=== PATIENT | female | born 1945 | race Caucasian/White ===

== ENCOUNTER 2018-02-18 14:28 | Emergency (ER) | payer OTHER, SELFPAY ==
[2018-02-18 14:38] VITALS: PULSE 145; RESP 17; TEMP 36.7; O2SAT 100; BMI 28.3
--- NOTE | 2018-02-18 14:38 | DI.RAD.S_ITS ---
PROCEDURE: XR CHEST 1V INDICATIONS: chest pain TECHNIQUE: One view of the chest was acquired. COMPARISON: None. FINDINGS: Surgical changes and devices: None. Lungs and pleura: No pleural effusions or pneumothorax. Lungs are abnormal with a mild interstitial prominence versus mild pulmonary edema. Mediastinum: Mediastinal contours appear normal. Heart size is at the upper limits of normal. Bones and chest wall: No suspicious bony lesions. Overlying soft tissues appear unremarkable. IMPRESSION: Heart size is at the upper limits of normal in size and there is a generalized alveolar prominence that may reflect very mild pulmonary edema but chronic interstitial prominence also could produce this appearance. Dictated by: Devon Palma M.D. on 02/18/2018 at 15:06 Approved by: Devon Palma M.D. on 02/18/2018 at 15:06
--- NOTE | 2018-02-18 14:46 | PC.NURSE ---
hx of bronchitis. Went to walk in for recheck of this and was found to have atrial fibrillation, new onset.
[2018-02-18 14:49] VITALS: BP 208/165; PULSE 117
[2018-02-18 15:05] VITALS: BP 147/93; PULSE 105; RESP 15; O2SAT 95
[2018-02-18 15:30] VITALS: BP 130/112; PULSE 131; RESP 20; O2SAT 99
[2018-02-18 15:38] LABS: Add Manual Diff / Slide Review NO; Basophils Percent Auto 2.6 % (0-2); Eosinophils Percent Auto 3.8 % (2-4); Hemoglobin 14.8 g/dL (12.0-16.0); Lymphocytes Percent Auto 15.9 % (25-40); Mean Corpuscular HGB Conc 32.8 % (30-36); Mean Corpuscular Hemoglobin 29.9 PG (26-34); Mean Corpuscular Volume 90.9 fL (80-100); Monocytes Percent Auto 10.9 % (3-14); Neutrophils Absolute Auto 5200 /uL (3000-5900); Neutrophils Percent Auto 66.8 % (50-75); Platelet Count 287 X10^3/uL (150-400); Red Blood Cell Count 4.95 X10^6/uL (4.0-5.2); Red Cell Distribution Width 14.5 % (11.6-14.8); White Blood Cell Count 7.8 X10^3/uL (4.5-11.0)
--- NOTE | 2018-02-18 15:43 | ED_ITS ---
HPI - Arrhythmia/Palpitations General Chief Complaint: Arrhythmia/Palpitations Stated Complaint: sob irregular heart rate Time Seen by Provider: 02/18/18 15:19 Source: patient and other (Walk-in clinic) Mode of arrival: ambulatory Limitations: no limitations History of Present Illness HPI narrative: This is a 72-year-old female comes to the emergency department with complaint of shortness of breath. Patient states that she had a cold or bronchitis 1-2 weeks ago. She was given an inhaler as well as some antibiotics which she took for a week. She states she had pretty severe cough which had productive sputum that was initially clear then brown and has returned to clear again after the antibiotics. No fevers recently. She is denying any chest pain. She denies any nausea or vomiting no new GI or urinary symptoms otherwise. Patient is denying any new urinary symptoms. She has not noticed any swelling in her lower extremities. She feels sometimes a little bit lightheaded but no presyncope or feeling like she needs to pass out. Patient has never been told she has atrial fibrillation. She denies any prior cardiac issues. She is not on any blood thinners currently. Related Data Home Medications Medication Instructions Recorded Confirmed [IBUPROFEN] PO PRN #0 11/10/12 02/18/18 Previous Rx's Medication Instructions Recorded amlodipine [Norvasc] 5 mg PO QDAY #90 tab 01/13/16 triamcinolone acetonide 1 genaro TOPICAL QDAY #454 gm 02/09/17 triamterene-hydrochlorothiazid 1 tab PO QDAY #30 tab 02/09/17 inhalational spacing device #1 each 02/08/18 ipratropium-albuterol 0.5 mg-3 3 ml INHALATION Q6-8H PRN #180 ml 02/08/18 mg(2.5 mg base)/3 mL nebulization soln diltiazem HCl [Cardizem CD] 120 mg PO DAILY #30 cap 02/18/18 Allergies Allergy/AdvReac Type Severity Reaction Status Date / Time atorvastatin [ATORVASTATIN] AdvReac Intermediate Nausea and Verified 02/18/18 13 :40 vomiting Review of Systems Review of Systems All systems reviewed & are unremarkable except as noted in HPI and below Constitutional Denies fatigue, Denies fever(s) and Denies weakness Cardiovascular Denies chest pain, Denies diaphoresis, Denies syncope, Denies rapid heart rate, Denies edema, Denies irregular heart rhythm, Denies lightheadedness, Denies radiating jaw, neck or arm pain, Denies palpitations, Reports dyspnea, Denies dyspnea on exertion and Denies orthopnea Respiratory Reports chest congestion, Reports cough, Reports excessive phlegm production ( Improving), Denies pain on inspiration, Reports dyspnea, Denies dyspnea on exertion and Denies wheezing Gastrointestinal Gastrointestinal: Denies abdominal pain, Denies change in bowel habits, Denies diarrhea, Denies nausea and Denies vomiting Genitourinary Denies hematuria, Denies flank pain, Denies urinary incontinence and Denies urinary urgency Neurologic Denies syncope and Denies weakness Endocrine Denies fatigue and Denies palpitations Allergic/Immunologic Denies wheezing PFSH Family History Brother Essential hypertension Hyperlipidemia Mother Heart disease Sister Essential hypertension Hyperlipidemia Social History Smoking Status: Former smoker Exam Narrative Exam Narrative: GENERAL: Alert and oriented x three, well-nourished, well- appearing female in no acute distress. HEENT: Head normocephalic, atraumatic, EOMI, pupils reactive, face symmetric, moist mucous membranes NECK: Supple, full range of motion CARDIOVASCULAR: Irregularly irregular rate and rhythm without murmurs, rubs or gallops. No JVD. No edema bilateral lower extremities. RESPIRATORY: Breath sounds equal bilaterally, no wheezes rales or rhonchi. ABDOMEN: Soft, nontender. Normoactive bowel sounds all 4 quadrants. No guarding or rebound, rigidity, no mass : No CVA tenderness EXTREMITIES: Normal range of motion, no clubbing or edema. Neurovascularly intact NEUROLOGICAL: Cranial nerves II through XII grossly intact. Moving all extremities SKIN: Warm, dry, no petechiae, no rashes or lesions. Initial Vital Signs Initial Vital Signs: Vital Signs Temperature 98.1 F 02/18/18 14:38 Pulse Rate 145 H 02/18/18 14:38 Respiratory Rate 17 02/18/18 14:38 Pulse Oximetry 100 02/18/18 14:38 Scores CHADS-VASc Congestive heart failure: no Hypertension: yes Age 75 years or older: no Diabetes mellitus: no Stroke, TIA, or TE: no Vascular disease: no Age 65 to 74 years: yes Sex category (female): Female CHADS-VASc Score: 3 Course Orders Ordered: ED Orders 02/18/18 14:38 XR chest 1V Stat EKG-12 Lead Stat 02/18/18 14:40 Complete Blood Count AUTO DIFF Stat Comprehensive Metabolic Panel Stat Lipase Stat Partial Thromboplastin Time Stat Prothrombin Time INR Stat Troponin & CK Cardiac Panel Stat Discontinued Medications Aspirin (Aspirin) 325 mg PO NOW ONE Stop: 02/18/18 17:14 Last Admin: 02/18/18 17:29 Dose: 325 mg Diltiazem HCl (Cardizem) 10 mg IV NOW ONE Stop: 02/18/18 16:11 Last Admin: 02/18/18 16:18 Dose: 10 mg Diltiazem HCl (Cardizem Cd) 120 mg PO NOW ONE Stop: 02/18/18 17:14 Last Admin: 02/18/18 17:29 Dose: 120 mg Sodium Chloride (Normal Saline 0.9%) 1,000 mls @ 1,000 mls/hr IV BOLUS ONE Stop: 02/18/18 17:09 Last Infusion: 02/18/18 17:33 Dose: 0 mls/hr Admin: 02/18/18 16:17 Dose: 1,000 mls/hr Vital Signs - 8 hr 02/18/18 14:38 02/18/18 14:49 02/18/18 15:05 Temperature 98.1 F Pulse Rate 145 H 117 H 105 H Respiratory Rate 17 15 Blood Pressure [Left Arm] 208/165 H 147/93 H Pulse Oximetry 100 95 02/18/18 15:30 02/18/18 17:15 Temperature Pulse Rate 131 H 79 Respiratory Rate 20 22 Blood Pressure [Left Arm] 130/112 H 133/84 Pulse Oximetry 99 97 MDM - Arrhythmia/Palpitations Lab Data Attestation: I reviewed the patient's lab results. Result diagrams: 02/18/18 14:40 02/18/18 14:40 Lab Results 02/18/18 02/18/18 02/18/18 Range/Units 14:40 14:40 14:40 WBC 7.8 (4.5-11.0) X10^3/uL RBC 4.95 (4.0-5.2) X10^6/uL Hgb 14.8 (12.0-16.0) g/dL Hct 45.0 (36-46) % MCV 90.9 (80-100) fL MCH 29.9 (26-34) PG MCHC 32.8 (30-36) % RDW 14.5 (11.6-14.8) % Plt Count 287 (150-400) X10^3/uL Neut % (Auto) 66.8 (50-75) % Lymph % (Auto) 15.9 L (25-40) % [place] % (Auto) 10.9 (3-14) % Eos % (Auto) 3.8 (2-4) % Baso % (Auto) 2.6 H (0-2) % Neut # (Auto) 5200 (4381-4935) /uL PT 11.9 (10.1-12.7) SECONDS INR 1.1 (0.9-1.3) APTT 27 (26.4-36.2) SECONDS Sodium 145 (137-145) mmol/L Potassium 3.9 (3.4-5.1) mmol/L Chloride 103 (98-107) mmol/L Carbon Dioxide 28 (22-32) mmol/L BUN 19 H (7-17) mg/dL Creatinine 1.00 (0.52-1.04) mg/dL Estimated GFR 54.7 L (>60) mL/min BUN/Creatinine Ratio 19.0 (6-22) Glucose 90 (80-110) mg/dL Calcium 9.3 (8.4-10.2) mg/dL Total Bilirubin 0.5 (0.2-1.3) mg/dL AST 22 (14-36) IU/L ALT 25 (9-52) IU/L Alkaline Phosphatase 75 (38-126) U/L Total Creatine Kinase 44 (30-135) U/L CK-MB (CK-2) TNP CK-MB (CK-2) Rel Index TNP Troponin I 0.030 (0.01-0.034) ng/mL Total Protein 7.6 (6.3-8.2) g/dL Albumin 4.4 (3.5-5.0) g/dL Globulin 3.2 (1.7-4.1) g/dL Albumin/Globulin Ratio 1.4 (1.0-2.8) Lipase 130 (23-300) U/L Urine Dip Bedside Urine Glucose Negative Bedside Urine Bilirubin - Negative Bedside Urine Ketone - Negative Urine Specific [place] 1.015 Bedside Urine Occult Blood - Negative Bedside Urine pH 6.0 Bedside Urine Protein - Negative Bedside Urine Urobilinogen - Negative Bedside Urine Nitrite - Negative Bedside Urine Leukocytes - Negative Esterase Imaging Data Chest x-ray: Attestation: I personally reviewed and interpreted this imaging study as follows: Radiologist's impression: [address] [address] XRay Report Signed Patient: Lisa Gurrola LMR#: [id number] : 7Acct:[id number] Age/Sex: 72 / FDate of Service: 02/18/18 Loc: ED Accession Number: [id number] Procedure: XR chest 1V Ordering Provider: Natalie Chaney D.O. PROCEDURE: XR CHEST 1V INDICATIONS: chest pain TECHNIQUE: One view of the chest was acquired. COMPARISON: None. FINDINGS: Surgical changes and devices: None. Lungs and pleura: No pleural effusions or pneumothorax. Lungs are abnormal with a mild interstitial prominence versus mild pulmonary edema. Mediastinum: Mediastinal contours appear normal. Heart size is at the upper limits of normal. Bones and chest wall: No suspicious bony lesions. Overlying soft tissues appear unremarkable. IMPRESSION: Heart size is at the upper limits of normal in size and there is a generalized alveolar prominence that may reflect very mild pulmonary edema but chronic interstitial prominence also could produce this appearance. Dictated by: Devon Palma M.D. on 02/18/2018 at 15:06 Approved by: Devon Palma M.D. on 02/18/2018 at 15:06 ECG Data Attestation: I personally reviewed and interpreted this ECG as follows: Interpretation: AFib rapid ventricular response rate of 120 [place] 96 and QTC of 386. Nonspecific T-wave changes. MDM Narrative Medical decision making narrative: Discussed with patient she was not aware that she had atrial fibrillation so she is not a candidate for cardioversion as it is unclear how long she has been in this rhythm. Her lab work does not show any major changes. Chest x-ray does not show any infection or other structural changes. EKG does show AFib with RVR. After discussion patient was given Cardizem which improved her right but did not resolve her rhythm. She would like to return home. She is fairly asymptomatic. We discussed starting her on oral medication for rate control. She and I also discussed at length anticoagulation options and risks versus benefits regarding stroke versus other bleeding. Patient does not wish to take Coumadin or a novel anticoagulant but is willing to take an aspirin 324 mg. She is aware that this is not fully anticoagulated status and that it does not improve her risk or decrease her risk of stroke to the level of the other medications. Plan for her to follow up on Tuesday with her primary care physician and they can also discuss anticoagulation as well as recheck her heart rate Um and make sure that she is not having any other issues. I discussed signs and symptoms to watch out for. The Cardizem can drop her blood pressure and that she should return any time she needs to the emergency department. Discharge Plan Departure Patient Disposition: Home Clinical Impression: Atrial fibrillation Discharge Date/Time: 02/18/18 17:42 Interventions: ED Discharge Assessment Last Done: 02/18/18 17:42 Instructions: DI for Atrial Fibrillation Activity Restrictions/Additional Instructions: Call Tuesday morning to follow up with your primary care physician. Discussed with your physician about blood thinners and risks of stroke versus is bleeding. Take Cardizem once daily until you follow up with your primary care physician. This medication can decrease your blood pressure. If you feel lightheaded or dizzy check your blood pressure. Do not take amlodipine with this medication. Taken aspirin 324 mg once daily. Discussed with your physician about Coumadin versus Pradaxa versus Eliquis and if these would potentially be an option for you if you elect to in the future. Return to the emergency department for recurrent or worsening symptoms, passing out, shortness of breath, new chest pain or pressure, fast or very slow heartbeat, new weakness or numbness or other new or concerning symptoms. Prescriptions: New diltiazem HCl [Cardizem CD] 120 mg capsule,extended release 24hr 120 mg PO DAILY Qty: 30 RF: 0 No Action inhalational spacing device [Microchamber] spacer .ROUTE .MEDSUPPLY Qty: 1 RF: 0 [IBUPROFEN] PO PRN Qty: 0 RF: 0 amlodipine [Norvasc] 5 MG tablet 5 mg PO QDAY Qty: 90 RF: 1 triamcinolone acetonide 0.1 % ointment 1 genaro Topical QDAY Qty: 454 RF: 0 triamterene-hydrochlorothiazid 37.5 MG/25 MG tablet 1 tab PO QDAY Qty: 30 RF: 3 ipratropium-albuterol 0.5 mg-3 mg(2.5 mg base)/3 mL solution for nebulization 3 ml INHALATION Q6-8H PRN (Reason: shortness of breath) Qty: 180 RF: 1 Referrals: Meli Sebastian PA-C [Primary Care Provider] -
[2018-02-18 15:53] LABS: INR 1.1 (0.9-1.3); Prothrombin Time 11.9 SECONDS (10.1-12.7)
[2018-02-18 15:55] LABS: PTT Partial Thromboplastin Tim 27 SECONDS (26.4-36.2)
[2018-02-18 15:56] LABS: Alanine Aminotransferase 25 IU/L (9-52); Albumin 4.4 g/dL (3.5-5.0); Albumin Globulin Ratio 1.4 (1.0-2.8); Alkaline Phosphatase 75 U/L (38-126); Aspartate Aminotransferase 22 IU/L (14-36); Bilirubin Total 0.5 mg/dL (0.2-1.3); Blood Urea Nitrogen 19 mg/dL (7-17); Calcium 9.3 mg/dL (8.4-10.2); Carbon Dioxide 28 mmol/L (22-32); Chloride 103 mmol/L (98-107); Creatine Kinase 44 U/L (30-135); Estimated Glomerular Filt Rate 54.7 mL/min (>60); Globulin 3.2 g/dL (1.7-4.1); Glucose 90 mg/dL (80-110); HEMOLYSIS < 15 (0-50); Lipase 130 U/L (23-300); Potassium 3.9 mmol/L (3.4-5.1); Sodium 145 mmol/L (137-145); Total Protein 7.6 g/dL (6.3-8.2)
[2018-02-18] MEDS: SODIUM CHLORIDE 0.9% 1,000 ML 1000 ML IV (16:17)
[2018-02-18] MEDS: dilTIAZem 5 MG/ML SDV 10 MG IV (16:18)
[2018-02-18 17:15] VITALS: BP 133/84; PULSE 79; RESP 22; O2SAT 97
[2018-02-18] MEDS: dilTIAZem CD 120 MG CAP PO (17:29)
[2018-02-18] MEDS: ASPIRIN 325 MG TABLET PO (17:29)
== END 2018-02-18 17:42 | disposition home or self-care (01) ==
PROVIDERS: Emergency Provider Emergency Medicine; PCP Physician Assistant
DX: I48.91 Unspecified atrial fibrillation (principal)
CPT/HCPCS: 36415; 36591; 71045; 80053; 81003; 82550; 83690; 84484; 85025; 85610; 85730; 93005; 93010; 96361; 96374; 99283; 99285

== ENCOUNTER 2018-07-05 13:28 | Inpatient (IN) | payer OTHER, SELFPAY ==
[2018-07-05] VITALS (23 sets, daily range): BP systolic 93–146; BP diastolic 61–106; PULSE 70–148; RESP 15–25; TEMP 36.9–38.3; O2SAT 89–99; BMI 26.6; BMI 29.9
--- NOTE | 2018-07-05 14:53 | ED.URI ---
HPI - URI/Sore Throat General Chief Complaint: Upper Respiratory Symptoms Stated Complaint: ACHE,DIFFICULTY BREATHING,COLD Time Seen by Provider: 07/05/18 14:50 Source: patient, family (Daughter) and old records reviewed Mode of arrival: ambulatory Limitations: no limitations History of Present Illness HPI Narrative: This a 72-year-old female who comes in with complaint of shortness of breath. Patient states this been going on for about 3 weeks she thought it was getting better but it is not. Her daughter made her come in today. Patient was reluctant to come into the ER. Patient and her family states she might have be reinfected as several family members have had bronchitis as well as a 13-year-old family member living in the house. She denied any fevers but felt chilled at home today and spent quite a while under the covers trying to get warm. She states maybe she had a little bit of chest pain or pressure but feels more like his shortness of breath. She has felt sort of weak but states she also has been eating anything for the last couple days. She has felt wobbly but no weakness that is lateralizing. She denies any syncope or lightheadedness. She has had a cough that is been clear for the last 3 or 4 days sort of brownish discoloration before. She has not been on any antibiotics or teen any physicians. She was supposed to go to her postie today but they were referred her to the ER. She has had a tiny amount of swelling in both lower extremities. She denies any palpitations or sensation that she is in AFib which she is on the monitor in the room. Patient is taking term work as a blood thinner, she is still discussing with her physician about any other blood thinners for her AFib. She is not taking any medications for rate control or other blood pressure medications at this time and ran out a couple weeks ago. She is taking Tumeric daily. Related Data Home Medications Medication Instructions Recorded Confirmed ibuprofen 1 dose PO DAILY #0 11/10/12 07/05/18 aspirin 81 mg PO DAILY 07/05/18 07/05/18 diltiazem HCl [Cartia XT] 180 mg PO DAILY 07/05/18 07/05/18 Previous Rx's Medication Instructions Recorded ipratropium-albuterol 0.5 mg-3 3 ml INHALATION Q6-8H PRN #180 ml 02/08/18 mg(2.5 mg base)/3 mL nebulization soln lisinopril 10 mg tablet 10 mg PO DAILY #90 tab 03/24/18 Allergies Allergy/AdvReac Type Severity Reaction Status Date / Time atorvastatin [ATORVASTATIN] AdvReac Intermediate Nausea and Verified 07/05/18 13:37 vomiting Review of Systems Review of Systems ROS Unobtainable: All systems reviewed & are unremarkable except as noted in HPI and below Constitutional Reports chills, Denies fever(s), Denies lethargy and Denies weakness ENT Ears, Nose, Mouth, and Throat: Reports nasal congestion Cardiovascular Denies chest pain, Denies diaphoresis, Denies syncope, Reports pedal edema (tiny amount), Denies irregular heart rhythm, Denies lightheadedness, Denies radiating jaw, neck or arm pain, Denies palpitations, Denies dyspnea, Reports dyspnea on exertion and Denies orthopnea Respiratory Reports change in phlegm color (now clear), Denies chest congestion, Reports cough, Denies pain on inspiration, Denies pain with cough, Denies dyspnea, Reports dyspnea on exertion and Denies wheezing Gastrointestinal Gastrointestinal: Denies abdominal pain, Denies change in bowel habits, Denies diarrhea, Denies nausea and Denies vomiting Genitourinary Denies hematuria, Denies urinary frequency, Denies dysuria, Denies flank pain, Denies urinary incontinence and Denies urinary urgency Neurologic Denies syncope and Denies weakness Endocrine Denies palpitations Allergic/Immunologic Denies wheezing [facility] Medical History AAA (abdominal aortic aneurysm) (Chronic ~2005) Arthritis of left hip (Chronic) Atrial fibrillation with RVR (Chronic 02/18/18) Fibromyalgia (Chronic) Hyperlipidemia (Chronic) Hypertension (Chronic) Osteopenia (Chronic 03/19/09) History of ectopic (Resolved 1975) Surgical History History of cone biopsy of cervix (Resolved 1991) History of gynecologic surgery (Resolved 1975) History of tubal ligation (Resolved 1977) Family History Brother Essential hypertension Hyperlipidemia Arthritis Heart disease Mother Heart disease Sister Essential hypertension Hyperlipidemia Breast cancer Diabetes mellitus Father Cancer Grandfather Cancer Grandmother Cancer Grandmother No problems noted. Social History Smoking Status: Former smoker Tobacco: How many years used: 30 second hand exposure: No alcohol intake: never substance use type: does not use Family History Brother Essential hypertension Hyperlipidemia Arthritis Heart disease Mother Heart disease Sister Essential hypertension Hyperlipidemia Breast cancer Diabetes mellitus Father Cancer Grandfather Cancer Grandmother Cancer Grandmother No problems noted. Social History Smoking Status: Former smoker Tobacco: How many years used: 30 second hand exposure: No alcohol intake: never substance use type: does not use Exam Narrative Exam Narrative: GEN: well nourished, well appearing female, alert and oriented x 3, patient appears to be in mild distress. HEENT: Atraumatic, pupils are equal round reactive to light, extraocular movements are intact, nares are clear, TMs are clear with no fluid, there is no conjunctival pallor. Throat is clear without any exudates, erythema, tonsillar enlargement or uvular deviation HEART: Irregularly irregular rhythm tachycardic without murmur, clicks, rubs. Pulses are equal in upper and lower extremities LUNGS:Lungs, coarse bilaterally, very mild wheeze anteriorly, not appreciated posteriorly, no rales, crackles, chest moves symmetrically. No tachypnea, no accessory muscle use. Patient speaks in full sentences. ABD:bowel sounds normal, soft, non-tender, no guarding, rebound, rigidity, no masses noted, no hepatosplenomegaly MSCL: Non-tender, no muscle atrophy, muscles strength 5/5 upper and lower extremities, full range of motion NEURO:CN 2-12 intact, sensation normal Initial Vital Signs Initial Vital Signs: Vital Signs Temperature 98.5 F 07/05/18 13:32 Pulse Rate 70 07/05/18 13:32 Respiratory Rate 18 07/05/18 13:32 Blood Pressure 146/69 H 07/05/18 13:32 Pulse Oximetry 95 07/05/18 13:32 Course Orders Ordered: ED Orders 07/05/18 14:53 Consult to Respiratory Therapy Evaluate & Treat XR chest 2V Stat 07/05/18 14:59 EKG-12 Lead Stat 07/05/18 15:05 B Type Natriuretic Peptide Stat Complete Blood Count AUTO DIFF Stat Comprehensive Metabolic Panel Stat FLU A and B [Influenza A and B by PCR Rapid] Stat Lactate (Lactic Acid) Stat PT [Prothrombin Time INR] Stat PTT [Partial Thromboplastin Time] Stat Troponin & CK Cardiac Panel Stat 07/05/18 18:45 Troponin & CK Cardiac Panel DAILY 07/06/18 05:00 Basic Metabolic Panel Routine Complete Blood Count AUTO DIFF Routine Thyroid Stimulating Hormone Routine Acetaminophen (Tylenol) 650 mg PO Q6HR PRN PRN Reason: As Needed for Fever/Mild Pain Albuterol/Ipratropium (Duoneb) 3 ml INH RTQ4HR PRN PRN Reason: Shortness Of Breath Aspirin (Aspirin Ec) 81 mg PO DAILY [facility] Diltiazem HCl 125 mg/ Dextrose 125 mls @ 5 mls/hr IV TITRATE [facility]; Protocol Last Titration: 07/05/18 18:23 Dose: 5 mg/hr, 5 mls/hr Admin: 07/05/18 16:56 Dose: 5 mg/hr, 5 mls/hr Heparin Sodium/Dextrose (Heparin Drip) 25,000 unit in 500 mls @ 17.418 mls/hr IV CONT [facility]; Protocol Last Infusion: 07/05/18 18:23 Dose: 13.78 units/kg/hr, 20 mls/hr Infusion: 07/05/18 18:23 Dose: 20 units/kg/hr, 29.03 mls/hr Admin: 07/05/18 17:48 Dose: 20 units/kg/hr, 29.03 mls/hr Morphine Sulfate (Morphine) 2 mg IV Q4HR PRN PRN Reason: Pain, Moderate (4-6) Oseltamivir Phosphate (Tamiflu) 75 mg PO BID [facility] Prednisone (Deltasone) 40 mg PO DAILY [facility] Discontinued Medications Albuterol/Ipratropium (Duoneb) 3 ml INH NOW ONE Stop: 07/05/18 15:12 Last Admin: 07/05/18 15:13 Dose: 3 ml Aspirin (Aspirin Chew) 324 mg PO NOW ONE Stop: 07/05/18 15:24 Last Admin: 07/05/18 15:29 Dose: 324 mg Diltiazem HCl (Cardizem) 10 mg IV NOW ONE Stop: 07/05/18 15:23 Last Admin: 07/05/18 15:28 Dose: 10 mg Heparin Sodium (Porcine) (Heparin) 5,000 unit IV NOW ONE Stop: 07/05/18 18:11 Last Admin: 07/05/18 18:11 Dose: 5,000 unit Vital Signs - 8 hr 07/05/18 13:32 07/05/18 15:00 07/05/18 15:07 Temperature 98.5 F Pulse Rate 70 144 H 142 H Respiratory Rate 18 23 22 Blood Pressure 146/69 H Blood Pressure [Left Arm] 120/92 H 105/71 Pulse Oximetry 95 98 07/05/18 15:13 07/05/18 15:28 07/05/18 15:30 Temperature Pulse Rate 124 H 148 H 134 H Respiratory Rate 24 22 Blood Pressure 120/92 H Blood Pressure [Left Arm] 125/106 H Pulse Oximetry 96 99 07/05/18 15:57 07/05/18 16:00 07/05/18 16:21 Temperature Pulse Rate 111 H 113 H Respiratory Rate 18 22 Blood Pressure Blood Pressure [Left Arm] 130/84 130/93 H Pulse Oximetry 93 94 89 L 07/05/18 16:22 07/05/18 16:34 07/05/18 16:44 Temperature Pulse Rate 108 H 122 H Respiratory Rate 17 24 Blood Pressure Blood Pressure [Left Arm] 116/68 116/68 Pulse Oximetry 92 97 94 07/05/18 16:56 07/05/18 17:00 07/05/18 17:15 Temperature Pulse Rate 114 H 121 H 115 H Respiratory Rate 21 20 19 Blood Pressure Blood Pressure [Left Arm] 108/75 93/73 119/77 Pulse Oximetry 97 98 99 07/05/18 17:36 07/05/18 17:45 07/05/18 18:00 Temperature Pulse Rate 114 H 108 H 110 H Respiratory Rate 18 25 H 18 Blood Pressure Blood Pressure [Left Arm] 129/84 126/106 H 129/86 Pulse Oximetry 98 97 97 07/05/18 18:15 Temperature Pulse Rate 110 H Respiratory Rate 22 Blood Pressure Blood Pressure [Left Arm] 118/61 Pulse Oximetry 97 MDM - URI/Sore Throat Lab Data Attestation: I reviewed the patient's lab results. Result diagrams: 07/05/18 15:05 07/05/18 15:05 Lab Results 07/05/18 07/05/18 07/05/18 Range/Units 15:05 15:05 15:05 WBC 6.4 (4.5-11.0) X10^3/uL RBC 5.21 H (4.0-5.2) X10^6/uL Hgb 15.5 (12.0-16.0) g/dL Hct 46.7 H (36-46) % MCV 89.6 (80-100) fL MCH 29.7 (26-34) PG MCHC 33.2 (30-36) % RDW 13.9 (11.6-14.8) % Plt Count 231 (150-400) X10^3/uL Neut % (Auto) 79.4 H (50-75) % Lymph % (Auto) 7.2 L (25-40) % Ferry % (Auto) 12.4 (3-14) % Eos % (Auto) 0.2 L (2-4) % Baso % (Auto) 0.8 (0-2) % Neut # (Auto) 5100 (9639-4531) /uL Lymph # (Auto) 500 L (2228-2504) /uL Ferry # (Auto) 800 (0-900) /uL Eos # (Auto) 0 (0-450) /uL Baso # (Auto) 100 (0-100) /uL PT (10.1-12.7) SECONDS INR (0.9-1.3) APTT (26.4-36.2) SECONDS Sodium 138 (137-145) mmol/L Potassium 3.7 (3.4-5.1) mmol/L Chloride 97 L (98-107) mmol/L Carbon Dioxide 29 (22-32) mmol/L BUN 20 H (7-17) mg/dL Creatinine 1.20 H (0.52-1.04) mg/dL Estimated GFR 44.3 L (>60) mL/min BUN/Creatinine Ratio 16.7 (6-22) Glucose 119 H (80-110) mg/dL Lactate 1.6 (0.7-2.1) mmol/L Calcium 9.4 (8.4-10.2) mg/dL Total Bilirubin 0.6 (0.2-1.3) mg/dL AST 29 (14-36) IU/L ALT 23 (9-52) IU/L Alkaline Phosphatase 73 (38-126) U/L Total Creatine Kinase (30-135) U/L CK-MB (CK-2) (<2.37) ng/mL CK-MB (CK-2) Rel Index (1.5-5.0) % Troponin I (0.01-0.034) ng/mL B-Natriuretic Peptide (<100) Total Protein 7.9 (6.3-8.2) g/dL Albumin 4.4 (3.5-5.0) g/dL Globulin 3.5 (1.7-4.1) g/dL Albumin/Globulin Ratio 1.3 (1.0-2.8) Influenza A & B (PCR) (Negative) 07/05/18 07/05/18 07/05/18 Range/Units 15:05 15:05 15:05 WBC (4.5-11.0) X10^3/uL RBC (4.0-5.2) X10^6/uL Hgb (12.0-16.0) g/dL Hct (36-46) % MCV (80-100) fL MCH (26-34) PG MCHC (30-36) % RDW (11.6-14.8) % Plt Count (150-400) X10^3/uL Neut % (Auto) (50-75) % Lymph % (Auto) (25-40) % Ferry % (Auto) (3-14) % Eos % (Auto) (2-4) % Baso % (Auto) (0-2) % Neut # (Auto) (2932-9739) /uL Lymph # (Auto) (0988-2454) /uL Ferry # (Auto) (0-900) /uL Eos # (Auto) (0-450) /uL Baso # (Auto) (0-100) /uL PT (10.1-12.7) SECONDS INR (0.9-1.3) APTT (26.4-36.2) SECONDS Sodium (137-145) mmol/L Potassium (3.4-5.1) mmol/L Chloride (98-107) mmol/L Carbon Dioxide (22-32) mmol/L BUN (7-17) mg/dL Creatinine (0.52-1.04) mg/dL Estimated GFR (>60) mL/min BUN/Creatinine Ratio (6-22) Glucose (80-110) mg/dL Lactate (0.7-2.1) mmol/L Calcium (8.4-10.2) mg/dL Total Bilirubin (0.2-1.3) mg/dL AST (14-36) IU/L ALT (9-52) IU/L Alkaline Phosphatase (38-126) U/L Total Creatine Kinase 103 (30-135) U/L CK-MB (CK-2) 2.97 H (<2.37) ng/mL CK-MB (CK-2) Rel Index 2.9 (1.5-5.0) % Troponin I 0.449 H* (0.01-0.034) ng/mL B-Natriuretic Peptide 435 H (<100) Total Protein (6.3-8.2) g/dL Albumin (3.5-5.0) g/dL Globulin (1.7-4.1) g/dL Albumin/Globulin Ratio (1.0-2.8) Influenza A & B (PCR) Positive, type a A (Negative) 07/05/18 Range/Units 15:05 WBC (4.5-11.0) X10^3/uL RBC (4.0-5.2) X10^6/uL Hgb (12.0-16.0) g/dL Hct (36-46) % MCV (80-100) fL MCH (26-34) PG MCHC (30-36) % RDW (11.6-14.8) % Plt Count (150-400) X10^3/uL Neut % (Auto) (50-75) % Lymph % (Auto) (25-40) % Ferry % (Auto) (3-14) % Eos % (Auto) (2-4) % Baso % (Auto) (0-2) % Neut # (Auto) (0774-3418) /uL Lymph # (Auto) (7005-5903) /uL Ferry # (Auto) (0-900) /uL Eos # (Auto) (0-450) /uL Baso # (Auto) (0-100) /uL PT 13.4 H (10.1-12.7) SECONDS INR 1.2 (0.9-1.3) APTT 32 D (26.4-36.2) SECONDS Sodium (137-145) mmol/L Potassium (3.4-5.1) mmol/L Chloride (98-107) mmol/L Carbon Dioxide (22-32) mmol/L BUN (7-17) mg/dL Creatinine (0.52-1.04) mg/dL Estimated GFR (>60) mL/min BUN/Creatinine Ratio (6-22) Glucose (80-110) mg/dL Lactate (0.7-2.1) mmol/L Calcium (8.4-10.2) mg/dL Total Bilirubin (0.2-1.3) mg/dL AST (14-36) IU/L ALT (9-52) IU/L Alkaline Phosphatase (38-126) U/L Total Creatine Kinase (30-135) U/L CK-MB (CK-2) (<2.37) ng/mL CK-MB (CK-2) Rel Index (1.5-5.0) % Troponin I (0.01-0.034) ng/mL B-Natriuretic Peptide (<100) Total Protein (6.3-8.2) g/dL Albumin (3.5-5.0) g/dL Globulin (1.7-4.1) g/dL Albumin/Globulin Ratio (1.0-2.8) Influenza A & B (PCR) (Negative) Imaging Data Chest x-ray: Radiologist's impression: Lisa Gurrola 72 F 1945 [place] [address] XRay Report Signed Patient: Lisa Gurrola LMR#: [id number] : [id number]:[id number] Age/Sex: 72 / FDate of Service: 07/05/18 Loc: ED Accession Number: [id number] Procedure: XR chest 2V Ordering Provider: Natalie Chaney D.O. PROCEDURE: XR CHEST 2V INDICATIONS: shortness of breath TECHNIQUE: 2 views of the chest were acquired. COMPARISON: [facility], , XR CHEST 1V, 02/18/2018, 14:44. FINDINGS: Surgical changes and devices: None. Lungs and pleura: Increased vascular markings and bilateral hilar region are seen with mild bronchial wall thickening suggestive of mild reactive airway disease. No focal infiltrate. No pleural effusions or pneumothorax. Mediastinum: Mediastinal contours are normal. Heart size is enlarged. Bones and chest wall: No suspicious bony abnormalities. Soft tissues appear unremarkable. IMPRESSION: Suggestion of mild reactive airway disease. No definite focal infiltrate. Dictated by: Nolan Thomson M.D. on 07/05/2018 at 16:11 Approved by: Nolan Thomson M.D. on 07/05/2018 at 16:12 ECG Data Attestation: I personally reviewed and interpreted this ECG as follows: Prior ECG tracings: available for review Interpretation: AFib with rapid ventricular response with a rate of 135 QRS of 93 and QTC of 389. Patient has ST depression in lateral leads. No elevations appreciated. Nonspecific T-wave changes. The patient has a prior EKG from January of 2018 it appears similar except for ST changes in V4 V5 V6. MDM Narrative Medical decision making narrative: Patient is influenza positive suspect this is new as she is unlikely to be positive after 3 weeks of symptoms. patient's chest x-ray is negative for pneumonia or pulmonary edema or other acute changes. CV she shows normal white count no anemia. CMP shows a slightly decreased chloride as well as elevation in BUN and creatinine. Patient states she has been eating or drinking much for the last several days. she also has an elevation of her CK-MB as well as her troponin at 0.449. On her last visit in January she was 0.030. Her BMP is elevated today at 4:35 a.m. although no priors for comparison. Patient is in AFib with rapid ventricular response. Heart rate did improve with a single dose of Cardizem 10 mg that is slowly increasing again. Patient did receive a breathing treatment which she states did make her feel much better and that she could breathe a lot easier. Her resisted resolved but she was not particularly wheezy on examination. It is unclear if patient has NSTEMI with elevated troponin and ST depression in lateral leads is secondary to coronary artery disease or possibly demand ischemia from AFib with RVR in conjunction with her recent flu diagnosis reviewed with Dr. Tinoco and they suspect demand ischemia. At this time they do not feel she needs to be transferred as she is chest pain-free and her shortness of breath improved with breathing treatment but recommend serial troponins. If they are rising mother's other new changes they would recommend transfer. We did discuss anticoagulation and recommend heparin drip over Lovenox at this time in case patient does have increasing troponins and would need intervention. Discussed with Dr. Dominguez she accepts plan for ICU was patient is on Cardizem currently for rate control as well as heparin drip. Dr. Dominguez accepts. Discharge Plan Departure Patient Disposition: Admitted As Inpatient Clinical Impression: Atrial fibrillation with rapid ventricular response, Non-ST elevation VA (NSTEMI), Influenza A, CHF (congestive heart failure) Discharge Date/Time: 07/05/18 18:25 Interventions: ED Discharge Assessment Last Done: 07/05/18 18:21 Admit Date/Time: 07/05/18 17:22 Admit Provider: Carlie Dominguez
--- NOTE | 2018-07-05 14:56 | ED_ITS ---
HPI - URI/Sore Throat General Chief Complaint: Upper Respiratory Symptoms Stated Complaint: ACHE,DIFFICULTY BREATHING,COLD Time Seen by Provider: 07/05/18 14:50 Source: patient, family (Daughter) and old records reviewed Mode of arrival: ambulatory Limitations: no limitations History of Present Illness HPI Narrative: This a 72-year-old female who comes in with complaint of shortness of breath. Patient states this been going on for about 3 weeks she thought it was getting better but it is not. Her daughter made her come in today. Patient was reluctant to come into the ER. Patient and her family states she might have be reinfected as several family members have had bronchitis as well as a 13-year-old family member living in the house. She denied any fevers but felt chilled at home today and spent quite a while under the covers trying to get warm. She states maybe she had a little bit of chest pain or pressure but feels more like his shortness of breath. She has felt sort of weak but states she also has been eating anything for the last couple days. She has felt wobbly but no weakness that is lateralizing. She denies any syncope or lightheadedness. She has had a cough that is been clear for the last 3 or 4 days sort of brownish discoloration before. She has not been on any antibiotics or teen any physicians. She was supposed to go to her eye technician today but they were referred her to the ER. She has had a tiny amount of swelling in both lower extremities. She denies any palpitations or sensation that she is in AFib which she is on the monitor in the room. Patient is taking term work as a blood thinner, she is still discussing with her physician about any other blood thinners for her AFib. She is not taking any medications for rate control or other blood pressure medications at this time and ran out a couple weeks ago. She is taking Tumeric daily. Related Data Home Medications Medication Instructions Recorded Confirmed ibuprofen 1 dose PO DAILY #0 11/10/12 07/05/18 aspirin 81 mg PO DAILY 07/05/18 07/05/18 diltiazem HCl [Cartia XT] 180 mg PO DAILY 07/05/18 07/05/18 Previous Rx's Medication Instructions Recorded ipratropium-albuterol 0.5 mg-3 3 ml INHALATION Q6-8H PRN #180 ml 02/08/18 mg(2.5 mg base)/3 mL nebulization soln lisinopril 10 mg tablet 10 mg PO DAILY #90 tab 03/24/18 Allergies Allergy/AdvReac Type Severity Reaction Status Date / Time atorvastatin [ATORVASTATIN] AdvReac Intermediate Nausea and Verified 07/05/18 13:37 vomiting Review of Systems Review of Systems ROS Unobtainable: All systems reviewed & are unremarkable except as noted in HPI and below Constitutional Reports chills, Denies fever(s), Denies lethargy and Denies weakness ENT Ears, Nose, Mouth, and Throat: Reports nasal congestion Cardiovascular Denies chest pain, Denies diaphoresis, Denies syncope, Reports pedal edema (tiny amount), Denies irregular heart rhythm, Denies lightheadedness, Denies radiating jaw, neck or arm pain, Denies palpitations, Denies dyspnea, Reports dyspnea on exertion and Denies orthopnea Respiratory Reports change in phlegm color (now clear), Denies chest congestion, Reports cough, Denies pain on inspiration, Denies pain with cough, Denies dyspnea, Reports dyspnea on exertion and Denies wheezing Gastrointestinal Gastrointestinal: Denies abdominal pain, Denies change in bowel habits, Denies diarrhea, Denies nausea and Denies vomiting Genitourinary Denies hematuria, Denies urinary frequency, Denies dysuria, Denies flank pain, Denies urinary incontinence and Denies urinary urgency Neurologic Denies syncope and Denies weakness Endocrine Denies palpitations Allergic/Immunologic Denies wheezing [facility] Medical History AAA (abdominal aortic aneurysm) (Chronic ~2005) Arthritis of left hip (Chronic) Atrial fibrillation with RVR (Chronic 02/18/18) Fibromyalgia (Chronic) Hyperlipidemia (Chronic) Hypertension (Chronic) Osteopenia (Chronic 03/19/09) History of ectopic (Resolved 1975) Surgical History History of cone biopsy of cervix (Resolved 1991) History of gynecologic surgery (Resolved 1975) History of tubal ligation (Resolved 1977) Family History Brother Essential hypertension Hyperlipidemia Arthritis Heart disease Mother Heart disease Sister Essential hypertension Hyperlipidemia Breast cancer Diabetes mellitus Father Cancer Grandfather Cancer Grandmother Cancer Grandmother No problems noted. Social History Smoking Status: Former smoker Tobacco: How many years used: 30 second hand exposure: No alcohol intake: never substance use type: does not use Family History Brother Essential hypertension Hyperlipidemia Arthritis Heart disease Mother Heart disease Sister Essential hypertension Hyperlipidemia Breast cancer Diabetes mellitus Father Cancer Grandfather Cancer Grandmother Cancer Grandmother No problems noted. Social History Smoking Status: Former smoker Tobacco: How many years used: 30 second hand exposure: No alcohol intake: never substance use type: does not use Exam Narrative Exam Narrative: GEN: well nourished, well appearing female, alert and oriented x 3, patient appears to be in mild distress. HEENT: Atraumatic, pupils are equal round reactive to light, extraocular mo vements are intact, nares are clear, TMs are clear with no fluid, there is no conjunctival pallor. Throat is clear without any exudates, erythema, tonsillar enlargement or uvular deviation HEART: Irregularly irregular rhythm tachycardic without murmur, clicks, rubs. Pulses are equal in upper and lower extremities LUNGS:Lungs, coarse bilaterally, very mild wheeze anteriorly, not appreciated posteriorly, no rales, crackles, chest moves symmetrically. No tachypnea, no accessory muscle use. Patient speaks in full sentences. ABD:bowel sounds normal, soft, non-tender, no guarding, rebound, rigidity, no masses noted, no hepatosplenomegaly MSCL: Non-tender, no muscle atrophy, muscles strength 5/5 upper and lower extremities, full range of motion NEURO:CN 2-12 intact, sensation normal Initial Vital Signs Initial Vital Signs: Vital Signs Temperature 98.5 F 07/05/18 13:32 Pulse Rate 70 07/05/18 13:32 Respiratory Rate 18 07/05/18 13:32 Blood Pressure 146/69 H 07/05/18 13:32 Pulse Oximetry 95 07/05/18 13:32 Course Orders Ordered: ED Orders 07/05/18 14:53 Consult to Respiratory Therapy Evaluate & Treat XR chest 2V Stat 07/05/18 14:59 EKG-12 Lead Stat 07/05/18 15:05 B Type Natriuretic Peptide Stat Complete Blood Count AUTO DIFF Stat Comprehensive Metabolic Panel Stat FLU A and B [Influenza A and B by PCR Rapid] Stat Lactate (Lactic Acid) Stat PT [Prothrombin Time INR] Stat PTT [Partial Thromboplastin Time] Stat Troponin & CK Cardiac Panel Stat 07/05/18 18:45 Troponin & CK Cardiac Panel DAILY 07/06/18 05:00 Basic Metabolic Panel Routine Complete Blood Count AUTO DIFF Routine Thyroid Stimulating Hormone Routine Acetaminophen (Tylenol) 650 mg PO Q6HR PRN PRN Reason: As Needed for Fever/Mild Pain Albuterol/Ipratropium (Duoneb) 3 ml INH RTQ4HR PRN PRN Reason: Shortness Of Breath Aspirin (Aspirin Ec) 81 mg PO DAILY R[place] Diltiazem HCl 125 mg/ Dextrose 125 mls @ 5 mls/hr IV TITRATE [place]; Protocol Last Titration: 07/05/18 18:23 Dose: 5 mg/hr, 5 mls/hr Admin: 07/05/18 16:56 Dose: 5 mg/hr, 5 mls/hr Heparin Sodium/Dextrose (Heparin Drip) 25,000 unit in 500 mls @ 17.418 mls/hr IV CONT R[place]D; Protocol Last Infusion: 07/05/18 18:23 Dose: 13.78 units/kg/hr, 20 mls/hr Infusion: 07/05/18 18:23 Dose: 20 units/kg/hr, 29.03 mls/hr Admin: 07/05/18 17:48 Dose: 20 units/kg/hr, 29.03 mls/hr Morphine Sulfate (Morphine) 2 mg IV Q4HR PRN PRN Reason: Pain, Moderate (4-6) Oseltamivir Phosphate (Tamiflu) 75 mg PO BID R[place] Prednisone (Deltasone) 40 mg PO DAILY R[facility] Discontinued Medications Albuterol/Ipratropium (Duoneb) 3 ml INH NOW ONE Stop: 07/05/18 15:12 Last Admin: 07/05/18 15:13 Dose: 3 ml Aspirin (Aspirin Chew) 324 mg PO NOW ONE Stop: 07/05/18 15:24 Last Admin: 07/05/18 15:29 Dose: 324 mg Diltiazem HCl (Cardizem) 10 mg IV NOW ONE Stop: 07/05/18 15:23 Last Admin: 07/05/18 15:28 Dose: 10 mg Heparin Sodium (Porcine) (Heparin) 5,000 unit IV NOW ONE Stop: 07/05/18 18:11 Last Admin: 07/05/18 18:11 Dose: 5,000 unit Vital Signs - 8 hr 07/05/18 13:32 07/05/18 15:00 07/05/18 15:07 Temperature 98.5 F Pulse Rate 70 144 H 142 H Respiratory Rate 18 23 22 Blood Pressure 146/69 H Blood Pressure [Left Arm] 120/92 H 105/71 Pulse Oximetry 95 98 07/05/18 15:13 07/05/18 15:28 07/05/18 15:30 Temperature Pulse Rate 124 H 148 H 134 H Respiratory Rate 24 22 Blood Pressure 120/92 H Blood Pressure [Left Arm] 125/106 H Pulse Oximetry 96 99 07/05/18 15:57 07/05/18 16:00 07/05/18 16:21 Temperature Pulse Rate 111 H 113 H Respiratory Rate 18 22 Blood Pressure Blood Pressure [Left Arm] 130/84 130/93 H Pulse Oximetry 93 94 89 L 07/05/18 16:22 07/05/18 16:34 07/05/18 16:44 Temperature Pulse Rate 108 H 122 H Respiratory Rate 17 24 Blood Pressure Blood Pressure [Left Arm] 116/68 116/68 Pulse Oximetry 92 97 94 07/05/18 16:56 07/05/18 17:00 07/05/18 17:15 Temperature Pulse Rate 114 H 121 H 115 H Respiratory Rate 21 20 19 Blood Pressure Blood Pressure [Left Arm] 108/75 93/73 119/77 Pulse Oximetry 97 98 99 07/05/18 17:36 07/05/18 17:45 07/05/18 18:00 Temperature Pulse Rate 114 H 108 H 110 H Respiratory Rate 18 25 H 18 Blood Pressure Blood Pressure [Left Arm] 129/84 126/106 H 129/86 Pulse Oximetry 98 97 97 07/05/18 18:15 Temperature Pulse Rate 110 H Respiratory Rate 22 Blood Pressure Blood Pressure [Left Arm] 118/61 Pulse Oximetry 97 MDM - URI/Sore Throat Lab Data Attestation: I reviewed the patient's lab results. Result diagrams: 07/05/18 15:05 07/05/18 15:05 Lab Results 07/05/18 07/05/18 07/05/18 Range/Units 15:05 15:05 15:05 WBC 6.4 (4.5-11.0) X10^3/uL RBC 5.21 H (4.0-5.2) X10^6/uL Hgb 15.5 (12.0-16.0) g/dL Hct 46.7 H (36-46) % MCV 89.6 (80-100) fL MCH 29.7 (26-34) PG MCHC 33.2 (30-36) % RDW 13.9 (11.6-14.8) % Plt Count 231 (150-400) X10^3/uL Neut % (Auto) 79.4 H (50-75) % Lymph % (Auto) 7.2 L (25-40) % [place] % (Auto) 12.4 (3-14) % Eos % (Auto) 0.2 L (2-4) % Baso % (Auto) 0.8 (0-2) % Neut # (Auto) 5100 (1181-4464) /uL Lymph # (Auto) 500 L (6956-4640) /uL [place] # (Auto) 800 (0-900) /uL Eos # (Auto) 0 (0-450) /uL Baso # (Auto) 100 (0-100) /uL PT (10.1-12.7) SECONDS INR (0.9-1.3) APTT (26.4-36.2) SECONDS Sodium 138 (137-145) mmol/L Potassium 3.7 (3.4-5.1) mmol/L Chloride 97 L (98-107) mmol/L Carbon Dioxide 29 (22-32) mmol/L BUN 20 H (7-17) mg/dL Creatinine 1.20 H (0.52-1.04) mg/dL Estimated GFR 44.3 L (>60) mL/min BUN/Creatinine Ratio 16.7 (6-22) Glucose 119 H (80-110) mg/dL Lactate 1.6 (0.7-2.1) mmol/L Calcium 9.4 (8.4-10.2) mg/dL Total Bilirubin 0.6 (0.2-1.3) mg/dL AST 29 (14-36) IU/L ALT 23 (9-52) IU/L Alkaline Phosphatase 73 (38-126) U/L Total Creatine Kinase (30-135) U/L CK-MB (CK-2) (<2.37) ng/mL CK-MB (CK-2) Rel Index (1.5-5.0) % Troponin I (0.01-0.034) ng/mL B-Natriuretic Peptide (<100) Total Protein 7.9 (6.3-8.2) g/dL Albumin 4.4 (3.5-5.0) g/dL Globulin 3.5 (1.7-4.1) g/dL Albumin/Globulin Ratio 1.3 (1.0-2.8) Influenza A & B (PCR) (Negative) 07/05/18 07/05/18 07/05/18 Range/Units 15:05 15:05 15:05 WBC (4.5-11.0) X10^3/uL RBC (4.0-5.2) X10^6/uL Hgb (12.0-16.0) g/dL Hct (36-46) % MCV (80-100) fL MCH (26-34) PG MCHC (30-36) % RDW (11.6-14.8) % Plt Count (150-400) X10^3/uL Neut % (Auto) (50-75) % Lymph % (Auto) (25-40) % [place] % (Auto) (3-14) % Eos % (Auto) (2-4) % Baso % (Auto) (0-2) % Neut # (Auto) (2566-9793) /uL Lymph # (Auto) (8610-3064) /uL [place] # (Auto) (0-900) /uL Eos # (Auto) (0-450) /uL Baso # (Auto) (0-100) /uL PT (10.1-12.7) SECONDS INR (0.9-1.3) APTT (26.4-36.2) SECONDS Sodium (137-145) mmol/L Potassium (3.4-5.1) mmol/L Chloride (98-107) mmol/L Carbon Dioxide (22-32) mmol/L BUN (7-17) mg/dL Creatinine (0.52-1.04) mg/dL Estimated GFR (>60) mL/min BUN/Creatinine Ratio (6-22) Glucose (80-110) mg/dL Lactate (0.7-2.1) mmol/L Calcium (8.4-10.2) mg/dL Total Bilirubin (0.2-1.3) mg/dL AST (14-36) IU/L ALT (9-52) IU/L Alkaline Phosphatase (38-126) U/L Total Creatine Kinase 103 (30-135) U/L CK-MB (CK-2) 2.97 H (<2.37) ng/mL CK-MB (CK-2) Rel Index 2.9 (1.5-5.0) % Troponin I 0.449 H* (0.01-0.034) ng/mL B-Natriuretic Peptide 435 H (<100) Total Protein (6.3-8.2) g/dL Albumin (3.5-5.0) g/dL Globulin (1.7-4.1) g/dL Albumin/Globulin Ratio (1.0-2.8) Influenza A & B (PCR) Positive, type a A (Negative) 07/05/18 Range/Units 15:05 WBC (4.5-11.0) X10^3/uL RBC (4.0-5.2) X10^6/uL Hgb (12.0-16.0) g/dL Hct (36-46) % MCV (80-100) fL MCH (26-34) PG MCHC (30-36) % RDW (11.6-14.8) % Plt Count (150-400) X10^3/uL Neut % (Auto) (50-75) % Lymph % (Auto) (25-40) % [place] % (Auto) (3-14) % Eos % (Auto) (2-4) % Baso % (Auto) (0-2) % Neut # (Auto) (1221-6458) /uL Lymph # (Auto) (3994-9882) /uL [place] # (Auto) (0-900) /uL Eos # (Auto) (0-450) /uL Baso # (Auto) (0-100) /uL PT 13.4 H (10.1-12.7) SECONDS INR 1.2 (0.9-1.3) APTT 32 D (26.4-36.2) SECONDS Sodium (137-145) mmol/L Potassium (3.4-5.1) mmol/L Chloride (98-107) mmol/L Carbon Dioxide (22-32) mmol/L BUN (7-17) mg/dL Creatinine (0.52-1.04) mg/dL Estimated GFR (>60) mL/min BUN/Creatinine Ratio (6-22) Glucose (80-110) mg/dL Lactate (0.7-2.1) mmol/L Calcium (8.4-10.2) mg/dL Total Bilirubin (0.2-1.3) mg/dL AST (14-36) IU/L ALT (9-52) IU/L Alkaline Phosphatase (38-126) U/L Total Creatine Kinase (30-135) U/L CK-MB (CK-2) (<2.37) ng/mL CK-MB (CK-2) Rel Index (1.5-5.0) % Troponin I (0.01-0.034) ng/mL B-Natriuretic Peptide (<100) Total Protein (6.3-8.2) g/dL Albumin (3.5-5.0) g/dL Globulin (1.7-4.1) g/dL Albumin/Globulin Ratio (1.0-2.8) Influenza A & B (PCR) (Negative) Imaging Data Chest x-ray: Radiologist's impression: Lisa Gurrola 72 F 1945 [place] [address] XRay Report Signed Patient: Lisa Gurrola LMR#: [id number] : [id number]:[id number] Age/Sex: 72 / FDate of Service: 07/05/18 Loc: ED Accession Number: [id number] Procedure: XR chest 2V Ordering Provider: Natalie Chaney D.O. PROCEDURE: XR CHEST 2V INDICATIONS: shortness of breath TECHNIQUE: 2 views of the chest were acquired. COMPARISON: [facility], , XR CHEST 1V, 02/18/2018, 14:44. FINDINGS: Surgical changes and devices: None. Lungs and pleura: Increased vascular markings and bilateral hilar region are seen with mild bronchial wall thickening suggestive of mild reactive airway disease. No focal infiltrate. No pleural effusions or pneumothorax. Mediastinum: Mediastinal contours are normal. Heart size is enlarged. Bones and chest wall: No suspicious bony abnormalities. Soft tissues appear unremarkable. IMPRESSION: Suggestion of mild reactive airway disease. No definite focal infiltrate. Dictated by: Nolan Thomson M.D. on 07/05/2018 at 16:11 Approved by: Nolan Thomson M.D. on 07/05/2018 at 16:12 ECG Data Attestation: I personally reviewed and interpreted this ECG as follows: Prior ECG tracings: available for review Interpretation: AFib with rapid ventricular response with a rate of 135 QRS of 93 and QTC of 389. Patient has ST depression in lateral leads. No elevations appreciated. Nonspecific T-wave changes. The patient has a prior EKG from January of 2018 it appears similar except for ST changes in V4 V5 V6. MDM Narrative Medical decision making narrative: Patient is influenza positive suspect this is new as she is unlikely to be positive after 3 weeks of symptoms. patient's chest x-ray is negative for pneumonia or pulmonary edema or other acute changes. CV she shows normal white count no anemia. CMP shows a slightly decreased chloride as well as elevation in BUN and creatinine. Patient states she has been eating or drinking much for the last several days. she also has an elevation of her CK-MB as well as her troponin at 0.449. On her last visit in January she was 0.030. Her BMP is elevated today at 4:35 a.m. although no priors for comparison. Patient is in AFib with rapid ventricular response. H eart rate did improve with a single dose of Cardizem 10 mg that is slowly increasing again. Patient did receive a breathing treatment which she states did make her feel much better and that she could breathe a lot easier. Her resisted resolved but she was not particularly wheezy on examination. It is unclear if patient has NSTEMI with elevated troponin and ST depression in lateral leads is secondary to coronary artery disease or possibly demand ischemia from AFib with RVR in conjunction with her recent flu diagnosis reviewed with Dr. Tinoco and they suspect demand ischemia. At this time they do not feel she needs to be transferred as she is chest pain-free and her shortness of breath improved with breathing treatment but recommend serial troponins. If they are rising mother's other new changes they would recommend transfer. We did discuss anticoagulation and recommend heparin drip over Lovenox at this time in case patient does have increasing troponins and would need intervention. Discussed with Dr. Dominguez she accepts plan for ICU was patient is on Cardizem currently for rate control as well as heparin drip. Dr. Dominguez accepts. Discharge Plan Departure Patient Disposition: Admitted As Inpatient Clinical Impression: Atrial fibrillation with rapid ventricular response, Non-ST elevation [place] (NSTEMI), Influenza A, CHF (congestive heart failure) Discharge Date/Time: 07/05/18 18:25 Interventions: ED Discharge Assessment Last Done: 07/05/18 18:21 Admit Date/Time: 07/05/18 17:22 Admit Provider: Carlie Dominguez
--- NOTE | 2018-07-05 15:09 | PC.NURSE ---
pt reports sick for 3 weeks, coughing, difficulty with breathing with exertion, bodyaches, denies fever, denies vomiting or diarrhea. pt has used inhaler and nebulizer and without relief. at this time still has dyspneic on exertion, body ache, denies chest pain. denies oxygen at home. has been using otc tussin dm. hx of afib
[2018-07-05] MEDS: ALBUTEROL/IPRATROPIUM 3 ML AMPUL INH (15:13)
[2018-07-05 15:28] LABS: Add Manual Diff / Slide Review NO; Basophils Absolute Auto 100 /uL (0-100); Basophils Percent Auto 0.8 % (0-2); Eosinophils Absolute Auto 0 /uL (0-450); Eosinophils Percent Auto 0.2 % (2-4); Hematocrit 46.7 % (36-46); Hemoglobin 15.5 g/dL (12.0-16.0); Lymphocytes Absolute Auto 500 /uL (1100-4500); Lymphocytes Percent Auto 7.2 % (25-40); Mean Corpuscular HGB Conc 33.2 % (30-36); Mean Corpuscular Hemoglobin 29.7 PG (26-34); Mean Corpuscular Volume 89.6 fL (80-100); Monocytes Absolute Auto 800 /uL (0-900); Monocytes Percent Auto 12.4 % (3-14); Neutrophils Absolute Auto 5100 /uL (1500-7000); Neutrophils Percent Auto 79.4 % (50-75); Platelet Count 231 X10^3/uL (150-400); Red Blood Cell Count 5.21 X10^6/uL (4.0-5.2); Red Cell Distribution Width 13.9 % (11.6-14.8); White Blood Cell Count 6.4 X10^3/uL (4.5-11.0)
[2018-07-05] MEDS: dilTIAZem 5 MG/ML SDV 10 MG IV (15:28)
[2018-07-05] MEDS: ASPIRIN 81 MG TAB 324 MG PO (15:29)
[2018-07-05 15:48] LABS: Creatine Kinase 103 U/L (30-135); Lactate (Lactic Acid) 1.6 mmol/L (0.7-2.1)
[2018-07-05 15:49] LABS: Alanine Aminotransferase 23 IU/L (9-52); Albumin 4.4 g/dL (3.5-5.0); Albumin Globulin Ratio 1.3 (1.0-2.8); Alkaline Phosphatase 73 U/L (38-126); Aspartate Aminotransferase 29 IU/L (14-36); BUN Creatinine Ratio 16.7 (6-22); Bilirubin Total 0.6 mg/dL (0.2-1.3); Blood Urea Nitrogen 20 mg/dL (7-17); Calcium 9.4 mg/dL (8.4-10.2); Carbon Dioxide 29 mmol/L (22-32); Chloride 97 mmol/L (98-107); Estimated Glomerular Filt Rate 44.3 mL/min (>60); Globulin 3.5 g/dL (1.7-4.1); Glucose 119 mg/dL (80-110); HEMOLYSIS < 15 (0-50); Potassium 3.7 mmol/L (3.4-5.1); Sodium 138 mmol/L (137-145); Total Protein 7.9 g/dL (6.3-8.2)
[2018-07-05 15:51] LABS: B Type Natriuretic Peptide 435 (<100)
[2018-07-05 16:03] LABS: CKMB % Relative Index 2.9 % (1.5-5.0); Creatine Kinase MB 2.97 ng/mL (<2.37)
--- NOTE | 2018-07-05 16:18 | PC.NURSE ---
patient states ran out of medications a couple weeks ago. cannot afford 3 months supply at a time. per [facility].
[2018-07-05 16:24] LABS: Troponin I 0.449 ng/mL (0.01-0.034)
[2018-07-05] MEDS: dilTIAZem 125 MG in DEXTROSE 5 % IN WATER 100 ML IV (16:56)
[2018-07-05] MEDS: HEPARIN DRIP 25,000 UNIT/500 ML IV.SOLN 29.03 UNIT IV (17:48)
--- NOTE | 2018-07-05 17:48 | PC.NURSE ---
pt wt 81.8kg, bed scale, bolus 5,000units, max 1000u (20ml/hr.
[2018-07-05] MEDS: HEPARIN 5,000 UNIT/ML VIAL 5000 UNIT IV (18:11)
--- NOTE | 2018-07-05 18:20 | P.HP_ITS ---
History of Present Illness Date Patient Seen: 07/05/18 Chief complaint: ACHE,DIFFICULTY BREATHING,COLD Narrative: Patient is a pleasant 72 y/o female with a history of atrial fibrillation not on anticoagulation, history of smoking ( quit 8 years ago), hypertension, hyperlipidemia, fibromyalgia, and arthritis who presents with a three week history of progressive shortness of breath. The patient states it was gradual in onset, mostly associated with activity but occassionally at rest. She denies in PND, orthopnea, chest pain, or palpitations. She has known atrial fibrialltion and is on cardizem for rate control but has been reluctant to start anticoagulation. She has a long history of smoking, quit and is on inhalers intermittantly. She reports no fever, but has had a cough that is non productive. She reports feely achy with joint pains but always has some arthritic pain. She had some diarrhea that resolved. She denies nausea, vomiting, hemetesis, melena, or bright red blood per rectum. She has no dysuria, hematuria, or pyuria. She was found to have elevated troponins .445 in the ED. She was started on an IV heparin drip in the event cardiac intervention will be needed. For now, the goal is rate control, trend the troponins, and treat her influenza A which was positive in the ED. Patient History Medical History AAA (abdominal aortic aneurysm) (Chronic ~2005) Arthritis of left hip (Chronic) Atrial fibrillation with RVR (Chronic 02/18/18) Fibromyalgia (Chronic) Hyperlipidemia (Chronic) Hypertension (Chronic) Osteopenia (Chronic 03/19/09) History of ectopic (Resolved 1975) Surgical History History of cone biopsy of cervix (Resolved 1991) History of gynecologic surgery (Resolved 1975) History of tubal ligation (Resolved 1977) Family History Brother Essential hypertension Hyperlipidemia Arthritis Heart disease Mother Heart disease Sister Essential hypertension Hyperlipidemia Breast cancer Diabetes mellitus Father Cancer Grandfather Cancer Grandmother Cancer Grandmother No problems noted. Social History Smoking Status: Former smoker Tobacco: How many years used: 30 second hand exposure: No alcohol intake: never substance use type: does not use Family & Social History Family History Brother Essential hypertension Hyperlipidemia Arthritis Heart disease Mother Heart disease Sister Essential hypertension Hyperlipidemia Breast cancer Diabetes mellitus Father Cancer Grandfather Cancer Grandmother Cancer Grandmother No problems noted. Tobacco & Substance use: Smoking Status Former smoker alcohol intake never Meds Home Medications Medication Instructions Recorded Confirmed Type ibuprofen 1 dose PO DAILY #0 11/10/12 07/05/18 History ipratropium-albuterol 0.5 mg-3 3 ml INHALATION Q6-8H PRN #180 ml 02/08/18 07/05/18 Rx mg(2.5 mg base)/3 mL nebulization soln lisinopril 10 mg tablet 10 mg PO DAILY #90 tab 03/24/18 07/05/18 Rx aspirin 81 mg PO DAILY 07/05/18 07/05/18 History diltiazem HCl [Cartia XT] 180 mg PO DAILY 07/05/18 07/05/18 History Allergies Allergy/AdvReac Type Severity Reaction Status Date / Time atorvastatin [ATORVASTATIN] AdvReac Intermediate Nausea and Verified 07/05/18 13:37 vomiting Review of Systems Review of Systems All systems reviewed & are unremarkable except as noted in HPI and below Exam Vital Signs (past 8 hours): - 07/05/18 13:32 07/05/18 15:07 07/05/18 15:13 Temperature 98.5 F Pulse Rate 70 142 H 124 H Respiratory Rate 18 22 24 Blood Pressure 146/69 H Blood Pressure [Left Arm] 105/71 Pulse Oximetry 95 96 07/05/18 15:28 07/05/18 15:57 07/05/18 16:21 Temperature Pulse Rate 148 H 111 H Respiratory Rate 18 Blood Pressure 120/92 H Blood Pressure [Left Arm] 130/84 Pulse Oximetry 93 89 L 07/05/18 16:22 07/05/18 16:34 07/05/18 16:44 Temperature Pulse Rate 108 H 122 H Respiratory Rate 17 24 Blood Pressure Blood Pressure [Left Arm] 116/68 116/68 Pulse Oximetry 92 97 94 07/05/18 16:56 07/05/18 17:15 07/05/18 17:36 Temperature Pulse Rate 114 H 115 H 114 H Respiratory Rate 21 19 18 Blood Pressure Blood Pressure [Left Arm] 108/75 119/77 129/84 Pulse Oximetry 97 99 98 Oxygen Delivery Method Nasal Cannula Oxygen Flow Rate 2 Narrative Exam Narrative: Pleasant female somewhat uncomfortable HEENT: NC/AT, EOMI, Oropharynx clear, neck supple Lungs: decreased breath sounds with end expiratory wheezing CV: distant heart tones irregularly, irregular, nl Sl S2 Abd: obese, soft/ non tender/ non distended Ext: trace edema skin: cool no lesions noted Neuro: non focal Objective Labs Result Diagrams: 07/05/18 15:05 07/05/18 15:05 Labs: Laboratory Results - last 24 hr 07/05/18 07/05/18 07/05/18 15:05 15:05 15:05 WBC 6.4 RBC 5.21 H Hgb 15.5 Hct 46.7 H MCV 89.6 MCH 29.7 MCHC 33.2 RDW 13.9 Plt Count 231 Neut % (Auto) 79.4 H Lymph % (Auto) 7.2 L [place] % (Auto) 12.4 Eos % (Auto) 0.2 L Baso % (Auto) 0.8 Neut # (Auto) 5100 Lymph # (Auto) 500 L [place] # (Auto) 800 Eos # (Auto) 0 Baso # (Auto) 100 Sodium 138 Potassium 3.7 Chloride 97 L Carbon Dioxide 29 BUN 20 H Creatinine 1.20 H Estimated GFR 44.3 L BUN/Creatinine Ratio 16.7 Glucose 119 H Lactate 1.6 Calcium 9.4 Total Bilirubin 0.6 AST 29 ALT 23 Alkaline Phosphatase 73 Total Creatine Kinase CK-MB (CK-2) CK-MB (CK-2) Rel Index Troponin I B-Natriuretic Peptide Total Protein 7.9 Albumin 4.4 Globulin 3.5 Albumin/Globulin Ratio 1.3 Influenza A & B (PCR) 07/05/18 07/05/18 07/05/18 15:05 15:05 15:05 WBC RBC Hgb Hct MCV MCH MCHC RDW Plt Count Neut % (Auto) Lymph % (Auto) [place] % (Auto) Eos % (Auto) Baso % (Auto) Neut # (Auto) Lymph # (Auto) [place] # (Auto) Eos # (Auto) Baso # (Auto) Sodium Potassium Chloride Carbon Dioxide BUN Creatinine Estimated GFR BUN/Creatinine Ratio Glucose Lactate Calcium Total Bilirubin AST ALT Alkaline Phosphatase Total Creatine Kinase 103 CK-MB (CK-2) 2.97 H CK-MB (CK-2) Rel Index 2.9 Troponin I 0.449 H* B-Natriuretic Peptide 435 H Total Protein Albumin Globulin Albumin/Globulin Ratio Influenza A & B (PCR) Positive, type a A Assessment & Plan (1) Atrial fibrillation with rapid ventricular response: Problem details: Paroxysmal Atrial Fibrillation with RVR, present on admission. Agree with cardizem drip, heparin drip and close follow up. Will obtain cardiac echo to evaluate further Current visit: Yes Status: Acute (2) Non-ST elevation [place] (NSTEMI): Problem details: Type 2 Myocardial infarction, present on admission No Chest pain currently, this may reflect demand ischemia. Discussed with Cardiology who recommends heparin, asa, rate control. IF troponins continue elevated consider stress test. Will obtain echo as above Current visit: Yes Status: Acute (3) Influenza A: Problem details: Influenza A, present on admission, acute. Will start Tamiflu Current visit: Yes Status: Acute (4) Essential hypertension: Problem details: Hypertension, chronic, will continue cardizem and consider additional agents if needed. will hold lisinopril for now Current visit: No Status: Chronic (5) Mixed hyperlipidemia: Problem details: uncontrolled - does not tolerate statins Current visit: No Status: Chronic (6) Obesity: Current visit: Yes Status: Acute (7) COPD with lower respiratory infection: Problem details: Suspect, underlying COPD, given wheezing will start low dose steroids. Current visit: Yes Status: Acute (8) Fibromyalgia: Problem details: Chronic Current visit: No Status: Chronic Assessment & Plan narrative: patient is a full code,
[2018-07-05 18:29] LABS: INR 1.2 (0.9-1.3); Prothrombin Time 13.4 SECONDS (10.1-12.7)
[2018-07-05 18:32] LABS: PTT Partial Thromboplastin Tim 32 SECONDS (26.4-36.2)
[2018-07-05] MEDS: predniSONE 20 MG TABLET 40 MG PO (20:26)
[2018-07-05] MEDS: OSELTAMIVIR 75 MG CAPSULE PO (20:27)
[2018-07-05 21:38] LABS: Creatine Kinase 87 U/L (30-135)
[2018-07-05 21:52] LABS: Troponin I 0.416 ng/mL (0.01-0.034)
--- NOTE | 2018-07-05 22:42 | PC.NURSE ---
Admission Note: Pt received from ER, admitted for a-fib RVR. Pt initially on diltiazem gtts at 5 mg/hr (titrated up to 10 mg/hr at ~2200), HR 90s-100 a-fib CVR. Up to 120s with activity. Pt denies CP/chest pressure. Pt with SOB on exertion. Lungs with wheezing, coarse and diminished throughout. Received on 2 L NC with SPO2 95-97%, RR 20s-30. Pt with 1+ edema in BLE, toes are purple and cool. Pt states that she got gerard-bite a few years ago. Skin intact, + DP pulses, CMS intact in BLE. Pt's daughter at bedside assisting with admission assessment. Will continue to monitor, notify MD with changes.
[2018-07-06] VITALS (20 sets, daily range): BP systolic 106–148; BP diastolic 55–91; PULSE 72–110; RESP 13–26; TEMP 36.3–37.9; O2SAT 91–98
[2018-07-06] MEDS: ALBUTEROL/IPRATROPIUM 3 ML AMPUL INH ×2 (00:20→13:00)
--- NOTE | 2018-07-06 00:32 | PC.NURSE ---
Addendum entered by Theron Leigh R.N. 07/06/18 01:10: 0105: PTT 85. Heparin drip decreased to 950U/hr=19cc/hr per protocol. Original Note: [employer]ing [employer] Note: 0000: Awake, assisted up to bedside commode to void; some shortness of breath with activity. Pt remains on O2 2L/NC. IVs in place in rt and lt ACs. Pt continues on Cardizem drip at 10mg/hr, and Heparin drip at 1000units/hr. She denies chest pain or pressure, or any discomfort. HERI stockings discontinued as ordered, due to cyanotic toes.
[2018-07-06 01:02] LABS: PTT Partial Thromboplastin Tim 85 SECONDS (26.4-36.2)
[2018-07-06 05:20] LABS: Add Manual Diff / Slide Review NO; Basophils Absolute Auto 0 /uL (0-100); Basophils Percent Auto 0.5 % (0-2); Eosinophils Absolute Auto 0 /uL (0-450); Hematocrit 41.4 % (36-46); Hemoglobin 13.8 g/dL (12.0-16.0); Lymphocytes Absolute Auto 300 /uL (1100-4500); Lymphocytes Percent Auto 7.1 % (25-40); Mean Corpuscular HGB Conc 33.2 % (30-36); Mean Corpuscular Hemoglobin 29.6 PG (26-34); Mean Corpuscular Volume 89.1 fL (80-100); Monocytes Absolute Auto 200 /uL (0-900); Monocytes Percent Auto 3.8 % (3-14); Neutrophils Absolute Auto 3500 /uL (1500-7000); Neutrophils Percent Auto 88.6 % (50-75); Platelet Count 195 X10^3/uL (150-400); Red Blood Cell Count 4.65 X10^6/uL (4.0-5.2); Red Cell Distribution Width 14.1 % (11.6-14.8)
[2018-07-06 05:26] LABS: PTT Partial Thromboplastin Tim 85 SECONDS (26.4-36.2)
[2018-07-06 05:30] LABS: BUN Creatinine Ratio 19.1 (6-22); Blood Urea Nitrogen 21 mg/dL (7-17); Calcium 8.9 mg/dL (8.4-10.2); Carbon Dioxide 26 mmol/L (22-32); Chloride 99 mmol/L (98-107); Glucose 159 mg/dL (80-110); HEMOLYSIS < 15 (0-50); Potassium 3.7 mmol/L (3.4-5.1); Sodium 137 mmol/L (137-145)
[2018-07-06] MEDS: dilTIAZem 125 MG in DEXTROSE 5 % IN WATER 100 ML 10 ML IV (06:03)
[2018-07-06 06:05] LABS: Thyroid Stimulating Hormone 0.44 uIU/mL (0.47-4.68)
[2018-07-06] MEDS: ASPIRIN EC 81 MG TABLET PO (08:37)
[2018-07-06] MEDS: predniSONE 20 MG TABLET 40 MG PO (08:37)
[2018-07-06] MEDS: OSELTAMIVIR 75 MG CAPSULE PO ×2 (08:38→21:19)
--- NOTE | 2018-07-06 09:00 | DI.ECHO.S_ITS ---
Echocardiogram Report + + :Name: DAVID MOSES Study Date: 07/06/2018 Height: 65 in : :[facility] Weight: 180 lb : : Gender: Female BSA: 1.9 m2 : :: 1945 Age: 72 yrs BP: 114/68 mmHg: :Reason For Study: AFIB : : Performed By: Deepti Dugan : :Referring: SIMONE POP : + + Interpretation Summary Technically difficult study with limited valve visualization. 1) Normal left ventricular size, wall motion, and systolic function (EF 60- 65%). 2) Normal right ventricular size and function. 3) There is mild to moderate mitral regurgitation, probably due to calcific degeneration of the mitral valve. 4) No prior Echo available for comparison. Procedure: A two-dimensional transthoracic echocardiogram with color flow and Doppler was performed. The study quality was technically adequate. There is no prior echocardiogram noted for this patient. The patient was in atrial fibrillation with heart rates between 74-108 bpm during the exam. Left Ventricle: The left ventricle is normal in size. Left ventricular wall thickness is borderline increased. The ejection fraction is estimated to be 60-65%. Left ventricular systolic function is normal without focal wall motion abnormalities. Diastolic function could not be accurately assessed due to atrial fibrillation. Right Ventricle: The right ventricle grossly appears normal in size with probable normal systolic function. Atria: The left atrial size is normal. The right atrium grossly appears normal in size. There is no Doppler evidence for an interatrial shunt. Mitral Valve: Calcified mitral apparatus. There is mild to moderate mitral regurgitation. Aortic Valve: The aortic valve is not well visualized. There is no aortic valve stenosis. No aortic regurgitation is present. Tricuspid Valve: The tricuspid valve is normal in structure and function. There is a trace or physiologic amount of tricuspid regurgitation. The right ventricular systolic pressure is estimated to be at least 29 mmHg based on an estimated right atrial pressure of 8 mm Hg. Pulmonic Valve: The pulmonic valve is not well visualized. Great Vessels: The aortic root is normal size. The ascending aorta is normal in size. The aortic arch could not be visualized. The pulmonary is not well visualized. The IVC is of normal diameter and collapses greater than 50% with a sniff. This suggests a low right atrial pressure of 3 mm Hg. Pericardium/ Pleura There is an anterior echo-free space consistent with a fat pad. There is no pleural effusion. MMode/2D Measurements & Calculations LVIDd: 4.3 cm Ao root diam: 2.4 cm LVIDs: 3.6 cm asc Aorta Diam: 2.9 cm FS: 17.4 % IVSd: 1.1 cm LVPWd: 1.1 cm LV gomez. diameter/BSA (cm/m^2): 2.3 LV sys. diameter/BSA (cm/m^2): 1.9 LA A2 area: 20.2 cm2 IVC diam: 1.9 cm LA A4 area: 22.2 cm2 LA length (vol): 5.9 cm LA vol: 64.8 ml LA vol index: 34.2 ml/m2 Doppler Measurements & Calculations Ao V2 max: 169.0 cm/sec LVOT Max Jaquan: 97.4 cm/sec Ao V2 mean: 112.4 cm/sec LV V1 max P.9 mmHg Ao max P.6 mmHg LV V1 VTI: 15.4 cm Ao mean P.8 mmHg sev ratio: 0.57 Ao V2 VTI: 26.9 cm MV E max jaquan: 137.5 cm/sec TR max jaquan: 228.5 cm/sec MV dec time: 0.16 sec TR max P.9 mmHg _ Reading Physician:05:39 PM
[2018-07-06 12:40] LABS: PTT Partial Thromboplastin Tim 83 SECONDS (26.4-36.2)
--- NOTE | 2018-07-06 14:13 | PC.NURSE ---
Pt has been chest pain/pressure free and denies shortness of breath or palpitations this shift. AO x3, talkative, and making needs known with clear speech. Pleasant affect. MAEW. SBA for transfer from bed to chair. Denies SOB at rest. RA trial done. Pt noted to be 88% after 20 minutes. Reapplied humidified O2 via NC at 2L for SPO2 98%. Dilt gtt infusing at 5 mg/hr and hep gtt per protocol. Educated to use of IS and pt able to achieve 1250ML with 8 consecutive breaths and is using IS independently as instructed (10x/hr while awake). Will monitor.
--- NOTE | 2018-07-06 15:20 | P.PN_ITS ---
Subjective Date Patient Seen: 07/06/18 Interval history: Lisa Gurrola is a 72-year-old female with a past medical history significant for hypertension, hyperlipidemia, chronic atrial fibrillation not on aspirin, osteoarthritis and fibromyalgia who presented with slowly progressive shortness of breath over 3 weeks and admitted for atrial fibrillation with RVR and CHF exacerbation. The patient is resting in bed comfortably. She reports she feels better than yesterday. She denies shortness of breath or palpitations. She endorses productive cough and dyspnea on exertion. She is on 2 L of supplemental oxygen via nasal cannula. She has no other complaints. She denies headache, chest pain, abdominal pain, nausea, vomiting, fever, chills, dysuria, diarrhea or constipation. She is voiding without difficulty. She has not had a bowel movement since admission. She is up ambulating with assistance. Exam Vital Signs (past 8 hours): - 07/06/18 08:00 07/06/18 09:00 07/06/18 10:00 Temperature Pulse Rate 72 80 83 Respiratory Rate 17 18 22 Blood Pressure 126/77 126/73 141/72 H Pulse Oximetry 92 96 91 07/06/18 11:00 07/06/18 12:00 07/06/18 13:00 Temperature 97.9 F Pulse Rate 81 97 H 92 H Respiratory Rate 17 19 17 Blood Pressure 119/84 130/74 106/67 Pulse Oximetry 98 98 97 07/06/18 13:16 07/06/18 14:00 Temperature Pulse Rate 102 H 89 Respiratory Rate 14 22 Blood Pressure 114/68 Pulse Oximetry 98 97 Oxygen Delivery Method Nasal Cannula Oxygen Flow Rate 2 Narrative Exam Narrative: General: Elderly female lying in bed and in no acute distress, well-developed, well-nourished, appropriately interactive. HEENT: Normocephalic, atraumatic. External ears without defect. Pupils equal, round, and reactive to light. Anicteric sclerae, moist conjunctivae, and no lid lag. Neck: Supple with full range of motion. No jugular venous distension. No lymphadenopathy or thyromegaly. Cardiovascular: Irregularly irregular without murmurs, rubs, or gallops appreciated. Pulmonary: Clear to auscultation bilaterally with scattered rhonchi. No crackles or wheezes. Normal respiratory effort with no use of accessory muscles. Abdomen: Soft, bowel sounds present, nontender, nondistended. No hepatosplenomegaly or masses appreciated. Extremities: No clubbing or cyanosis. Trace bipedal edema. Skin: Normal temperature, turgor, and texture; no rash, ulcers, or subcutaneous nodules appreciated. Neurological: Cranial nerves grossly intact. Psychiatric: Normal mood and affect. Alert and oriented to person, place, and time. Objective Labs Result Diagrams: 07/06/18 04:54 07/06/18 04:54 Labs: Laboratory Results - last 24 hr 07/05/18 07/05/18 07/05/18 15:05 15:05 15:05 WBC 6.4 RBC 5.21 H Hgb 15.5 Hct 46.7 H MCV 89.6 MCH 29.7 MCHC 33.2 RDW 13.9 Plt Count 231 Neut % (Auto) 79.4 H Lymph % (Auto) 7.2 L [place] % (Auto) 12.4 Eos % (Auto) 0.2 L Baso % (Auto) 0.8 Neut # (Auto) 5100 Lymph # (Auto) 500 L [place] # (Auto) 800 Eos # (Auto) 0 Baso # (Auto) 100 PT INR APTT Sodium 138 Potassium 3.7 Chloride 97 L Carbon Dioxide 29 BUN 20 H Creatinine 1.20 H Estimated GFR 44.3 L BUN/Creatinine Ratio 16.7 Glucose 119 H Lactate 1.6 Calcium 9.4 Total Bilirubin 0.6 AST 29 ALT 23 Alkaline Phosphatase 73 Total Creatine Kinase CK-MB (CK-2) CK-MB (CK-2) Rel Index Troponin I B-Natriuretic Peptide Total Protein 7.9 Albumin 4.4 Globulin 3.5 Albumin/Globulin Ratio 1.3 TSH Nasal Screen MRSA (PCR) Influenza A & B (PCR) 07/05/18 07/05/18 07/05/18 15:05 15:05 15:05 WBC RBC Hgb Hct MCV MCH MCHC RDW Plt Count Neut % (Auto) Lymph % (Auto) [place] % (Auto) Eos % (Auto) Baso % (Auto) Neut # (Auto) Lymph # (Auto) [place] # (Auto) Eos # (Auto) Baso # (Auto) PT INR APTT Sodium Potassium Chloride Carbon Dioxide BUN Creatinine Estimated GFR BUN/Creatinine Ratio Glucose Lactate Calcium Total Bilirubin AST ALT Alkaline Phosphatase Total Creatine Kinase 103 CK-MB (CK-2) 2.97 H CK-MB (CK-2) Rel Index 2.9 Troponin I 0.449 H* B-Natriuretic Peptide 435 H Total Protein Albumin Globulin Albumin/Globulin Ratio TSH Nasal Screen MRSA (PCR) Influenza A & B (PCR) Positive, type a A 07/05/18 07/05/18 07/05/18 15:05 21:26 21:30 WBC RBC Hgb Hct MCV MCH MCHC RDW Plt Count Neut % (Auto) Lymph % (Auto) [place] % (Auto) Eos % (Auto) Baso % (Auto) Neut # (Auto) Lymph # (Auto) [place] # (Auto) Eos # (Auto) Baso # (Auto) PT 13.4 H INR 1.2 APTT 32 D Sodium Potassium Chloride Carbon Dioxide BUN Creatinine Estimated GFR BUN/Creatinine Ratio Glucose Lactate Calcium Total Bilirubin AST ALT Alkaline Phosphatase Total Creatine Kinase 87 CK-MB (CK-2) TNP CK-MB (CK-2) Rel Index TNP Troponin I 0.416 H* B-Natriuretic Peptide Total Protein Albumin Globulin Albumin/Globulin Ratio TSH Nasal Screen MRSA (PCR) Negative for mrsa Influenza A & B (PCR) 07/06/18 07/06/18 07/06/18 00:32 04:54 04:54 WBC 4.0 L RBC 4.65 Hgb 13.8 Hct 41.4 MCV 89.1 MCH 29.6 MCHC 33.2 RDW 14.1 Plt Count 195 Neut % (Auto) 88.6 H Lymph % (Auto) 7.1 L [place] % (Auto) 3.8 Eos % (Auto) 0.0 L Baso % (Auto) 0.5 Neut # (Auto) 3500 Lymph # (Auto) 300 L [place] # (Auto) 200 Eos # (Auto) 0 Baso # (Auto) 0 PT INR APTT 85 H* D 85 H* Sodium Potassium Chloride Carbon Dioxide BUN Creatinine Estimated GFR BUN/Creatinine Ratio Glucose Lactate Calcium Total Bilirubin AST ALT Alkaline Phosphatase Total Creatine Kinase CK-MB (CK-2) CK-MB (CK-2) Rel Index Troponin I B-Natriuretic Peptide Total Protein Albumin Globulin Albumin/Globulin Ratio TSH Nasal Screen MRSA (PCR) Influenza A & B (PCR) 07/06/18 07/06/18 07/06/18 04:54 04:54 12:20 WBC RBC Hgb Hct MCV MCH MCHC RDW Plt Count Neut % (Auto) Lymph % (Auto) [place] % (Auto) Eos % (Auto) Baso % (Auto) Neut # (Auto) Lymph # (Auto) [place] # (Auto) Eos # (Auto) Baso # (Auto) PT INR APTT 83 H* Sodium 137 Potassium 3.7 Chloride 99 Carbon Dioxide 26 BUN 21 H Creatinine 1.10 H Estimated GFR 49.0 L BUN/Creatinine Ratio 19.1 Glucose 159 H Lactate Calcium 8.9 Total Bilirubin AST ALT Alkaline Phosphatase Total Creatine Kinase CK-MB (CK-2) CK-MB (CK-2) Rel Index Troponin I B-Natriuretic Peptide Total Protein Albumin Globulin Albumin/Globulin Ratio TSH 0.44 L Nasal Screen MRSA (PCR) Influenza A & B (PCR) Assessment & Plan Assessment & Plan narrative: Lisa Gurrola is a 72-year-old female with a past medical history significant for hypertension, hyperlipidemia, chronic atrial fibrillation not on aspirin, osteoarthritis and fibromyalgia who presented with slowly progressive shortness of breath over 3 weeks and admitted for atrial fibrillation with RVR and CHF exacerbation. 1. Paroxysmal atrial fibrillation with RVR, present on admission. -Continue cardizem gtt and will slowly titrate off and restart diltiazem HCl 180 mg daily. -Continue heparin gtt and will consider discontinuing if troponins continue to t rend down per Cardiology recommendation. -Ordered echocardiogram with bubble study, pending. -Started Xarelto 20 mg daily. -TSH slightly low at 0.44. Ordered free T4, pending. 2. Type 2 Myocardial infarction, present on admission. Active. -No Chest pain currently. Likely reflective of demand ischemia. Discussed with Cardiology who recommends heparin gtt and stop if troponins trending down, aspirin, and rate control. If troponins continue to be elevated recommended stress test. -Ordered echocardiogram with bubble study, pending. 3. Acute Influenza A URI, present on admission. Active. -Continue Tamiflu 75 mg twice daily. 4. Hypertension, chronic, present on admission. Stable. -Continue to titrate off cardizem gtt and resart oral as above. Will consider additional agents if needed. -Held lisinopril for now and will restart tomorrow morning. 5. Hyperlipidemia, chronic, present on admission. Stable. -Ordered fasting lipid panel, pending. -Not medically treated as patient is intolerant of statin, therefore, uncontrolled. 6. Obesity, chronic, present on admission. Stable. -BMI 28. 7. Probable COPD with exacerbation, present on admission. Stable. -Continue prednisone 40 mg x5 days. 8. Fibromyalgia, chronic, present on admission. Stable. Disposition: Likely to discharge home in 1-2 days depending on rate control and echo resullts.
[2018-07-06 15:43] LABS: Troponin I 0.193 ng/mL (0.01-0.034)
[2018-07-06] MEDS: dilTIAZem CD 180 MG CAP PO (15:52)
--- NOTE | 2018-07-06 16:17 | CM.DANOTE ---
Discharge Planning/Care Management DCP: assessment: initiated: chart review: Case received this morning and discussed in Team Rounds with Dr. Gonzalez. Discussion and documentation reveals that pt is a 27 year old female who admitted to care of Hospitalist team yesterday late morning. PCP: Dr. Gonzalez confirms as [facility]. UR RN confirmed admission status as INPT. Pt carries diagnosis of diabetes and it is noted that she has been either to the ER or admitted to several times in the last year with issues related to the diabetes. Triage of caseload dictated:Plan: to see pt later today or tomorrow as her POC unfolded to continue to assessment process. CM Discharge Assessment Start: 07/06/18 16:16 Freq: Status: Active Protocol: Document 07/06/18 16:16 ITV (Rec: 07/06/18 16:17 ITV [id number]) Discharge Planning Assessment Advance Directives? No History Provided By Medical Record Prior Living Arrangements House Review Status In Process Next Review Type Continued Stay Review
--- NOTE | 2018-07-06 16:25 | PC.NURSE ---
Evening-Shift Note: Pt checked on and assessed. Pt initially with Echo at bedside, this RN assisted with bubble study. Pt received on 2 L NC, SPO2 93-94%. Lungs diminished, wheezy and coarse. Pt with persistent productive cough, secretions swallowed. Dr. Gonzalez at bedside, orders received to stop heparin gtts, see MAR for details. Pt given PO diltiazem per MD order, 180 mg, diltiazem gtts stopped shortly after, see MAR for details. HR remains 80s, a-fib CVR. Pt denies CP, reports SOB with exertion improved since yesterday. RR 19-20s. Pt talkative and cooperative, instructed to call with concerns. Discussed fall safety. Bed alarm on, call light within reach, notify MD with changes.
[2018-07-06 16:38] LABS: Free T4, Direct Thyroxine 1.35 ng/dL (0.78-2.19)
[2018-07-06] MEDS: RIVAROXABAN 10 MG TABLET 20 MG PO (17:24)
[2018-07-06] MEDS: ALBUTEROL 2.5 MG/3 ML NEB (ADULT) INH (23:17)
[2018-07-07] VITALS (10 sets, daily range): BP systolic 117–127; BP diastolic 61–91; PULSE 73–90; RESP 13–20; TEMP 36.1–36.9; O2SAT 92–96
[2018-07-07 05:24] LABS: BUN Creatinine Ratio 23.6 (6-22); Blood Urea Nitrogen 26 mg/dL (7-17); Calcium 9.2 mg/dL (8.4-10.2); Carbon Dioxide 29 mmol/L (22-32); Chloride 103 mmol/L (98-107); Glucose 119 mg/dL (80-110); HEMOLYSIS < 15 (0-50); Potassium 3.4 mmol/L (3.4-5.1); Sodium 140 mmol/L (137-145)
[2018-07-07 05:30] LABS: Add Manual Diff / Slide Review NO; Basophils Absolute Auto 0 /uL (0-100); Basophils Percent Auto 0.3 % (0-2); Eosinophils Absolute Auto 0 /uL (0-450); Hematocrit 40.3 % (36-46); Hemoglobin 13.3 g/dL (12.0-16.0); Lymphocytes Absolute Auto 600 /uL (1100-4500); Lymphocytes Percent Auto 15.4 % (25-40); Mean Corpuscular Hemoglobin 29.3 PG (26-34); Mean Corpuscular Volume 88.9 fL (80-100); Monocytes Absolute Auto 600 /uL (0-900); Neutrophils Absolute Auto 2900 /uL (1500-7000); Neutrophils Percent Auto 70.3 % (50-75); Platelet Count 177 X10^3/uL (150-400); Red Blood Cell Count 4.53 X10^6/uL (4.0-5.2); Red Cell Distribution Width 13.8 % (11.6-14.8); White Blood Cell Count 4.1 X10^3/uL (4.5-11.0)
[2018-07-07] MEDS: ALBUTEROL/IPRATROPIUM 3 ML AMPUL INH ×3 (06:24→17:48)
[2018-07-07] MEDS: predniSONE 20 MG TABLET 40 MG PO (08:41)
[2018-07-07] MEDS: RIVAROXABAN 10 MG TABLET 20 MG PO (08:41)
[2018-07-07] MEDS: dilTIAZem CD 180 MG CAP PO (08:41)
[2018-07-07] MEDS: ASPIRIN EC 81 MG TABLET PO (08:41)
[2018-07-07] MEDS: OSELTAMIVIR 75 MG CAPSULE PO ×2 (08:42→20:34)
--- NOTE | 2018-07-07 11:49 | PT.IIE ---
Addendum entered and electronically signed by Charbel Hatch PT 07/07/18 16:12: correction for AD needed. Original Note: Current Diagnoses Obesity, unspecified (07/05/18) Mixed hyperlipidemia (07/05/18) Essential (primary) hypertension (07/05/18) Non-ST elevation (NSTEMI) myocardial infarction (07/05/18) Unspecified atrial fibrillation (07/05/18) Influenza due to other identified influenza virus with other respiratory manifestations (07/05/18) Chronic obstructive pulmonary disease with acute lower respiratory infection (07/05/18) Fibromyalgia (07/05/18) Surgical History (Last Reviewed 07/05/18 @ 18:28 by Carlie Dominguez MD) History of cone biopsy of cervix (Resolved 1991) History of gynecologic surgery (Resolved 1975) History of tubal ligation (Resolved 1977) Medical History (Last Reviewed 07/05/18 @ 18:28 by Carlie Dominguez MD) AAA (abdominal aortic aneurysm) (Chronic ~2005) Arthritis of left hip (Chronic) Atrial fibrillation with RVR (Chronic 02/18/18) Fibromyalgia (Chronic) Hyperlipidemia (Chronic) Hypertension (Chronic) Osteopenia (Chronic 03/19/09) History of ectopic (Resolved 1975) Physical Therapy Inpatient Evaluation/Re-Eval M1 PT/OT-IP Prior Functional Status Start: 07/07/18 11:27 Freq: NEEDED Status: Active Protocol: Document 07/07/18 10:25 (Rec: 07/07/18 11:48 [email or web address]) Medical Review Prior Functional Status Medical History Reviewed Yes Communication No deficits noted. Able to make needs known. Mobility and Gait Pt was an independent ambulator at home and community. Pt did use a SPC occasionally due to chronic L hip pain. Activities of Daily Living and IADL's Pt was independent with ADLs and IADLs. However, pt's granddaughter and grandson helped her with cooking and house cleaning recently due to her increased weakness and L hip pain. Social History Household Members family children Living Arrangements House Number of Floors (Floors) One Floor Number of Stairs To Enter/Railing? 1 JEWELL without railing Home Environment Standard Height Toilet Tub/Shower Home Equipment Straight Cane Grab Bars In Shower Employment Status Retired Additional Social History Comment Pt lives with her disabled dtr and 2 grandkids (16-18yo) in an 3br apt in [place]. Pt has a jacuzzi tub that she has difficulty to lift her leg over it. Pt states her dtr will not be able to offer assistance if she needed but her grandkids have been helping her with cooking and housecleaning recently. Pt reports she was dx with A-fib 2 months ago and since then she noticed she has increased weakness. She also stated she has chronic L hip pain which she needed to use SPC from time to time for mobility. M2 PT-IP Current Condition Start: 07/07/18 11:27 Freq: NEEDED Status: Active Protocol: Document 07/07/18 10:25 HH (Rec: 07/07/18 11:48 [email or web address]) Physical Therapy Current Condition Current Condition Evaluation Date 07/07/18 Treatment Diagnosis A-fib, ACHE, difficulty in breathing, impaired gait and activity tolerance. Onset Date 07/05/18 Weight Bearing Status Weight Bearing Status Weight Bear as Tolerated M3 PT-IP Subjective Start: 07/07/18 11:27 Freq: NEEDED Status: Active Protocol: Document 07/07/18 10:25 HH (Rec: 07/07/18 11:48 [email or web address]) Subjective Physical Therapy Visit Type Type Initial Evaluation Visit Start Time 10:25 Visit Stop Time 10:50 Total Visit Minutes 25 Notes Per RN, pt has been getting OOB with 1pa. Pt is +ve for flu. Pt is now waiting for echo cardiogram result. Number of ANODIZING LINE OPERATOR Visits 0 Physical Therapy Visit Comments Patient Comments I feel so much better today and i went to shower and bathroom with BSC. Patient Goals To return home with her family . Therapy Pain Assessment Pain Present Pain Present Denied Pain M4 PT-IP Mobility and Gait Start: 07/07/18 11:27 Freq: NEEDED Status: Active Protocol: Document 07/07/18 10:25 HH (Rec: 07/07/18 11:48 [email or web address]) PT-Transfer Assessment Sit to and From Stand Sit to and from Stand Standby Assistance Use of Upper Extremities Equipment Transfer Assistive Device Gait Belt Orthotic/Prosthetic Devices or Brace: No Transfers Transfer Destination Bed Chair Transfer Technique Stand Step Pivot Transfer Ability Level of Assist Standby Assistance Comments Mobility Comments HR maintained 80-100s between at rest and mobility. RR=17-25 . Pt sat up on chair upon assessment. denies discomfort or acute distress. She stood up with the use of armrest from chair SBA. And was able to transfer herself back to chair safely with SBA. Gait Assessment Gait Gait Assistance Required: Standby Assistance Distance (Feet) 100 Able to Maintain Weight Bearing Status Yes During Gait Assistive Devices Assistive Device Gait Belt Front Wheeled Walker Orthotic/Prosthetic Devices or Brace: No Gait Deviations General Gait Pattern Antalgic Decreased Stride Length Decreased Feet Clearance Factors Limiting Gait Function Factors Limiting Gait Function Decreased Activity Tolerance Decreased Strength Respiratory Distress Comments Gait Comments Pt amb from bedside chair to hallway with SBA and FWW. Pt presented a L antalgic gait due to her chronic left hip pain but overall with a steady gait. No signs of LOB / distress. Pt did requests back to her room for rest after 100 ft due to c/o fatigue. Stair Climbing Assessment Comments Stair Climbing Comments did not attempt due to fatigue PT-Balance Assessment Sitting Balance and Reactions Static Sitting Balance Ability Normal Dynamic Sitting Balance Ability Normal Standing Balance and Reactions Static Standing Balance Ability Good Dynamic Standing Balance Ability Good Device Used FWW M5 PT-IP Objective Assessments Start: 07/07/18 11:27 Freq: NEEDED Status: Active Protocol: Document 07/07/18 10:25 HH (Rec: 07/07/18 11:48 [email or web address]) Orientation Orientation/Cognition Level of Alertness Alert Orientation Name Age Birthday Month Date Year Day of Week Place Situation Language Function Ability No Deficits Noted Safety Awareness Understands Safety Issues Memory Description No Deficits Noted Gross Range of Motion Upper Extremity ROM Assessment Within Functional Limits Lower Extremity ROM Assessment Within Functional Limits Strength Upper Extremity Strength Assessment Within Functional Limits Lower Extremity Strength Assessment Left Impaired Hip 3+/5 Coordination Assessment Gross Coordination Gross Coordination WNL Sensation Assessment Sensation Gross Sensation WNL Light Touch Intact Proprioception (Position) Intact Muscle Tone Muscle Tone WNL Yes M6 PT-IP Treatment Start: 07/07/18 11:27 Freq: NEEDED Status: Active Protocol: Document 07/07/18 10:25 HH (Rec: 07/07/18 11:48 [email or web address]) Physical Therapy Treatment Exercises Exercises Ankle Pumps Gluteal Sets Quad Sets Education Education Provided Safety M7 PT-IP Assessment and Plan Start: 07/07/18 11:27 Freq: NEEDED Status: Active Protocol: Document 07/07/18 10:25 HH (Rec: 07/07/18 11:48 HH [email or web address]) PT Summary Assessment and Plan Potential Rehabilitation Potential Excellent Status of Condition at Evaluation Stable Summary Impairments Strength Bed Mobility Transfers Gait Activity Tolerance Assessment Summary Pt is a very pleasant and motivated 72yo female admitted to ICU due to A-fib and flu. Pt stated she feels so much better today and able to mobilize with 1pa SBA today. Upon assessment, pt amb 100 ft with SBA and performed transfers with SBA safely. Pt' s VSS was stable and maintained at baseline as well . Denies pain/ discomfort. Pt did not attempt steps due to fatigue after gait training but she will have to clear that prior to d/c home. Pt is expected to be d/c home with grandchildren's assistance once she is medically stable. Pt will benefit to d/c with 4ww and tub bench for transfer . Goals Bed Mobility Goal Independent Transfer Goal Independent Front Wheeled Walker Four Wheeled Walker Gait Goal Independent Front Wheel Walker Four Wheel Walker Gait Distance 300 Other Goals climb 1 step without AD Days to Meet Goals 3 Frequency of Treatment Frequency Of Treatment Once a Day Treatment Plan Physical Therapy Treatment Plan Bed Mobility Training Transfer Training Gait Training Therapeutic Exercise Discharge Planning Other Recommendations and Next Treatment transfer and gait training as Focus kavya climb 1-3 steps withotu AD Recommendations To Nursing Amount of Assist Needed 1 Person Assist Discharge Recommendations PT Discharge Recommendations Home with Assistance Equipment Needed for Home Before 4ww/ FWW, tub transfer bench Discharge
--- NOTE | 2018-07-07 13:26 | CM.DANOTE ---
Addendum entered by Kimberlyn Del Valle, SANDY 07/07/18 15:28: PT Holden (Pedro Luis) is here and states he is now recommending a FWW at d/c. He will explain same to pt and says he sis amending his note. Order for same is now obtained and is given to him for further processing. Original Note: Addendum entered by Kimberlyn Del Valle, SANDY 07/07/18 14:54: Met with pt, introduced self and role. Pt quickly confirms that she cannot afford the cost of the Xarelto and would agree to try the coumadin until she can get an appt with her lumber piler (she does not remember the name.) She confirms her PCP is Adrianne Sebastian. PT has recomended a 4ww for her and she says as no one in the home can drive at this point (she confirms she will not be well enough to do this) she [facility] and have it billed to [facility]. (PT Betsy is updated and will followup with PT Pedro Luis who made this recommendation). OT is also ordered. Britney will see pt this afternoon. Dr. Gonzalez had indicated pt might d/c later today. Pt herself says she understands she will d/c sometime over the weekend. She says her oldest daughter is arriving tonight and will be her over the weekend and she will drive her home. The teenagers do not have pile driver operator helper's licenses yet..the 18 year has a permit. Pt confirms that her daughter with whom she lives is disabled 100% from a pulmonary disease and she is supportive but is unable to be of assist. Pt expresses concern getting the lab draws for the coumadin. As she will be homebound for a while discussed the HH options. She was very eager to do this and agreed that RN OT/PT and BIOCHEMISTRY SPECIALIST would be helpful (pt is also looking at resources for herself going forward as the whole household situation is rather fragile. HH agency choices discussed: decision: [facility]. Referral is into [facility] who did arrive just now and has the demographic sheet plus the H&P. She states that RN would be able to go out to her home on Tuesday if pt is d/c'd before then. Brochure is provided for pt. Dr. Gonzalez has been updated re the cost of the Xarelto and have left a vm on her cell re the rest of this. If home with HH is the plan a Face/Face will need to be signed and HH RN/OT/PT/BIOCHEMISTRY SPECIALIST orders obtained and with followup to [facility]. Pt does currently remain on Droplet Precautions. Will call [facility] pharmacy back with update./done Original Note: Discharge Planning/Care Management DCP: assessment: case received and discussed in Team Rounds. Pt is a 72 year old female who admitted to care of hosptialist team evening of 07/05. PCP: Divya Rodriguez (will confirm) Payer: [facility] Adv. PT Holden (Pedro Luis) did see pt today and he is recommending a walker for setting. Dr. Gonzalez is requesting assist in determining coverage for Xarelto/20 mg daily but would like to d/c pt home today if this medication is affordable for her. Per BINDERY MACHINE SETTER René pt reports her pharmacy is [facility]. Have spoken now with the director pharmacy services and faxed in the face sheet and script from Dr. Gonzalez so the pharmacist can run it. /done Decision: pt's cost for the medication would be $193.17 for a month after the insurance has pd their part. Will check in now with Dr. Gonzalez and pt to update them. CM Discharge Assessment Start: 07/06/18 16:16 Freq: Status: Active Protocol: Document 07/06/18 16:16 ITV (Rec: 07/06/18 16:17 ITV [email or web address]) Discharge Planning Assessment Advance Directives? No History Provided By Medical Record Prior Living Arrangements House Review Status In Process Next Review Type Continued Stay Review Document 07/07/18 13:24 ITV (Rec: 07/07/18 13:26 ITV [email or web address]) Discharge Planning Assessment Advance Directives? No History Provided By Patient Medical Record Prior Living Arrangements House Household Members family children Comment lives with disabled daugterter and 2 teenage grandchildren ( 16 and 18) who help with cooking and cleaning. Is patient alert and oriented? Yes Review Status In Process Next Review Type Continued Stay Review
--- NOTE | 2018-07-07 16:18 | PT.IIE ---
Current Diagnoses Obesity, unspecified (07/05/18) Mixed hyperlipidemia (07/05/18) Essential (primary) hypertension (07/05/18) Non-ST elevation (NSTEMI) myocardial infarction (07/05/18) Unspecified atrial fibrillation (07/05/18) Influenza due to other identified influenza virus with other respiratory manifestations (07/05/18) Chronic obstructive pulmonary disease with acute lower respiratory infection (07/05/18) Fibromyalgia (07/05/18) Surgical History (Last Reviewed 07/05/18 @ 18:28 by Carlie Dominguez MD) History of cone biopsy of cervix (Resolved 1991) History of gynecologic surgery (Resolved 1975) History of tubal ligation (Resolved 1977) Medical History (Last Reviewed 07/05/18 @ 18:28 by Carlie Dominguez MD) AAA (abdominal aortic aneurysm) (Chronic ~2005) Arthritis of left hip (Chronic) Atrial fibrillation with RVR (Chronic 02/18/18) Fibromyalgia (Chronic) Hyperlipidemia (Chronic) Hypertension (Chronic) Osteopenia (Chronic 03/19/09) History of ectopic (Resolved 1975) Physical Therapy Inpatient Evaluation/Re-Eval M1 PT/OT-IP Prior Functional Status Start: 07/07/18 11:27 Freq: NEEDED Status: Active Protocol: Document 07/07/18 10:25 HH (Rec: 07/07/18 11:48 [email or web address]) Medical Review Prior Functional Status Medical History Reviewed Yes Communication No deficits noted. Able to make needs known. Mobility and Gait Pt was an independent ambulator at home and community. Pt did use a SPC occasionally due to chronic L hip pain. Activities of Daily Living and IADL's Pt was independent with ADLs and IADLs. However, pt's granddaughter and grandson helped her with cooking and house cleaning recently due to her increased weakness and L hip pain. Social History Household Members family children Living Arrangements House Number of Floors (Floors) One Floor Number of Stairs To Enter/Railing? 1 JEWELL without railing Home Environment Standard Height Toilet Tub/Shower Home Equipment Straight Cane Grab Bars In Shower Employment Status Retired Additional Social History Comment Pt lives with her disabled dtr and 2 grandkids (16-18yo) in an 3br apt in [place]. Pt has a jacuzzi tub that she has difficulty to lift her leg over it. Pt states her dtr will not be able to offer assistance if she needed but her grandkids have been helping her with cooking and housecleaning recently. Pt reports she was dx with A-fib 2 months ago and since then she noticed she has increased weakness. She also stated she has chronic L hip pain which she needed to use SPC from time to time for mobility. M2 PT-IP Current Condition Start: 07/07/18 11:27 Freq: NEEDED Status: Active Protocol: Document 07/07/18 10:25 HH (Rec: 07/07/18 11:48 [email or web address]) Physical Therapy Current Condition Current Condition Evaluation Date 07/07/18 Treatment Diagnosis A-fib, ACHE, difficulty in breathing, impaired gait and activity tolerance. Onset Date 07/05/18 Weight Bearing Status Weight Bearing Status Weight Bear as Tolerated M3 PT-IP Subjective Start: 07/07/18 11:27 Freq: NEEDED Status: Active Protocol: Document 07/07/18 10:25 HH (Rec: 07/07/18 11:48 [email or web address]) Subjective Physical Therapy Visit Type Type Initial Evaluation Visit Start Time 10:25 Visit Stop Time 10:50 Total Visit Minutes 25 Notes Per RN, pt has been getting OOB with 1pa. Pt is +ve for flu. Pt is now waiting for echo cardiogram result. Number of ZONING TECHNICIAN Visits 0 Physical Therapy Visit Comments Patient Comments I feel so much better today and i went to shower and bathroom with BSC. Patient Goals To return home with her family . Therapy Pain Assessment Pain Present Pain Present Denied Pain M4 PT-IP Mobility and Gait Start: 07/07/18 11:27 Freq: NEEDED Status: Active Protocol: Document 07/07/18 10:25 HH (Rec: 07/07/18 11:48 [email or web address]) PT-Transfer Assessment Sit to and From Stand Sit to and from Stand Standby Assistance Use of Upper Extremities Equipment Transfer Assistive Device Gait Belt Orthotic/Prosthetic Devices or Brace: No Transfers Transfer Destination Bed Chair Transfer Technique Stand Step Pivot Transfer Ability Level of Assist Standby Assistance Comments Mobility Comments HR maintained 80-100s between at rest and mobility. RR=17-25 . Pt sat up on chair upon assessment. denies discomfort or acute distress. She stood up with the use of armrest from chair SBA. And was able to transfer herself back to chair safely with SBA. Gait Assessment Gait Gait Assistance Required: Standby Assistance Distance (Feet) 100 Able to Maintain Weight Bearing Status Yes During Gait Assistive Devices Assistive Device Gait Belt Front Wheeled Walker Orthotic/Prosthetic Devices or Brace: No Gait Deviations General Gait Pattern Antalgic Decreased Stride Length Decreased Feet Clearance Factors Limiting Gait Function Factors Limiting Gait Function Decreased Activity Tolerance Decreased Strength Respiratory Distress Comments Gait Comments Pt amb from bedside chair to hallway with SBA and FWW. Pt presented a L antalgic gait due to her chronic left hip pain but overall with a steady gait. No signs of LOB / distress. Pt did requests back to her room for rest after 100 ft due to c/o fatigue. Stair Climbing Assessment Comments Stair Climbing Comments did not attempt due to fatigue PT-Balance Assessment Sitting Balance and Reactions Static Sitting Balance Ability Normal Dynamic Sitting Balance Ability Normal Standing Balance and Reactions Static Standing Balance Ability Good Dynamic Standing Balance Ability Good Device Used FWW M5 PT-IP Objective Assessments Start: 07/07/18 11:27 Freq: NEEDED Status: Active Protocol: Document 07/07/18 10:25 (Rec: 07/07/18 11:48 [email or web address]) Orientation Orientation/Cognition Level of Alertness Alert Orientation Name Age Birthday Month Date Year Day of Week Place Situation Language Function Ability No Deficits Noted Safety Awareness Understands Safety Issues Memory Description No Deficits Noted Gross Range of Motion Upper Extremity ROM Assessment Within Functional Limits Lower Extremity ROM Assessment Within Functional Limits Strength Upper Extremity Strength Assessment Within Functional Limits Lower Extremity Strength Assessment Left Impaired Hip 3+/5 Coordination Assessment Gross Coordination Gross Coordination WNL Sensation Assessment Sensation Gross Sensation WNL Light Touch Intact Proprioception (Position) Intact Muscle Tone Muscle Tone WNL Yes M6 PT-IP Treatment Start: 07/07/18 11:27 Freq: NEEDED Status: Active Protocol: Document 07/07/18 10:25 (Rec: 07/07/18 11:48 [email or web address]) Physical Therapy Treatment Exercises Exercises Ankle Pumps Gluteal Sets Quad Sets Education Education Provided Safety M7 PT-IP Assessment and Plan Start: 07/07/18 11:27 Freq: NEEDED Status: Active Protocol: Document 07/07/18 10:25 (Rec: 07/07/18 11:48 [email or web address]) PT Summary Assessment and Plan Potential Rehabilitation Potential Excellent Status of Condition at Evaluation Stable Summary Impairments Strength Bed Mobility Transfers Gait Activity Tolerance Assessment Summary Pt is a very pleasant and motivated 72yo female admitted to ICU due to A-fib and flu. Pt stated she feels so much better today and able to mobilize with 1pa SBA today. Upon assessment, pt amb 100 ft with SBA and performed transfers with SBA safely. Pt' s VSS was stable and maintained at baseline as well . Denies pain/ discomfort. Pt did not attempt steps due to fatigue after gait training but she will have to clear that prior to d/c home. Pt is expected to be d/c home with grandchildren's assistance once she is medically stable, along with HH to improve overall mobility since pt might be homebound for a while . Pt will benefit to d/c with FWW and tub bench for transfer . Communicated with pt that she might benefit from 4 WW in the future for community mobility. Goals Bed Mobility Goal Independent Transfer Goal Independent Front Wheeled Walker Four Wheeled Walker Gait Goal Independent Front Wheel Walker Four Wheel Walker Gait Distance 300 Other Goals climb 1 step without AD Days to Meet Goals 3 Frequency of Treatment Frequency Of Treatment Once a Day Treatment Plan Physical Therapy Treatment Plan Bed Mobility Training Transfer Training Gait Training Therapeutic Exercise Discharge Planning Other Recommendations and Next Treatment transfer and gait training as Focus kavya climb 1-3 steps withotu AD Recommendations To Nursing Amount of Assist Needed 1 Person Assist Discharge Recommendations PT Discharge Recommendations Home with Assistance Home Health Equipment Needed for Home Before FWW, tub transfer bench Discharge
--- NOTE | 2018-07-07 16:27 | PT.IPTN ---
Current Diagnoses Obesity, unspecified (07/05/18) Mixed hyperlipidemia (07/05/18) Essential (primary) hypertension (07/05/18) Non-ST elevation (NSTEMI) myocardial infarction (07/05/18) Unspecified atrial fibrillation (07/05/18) Influenza due to other identified influenza virus with other respiratory manifestations (07/05/18) Chronic obstructive pulmonary disease with acute lower respiratory infection (07/05/18) Fibromyalgia (07/05/18) Physical Therapy Treatment Note M2 PT-IP Current Condition Start: 07/07/18 11:27 Freq: NEEDED Status: Active Protocol: Document 07/07/18 10:25 HH (Rec: 07/07/18 11:48 HH [email or web address]) Physical Therapy Current Condition Current Condition Evaluation Date 07/07/18 Treatment Diagnosis A-fib, ACHE, difficulty in breathing, impaired gait and activity tolerance. Onset Date 07/05/18 Weight Bearing Status Weight Bearing Status Weight Bear as Tolerated M3 PT-IP Subjective Start: 07/07/18 11:27 Freq: NEEDED Status: Active Protocol: Document 07/07/18 15:45 HH (Rec: 07/07/18 16:22 HH [id number]) Subjective Physical Therapy Visit Type Type Administrative Note Visit Start Time 15:45 Notes Communicated with and SW that pt might be d/c or tomorrow who has an urgent need for AD. Pt wishes to get this from the [employer] and have it billed to [facility] but 4WW is not available at this point. Communicated with Pt regarding d/c with FWW to increase her overall stability, and purchase 4WW in the future if needed. M4 PT-IP Mobility and Gait Start: 07/07/18 11:27 Freq: NEEDED Status: Active Protocol: Document 07/07/18 10:25 HH (Rec: 07/07/18 11:48 HH [email or web address]) PT-Transfer Assessment Sit to and From Stand Sit to and from Stand Standby Assistance Use of Upper Extremities Equipment Transfer Assistive Device Gait Belt Orthotic/Prosthetic Devices or Brace: No Transfers Transfer Destination Bed Chair Transfer Technique Stand Step Pivot Transfer Ability Level of Assist Standby Assistance Comments Mobility Comments HR maintained 80-100s between at rest and mobility. RR=17-25 . Pt sat up on chair upon assessment. denies discomfort or acute distress. She stood up with the use of armrest from chair SBA. And was able to transfer herself back to chair safely with SBA. Gait Assessment Gait Gait Assistance Required: Standby Assistance Distance (Feet) 100 Able to Maintain Weight Bearing Status Yes During Gait Assistive Devices Assistive Device Gait Belt Front Wheeled Walker Orthotic/Prosthetic Devices or Brace: No Gait Deviations General Gait Pattern Antalgic Decreased Stride Length Decreased Feet Clearance Factors Limiting Gait Function Factors Limiting Gait Function Decreased Activity Tolerance Decreased Strength Respiratory Distress Comments Gait Comments Pt amb from bedside chair to hallway with SBA and FWW. Pt presented a L antalgic gait due to her chronic left hip pain but overall with a steady gait. No signs of LOB / distress. Pt did requests back to her room for rest after 100 ft due to c/o fatigue. Stair Climbing Assessment Comments Stair Climbing Comments did not attempt due to fatigue PT-Balance Assessment Sitting Balance and Reactions Static Sitting Balance Ability Normal Dynamic Sitting Balance Ability Normal Standing Balance and Reactions Static Standing Balance Ability Good Dynamic Standing Balance Ability Good Device Used FWW M5 PT-IP Objective Assessments Start: 07/07/18 11:27 Freq: NEEDED Status: Active Protocol: Document 07/07/18 10:25 (Rec: 07/07/18 11:48 [email or web address]) Orientation Orientation/Cognition Level of Alertness Alert Orientation Name Age Birthday Month Date Year Day of Week Place Situation Language Function Ability No Deficits Noted Safety Awareness Understands Safety Issues Memory Description No Deficits Noted Gross Range of Motion Upper Extremity ROM Assessment Within Functional Limits Lower Extremity ROM Assessment Within Functional Limits Strength Upper Extremity Strength Assessment Within Functional Limits Lower Extremity Strength Assessment Left Impaired Hip 3+/5 Coordination Assessment Gross Coordination Gross Coordination WNL Sensation Assessment Sensation Gross Sensation WNL Light Touch Intact Proprioception (Position) Intact Muscle Tone Muscle Tone WNL Yes M6 PT-IP Treatment Start: 07/07/18 11:27 Freq: NEEDED Status: Active Protocol: Document 07/07/18 10:25 HH (Rec: 07/07/18 11:48 [email or web address]) Physical Therapy Treatment Exercises Exercises Ankle Pumps Gluteal Sets Quad Sets Education Education Provided Safety M7 PT-IP Assessment and Plan Start: 07/07/18 11:27 Freq: NEEDED Status: Active Protocol: Document 07/07/18 10:25 (Rec: 07/07/18 11:48 HH [email or web address]) PT Summary Assessment and Plan Potential Rehabilitation Potential Excellent Status of Condition at Evaluation Stable Summary Impairments Strength Bed Mobility Transfers Gait Activity Tolerance Assessment Summary Pt is a very pleasant and motivated 72yo female admitted to ICU due to A-fib and flu. Pt stated she feels so much better today and able to mobilize with 1pa SBA today. Upon assessment, pt amb 100 ft with SBA and performed transfers with SBA safely. Pt' s VSS was stable and maintained at baseline as well . Denies pain/ discomfort. Pt did not attempt steps due to fatigue after gait training but she will have to clear that prior to d/c home. Pt is expected to be d/c home with grandchildren's assistance once she is medically stable, along with HH to improve overall mobility since pt might be homebound for a while . Pt will benefit to d/c with FWW and tub bench for transfer . Communicated with pt that she might benefit from 4 WW in the future for community mobility. Goals Bed Mobility Goal Independent Transfer Goal Independent Front Wheeled Walker Four Wheeled Walker Gait Goal Independent Front Wheel Walker Four Wheel Walker Gait Distance 300 Other Goals climb 1 step without AD Days to Meet Goals 3 Frequency of Treatment Frequency Of Treatment Once a Day Treatment Plan Physical Therapy Treatment Plan Bed Mobility Training Transfer Training Gait Training Therapeutic Exercise Discharge Planning Other Recommendations and Next Treatment transfer and gait training as Focus kavya climb 1-3 steps withotu AD Recommendations To Nursing Amount of Assist Needed 1 Person Assist Discharge Recommendations PT Discharge Recommendations Home with Assistance Home Health Equipment Needed for Home Before FWW, tub transfer bench Discharge
--- NOTE | 2018-07-07 17:50 | OT.IP.EVAL ---
Current Diagnoses Obesity, unspecified (07/05/18) Mixed hyperlipidemia (07/05/18) Essential (primary) hypertension (07/05/18) Non-ST elevation (NSTEMI) myocardial infarction (07/05/18) Unspecified atrial fibrillation (07/05/18) Influenza due to other identified influenza virus with other respiratory manifestations (07/05/18) Chronic obstructive pulmonary disease with acute lower respiratory infection (07/05/18) Fibromyalgia (07/05/18) Past Medical History (Last Reviewed 07/05/18 @ 18:28 by Carlie Dominguez MD) AAA (abdominal aortic aneurysm) (Chronic ~2005) Arthritis of left hip (Chronic) Atrial fibrillation with RVR (Chronic 02/18/18) Fibromyalgia (Chronic) Hyperlipidemia (Chronic) Hypertension (Chronic) Osteopenia (Chronic 03/19/09) History of ectopic (Resolved 1975) Surgical History (Last Reviewed 07/05/18 @ 18:28 by Carlie Dominguez MD) History of cone biopsy of cervix (Resolved 1991) History of gynecologic surgery (Resolved 1975) History of tubal ligation (Resolved 1977) Occupational Therapy Inpatient Evaluation/Re-Eval M1 PT/OT-IP Prior Functional Status Start: 07/07/18 11:27 Freq: NEEDED Status: Active Protocol: Document 07/07/18 10:25 (Rec: 07/07/18 11:48 [email or web address]) Medical Review Prior Functional Status Medical History Reviewed Yes Communication No deficits noted. Able to make needs known. Mobility and Gait Pt was an independent ambulator at home and community. Pt did use a SPC occasionally due to chronic L hip pain. Activities of Daily Living and IADL's Pt was independent with ADLs and IADLs. However, pt's granddaughter and grandson helped her with cooking and house cleaning recently due to her increased weakness and L hip pain. Social History Household Members family children Living Arrangements House Number of Floors (Floors) One Floor Number of Stairs To Enter/Railing? 1 JEWELL without railing Home Environment Standard Height Toilet Tub/Shower Home Equipment Straight Cane Grab Bars In Shower Employment Status Retired Additional Social History Comment Pt lives with her disabled dtr and 2 grandkids (16-18yo) in an 3br apt in [place]. Pt has a jacuzzi tub that she has difficulty to lift her leg over it. Pt states her dtr will not be able to offer assistance if she needed but her grandkids have been helping her with cooking and housecleaning recently. Pt reports she was dx with A-fib 2 months ago and since then she noticed she has increased weakness. She also stated she has chronic L hip pain which she needed to use SPC from time to time for mobility. M1 PT/OT-IP Prior Functional Status Start: 07/07/18 17:12 Freq: NEEDED Status: Active Protocol: Document 07/07/18 17:12 [facility] (Rec: 07/07/18 17:50 [facility] [id number]) Medical Review Prior Functional Status Medical History Reviewed Yes Communication No deficits noted. Able to make needs known. Mobility and Gait Pt was an independent ambulator at home and community. Pt did use a SPC occasionally due to chronic L hip pain. Activities of Daily Living and IADL's Pt was independent with ADLs and IADLs. However, pt's granddaughter and grandson helped her with cooking and house cleaning recently due to her increased weakness and L hip pain. Pt states dirves but only during the day time. Social History Household Members family children Living Arrangements House Number of Floors (Floors) One Floor Number of Stairs To Enter/Railing? 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 Pt has a jacuzzi tub that she has difficulty to lift her leg over it. Pt states her dtr will not be able to offer assistance if she needed but her grandkids have been helping her with cooking and housecleaning recently. Pt reports she was dx with A-fib 2 months ago and since then she noticed she has increased weakness. She also stated she has chronic L hip pain which she needed to use SPC from time to time for mobility. M2 OT-IP Current Condition Start: 07/07/18 17:12 Freq: Status: Active Protocol: Document 07/07/18 17:12 [facility] (Rec: 07/07/18 17:50 [facility] [id number]) Occupational Therapy Current Condition Current Condition Evaluation Date 07/07/18 Treatment Diagnosis A-fib, weakness Diagnosis Onset Date 07/05/18 M3 OT- IP Subjective and Pain Start: 07/07/18 17:12 Freq: Status: Active Protocol: Document 07/07/18 17:12 [facility] (Rec: 07/07/18 17:50 [facility] [id number]) OT- Subjective Occupational Therapy Visit Type Type Initial Evaluation Visit Start Time 15:10 Visit Stop Time 15:45 Total Visit Minutes 35 Occupational Therapy Visit Comments Patient Comments Pt agreeable to do OT eval. OT Pain Assessment Pain When Pain Assessed At Rest Pain Present Pain Present Denied Pain M4 OT- IP ADL's Start: 07/07/18 17:12 Freq: Status: Active Protocol: Document 07/07/18 17:12 [facility] (Rec: 07/07/18 17:50 [facility] [id number]) OT ADL-Dressing General Eval Lower Body Dressing Ability Moderate Assistance Areas Needing Assistance Socks Comments OT Dressing Comments Due to left hip pain pt unable to reach left foot to umer/ doff socks. M5 OT- IP IADL's Start: 07/07/18 17:12 Freq: Status: Active Protocol: Document 07/07/18 17:12 [facility] (Rec: 07/07/18 17:50 [facility] [id number]) OT-Instrumental Activities of Daily Living Meal Preparation Meal Preparation Comments Pt states grandkids will assist for cooking and cleaning needs. Driving Driving Comments Pt reailzing at this time will not drive as not thinking very well. M6 OT- IP Functional Cognition Start: 07/07/18 17:12 Freq: Status: Active Protocol: Document 07/07/18 17:12 [facility] (Rec: 07/07/18 17:50 [facility] [id number]) Cognitive Factors Limiting Selfcare Function Cognitive Ability Level of Alertness Alert Patient Orientation Name Place Situation Attention Span Ability Capable of Focused Attention Capable of Sustained Attention Ability to Follow Commands Able to Follow One Step Commands Memory Description Short Term Impaired Safety Awareness Underestimates Need for Assistance Problem Solving Ability Unable to Identify Errors Needs Assist to Identify Solutions Executive Function Ability Unable to Make Plans Unable to Organize Plans Unable to Remember Details Cognitive Tests SLUMS Pt scored 18/30 which implies cognitive deficits, normal cognition score is 27/30. Pt having to much difficulty with short term memory, how to draw hour markers for time of 10:50, and math calculations. Suggested pt have someone assist with bills at this time . Cognitive Comments Cognitive Assessment Comments Pt very concrete and able to follow one step commands. When tub bench suggested, pt insisting that tub bench would not work as having to explain that the legs are adjustable and can accommodate height of tub. Pt however does realize that it would not be safe for her to drive at this time. Pt however feels that she is thinking better than yesterday though. OT- Vision and Hearing OT- Hearing Assessment OT- Hearing Assessment Hearing Impaired Use of Hearing Aids OT- Vision Assessment Vision Assessment Comments Pt states hearing aids do not work well and does better if able to see the person's mouth to be able to lip read in addition to hearing their voice. M7 OT- IP Mobility and Balance Start: 07/07/18 17:12 Freq: Status: Active Protocol: Document 07/07/18 17:12 [facility] (Rec: 07/07/18 17:50 [facility] [id number]) OT-Transfer Assessment Sit to and From Stand Sit to and from Stand Standby Assistance 1 Person Assistance OT- Balance Assessment Sitting Balance and Reactions Static Sitting Balance Ability Normal Dynamic Sitting Balance Ability Good Standing Balance and Reactions Static Standing Balance Ability Good M8 OT- IP Objective Assessments Start: 07/07/18 17:12 Freq: Status: Active Protocol: Document 07/07/18 17:12 [facility] (Rec: 07/07/18 17:50 [facility] [id number]) OT Gross Range of Motion Upper Extremity Range of Motion Assessment Within Functional Limits OT Strength Upper Extremity Strength Assessment Within Functional Limits M9 OT- IP Assessment and Plan Start: 07/07/18 17:12 Freq: Status: Active Protocol: Document 07/07/18 17:12 [facility] ([facility]: [facility]07/18 [id number] Summary Assessment and Plan Potential Rehabilitation Potential Good Analytic Complexity at Evaluation Low Summary OT Impairments Balance Functional Cognition Functional Mobility Dressing Bathing Toilet Transfers Shower Transfers Progress Towards Goals Slow Progress due to Activity Tolerance Slow Progress due to Cognition Assessment Summary Pt low complexity and main barriers are activity tolerance and short term memory. Pt will benefit from assist at home and home health . Goals Grooming Goal Independent Dressing Goal Minimal Assistance Toileting Goal Standby Assistance Bathing Goal Contact Guard Assistance Toilet Transfer Goal Standby Assistance Shower Transfer Goal Contact Guard Assistance Patient/Caregiver Education Goal Caregiver Independent Assisting Patient Days to Meet Goals 2 Frequency of Treatment Frequency Of Treatment Once a Day Treatment Plan OT Treatment Plan ADL Training Functional Cognition Training Functional Mobility Patient/Family Education Discharge Planning Other Treatment Recommendations and Next LB dressing, energy Treatment Focus conservation Discharge Recommendations OT Discharge Recommendations Home with Assistance Home Health Home Equipment Needs amparo Armstrong
--- NOTE | 2018-07-07 19:36 | PC.NURSE ---
Addendum entered by Shanti Yang R.N. 07/07/18 23:01: pt up to br, sba, states she doesn't want to go home. given information about warfarin, states she was on it years ago (in her 20s) when she had a blood clot, but that they all went away, so she knows what to do. did discuss the importance of monitoring amount of leafy greens she has states she eats spinach every once in a while. discussed multiple times, reiterated multiple times to maintain amount of leafy greens she eats per day, and to not fluctuate too much. pt reports she understands. Original Note: 1500- assumed care of pt from outgoing shift. Pt awake and alert. Pt sitting in chair. belongings and call light within reach. Pt up with SBA around room. uses call light when needing to toilet. Pt ate dinner. tolerated. chatty and cooperative. has been calling friends on cell phone and watching TV. questions answered. will continue to monitor.
--- NOTE | 2018-07-07 20:25 | PM.PN.1 ---
Subjective Date Patient Seen: 07/07/18 Interval history: Lisa Gurrola is a 72-year-old female with a past medical history significant for hypertension, hyperlipidemia, chronic atrial fibrillation not on aspirin, osteoarthritis and fibromyalgia who presented with slowly progressive shortness of breath over 3 weeks and admitted for atrial fibrillation with RVR and CHF exacerbation. The patient is resting in bedside chair comfortably. She has no complaints today other than generalized weakness and requests forward wheeled walker. She continues to work daily with physical therapy and occupational therapy. She is off supplemental oxygen. She reports her cough is vastly improved. She denies headache, chest pain, shortness of breath, palpitations, lightheadedness or dizziness, abdominal pain, nausea, vomiting, fever, chills, dysuria, diarrhea or constipation. She is voiding and eliminating without difficulty. She is up ambulating with assistance. Exam Vital Signs (past 8 hours): - 07/07/18 13:40 07/07/18 16:00 07/07/18 19:13 Temperature 98.4 F Pulse Rate 73 83 83 Respiratory Rate 18 13 18 Blood Pressure 125/77 Pulse Oximetry 94 94 93 Oxygen Delivery Method Room Air Oxygen Flow Rate 2 Narrative Exam Narrative: General: Elderly female sitting in bedside chair and in no acute distress, more composed today, well-developed, well-nourished, appropriately interactive. HEENT: Normocephalic, atraumatic. External ears without defect. Pupils equal, round, and reactive to light. Anicteric sclerae, moist conjunctivae, and no lid lag. Neck: Supple with full range of motion. No jugular venous distension. No lymphadenopathy or thyromegaly. Cardiovascular: Irregularly irregular without murmurs, rubs, or gallops appreciated. Pulmonary: Clear to auscultation bilaterally without rhonchi, crackles or wheezes. Normal respiratory effort with no use of accessory muscles. Abdomen: Soft, bowel sounds present, nontender, nondistended. No hepatosplenomegaly or masses appreciated. Extremities: No clubbing or cyanosis. Trace bipedal edema. Skin: Normal temperature, turgor, and texture; no rash, ulcers, or subcutaneous nodules appreciated. Neurological: Cranial nerves grossly intact. Psychiatric: Normal mood and affect. Very talkative an at times seems to have pressured speech. Alert and oriented to person, place, and time. Objective Labs Result Diagrams: 07/07/18 04:54 07/07/18 04:54 Labs: Laboratory Results - last 24 hr 07/07/18 07/07/18 04:54 04:54 WBC 4.1 L RBC 4.53 Hgb 13.3 Hct 40.3 MCV 88.9 MCH 29.3 MCHC 33.0 RDW 13.8 Plt Count 177 Neut % (Auto) 70.3 Lymph % (Auto) 15.4 L [place] % (Auto) 14.0 Eos % (Auto) 0.0 L Baso % (Auto) 0.3 Neut # (Auto) 2900 Lymph # (Auto) 600 L [place] # (Auto) 600 Eos # (Auto) 0 Baso # (Auto) 0 Sodium 140 Potassium 3.4 Chloride 103 Carbon Dioxide 29 BUN 26 H Creatinine 1.10 H Estimated GFR 49.0 L BUN/Creatinine Ratio 23.6 H Glucose 119 H Calcium 9.2 Magnesium 2.0 Assessment & Plan Assessment & Plan narrative: Lisa Gurrola is a 72-year-old female with a past medical history significant for hypertension, hyperlipidemia, chronic atrial fibrillation not on aspirin, osteoarthritis and fibromyalgia who presented with slowly progressive shortness of breath over 3 weeks and admitted for atrial fibrillation with RVR and CHF exacerbation. 1. Paroxysmal atrial fibrillation with RVR, present on admission. RVR resolved. -Continue diltiazem HCl 180 mg daily. Titrated off diltiazem gtt. -Continue heparin gtt and will consider discontinuing if troponins continue to trend down per Cardiology recommendation. -CHADS2 Vasc score 5 indicative of moderate to high risk of cardiovascular event in 1 year. Discontinued Xarelto as this is not an affordable option for the patient. Started warfarin 5 mg tonight and will monitor INR daily until discharge. Patient will be discharged with home health for PT/OT and INR checks. Plan for follow up with PCP to continue management of warfarin. -TSH slightly low at 0.44 and T4 within normal limits customer retention representative of possible subclinical hyperthyroidism but noncontributory to atrial fibrillation with RVR. Recommend outpatient management. 2. Type 2 Myocardial infarction, present on admission. Resolving. -Likely reflective of demand ischemia. Discussed with Cardiology who recommends heparin gtt and stop if troponins trending down, aspirin, and rate control. -No chest pain or acute ischemic changes seen on EKG. -Echocardiogram demonstrated preserved systolic function with ejection fraction 60-65% with mild to moderate mitral regurgitation. No focal wall motion abnormalities. 3. Acute Influenza A URI, present on admission. Active. -Continue Tamiflu 75 mg twice daily. 4. Probable COPD with exacerbation, present on admission. Stable. -Continue DuoNebs every 6 hours while awake and albuterol nebs every 2 hr as needed for shortness of breath and wheezing. -Continue prednisone 40 mg x 5 days. 5. Hypertension, chronic, present on admission. Stable. -Continue diltiazem 180 mg daily. Titrated off diltiazem gtt. -Restart lisinopril 10 mg daily. 6. Hyperlipidemia, chronic, present on admission. Stable. -Ordered fasting lipid panel, pending. -Not medically treated as patient is intolerant of statin, therefore, uncontrolled. 7. Chronic kidney disease stage 2, present on admission. Stable. -Recent baseline creatinine unknown. Previous creatinine 1.0 in 2017. Initial creatinine on admission 1.1. -Avoid nephrotoxic agents. Will discuss ibuprofen use. -Continue to monitor renal function. 8. Overweight, chronic, present on admission. Stable. -BMI 28. Unclear if patient carries a diagnosis of obesity versus overweight. Patient may have been obese at one time in her life but currently overweight. 9. Fibromyalgia, chronic, present on admission. Stable. -Continue ibuprofen as needed. Disposition: Discontinued Xarelto and started warfarin today and will check INR tomorrow. Likely to discharge home with home health tomorrow.
[2018-07-07] MEDS: WARFARIN 5 MG TABLET PO (20:34)
[2018-07-08 00:34] VITALS: BP 133/93; PULSE 90; RESP 20; TEMP 36.3; O2SAT 96
[2018-07-08 04:59] VITALS: BP 140/76; PULSE 80; RESP 20; TEMP 35.6; O2SAT 97
[2018-07-08 05:49] LABS: Add Manual Diff / Slide Review NO; Basophils Absolute Auto 0 /uL (0-100); Basophils Percent Auto 0.1 % (0-2); Eosinophils Absolute Auto 0 /uL (0-450); Hematocrit 41.6 % (36-46); Hemoglobin 13.7 g/dL (12.0-16.0); Lymphocytes Absolute Auto 800 /uL (1100-4500); Lymphocytes Percent Auto 14.6 % (25-40); Mean Corpuscular HGB Conc 32.8 % (30-36); Mean Corpuscular Hemoglobin 29.1 PG (26-34); Mean Corpuscular Volume 88.7 fL (80-100); Monocytes Absolute Auto 600 /uL (0-900); Monocytes Percent Auto 10.9 % (3-14); Neutrophils Absolute Auto 4000 /uL (1500-7000); Neutrophils Percent Auto 74.4 % (50-75); Platelet Count 206 X10^3/uL (150-400); Red Blood Cell Count 4.69 X10^6/uL (4.0-5.2); Red Cell Distribution Width 14.3 % (11.6-14.8); White Blood Cell Count 5.4 X10^3/uL (4.5-11.0)
[2018-07-08 05:50] LABS: BUN Creatinine Ratio 24.5 (6-22); Blood Urea Nitrogen 27 mg/dL (7-17); Calcium 9.5 mg/dL (8.4-10.2); Carbon Dioxide 30 mmol/L (22-32); Chloride 102 mmol/L (98-107); Glucose 119 mg/dL (80-110); HEMOLYSIS < 15 (0-50); Magnesium 2.1 mg/dL (1.6-2.3); Potassium 3.6 mmol/L (3.4-5.1); Sodium 141 mmol/L (137-145)
[2018-07-08 06:01] LABS: INR 1.2 (0.9-1.3); Prothrombin Time 13.7 SECONDS (10.1-12.7)
[2018-07-08 06:03] LABS: Cholesterol 246 mg/dL (140-199); HDL Cholesterol 27 mg/dL (40-60); LDL Cholesterol Calculated 192 mg/dL (<100); Triglycerides 137 mg/dL (35-150)
[2018-07-08] MEDS: ALBUTEROL/IPRATROPIUM 3 ML AMPUL INH (06:12)
[2018-07-08 06:13] VITALS: PULSE 58; RESP 15; O2SAT 96
[2018-07-08 07:39] VITALS: BP 119/44; PULSE 70; RESP 12; TEMP 36.8; O2SAT 98
--- NOTE | 2018-07-08 07:43 | P.DS_ITS ---
History of Present Illness Date Patient Seen: 07/05/18 Chief complaint: ACHE,DIFFICULTY BREATHING,COLD Narrative: Written by Dr. Dominguez: Patient is a pleasant 72 y/o female with a history of atrial fibrillation not on anticoagulation, history of smoking ( quit 8 years ago), hypertension, hyperlipidemia, fibromyalgia, and arthritis who presents with a three week history of progressive shortness of breath. The patient states it was gradual in onset, mostly associated with activity but occassionally at rest. She denies in PND, orthopnea, chest pain, or palpitations. She has known atrial fibrialltion and is on cardizem for rate control but has been reluctant to start anticoagulation. She has a long history of smoking, quit and is on inhalers intermittantly. She reports no fever, but has had a cough that is non productive. She reports feely achy with joint pains but always has some arthritic pain. She had some diarrhea that resolved. She denies nausea, vomiting, hemetesis, melena, or bright red blood per rectum. She has no dysuria, hematuria, or pyuria. She was found to have elevated troponins .445 in the ED. She was started on an IV heparin drip in the event cardiac intervention will be needed. For now, the goal is rate control, trend the troponins, and treat her influenza A which was positive in the ED. Discharge Providers Date of admission: 07/05/18 17:22 Discharge Date: 07/08/18 Primary care physician: Meli Sebastian PA-C Consults: 07/05/18 14:53 Consult to Respiratory Therapy Evaluate & Treat Comment: Physician Instructions: Evaluate and treat 07/06/18 21:57 Consult to Occupational Therapy Evaluate & Treat Comment: Physician Instructions: Evaluate and treat Consult to Physical Therapy Evaluate & Treat Comment: Physician Instructions: Evaluate and Treat 07/07/18 15:26 Consult to Home Health Routine Comment: as per recommendation by PT Reason For Exam: FWW at d/c: standard size, unsteady gait. Discharge provider: Ramona Gonzalez DO Summary Discharge Diagnosis: 1. Paroxysmal atrial fibrillation with RVR, present on admission. RVR resolved. 2. Type 2 Myocardial infarction, present on admission. Resolved. 3. Acute Influenza A URI, present on admission. Resolving. 4. Probable COPD with exacerbation, present on admission. Resolving. 5. Hypertension, chronic, present on admission. Stable. 6. Hyperlipidemia, chronic, present on admission. Stable. 7. Chronic kidney disease stage 2, present on admission. Stable. 8. Overweight, chronic, present on admission. Stable. 9. Fibromyalgia, chronic, present on admission. Stable. Hospital Course: Lisa Gurrola is a 72-year-old female with a past medical history significant for hypertension, hyperlipidemia, chronic atrial fibrillation not on aspirin, osteoarthritis and fibromyalgia who presented with slowly progressive shortness of breath over 3 weeks and admitted for atrial fibrillation with RVR and CHF exacerbation. 1. Paroxysmal atrial fibrillation with RVR, present on admission. RVR resolved. -Continue diltiazem HCl 180 mg daily. Titrated off diltiazem gtt. -Continue heparin gtt and will consider discontinuing if troponins continue to trend down per Cardiology recommendation. -CHADS2 Vasc score 5 indicative of moderate to high risk of cardiovascular event in 1 year. Discontinued Xarelto as this is not an affordable option for the patient. Started warfarin 5 mg daily. INR 1.2. Plan to follow up with PCP on Monday 07/10 for hospital follow-up and warfarin management. Patient will be discharged with home health for PT/OT/Nursing and INR checks. 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 Recommend outpatient management. 2. Type 2 Myocardial infarction, present on admission. Resolved. -Likely reflective of demand ischemia. Discussed with Cardiology who recommends heparin gtt and stop if troponins trending down, aspirin, and rate control. -Chest pain resolved and no acute ischemic changes seen on EKG. -Echocardiogram demonstrated preserved systolic function with ejection fraction 60-65% with mild to moderate mitral regurgitation. No focal wall motion abnormalities. 3. Acute Influenza A URI, present on admission. Resolving. -Continued Tamiflu 75 mg twice daily to complete 5 day course. 4. Probable COPD with exacerbation, present on admission. Resolving. -Continued DuoNebs every 6 hours while awake and albuterol nebs every 2 hr as needed for shortness of breath and wheezing. -Continued prednisone 40 mg to complete 5 day burst. 5. Hypertension, chronic, present on admission. Stable. -Continued diltiazem 180 mg daily. Titrated off diltiazem gtt. -Continued lisinopril 10 mg daily. 6. Hyperlipidemia, chronic, present on admission. Stable. -Fasting lipid panel demonstrated: Total cholesterol 246, triglycerides 137, LDL 192, HDL 27. -Not medically treated as patient is intolerant of statin and lipid uncontrolled. Recommend outpatient management. 7. Chronic kidney disease stage 2, present on admission. Stable. -Recent baseline creatinine unknown. Previous creatinine 1.0 in 2017. Initial creatinine on admission 1.1 and stable. -Avoid nephrotoxic agents. Will discuss ibuprofen use. -Continued to monitor renal function. 8. Overweight, chronic, present on admission. Stable. -BMI 28. Unclear if patient carries a diagnosis of obesity versus overweight. Patient may have been obese at one time in her life but currently overweight. 9. Fibromyalgia, chronic, present on admission. Stable. -Continued ibuprofen until anticoagulation was started then discontinued. Recommend Tylenol and possibly tramadol outpatient for pain control. Exam Vital Signs (past 8 hours): - 07/08/18 00:34 07/08/18 04:59 07/08/18 06:13 Temperature 97.4 F L 96.1 F L Pulse Rate 90 80 58 L Respiratory Rate 20 20 15 Blood Pressure 133/93 H 140/76 Pulse Oximetry 96 97 96 07/08/18 07:39 Temperature 98.3 F Pulse Rate 70 Respiratory Rate 12 Blood Pressure 119/44 L Pulse Oximetry 98 Oxygen Delivery Method Room Air Oxygen Flow Rate 2 Narrative Exam Narrative: General: Elderly female sitting in bedside chair and in no acute distress, more composed today, well-developed, well-nourished, appropriately interactive. HEENT: Normocephalic, atraumatic. External ears without defect. Pupils equal, round, and reactive to light. Anicteric sclerae, moist conjunctivae, and no lid lag. Neck: Supple with full range of motion. No jugular venous distension. No lymphadenopathy or thyromegaly. Cardiovascular: Irregularly irregular without murmurs, rubs, or gallops appreciated. Pulmonary: Clear to auscultation bilaterally without rhonchi, crackles or wheezes. Normal respiratory effort with no use of accessory muscles. Abdomen: Soft, bowel sounds present, nontender, nondistended. No hepatosplenomegaly or masses appreciated. Extremities: No clubbing or cyanosis. Trace bipedal edema. Skin: Normal temperature, turgor, and texture; no rash, ulcers, or subcutaneous nodules appreciated. Neurological: Cranial nerves grossly intact. Psychiatric: Normal mood and affect. Very talkative and at times seems to have pressured speech. Alert and oriented to person, place, and time. Objective Labs Result Diagrams: 07/08/18 04:46 07/08/18 04:46 Labs: Laboratory Results - last 24 hr 07/08/18 07/08/18 07/08/18 04:46 04:46 04:46 WBC 5.4 RBC 4.69 Hgb 13.7 Hct 41.6 MCV 88.7 MCH 29.1 MCHC 32.8 RDW 14.3 Plt Count 206 Neut % (Auto) 74.4 Lymph % (Auto) 14.6 L Antelope % (Auto) 10.9 Eos % (Auto) 0.0 L Baso % (Auto) 0.1 Neut # (Auto) 4000 Lymph # (Auto) 800 L Antelope # (Auto) 600 Eos # (Auto) 0 Baso # (Auto) 0 PT 13.7 H INR 1.2 Sodium 141 Potassium 3.6 Chloride 102 Carbon Dioxide 30 BUN 27 H Creatinine 1.10 H Estimated GFR 49.0 L BUN/Creatinine Ratio 24.5 H Glucose 119 H Calcium 9.5 Magnesium 2.1 Triglycerides Cholesterol LDL Cholesterol, Calc HDL Cholesterol 07/08/18 04:46 WBC RBC Hgb Hct MCV MCH MCHC RDW Plt Count Neut % (Auto) Lymph % (Auto) Antelope % (Auto) Eos % (Auto) Baso % (Auto) Neut # (Auto) Lymph # (Auto) Antelope # (Auto) Eos # (Auto) Baso # (Auto) PT INR Sodium Potassium Chloride Carbon Dioxide BUN Creatinine Estimated GFR BUN/Creatinine Ratio Glucose Calcium Magnesium Triglycerides 137 Cholesterol 246 H LDL Cholesterol, Calc 192 H HDL Cholesterol 27 L Discharge Plan Discharge Plan Patient Disposition: Home Health Service Discharge comment: You are being discharged home with home health for PT/OT/Nursing/INR checks (goal between 2.0-3.0). You have been started on warfarin 5 mg daily at bedtime. Please follow-up with your PCP, Meli Sebastian, at your scheduled appointment on TuesdayJuly 10 at 8:30 am (check-in at 8:15 am) to discuss hospitalization and further management of warfarin with INR checked that day. You were prescribed Tamiflu 75 mg twice daily for 2 days to complete course and Prednisone 40 mg daily for 1 more day to complete course. Discharge Med Rec/Prescriptions Prescriptions: New oseltamivir [Tamiflu] 75 mg Capsule 75 mg PO BID 2 Days Qty: 2 RF: 0 prednisone 20 mg Tablet 40 mg PO DAILY Qty: 2 RF: 0 warfarin 5 mg tablet 5 mg PO DAILY Qty: 10 RF: 0 Continued ipratropium-albuterol 0.5 mg-3 mg(2.5 mg base)/3 mL solution for nebulization 3 ml INHALATION Q6-8H PRN (Reason: shortness of breath) Qty: 180 RF: 1 lisinopril 10 mg tablet 10 mg PO DAILY Qty: 90 RF: 3 diltiazem HCl [Cartia XT] 180 mg Capsule,Extended Release 24hr 180 mg PO DAILY RF: 0 aspirin 81 mg Tablet,Delayed Release (Dr/Ec) 81 mg PO DAILY RF: 0 Discontinued ibuprofen 200 mg Tablet 1 dose PO DAILY Qty: 0 RF: 0 Follow up/Referrals: Meli Sebastian PA-C [Primary Care Provider] - 1 Week (Follow up on TuesdayJuly 10 at 8:30am check in at 8:15am, with Adrianne Sebastian at [facility]) Provider Discharge Instructions Diet: Diet as Tolerated, Low-fat, Low-sodium and Low-cholesterol Activity: Activity as tolerated with forward wheeled walker and PT/OT. Visit Report/Discharge Packet Instructions: DI for Influenza -- Adult, Warfarin Discharge Data Primary Care Provider: Meli Sebastian Attending Provider: Carlie Dominguez Admit Date/Time: 07/05/18 17:22
[2018-07-08] MEDS: ASPIRIN EC 81 MG TABLET PO (08:39)
[2018-07-08] MEDS: dilTIAZem CD 180 MG CAP PO (08:39)
[2018-07-08] MEDS: OSELTAMIVIR 75 MG CAPSULE PO (08:40)
[2018-07-08] MEDS: LISINOPRIL 10 MG TABLET PO (08:41)
[2018-07-08] MEDS: LORATADINE 10 MG TABLET PO (09:04)
[2018-07-08] MEDS: predniSONE 20 MG TABLET 40 MG PO (09:04)
--- NOTE | 2018-07-08 11:23 | CM.DPC ---
DCP Cont: Patient is being discharged home today. Had hospitalist sign face to face. Confirmed with nurse Nuria, that patient would also benefit from nursing, along with occupational and physical therapy. Went ahead and faxed orders, discharge summary, as well as face to face to [facility]. P: Patient is to be discharged home today with [facility]. Priscilla Chen RN/[employer]ant [employer]ant
--- NOTE | 2018-07-08 15:51 | PC.NURSE ---
Pt discharge to home with daughter. States understanding of all discharge instructions and has all belongings. IV removed. in no acute distress. escorted to main lobby in wheelchair with staff.
== END 2018-07-08 15:45 | disposition home health service (06) | DRG 190 ==
LOC: ED 17:10 → ICU 07-06 07:11
PROVIDERS: Internal Medicine; Admitting Provider Internal Medicine; Emergency Provider Emergency Medicine; PCP Physician Assistant; Visit Provider Internal Medicine
DX: J44.1 Chronic obstructive pulmonary disease with (acute) exacerbation (principal); I21.A1 Myocardial infarction type 2; J11.1 Influenza due to unidentified influenza virus with other respiratory manifestations; I48.0 Paroxysmal atrial fibrillation; E78.2 Mixed hyperlipidemia; M79.7 Fibromyalgia; Z87.891 Personal history of nicotine dependence; I12.9 Hypertensive chronic kidney disease with stage 1 through stage 4 chronic kidney disease, or unspecified chronic kidney disease; N18.2 Chronic kidney disease, stage 2 (mild)
CPT/HCPCS: 36415; 36591; 71046; 80048; 80053; 80061; 82550; 82553; 83605; 83735; 83880; 84439; 84443; 84484; 85025; 85610; 85730; 87400; 87797; 93005; 93306; 94640; 94760; 94762; 96365; 96366; 96368; 96375; 97161; 97165; 97530; 99285; 99291; J1644; J7613

== ENCOUNTER 2018-07-13 18:14 | Emergency (ER) | payer OTHER, SELFPAY ==
[2018-07-05 18:05] VITALS: BMI 29.9
[2018-07-13] VITALS (7 sets, daily range): BP systolic 120–162; BP diastolic 61–88; PULSE 84–109; RESP 17–27; TEMP 36.7–38; O2SAT 94–98
--- NOTE | 2018-07-13 20:08 | DI.CT.S_ITS ---
PROCEDURE: CT HEAD/BRAIN WO CON INDICATIONS: speech unclear TECHNIQUE: Noncontrast 4.5 mm thick angled axial sections acquired from the foramen magnum to the vertex, with coronal and sagittal reformats. For radiation dose reduction, the following was used: automated exposure control, adjustment of mA and/or kV according to patient size. COMPARISON: None. FINDINGS: Image quality: Mild degradation secondary to patient motion artifact. CSF spaces: Basal cisterns are patent. No extra-axial fluid collections. The ventricles are symmetric in size and shape. Brain: No intracranial bleeds or masses. There is cerebral volume loss for age, with resultant ventricular and sulcal prominence. There are moderate left greater than right periventricular and deep white matter chronic small vessel ischemic changes. There is intracranial internal carotid artery atherosclerosis. Skull and face: Calvarium and visualized facial bones appear intact, without suspicious lesions. Sinuses: There is a layering fluid in the right maxillary sinus. Remainder of the visualized paranasal sinuses and mastoids are clear. IMPRESSION: CT head without acute intracranial abnormalities. Layering fluid within the right maxillary sinus possibly related to acute sinusitis. Age-related senescent changes and sequela of chronic small vessel ischemic disease. If there is persistent or high clinical suspicion for acute cerebrovascular ischemia/stroke, more sensitive evaluation with brain MRI can be considered. Dictated by: Davi Mario M.D. on 07/13/2018 at 20:54 Approved by: Davi Mario M.D. on 07/13/2018 at 20:58
--- NOTE | 2018-07-13 20:10 | DI.RAD.S_ITS ---
PROCEDURE: XR CHEST 1V INDICATIONS: cough, weakness TECHNIQUE: One view of the chest was acquired. COMPARISON: [facility], CR, XR CHEST 2V, 07/05/2018, 15:33. FINDINGS: Surgical changes and devices: None. Lungs and pleura: Minimal diffuse interstitial prominence without focal consolidation. Previously noted bronchial wall thickening is less conspicuous. No pleural effusions or pneumothorax. Mediastinum: Cardiomediastinal contours are stable. Bones and chest wall: No suspicious bony lesions. Overlying soft tissues appear unremarkable. IMPRESSION: Minimal diffuse interstitial prominence without focal consolidation. Interval decrease in prominence of perihilar airway thickening. Findings may represent an infectious/inflammatory process. Dictated by: Davi Mario M.D. on 07/13/2018 at 21:08 Approved by: Davi Mario M.D. on 07/13/2018 at 21:11
[2018-07-13] MEDS: SODIUM CHLORIDE 0.9% 1,000 ML 1000 ML IV (20:15)
--- NOTE | 2018-07-13 20:16 | ED_ITS ---
HPI - Weakness General Chief complaint: Weakness Stated complaint: low blood pressure Time Seen by Provider: 07/13/18 18:59 Source: patient and family Mode of arrival: ambulatory Limitations: no limitations History of Present Illness HPI Narrative: Patient comes emergency department complaining of increased generalized weakness since yesterday. Daughter also states the patient seems to be more confused and less clear in her speech. He patient was admitted last week for influenza, but upon discharge earlier this week, felt as though she was feeling better. She states that her thinking was clear at that time. Now though, she feels more drowsy. She states she has been coughing a lot at night, getting up to urinate. She states she has been drinking plenty of fluids, and has not redeveloped fever. She states she is coughing up a little bit of clear mucus, but otherwise, her cough has not worsened. Patient denies nausea or vomiting. She has had some mild diarrhea. Multiple family members have had v arious illnesses recently. Patient denies focal neurologic deficits. No visual changes. No other complaints at this time. She states she feels actually little bit better than she felt earlier. Daughter notes that yesterday, the home health nurse told herself in the patient that the patient's blood pressure was ?low? but did not specify exactly what number. Patient and daughter state that patient was started on 2 new blood pressure medications, diltiazem and lisinopril, upon discharge. Patient states she has felt slightly ?dizzy? but not near syncopal. She states she does not have a blood pressure cuff at home, so she has not been checking her blood pressures. Related Data Previous Rx's Medication Instructions Recorded ipratropium-albuterol 0.5 mg-3 3 ml INHALATION Q6-8H PRN #180 ml 18 mg(2.5 mg base)/3 mL nebulization soln diltiazem CD 180 mg 180 mg PO DAILY #30 cap 07/10/18 capsule,extended release 24 hr lisinopril 10 mg tablet 10 mg PO DAILY #30 tab 07/10/18 warfarin 5 mg tablet 5 mg PO DAILY #30 tab 07/10/18 sulfamethoxazole-trimethoprim 1 tab PO BID #10 tab 07/13/18 [Bactrim DS] Allergies Allergy/AdvReac Type Severity Reaction Status Date / Time atorvastatin [ATORVASTATIN] AdvReac Intermediate Nausea and Verified 07/13/18 18:17 vomiting Review of Systems Constitutional Denies chills, Denies fever(s), Denies lethargy and Reports weakness Eyes Denies change in vision, Denies eye discharge, Denies irritation and Denies loss of vision ENT Ears, Nose, Mouth, and Throat: Denies change in voice, Denies neck pain and Denies sore throat Cardiovascular Denies chest pain, Denies irregular heart rhythm, Denies lightheadedness, Denies palpitations, Denies dyspnea, Denies dyspnea on exertion and Denies orthopnea Respiratory Reports cough, Denies dyspnea, Denies dyspnea on exertion and Denies wheezing Gastrointestinal Gastrointestinal: Denies abdominal pain, Denies change in bowel habits, Denies diarrhea, Denies nausea and Denies vomiting Genitourinary Denies hematuria, Denies flank pain, Denies urinary incontinence and Denies urinary urgency Musculoskeletal Denies neck pain Integumentary/Breasts Denies pruritus, Denies erythema, Denies rash and Denies wounds Neurologic Denies confusion, Denies loss of vision and Reports weakness Comments: Unclear speech, generalized weakness. Psychiatric Denies anxiety, Denies confusion, Denies depression, Denies homicidal ideation and Denies suicidal ideation Endocrine Denies palpitations Hematologic/Lymphatic Denies easy bruising Allergic/Immunologic Denies wheezing [facility] Medical History AAA (abdominal aortic aneurysm) (Chronic ~2005) Arthritis of left hip (Chronic) Atrial fibrillation with RVR (Chronic 02/18/18) Fibromyalgia (Chronic) Hyperlipidemia (Chronic) Hypertension (Chronic) Osteopenia (Chronic 03/19/09) History of ectopic (Resolved 1975) Surgical History History of cone biopsy of cervix (Resolved 1991) History of gynecologic surgery (Resolved 1975) History of tubal ligation (Resolved 1977) Family History Brother Essential hypertension Hyperlipidemia Arthritis Heart disease Mother Heart disease Sister Essential hypertension Hyperlipidemia Breast cancer Diabetes mellitus Father Cancer Grandfather Cancer Grandmother Cancer Grandmother No problems noted. Social History household members: family and children Smoking Status: Former smoker Tobacco: How many years used: 30 second hand exposure: No alcohol intake: never substance use type: does not use Family History Brother Essential hypertension Hyperlipidemia Arthritis Heart disease Mother Heart disease Sister Essential hypertension Hyperlipidemia Breast cancer Diabetes mellitus Father Cancer Grandfather Cancer Grandmother Cancer Grandmother No problems noted. Social History household members: family and children Smoking Status: Former smoker Tobacco: How many years used: 30 second hand exposure: No alcohol intake: never substance use type: does not use Exam Initial Vital Signs Initial Vital Signs: Vital Signs Temperature 98.1 F 07/13/18 18:17 Pulse Rate 84 07/13/18 18:17 Respiratory Rate 17 07/13/18 18:17 Blood Pressure 120/61 07/13/18 18:17 Pulse Oximetry 97 07/13/18 18:17 Const General: cooperative and well developed Nutritional Appearance: well nourished Orientation: alert, awake, oriented x3 and not confused [facility] Head: normocephalic and atraumatic Ears: external ears normal Nose: external nose normal and No nasal discharge Face and sinus: face symmetric and No dry mucous membranes Mouth: oral mucosae normal and moist mucous membranes Teeth and gingiva: dentition normal Eyes General: appearance normal, both eyes and all related structures Eyelids: eyelids normal Conjunctivae: conjunctivae normal Sclera: sclerae normal Pupils: PERRL EOM: EOM intact bilaterally Neck Neck: normal visual inspection, trachea midline, No lymphadenopathy, No midline deformity and No JVD Lymphatic: No lymphedema Chest Chest: normal inspection of the chest Resp Effort & Inspection: normal respiratory effort, able to speak in complete sentences, no respiratory distress and no use of accessory muscles Auscultation: clear to auscultation bilaterally, no rales, no rhonchi and no wheezes Cardio Rate: regular rate Rhythm: regular rhythm Heart Sounds: no click, no gallops, no murmurs and no rubs Pulses: normal peripheral pulses GI Inspection: non-distended Palpation: soft, no hepatosplenomegaly, No guarding, No pulsatile mass and No tender Auscultation: normal bowel sounds Back/Spine/Pelvis Back: No CVA tenderness Cervical Spine: cervical ROM normal and No pain with cervical ROM Thoracic/Lumbar Spine: thoracic and lumbar spine normal to inspection Skin General: no rashes or lesions noted, No jaundice and No petechiae Neuro General: alert, awake, oriented x3 and no focal motor deficits Cranial Nerves: CN's II-XI intact bilaterally Speech: speech normal Motor: muscle tone normal throughout Sensory Exam: no sensory deficits noted Extrem General: full ROM, no clubbing, cyanosis or edema, no pedal edema and no calf tenderness Psych Appearance: well kempt Mental Status: mental status grossly normal Attitude: cooperative Thought Content: normal and suicidality Judgment: judgment good Course Course Narrative: Patient was worked up with labs, EKG, chest x-ray, urinalysis, and CT scan of the head. Patient was actually quite well-appearing and coherent in the emergency department. Numerous blood pressures measured here were normal. Patient's workup overall was negative, with the exception of a mildly positive UA, which was cultured. She was started on antibiotics for this. She was also given IV fluids in the emergency department, after which was found to be feeling a little better. Final radiology reading of the patient's x-ray was done the following morning, and raise the possibility of an infectious process, verses other possibilities. I did not feel that the patient's current symptomatology clinically correlated with pneumonia. We have discussed the findings, as well as home management of the symptoms. We have also discussed the usual indications for return. Patient is comfortable with going home, and daughter is also comfortable with this plan. Orders Ordered: Discontinued Medications Sodium Chloride (Normal Saline 0.9%) 1,000 mls @ 1,000 mls/hr IV BOLUS ONE Stop: 07/13/18 21:07 Last Infusion: 07/13/18 21:20 Dose: 0 mls/hr Admin: 07/13/18 20:15 Dose: 1,000 mls/hr Trimethoprim/Sulfamethoxazole (Bactrim Ds) 1 tab PO NOW ONE Stop: 07/13/18 23:02 Last Admin: 07/13/18 23:25 Dose: 1 tab Vital Signs - 8 hr 07/13/18 18:17 07/13/18 19:00 07/13/18 19:49 Temperature 98.1 F Pulse Rate 84 104 H 109 H Respiratory Rate 17 26 H Blood Pressure 120/61 Blood Pressure [Left Arm] 126/85 127/80 Pulse Oximetry 97 94 94 MDM - Weakness Medical Records Attestation: I reviewed the patient's medical records. Lab Data Attestation: I reviewed the patient's lab results. Result diagrams: 07/13/18 18:55 07/13/18 18:55 Lab Results 07/13/18 07/13/18 07/13/18 Range/Units 18:55 18:55 21:40 WBC 11.3 H (4.5-11.0) X10^3/uL RBC 4.94 (4.0-5.2) X10^6/uL Hgb 14.3 (12.0-16.0) g/dL Hct 44.1 (36-46) % MCV 89.2 (80-100) fL MCH 29.1 (26-34) PG MCHC 32.6 (30-36) % RDW 14.3 (11.6-14.8) % Plt Count 332 (150-400) X10^3/uL Neut % (Auto) 81.0 H (50-75) % Lymph % (Auto) 6.1 L (25-40) % [place] % (Auto) 12.3 (3-14) % Eos % (Auto) 0.2 L (2-4) % Baso % (Auto) 0.4 (0-2) % Neut # (Auto) 9100 H (6581-3898) /uL Lymph # (Auto) 700 L (2727-8342) /uL [place] # (Auto) 1400 H (0-900) /uL Eos # (Auto) 0 (0-450) /uL Baso # (Auto) 0 (0-100) /uL Sodium 136 L (137-145) mmol/L Potassium 3.7 (3.4-5.1) mmol/L Chloride 98 (98-107) mmol/L Carbon Dioxide 27 (22-32) mmol/L BUN 20 H (7-17) mg/dL Creatinine 1.30 H (0.52-1.04) mg/dL Estimated GFR 40.4 L (>60) mL/min BUN/Creatinine Ratio 15.4 (6-22) Glucose 116 H (80-110) mg/dL Calcium 8.8 (8.4-10.2) mg/dL Total Bilirubin 1.2 (0.2-1.3) mg/dL AST 30 (14-36) IU/L ALT 36 (9-52) IU/L Alkaline Phosphatase 66 (38-126) U/L Total Creatine Kinase 55 (30-135) U/L CK-MB (CK-2) TNP CK-MB (CK-2) Rel Index TNP Troponin I 0.052 H (0.01-0.034) ng/mL B-Natriuretic Peptide 190 H (<100) Total Protein 6.9 (6.3-8.2) g/dL Albumin 3.8 (3.5-5.0) g/dL Globulin 3.1 (1.7-4.1) g/dL Albumin/Globulin Ratio 1.2 (1.0-2.8) Urine Color Yellow Urine Appearance Clear Urine pH 6.5 (4.5-8.0) Ur Specific [place] 1.020 (1.000-1.035) Urine Protein 1+ H (Negative) Urine Glucose (UA) Negative (Negative) g/dL Urine Ketones 1+ H (NEGATIVE) Urine Occult Blood Trace-intact (Negative) Urine Nitrate Negative (Negative) Urine Bilirubin Negative (NEGATIVE) Urine Urobilinogen 2.0 H (0.2) E.U./dL Ur Leukocyte Esterase Trace H (NEGATIVE) Urine RBC None seen (0-5/HPF) Urine WBC 1-5/hpf (0-5/HPF) Ur Squamous Epith Cells 0-1 /hpf Urine Bacteria None seen (None) Ur Culture Indicated? Specimen cultured Imaging Data CT scan - head: Attestation: I personally reviewed and interpreted this imaging study as follows: My impression: negative Radiologist's impression: PROCEDURE: CT HEAD/BRAIN WO CON INDICATIONS: speech unclear TECHNIQUE: Noncontrast 4.5 mm thick angled axial sections acquired from the foramen magnum to the vertex, with coronal and sagittal reformats. For radiation dose reduction, the following was used: automated exposure control, adjustment of mA and/or kV according to patient size. COMPARISON: None. FINDINGS: Image quality: Mild degradation secondary to patient motion artifact. CSF spaces: Basal cisterns are patent. No extra-axial fluid collections. The ventricles are symmetric in size and shape. Brain: No intracranial bleeds or masses. There is cerebral volume loss for age, with resultant ventricular and sulcal prominence. There are moderate left greater than right periventricular and deep white matter chronic small vessel ischemic changes. There is intracranial internal carotid artery atherosclerosis. Skull and face: Calvarium and visualized facial bones appear intact, without suspicious lesions. Sinuses: There is a layering fluid in the right maxillary sinus. Remainder of the visualized paranasal sinuses and mastoids are clear. IMPRESSION: CT head without acute intracranial abnormalities. Layering fluid within the right maxillary sinus possibly related to acute sinusitis. Age-related senescent changes and sequela of chronic small vessel ischemic disease. If there is persistent or high clinical suspicion for acute cerebrovascular ischemia/stroke, more sensitive evaluation with brain MRI can be considered. Dictated by: Davi Mario M.D. on 07/13/2018 at 20:54 Approved by: Davi Mario M.D. on 07/13/2018 at 20:58 Chest x-ray: Attestation: I personally reviewed and interpreted this imaging study as follows: My impression: unremarkable Radiologist's impression: PROCEDURE: XR CHEST 1V INDICATIONS: cough, weakness TECHNIQUE: One view of the chest was acquired. COMPARISON: [facility], , XR CHEST 2V, 07/05/2018, 15:33. FINDINGS: Surgical changes and devices: None. Lungs and pleura: Minimal diffuse interstitial prominence without focal consolidation. Previously noted bronchial wall thickening is less conspicuous. No pleural effusions or pneumothorax. Mediastinum: Cardiomediastinal contours are stable. Bones and chest wall: No suspicious bony lesions. Overlying soft tissues appear unremarkable. IMPRESSION: Minimal diffuse interstitial prominence without focal consolidation. Interval decrease in prominence of perihilar airway thickening. Findings may represent an infectious/inflammatory process. Dictated by: Davi Mario M.D. on 07/13/2018 at 21:08 Approved by: Davi Mario M.D. on 07/13/2018 at 21:11 ECG Data Attestation: I personally reviewed and interpreted this ECG as follows: ( See below) Interpretation: 12 lead EKG performed July 13, 2018 at 6:29 p.m.: Irregular ventricular rhythm with a rate of 114 beats per minute P waves and AK intervals undetectable QRS duration 92 millisecond QTC interval [address] T wave changes normal axis in summary: Atrial fibrillation with mild RVR; nonspecific ST T wave changes without evidence of STEMI; abnormal EKG as interpreted by ED MD. Discharge Plan Departure Patient Disposition: Home Clinical Impression: Acute UTI, Flexural eczema Discharge Date/Time: 07/13/18 23:43 Interventions: ED Discharge Assessment Last Done: 07/13/18 23:41 Instructions: DI for Urinary Tract Infection (UTI) Activity Restrictions/Additional Instructions: Your labs and CT scan looked good. Your urinalysis showed evidence of a mild urinary tract infection. You have been started on antibiotics for this. Your symptoms otherwise are most likely due to lack of good sleep and your body work ing everything that has been going on recently. Please be sure to continue drinking plenty of fluids. Prescriptions: New sulfamethoxazole-trimethoprim [Bactrim DS] 800-160 mg tablet 1 tab PO BID Qty: 10 RF: 0 No Action diltiazem HCl [Cartia XT] 180 mg capsule,extended release 24hr 180 mg PO DAILY Qty: 30 RF: 6 lisinopril 10 mg tablet 10 mg PO DAILY Qty: 30 RF: 6 warfarin 5 mg tablet 5 mg PO DAILY Qty: 30 RF: 0 ipratropium-albuterol 0.5 mg-3 mg(2.5 mg base)/3 mL solution for nebulization 3 ml INHALATION Q6-8H PRN (Reason: shortness of breath) Qty: 180 RF: 1 Referrals: Meli Sebastian PA-C [Primary Care Provider] -
[2018-07-13 20:23] LABS: Add Manual Diff / Slide Review NO; Basophils Absolute Auto 0 /uL (0-100); Basophils Percent Auto 0.4 % (0-2); Eosinophils Absolute Auto 0 /uL (0-450); Eosinophils Percent Auto 0.2 % (2-4); Hematocrit 44.1 % (36-46); Hemoglobin 14.3 g/dL (12.0-16.0); Lymphocytes Absolute Auto 700 /uL (1100-4500); Lymphocytes Percent Auto 6.1 % (25-40); Mean Corpuscular HGB Conc 32.6 % (30-36); Mean Corpuscular Hemoglobin 29.1 PG (26-34); Mean Corpuscular Volume 89.2 fL (80-100); Monocytes Absolute Auto 1400 /uL (0-900); Monocytes Percent Auto 12.3 % (3-14); Neutrophils Absolute Auto 9100 /uL (1500-7000); Platelet Count 332 X10^3/uL (150-400); Red Blood Cell Count 4.94 X10^6/uL (4.0-5.2); Red Cell Distribution Width 14.3 % (11.6-14.8); White Blood Cell Count 11.3 X10^3/uL (4.5-11.0)
[2018-07-13 20:28] LABS: Alanine Aminotransferase 36 IU/L (9-52); Albumin 3.8 g/dL (3.5-5.0); Albumin Globulin Ratio 1.2 (1.0-2.8); Alkaline Phosphatase 66 U/L (38-126); Aspartate Aminotransferase 30 IU/L (14-36); BUN Creatinine Ratio 15.4 (6-22); Bilirubin Total 1.2 mg/dL (0.2-1.3); Blood Urea Nitrogen 20 mg/dL (7-17); Calcium 8.8 mg/dL (8.4-10.2); Carbon Dioxide 27 mmol/L (22-32); Chloride 98 mmol/L (98-107); Creatine Kinase 55 U/L (30-135); Estimated Glomerular Filt Rate 40.4 mL/min (>60); Globulin 3.1 g/dL (1.7-4.1); Glucose 116 mg/dL (80-110); HEMOLYSIS 15 (0-50); Potassium 3.7 mmol/L (3.4-5.1); Sodium 136 mmol/L (137-145); Total Protein 6.9 g/dL (6.3-8.2)
[2018-07-13 20:40] LABS: Troponin I 0.052 ng/mL (0.01-0.034)
[2018-07-13 20:48] LABS: B Type Natriuretic Peptide 190 (<100)
[2018-07-13 21:46] LABS: Appearance Urine UA CLEAR; Bacteria Urine None Seen; Bilirubin Urine UA NEGATIVE (NEGATIVE); Color Urine UA YELLOW; Glucose Urine UA NEGATIVE (Negative); Ketones Urine UA 1+ (NEGATIVE); Leukocyte Esterase Urine UA TRACE (NEGATIVE); Nitrite Urine UA NEGATIVE (Negative); Occult Blood Urine UA TRACE-INTACT (Negative); Protein Urine UA 1+ (Negative); RBC Urine None Seen (0-5/HPF); pH Urine UA 6.5 (4.5-8.0)
[2018-07-13 22:00] LABS: Culture Indicated Urine Specimen Cultured; Squamous Epithelial Cell Urine 0-1 /HPF; WBC Urine 1-5/HPF (0-5/HPF)
[2018-07-13] MEDS: TRIMETH/SULFA 160/800 (DS) TABLET 1 TAB PO (23:25)
== END 2018-07-13 23:43 | disposition home or self-care (01) ==
PROVIDERS: Emergency Provider Emergency Medicine; PCP Physician Assistant
DX: N39.0 Urinary tract infection, site not specified (principal); R41.0 Disorientation, unspecified; R03.1 Nonspecific low blood-pressure reading
CPT/HCPCS: 36591; 70450; 71045; 80053; 81001; 82550; 83880; 84484; 85025; 87086; 93005; 96360; 99283; 99285

== ENCOUNTER → 2019-10-12 08:13 | Outpatient (CLI) | payer MEDICARE, SELFPAY ==
[2018-07-05 18:05] VITALS: BMI 29.9
[2019-10-12 09:07] LABS: Add Manual Diff / Slide Review NO; Basophils Absolute Auto 100 /uL (0-100); Basophils Percent Auto 1.8 % (0-2); Eosinophils Absolute Auto 400 /uL (0-450); Eosinophils Percent Auto 6.6 % (2-4); Hematocrit 40.1 % (36-46); Hemoglobin 13.2 g/dL (12.0-16.0); Lymphocytes Absolute Auto 700 /uL (1100-4500); Lymphocytes Percent Auto 12.2 % (25-40); Mean Corpuscular HGB Conc 32.9 % (30-36); Mean Corpuscular Hemoglobin 29.3 PG (26-34); Mean Corpuscular Volume 89.2 fL (80-100); Monocytes Absolute Auto 500 /uL (0-900); Monocytes Percent Auto 8.8 % (3-14); Neutrophils Absolute Auto 4100 /uL (1500-7000); Neutrophils Percent Auto 70.6 % (50-75); Platelet Count 243 X10^3/uL (150-400); Red Cell Distribution Width 14.9 % (11.6-14.8); White Blood Cell Count 5.8 X10^3/uL (4.5-11.0)
[2019-10-12 09:17] LABS: Hemoglobin A1C% w Est Avg Glu 5.6 % (4.0-6.0)
[2019-10-12 09:41] LABS: Alanine Aminotransferase 15 IU/L (<35); Albumin Globulin Ratio 1.4 (1.0-2.8); Alkaline Phosphatase 92 U/L (38-126); Aspartate Aminotransferase 22 IU/L (14-36); BUN Creatinine Ratio 19.6 (6-22); Bilirubin Total 0.2 mg/dL (0.2-1.3); Blood Urea Nitrogen 29 mg/dL (7-17); Calcium 9.4 mg/dL (8.4-10.2); Carbon Dioxide 25 mmol/L (22-32); Chloride 108 mmol/L (98-107); Estimated Glomerular Filt Rate 34.7 mL/min (>60); Globulin 2.9 g/dL (1.7-4.1); Glucose 106 mg/dL (80-110); HDL Cholesterol 42 mg/dL (40-60); HEMOLYSIS < 15 (0-50); Sodium 139 mmol/L (137-145); Total Protein 6.9 g/dL (6.3-8.2); Triglycerides 146 mg/dL (35-150)
[2019-10-12 09:52] LABS: Cholesterol 342 mg/dL (140-199); LDL Cholesterol Calculated 271 mg/dL (<100)
[2019-10-12 09:57] LABS: Vitamin D 25 Hydroxy (D3) 43.4 ng/mL (30.0-100.0)
[2019-10-12 10:13] LABS: TSH w/ Reflex to FT4 2.34 uIU/mL (0.47-4.68)
== END ==
PROVIDERS: PCP Family Medicine; Referring Provider Family Medicine; Visit Provider Family Medicine
DX: E55.9 Vitamin D deficiency, unspecified (principal); E66.9 Obesity, unspecified; E78.2 Mixed hyperlipidemia; I10 Essential (primary) hypertension; Z76.89 Persons encountering health services in other specified circumstances
CPT/HCPCS: 36415; 80053; 80061; 82306; 83036; 84443; 85025

== ENCOUNTER → 2019-11-14 09:16 | Outpatient (CLI) | payer MEDICARE, SELFPAY ==
[2018-07-05 18:05] VITALS: BMI 29.9
[2019-11-14 10:04] LABS: Hematocrit 38.9 % (36-46); Hemoglobin 12.4 g/dL (12.0-16.0); Mean Corpuscular HGB Conc 31.8 % (30-36); Mean Corpuscular Hemoglobin 28.7 PG (26-34); Platelet Count 243 X10^3/uL (150-400); Red Blood Cell Count 4.32 X10^6/uL (4.0-5.2); White Blood Cell Count 7.3 X10^3/uL (4.5-11.0)
[2019-11-14 10:41] LABS: BUN Creatinine Ratio 22.9 (6-22); Blood Urea Nitrogen 38 mg/dL (7-17); Calcium 9.7 mg/dL (8.4-10.2); Carbon Dioxide 24 mmol/L (22-32); Chloride 108 mmol/L (98-107); Estimated Glomerular Filt Rate 30.3 mL/min (>60); Glucose 116 mg/dL (80-110); HEMOLYSIS < 15 (0-50); Potassium 4.4 mmol/L (3.4-5.1); Sodium 142 mmol/L (137-145)
[2019-11-14 10:44] LABS: Creatinine Urine Random 108.5 mg/dL; Protein (Total) Urine Random 23 mg/dL (0-12); Protein Creatinine Ratio Urine 0.21 GRAM/24H
== END ==
PROVIDERS: PCP Family Medicine; Referring Provider Internal Medicine Nephrology; Visit Provider Internal Medicine Nephrology
DX: N05.9 Unspecified nephritic syndrome with unspecified morphologic changes (principal); D70.9 Neutropenia, unspecified; D63.1 Anemia in chronic kidney disease; R80.9 Proteinuria, unspecified
CPT/HCPCS: 36415; 80048; 82570; 84156; 85027

== ENCOUNTER → 2019-11-28 09:10 | Outpatient (CLI) | payer MEDICARE, SELFPAY ==
[2018-07-05 18:05] VITALS: BMI 29.9
--- NOTE | 2019-11-28 | DI.US.S_ITS ---
PROCEDURE: US RENAL COMPLETE INDICATIONS: KIDNEY DYSFUNCTION TECHNIQUE: Real-time scanning was performed of the kidneys and bladder, with image documentation. COMPARISON: [facility], , ABD AORTA ANEURYSM SCREENING, 12/11/2012, 8:41. FINDINGS: Kidneys: Kidneys are normal in size. Right kidney measures 10.3 cm long; left kidney measures 11 cm long. Right renal cortical thickness is 1.3 cm; left renal cortical thickness is 1.3 cm. Renal cortical echotexture is normal. Small simple appearing cysts bilaterally. For example: Right mid 1 cm and left the superior 1.6 cm. No hydronephrosis or nephrolithiasis. No suspicious solid mass lesions. Bladder: Decompressed limiting evaluations. Miscellaneous: No free pelvic fluid. IMPRESSION: No hydronephrosis. Small simple appearing renal cysts bilaterally. Decompressed urinary bladder limits evaluation. Dictated by: Tito Keys M.D. on 11/28/2019 at 10:16 Approved by: Tito Keys M.D. on 11/28/2019 at 10:21
[2019-11-28 12:25] LABS: BUN Creatinine Ratio 19.8 (6-22); Blood Urea Nitrogen 32 mg/dL (7-17); Calcium 9.9 mg/dL (8.4-10.2); Carbon Dioxide 24 mmol/L (22-32); Chloride 107 mmol/L (98-107); Estimated Glomerular Filt Rate 31.1 mL/min (>60); Glucose 93 mg/dL (80-110); HEMOLYSIS < 15 (0-50); Potassium 4.9 mmol/L (3.4-5.1); Sodium 141 mmol/L (137-145)
== END ==
PROVIDERS: PCP Family Medicine; Referring Provider Internal Medicine Nephrology; Visit Provider Internal Medicine Nephrology
DX: N17.9 Acute kidney failure, unspecified (principal); N32.0 Bladder-neck obstruction; N05.9 Unspecified nephritic syndrome with unspecified morphologic changes; N28.1 Cyst of kidney, acquired
CPT/HCPCS: 36415; 76770; 80048

== ENCOUNTER 2019-12-10 14:21 | Emergency (ER) | payer MEDICARE, SELFPAY ==
[2018-07-05 18:05] VITALS: BMI 29.9
[2019-12-10] VITALS (19 sets, daily range): BP systolic 76–111; BP diastolic 49–68; PULSE 65–85; RESP 12–24; TEMP 36.6; O2SAT 92–100
--- NOTE | 2019-12-10 14:51 | ED.WEAKNESS ---
HPI - Weakness <Natalie MarvinRENETTAP-BC - Last Filed: 12/10/19 20:35> General Chief complaint: Weakness Stated complaint: 'keeps bleeding',bruising,weakness in legs Time Seen by Provider: 12/10/19 14:28 Source: patient Mode of arrival: Wheelchair Limitations: no limitations History of Present Illness HPI Narrative: The patient is a 74-year-old female former smoker with history of kidney disease, COPD, poor circulation of her extremities who presents with a chief complaint of ?acute bleeding.She states that she has cuts on her hands and arms and legs and she bleeds from them. She is concerned because she is on Coumadin for atrial fibrillation and has not had her INR checked for several weeks. She states that the last check was high, no adjustments made to her Coumadin dosing. She states she called her PCPs office who is concerned about her bleeding and referred her to the emergency department. She also discusses a rash on bilateral forearms with has been present for a few days, chronic loose stools, and gradual onset of weakness over the past several weeks. Her daughter presents with her, states her primary complaint is concerned about her INR. She denies any chest pain, abnormal shortness of breath or fever. The patient states she is here as her daughter has been encouraging her to come in, she is accompanied by her other daughter. Related Data Home Medications Medication Instructions Recorded Confirmed furosemide 20 mg tablet 20 mg PO DAILY 10/12/19 10/26/19 sotalol 80 mg tablet 40 mg PO BID tab 10/12/19 10/26/19 Previous Rx's Medication Instructions Recorded Disabled Parking Placard #1 ea 07/14/18 triamcinolone acetonide 0.1 % 1 applictn TOP DAILY #453.6 gram 12/20/18 topical ointment albuterol sulfate 90 mcg/actuation 2 puff INHALATION Q4-6H PRN #18 04/16/19 aerosol inhaler gram warfarin 5 mg tablet 5 mg PO DAILY #30 tab 07/30/19 metoprolol succinate 25 mg 25 mg PO DAILY #90 tab 10/12/19 tablet,extended release 24 hr amlodipine 5 mg tablet 5 mg PO DAILY #30 tab 10/26/19 ipratropium 0.5 mg-albuterol 3 mg 3 ml INHALATION Q6-8H PRN #180 ml 11/01/19 (2.5 mg base)/3 mL nebulization soln Allergies Allergy/AdvReac Type Severity Reaction Status Date / Time atorvastatin [ATORVASTATIN] AdvReac Intermediate Nausea and Verified 12/10/19 14:33 vomiting Review of Systems <JOSE Cunha - Last Filed: 12/10/19 20:35> Review of Systems Narrative: GENERAL: See HPI HEENT: Denies sinus pain, ear pain, sore throat, difficulty swallowing, dizziness. RESPIRATORY: Denies dyspnea, cough, wheezing, hemoptysis, sputum. CARDIOVASCULAR: Denies chest pain, palpitations, orthopnea, edema, GASTROINTESTINAL: Denies nausea, vomiting, abdominal pain, diarrhea, constipation, melena. : Denies dysuria, frequency, incontinence, hematuria, urinary retention. MUSCULOSKELETAL: denies weakness, joint pain, or bony pain SKIN: Denies rash, skin lesions, or other NEUROLOGIC: Denies weakness, headache, numbness, change in speech, confusion, seizures, incoordination. PSYCHIATRIC: No concerning psychosocial issues. 12 point review of systems is negative except for those stated above Patient History <JOSE Cunha - Last Filed: 12/10/19 20:35> Medical History AAA (abdominal aortic aneurysm) (Chronic ~2005) Arthritis of left hip (Chronic) Atrial fibrillation with RVR (Chronic 02/18/18) CKD (chronic kidney disease) stage 3, GFR 30-59 ml/min (Acute) Fibromyalgia (Chronic) History of ectopic (Resolved 1975) Hyperlipidemia (Chronic) Hypertension (Chronic) Osteopenia (Chronic 03/19/09) Poor circulation of extremity (Acute) Surgical History History of cone biopsy of cervix (Resolved 1991) History of gynecologic surgery (Resolved 1975) History of tubal ligation (Resolved 1977) Family History Brother Essential hypertension Hyperlipidemia Arthritis Heart disease Mother Heart disease Sister Essential hypertension Hyperlipidemia Breast cancer Diabetes mellitus Father Cancer Grandfather Cancer Grandmother Cancer Grandmother No problems noted. Social History household members: family and children Smoking Status: Former smoker Tobacco: How many years used: 30 second hand exposure: No alcohol intake: never substance use type: does not use Smoking Status: Former smoker alcohol intake frequency: holidays/special occasions only Substance Use Type: does not use Exam <JOSE Cunha - Last Filed: 12/10/19 20:35> Narrative Exam Narrative: GENERAL: Obese female, slightly unkempt, no acute distress HEAD: Atraumatic. Normocephalic. No temporal or scalp tenderness. EYES: Pupils equal round and reactive. Extraocular motions intact. No scleral icterus. No injection or drainage. ENT: Nose without bleeding, purulent drainage or septal hematoma. Throat without erythema, tonsillar hypertrophy or exudate. Uvula midline. Airway patent. NECK: Trachea midline. No JVD or lymphadenopathy. Supple, nontender, no meningeal signs. CARDIOVASCULAR: Regular rate and regular rhythm RESPIRATORY: Clear to auscultation. Breath sounds equal bilaterally. No wheezes, rales, or rhonchi. No cough. No increased respiratory effort. No accessory muscle use. Speaking full sentences. GASTROINTESTINAL: Abdomen soft, non-tender, nondistended. No hepato-splenomegaly, or palpable masses. No guarding. Active bowel sounds quadrants. EXTREMITIES: +1 edema bilateral feet. Positive pedal pulses. No joint tenderness or effusion noted. BACK: Nontender without deformity or crepitance. No flank tenderness. NEURO: AOx3. SKIN: Multiple scratch moulton noted bilateral upper arms, consistent with eczematous rash Initial Vital Signs Initial Vital Signs: Vital Signs Pulse Rate 72 12/10/19 14:54 Respiratory Rate 17 12/10/19 14:54 Pulse Oximetry 94 12/10/19 14:54 <Kenna Ray DO - Last Filed: 12/10/19 20:40> Initial Vital Signs Initial Vital Signs: Vital Signs Pulse Rate 72 12/10/19 14:54 Respiratory Rate 17 12/10/19 14:54 Pulse Oximetry 94 12/10/19 14:54 Course <JOSE Cunha - Last Filed: 12/10/19 20:35> Orders Ordered: ED Orders 12/10/19 14:39 EKG-12 Lead Stat 12/10/19 14:46 BNP [NT-proBNP (BNP-Adult 18+)] Stat Complete Blood Count AUTO DIFF Stat Comprehensive Metabolic Panel Stat Magnesium Stat Partial Thromboplastin Time Stat Prothrombin Time INR Stat Troponin & CK Cardiac Panel Stat 12/10/19 16:57 XR chest 1V Stat 12/10/19 17:58 Urinalysis Screen (Dip Only) Stat 12/10/19 18:00 Urine Microscopic Stat Discontinued Medications Sodium Chloride (Normal Saline 0.9%) 500 mls @ 1,000 mls/hr IV BOLUS ONE Stop: 12/10/19 16:06 Last Infusion: 12/10/19 17:51 Dose: 0 mls/hr Documented by: Admin: 12/10/19 15:52 Dose: 1,000 mls/hr Documented by: LUÍS Vital Signs Vital signs: Vital Signs - 8 hr 12/10/19 14:54 12/10/19 15:00 12/10/19 15:03 Temperature Pulse Rate 72 70 71 Respiratory Rate 17 21 21 Blood Pressure 87/53 L Pulse Oximetry 94 94 12/10/19 15:15 12/10/19 15:19 12/10/19 15:28 Temperature 97.9 F Pulse Rate 81 68 67 Respiratory Rate 17 23 22 Blood Pressure 99/50 L 98/55 L 91/49 L Pulse Oximetry 100 12/10/19 15:35 12/10/19 16:00 12/10/19 16:30 Temperature Pulse Rate 71 68 67 Respiratory Rate 24 21 22 Blood Pressure 106/58 L 81/54 L Pulse Oximetry 94 94 95 12/10/19 16:31 12/10/19 16:39 12/10/19 17:00 Temperature Pulse Rate 71 68 65 Respiratory Rate 23 20 14 Blood Pressure 76/61 L 111/58 L 86/54 L Pulse Oximetry 94 97 95 12/10/19 17:30 12/10/19 18:00 12/10/19 18:01 Temperature Pulse Rate 67 76 75 Respiratory Rate 20 Blood Pressure 98/53 L 98/55 L Pulse Oximetry 92 96 97 12/10/19 18:17 12/10/19 18:22 12/10/19 18:26 Temperature Pulse Rate 83 81 85 Respiratory Rate 24 Blood Pressure 104/68 Pulse Oximetry 97 97 96 12/10/19 19:17 Temperature Pulse Rate 73 Respiratory Rate 12 Blood Pressure 100/57 L Pulse Oximetry 97 <Kenna Ray, DO - Last Filed: 12/10/19 20:40> Orders Ordered: ED Orders 12/10/19 14:39 EKG-12 Lead Stat 12/10/19 14:46 BNP [NT-proBNP (BNP-Adult 18+)] Stat Complete Blood Count AUTO DIFF Stat Comprehensive Metabolic Panel Stat Magnesium Stat Partial Thromboplastin Time Stat Prothrombin Time INR Stat Troponin & CK Cardiac Panel Stat 12/10/19 16:57 XR chest 1V Stat 12/10/19 17:58 Urinalysis Screen (Dip Only) Stat 12/10/19 18:00 Urine Microscopic Stat Discontinued Medications Sodium Chloride (Normal Saline 0.9%) 500 mls @ 1,000 mls/hr IV BOLUS ONE Stop: 12/10/19 16:06 Last Infusion: 12/10/19 17:51 Dose: 0 mls/hr Documented by: Admin: 12/10/19 15:52 Dose: 1,000 mls/hr Documented by: LUÍS Vital Signs Vital signs: Vital Signs - 8 hr 12/10/19 14:54 12/10/19 15:00 12/10/19 15:03 Temperature Pulse Rate 72 70 71 Respiratory Rate 17 21 21 Blood Pressure 87/53 L Pulse Oximetry 94 94 12/10/19 15:15 12/10/19 15:19 12/10/19 15:28 Temperature 97.9 F Pulse Rate 81 68 67 Respiratory Rate 17 23 22 Blood Pressure 99/50 L 98/55 L 91/49 L Pulse Oximetry 100 12/10/19 15:35 12/10/19 16:00 12/10/19 16:30 Temperature Pulse Rate 71 68 67 Respiratory Rate 24 21 22 Blood Pressure 106/58 L 81/54 L Pulse Oximetry 94 94 95 12/10/19 16:31 12/10/19 16:39 12/10/19 17:00 Temperature Pulse Rate 71 68 65 Respiratory Rate 23 20 14 Blood Pressure 76/61 L 111/58 L 86/54 L Pulse Oximetry 94 97 95 12/10/19 17:30 12/10/19 18:00 12/10/19 18:01 Temperature Pulse Rate 67 76 75 Respiratory Rate 20 Blood Pressure 98/53 L 98/55 L Pulse Oximetry 92 96 97 12/10/19 18:17 12/10/19 18:22 12/10/19 18:26 Temperature Pulse Rate 83 81 85 Respiratory Rate 24 Blood Pressure 104/68 Pulse Oximetry 97 97 96 12/10/19 19:17 Temperature Pulse Rate 73 Respiratory Rate 12 Blood Pressure 100/57 L Pulse Oximetry 97 MDM - Weakness <Natalie Marvin, LARD BLEACHER-BC - Last Filed: 12/10/19 20:35> Lab Data Attestation: I reviewed the patient's lab results. Result diagrams: 12/10/19 14:46 12/10/19 14:46 Labs: Lab Results 12/10/19 12/10/19 12/10/19 Range/Units 14:46 14:46 14:46 WBC 7.0 (4.5-11.0) X10^3/uL RBC 4.23 (4.0-5.2) X10^6/uL Hgb 12.2 (12.0-16.0) g/dL Hct 37.6 (36-46) % MCV 89.0 (80-100) fL MCH 28.9 (26-34) PG MCHC 32.5 (30-36) % RDW 16.0 H (11.6-14.8) % Plt Count 272 (150-400) X10^3/uL Neut % (Auto) 69.1 (50-75) % Lymph % (Auto) 12.3 L (25-40) % Sumter % (Auto) 12.6 (3-14) % Eos % (Auto) 4.8 H (2-4) % Baso % (Auto) 1.2 (0-2) % Neut # (Auto) 4800 (6955-9775) /uL Lymph # (Auto) 900 L (9962-9136) /uL Sumter # (Auto) 900 (0-900) /uL Eos # (Auto) 300 (0-450) /uL Baso # (Auto) 100 (0-100) /uL PT 29.4 H (10.1-12.7) SECONDS INR 2.6 H (0.9-1.3) APTT (26.4-36.2) SECONDS Sodium (137-145) mmol/L Potassium (3.4-5.1) mmol/L Chloride (98-107) mmol/L Carbon Dioxide (22-32) mmol/L BUN (7-17) mg/dL Creatinine (0.52-1.04) mg/dL Estimated GFR (>60) mL/min BUN/Creatinine Ratio (6-22) Glucose (80-110) mg/dL Calcium (8.4-10.2) mg/dL Magnesium 2.4 H (1.6-2.3) mg/dL Total Bilirubin (0.2-1.3) mg/dL AST (14-36) IU/L ALT (<35) IU/L Alkaline Phosphatase (38-126) U/L Total Creatine Kinase (30-135) U/L CK-MB (CK-2) CK-MB (CK-2) Rel Index Troponin I (0.01-0.034) ng/mL NT-Pro-B Natriuret Pep (<125) pg/mL Total Protein (6.3-8.2) g/dL Albumin (3.5-5.0) g/dL Globulin (1.7-4.1) g/dL Albumin/Globulin Ratio (1.0-2.8) 12/10/19 12/10/19 12/10/19 Range/Units 14:46 14:46 14:46 WBC (4.5-11.0) X10^3/uL RBC (4.0-5.2) X10^6/uL Hgb (12.0-16.0) g/dL Hct (36-46) % MCV (80-100) fL MCH (26-34) PG MCHC (30-36) % RDW (11.6-14.8) % Plt Count (150-400) X10^3/uL Neut % (Auto) (50-75) % Lymph % (Auto) (25-40) % Sumter % (Auto) (3-14) % Eos % (Auto) (2-4) % Baso % (Auto) (0-2) % Neut # (Auto) (4148-2504) /uL Lymph # (Auto) (8810-6881) /uL Sumter # (Auto) (0-900) /uL Eos # (Auto) (0-450) /uL Baso # (Auto) (0-100) /uL PT (10.1-12.7) SECONDS INR (0.9-1.3) APTT 44 H D (26.4-36.2) SECONDS Sodium 137 (137-145) mmol/L Potassium 4.8 (3.4-5.1) mmol/L Chloride 104 (98-107) mmol/L Carbon Dioxide 27 (22-32) mmol/L BUN 43 H (7-17) mg/dL Creatinine 2.06 H (0.52-1.04) mg/dL Estimated GFR 23.6 L (>60) mL/min BUN/Creatinine Ratio 20.9 (6-22) Glucose 90 (80-110) mg/dL Calcium 9.3 (8.4-10.2) mg/dL Magnesium (1.6-2.3) mg/dL Total Bilirubin 0.4 (0.2-1.3) mg/dL AST 24 (14-36) IU/L ALT 18 (<35) IU/L Alkaline Phosphatase 84 (38-126) U/L Total Creatine Kinase 48 (30-135) U/L CK-MB (CK-2) TNP CK-MB (CK-2) Rel Index TNP Troponin I 0.023 (0.01-0.034) ng/mL NT-Pro-B Natriuret Pep 1980 H (<125) pg/mL Total Protein 7.4 (6.3-8.2) g/dL Albumin 4.2 (3.5-5.0) g/dL Globulin 3.2 (1.7-4.1) g/dL Albumin/Globulin Ratio 1.3 (1.0-2.8) Urine Dip Bedside Urine Glucose Negative Bedside Urine Bilirubin - Negative Bedside Urine Ketone - Negative Urine Specific Cyclone 1.015 Bedside Urine Occult Blood - Negative Bedside Urine pH 5.5 Bedside Urine Protein +/- 15 Bedside Urine Urobilinogen - Negative Bedside Urine Nitrite - Negative Bedside Urine Leukocytes + 70 Esterase Imaging Data Chest x-ray: Radiologist Impression: [address] [place] [id number] XRay Report Signed Patient: Lisa Gurrola LMR#: [id number] : 1946Acct:[id number] Age/Sex: 74 / FDate of Service: 12/10/19 Loc: ED Accession Number: [id number] Procedure: XR chest 1V Ordering Provider: Natalie Marvin LARD BLEACHER-BC PROCEDURE: XR CHEST 1V INDICATIONS: weakness, sob TECHNIQUE: One view of the chest was acquired. COMPARISON: [facility], CR, XR CHEST 1V, 07/13/2018, 20:17. FINDINGS: Surgical changes and devices: Multiple EKG leads project over the chest. Lungs and pleura: Lungs are clear. No pleural effusions or pneumothorax. Mediastinum: Mediastinal contours appear normal. Heart size is normal. Bones and chest wall: No suspicious bony lesions. Overlying soft tissues appear unremarkable. IMPRESSION: No acute cardiopulmonary process demonstrated radiographically. Dictated by: Prashanth Trevino M.D. on 12/10/2019 at 17:13 Approved by: Prashanth Trevino M.D. on 12/10/2019 at 17:15 ECG Data Attestation: I personally reviewed and interpreted this ECG as follows: Interpretation: Sinus rhythm. Ventricular rate 67. No ectopy noted. P.r. interval 186. QRS [address] Ray MDM Narrative Medical decision making narrative: The patient is a 74-year-old female who presents with a chief complaint of bleeding and concerned about her INR. Her INR is within normal limits, she denies any chest pain, shortness of breath, abdominal pain or any physical complaints. She states overall she feels increasingly weak, but that has been going on for the past weeks to months, and has no acute concerns other than her INR. Further lab work and evaluation was done due to the patient's concerned about her kidney function, as she is seeing a water carter. It was noted that her BNP was elevated, though not grossly some when corrected for age. She has clear lung sounds, stable vitals, in no acute concerns. The patient is this so active in her room with her arms and hands it is difficult to keep a blood pressure cuff monitor on her at times. Was given 500 cc of NS in the emergency department, was able to ambulate around the department. Any dizziness chest pain abdominal pain repeatedly. She denies any abnormal shortness of breath repeatedly. Given her elevated BNP and creatinine, I did speak with Dr Ray who reviewed the patient's lab work, stated she could go home if she wants due to age correction of BNP and not a huge change in her creatinine. The patient is much appreciative of this. I did discuss at length with the patient and her daughter the importance of follow-up with primary care provider in the next few days as well as follow-up with her water carter. Discussed at length coming back to the emergency department for any acute concerns such as chest pain, shortness of breath etcetera. Patient daughter have no questions or concerns upon discharge and state understanding of return precautions as well as follow-up care. <Kenna Ray, DO - Last Filed: 12/10/19 20:40> Lab Data Labs: Lab Results 12/10/19 12/10/19 12/10/19 Range/Units 14:46 14:46 14:46 WBC 7.0 (4.5-11.0) X10^3/uL RBC 4.23 (4.0-5.2) X10^6/uL Hgb 12.2 (12.0-16.0) g/dL Hct 37.6 (36-46) % MCV 89.0 (80-100) fL MCH 28.9 (26-34) PG MCHC 32.5 (30-36) % RDW 16.0 H (11.6-14.8) % Plt Count 272 (150-400) X10^3/uL Neut % (Auto) 69.1 (50-75) % Lymph % (Auto) 12.3 L (25-40) % Sumter % (Auto) 12.6 (3-14) % Eos % (Auto) 4.8 H (2-4) % Baso % (Auto) 1.2 (0-2) % Neut # (Auto) 4800 (6884-7902) /uL Lymph # (Auto) 900 L (2306-2992) /uL Sumter # (Auto) 900 (0-900) /uL Eos # (Auto) 300 (0-450) /uL Baso # (Auto) 100 (0-100) /uL PT 29.4 H (10.1-12.7) SECONDS INR 2.6 H (0.9-1.3) APTT (26.4-36.2) SECONDS Sodium (137-145) mmol/L Potassium (3.4-5.1) mmol/L Chloride (98-107) mmol/L Carbon Dioxide (22-32) mmol/L BUN (7-17) mg/dL Creatinine (0.52-1.04) mg/dL Estimated GFR (>60) mL/min BUN/Creatinine Ratio (6-22) Glucose (80-110) mg/dL Calcium (8.4-10.2) mg/dL Magnesium 2.4 H (1.6-2.3) mg/dL Total Bilirubin (0.2-1.3) mg/dL AST (14-36) IU/L ALT (<35) IU/L Alkaline Phosphatase (38-126) U/L Total Creatine Kinase (30-135) U/L CK-MB (CK-2) CK-MB (CK-2) Rel Index Troponin I (0.01-0.034) ng/mL NT-Pro-B Natriuret Pep (<125) pg/mL Total Protein (6.3-8.2) g/dL Albumin (3.5-5.0) g/dL Globulin (1.7-4.1) g/dL Albumin/Globulin Ratio (1.0-2.8) 12/10/19 12/10/19 12/10/19 Range/Units 14:46 14:46 14:46 WBC (4.5-11.0) X10^3/uL RBC (4.0-5.2) X10^6/uL Hgb (12.0-16.0) g/dL Hct (36-46) % MCV (80-100) fL MCH (26-34) PG MCHC (30-36) % RDW (11.6-14.8) % Plt Count (150-400) X10^3/uL Neut % (Auto) (50-75) % Lymph % (Auto) (25-40) % Sumter % (Auto) (3-14) % Eos % (Auto) (2-4) % Baso % (Auto) (0-2) % Neut # (Auto) (1361-9778) /uL Lymph # (Auto) (8942-3707) /uL Sumter # (Auto) (0-900) /uL Eos # (Auto) (0-450) /uL Baso # (Auto) (0-100) /uL PT (10.1-12.7) SECONDS INR (0.9-1.3) APTT 44 H D (26.4-36.2) SECONDS Sodium 137 (137-145) mmol/L Potassium 4.8 (3.4-5.1) mmol/L Chloride 104 (98-107) mmol/L Carbon Dioxide 27 (22-32) mmol/L BUN 43 H (7-17) mg/dL Creatinine 2.06 H (0.52-1.04) mg/dL Estimated GFR 23.6 L (>60) mL/min BUN/Creatinine Ratio 20.9 (6-22) Glucose 90 (80-110) mg/dL Calcium 9.3 (8.4-10.2) mg/dL Magnesium (1.6-2.3) mg/dL Total Bilirubin 0.4 (0.2-1.3) mg/dL AST 24 (14-36) IU/L ALT 18 (<35) IU/L Alkaline Phosphatase 84 (38-126) U/L Total Creatine Kinase 48 (30-135) U/L CK-MB (CK-2) TNP CK-MB (CK-2) Rel Index TNP Troponin I 0.023 (0.01-0.034) ng/mL NT-Pro-B Natriuret Pep 1980 H (<125) pg/mL Total Protein 7.4 (6.3-8.2) g/dL Albumin 4.2 (3.5-5.0) g/dL Globulin 3.2 (1.7-4.1) g/dL Albumin/Globulin Ratio 1.3 (1.0-2.8) Urine Dip Bedside Urine Glucose Negative Bedside Urine Bilirubin - Negative Bedside Urine Ketone - Negative Urine Specific Cyclone 1.015 Bedside Urine Occult Blood - Negative Bedside Urine pH 5.5 Bedside Urine Protein +/- 15 Bedside Urine Urobilinogen - Negative Bedside Urine Nitrite - Negative Bedside Urine Leukocytes + 70 Esterase Discharge Plan Departure Patient Disposition: Home Clinical Impression: Anticoagulated on Coumadin, Weakness, Elevated brain natriuretic peptide (BNP) level Discharge Date/Time: 12/10/19 19:18 Instructions: DI for Muscle Weakness, Warfarin Activity Restrictions/Additional Instructions: Thank you for trusting us with your care today. As discussed, your INR was 2.6 today. Please follow-up with primary care provider in the next few days. I also suggest following up with your water carter. Please come back to emergency department for any acute concerns including chest pain shortness of breath concern of heart attack or stroke Prescriptions: No Action (DME) Disabled Parking Placard Qty: 1 RF: 0 warfarin 5 mg tablet 5 mg PO DAILY Qty: 30 RF: 3 ipratropium-albuterol 0.5 mg-3 mg(2.5 mg base)/3 mL solution for nebulization 3 ml INHALATION Q6-8H PRN (Reason: shortness of breath) Qty: 180 RF: 1 triamcinolone acetonide 0.1 % ointment 1 applictn TOP DAILY Qty: 453.6 RF: 0 albuterol sulfate 90 mcg/actuation HFA aerosol inhaler 2 puff INHALATION Q4-6H PRN (Reason: shortness of breath or wheezing) Qty: 18 RF: 3 amlodipine 5 mg tablet 5 mg PO DAILY Qty: 30 RF: 5 furosemide 20 mg tablet 20 mg PO DAILY RF: 0 sotalol 80 mg tablet 40 mg PO BID RF: 0 metoprolol succinate 25 mg tablet extended release 24 hr 25 mg PO DAILY Qty: 90 RF: 3 Referrals: Arturo Champagne DO [Primary Care Provider] - <Kenna Ray DO - Last Filed: 12/10/19 20:40> Cosign ED Attending Cosignature Attestation: I was immediately available in the department for consultation. Documentation has been reviewed. I agree with assessment and plan.
[2019-12-10 15:03] LABS: Add Manual Diff / Slide Review NO; Basophils Absolute Auto 100 /uL (0-100); Basophils Percent Auto 1.2 % (0-2); Eosinophils Absolute Auto 300 /uL (0-450); Eosinophils Percent Auto 4.8 % (2-4); Hematocrit 37.6 % (36-46); Hemoglobin 12.2 g/dL (12.0-16.0); Lymphocytes Absolute Auto 900 /uL (1100-4500); Lymphocytes Percent Auto 12.3 % (25-40); Mean Corpuscular HGB Conc 32.5 % (30-36); Mean Corpuscular Hemoglobin 28.9 PG (26-34); Monocytes Absolute Auto 900 /uL (0-900); Monocytes Percent Auto 12.6 % (3-14); Neutrophils Absolute Auto 4800 /uL (1500-7000); Neutrophils Percent Auto 69.1 % (50-75); Platelet Count 272 X10^3/uL (150-400); Red Blood Cell Count 4.23 X10^6/uL (4.0-5.2)
[2019-12-10 15:13] LABS: PTT Partial Thromboplastin Tim 44 SECONDS (26.4-36.2)
[2019-12-10 15:17] LABS: Magnesium 2.4 mg/dL (1.6-2.3)
[2019-12-10 15:18] LABS: Alanine Aminotransferase 18 IU/L (<35); Albumin 4.2 g/dL (3.5-5.0); Albumin Globulin Ratio 1.3 (1.0-2.8); Alkaline Phosphatase 84 U/L (38-126); Aspartate Aminotransferase 24 IU/L (14-36); BUN Creatinine Ratio 20.9 (6-22); Bilirubin Total 0.4 mg/dL (0.2-1.3); Blood Urea Nitrogen 43 mg/dL (7-17); Calcium 9.3 mg/dL (8.4-10.2); Carbon Dioxide 27 mmol/L (22-32); Chloride 104 mmol/L (98-107); Creatine Kinase 48 U/L (30-135); Estimated Glomerular Filt Rate 23.6 mL/min (>60); Globulin 3.2 g/dL (1.7-4.1); Glucose 90 mg/dL (80-110); HEMOLYSIS < 15 (0-50); INR 2.6 (0.9-1.3); Potassium 4.8 mmol/L (3.4-5.1); Prothrombin Time 29.4 SECONDS (10.1-12.7); Sodium 137 mmol/L (137-145); Total Protein 7.4 g/dL (6.3-8.2)
[2019-12-10 15:26] LABS: NT-proBNP (BNP-Adult 18+) 1980 pg/mL (<125)
[2019-12-10 15:29] LABS: Troponin I 0.023 ng/mL (0.01-0.034)
[2019-12-10] MEDS: SODIUM CHLORIDE 0.9% 500 ML 1000 ML IV (15:52)
--- NOTE | 2019-12-10 16:57 | DI.RAD.S_ITS ---
PROCEDURE: XR CHEST 1V INDICATIONS: weakness, sob TECHNIQUE: One view of the chest was acquired. COMPARISON: [facility], CR, XR CHEST 1V, 07/13/2018, 20:17. FINDINGS: Surgical changes and devices: Multiple EKG leads project over the chest. Lungs and pleura: Lungs are clear. No pleural effusions or pneumothorax. Mediastinum: Mediastinal contours appear normal. Heart size is normal. Bones and chest wall: No suspicious bony lesions. Overlying soft tissues appear unremarkable. IMPRESSION: No acute cardiopulmonary process demonstrated radiographically. Dictated by: Prashanth Trevino M.D. on 12/10/2019 at 17:13 Approved by: Prashanth Trevino M.D. on 12/10/2019 at 17:15
[2019-12-10 21:25] LABS: Appearance Urine UA CLEAR; Bilirubin Urine UA NEGATIVE (NEGATIVE); Color Urine UA YELLOW; Glucose Urine UA NEGATIVE (Negative); Ketones Urine UA NEGATIVE (NEGATIVE); Leukocyte Esterase Urine UA 1+ (NEGATIVE); Nitrite Urine UA NEGATIVE (Negative); Occult Blood Urine UA NEGATIVE (Negative); Protein Urine UA NEGATIVE (Negative); Specific Gravity Urine UA 1.015 (1.000-1.035); Urobilinogen Urine UA 0.2 E.U./dL (0.2)
[2019-12-10 21:34] LABS: Bacteria Urine Few (2-10); Culture Indicated Urine Specimen Cultured; RBC Urine 0-1/HPF (0-5/HPF); WBC Urine 1-5/HPF (0-5/HPF)
== END 2019-12-10 19:18 | disposition home or self-care (01) ==
PROVIDERS: Emergency Provider Nurse Practitioner Family; PCP Family Medicine
DX: R53.1 Weakness (principal); R06.02 Shortness of breath; I48.91 Unspecified atrial fibrillation; Z79.01 Long term (current) use of anticoagulants; R79.89 Other specified abnormal findings of blood chemistry
CPT/HCPCS: 36415; 71045; 80053; 81001; 81003; 82550; 83735; 83880; 84484; 85025; 85610; 85730; 87077; 87086; 93005; 93010; 96360; 96361; 99284

== ENCOUNTER → 2020-01-15 09:33 | Outpatient (CLI) | payer MEDICARE, SELFPAY ==
[2018-07-05 18:05] VITALS: BMI 29.9
[2020-01-15 11:23] LABS: Blood Urea Nitrogen 33 mg/dL (7-17); Calcium 9.3 mg/dL (8.4-10.2); Carbon Dioxide 28 mmol/L (22-32); Chloride 105 mmol/L (98-107); Glucose 109 mg/dL (80-110); HEMOLYSIS < 15 (0-50); Potassium 4.6 mmol/L (3.4-5.1); Sodium 141 mmol/L (137-145)
[2020-01-16 07:58] LABS: Complement C3 156 mg/dL (82-167)
[2020-01-17 13:45] LABS: Albumin 3.3 g/dL (2.9-4.4); Alpha-1-Globulin 0.2 g/dL (0.0-0.4); Alpha-2-Globulin 0.8 g/dL (0.4-1.0); Gamma Globulin 0.9 g/dL (0.4-1.8); Protein, Total 6.3 g/dL (6.0-8.5)
[2020-01-18 13:36] LABS: Cytoplasmic C-ANCA <1:20 titer (Neg:<1:20); Perinuclear P-ANCA <1:20 titer (Neg:<1:20)
== END ==
PROVIDERS: PCP Family Medicine; Referring Provider Internal Medicine Nephrology; Visit Provider Internal Medicine Nephrology
DX: M31.30 Wegener's granulomatosis without renal involvement (principal); I77.6 Arteritis, unspecified; N05.9 Unspecified nephritic syndrome with unspecified morphologic changes; D47.2 Monoclonal gammopathy
CPT/HCPCS: 36415; 80048; 83516; 83520; 84155; 84165; 86160

== ENCOUNTER 2020-02-27 14:27 | Observation (INO) | payer MEDICARE, SELFPAY ==
[2018-07-05 18:05] VITALS: BMI 29.9
[2020-02-27] VITALS (17 sets, daily range): BP systolic 110–123; BP diastolic 57–91; PULSE 78–142; RESP 15–36; TEMP 36.5–37.2; O2SAT 85–100; BMI 29.9; BMI 30.9
--- NOTE | 2020-02-27 15:14 | DI.RAD.S_ITS ---
PROCEDURE: XR CHEST 2V INDICATIONS: shortness of breath TECHNIQUE: 2 views of the chest were acquired. COMPARISON: [facility], CR, XR CHEST 1V, 12/10/2019, 16:59. [facility], CR, XR CHEST 1V, 07/13/2018, 20:17. FINDINGS: Surgical changes and devices: None. Lungs and pleura: Lungs are abnormal with a chronic interstitial prominence, and there also is a rounded vaguely marginated radiodensity involving the middle 3rd of the right lung parenchyma measuring up to 4.3 cm in diameter. This cannot be clearly seen on the lateral view, and was not present on relatively recent plain film imaging in that area dated 12/10/19.. No pleural effusions or pneumothorax. Mediastinum: Mediastinal contours are normal. Heart size is mildly enlarged. Bones and chest wall: No suspicious bony abnormalities. Soft tissues appear unremarkable. IMPRESSION: Suspect round pneumonia right mid lung, and follow up assessment is recommended by plain film to confirm resolution. If this abnormality persists follow-up by contrast-enhanced CT scanning would be recommended. Note is made of relatively large lung volumes suggestive of COPD as is the interstitial prominence chronically present. Heart size is mildly enlarged. Dictated by: Devon Palma M.D. on 02/27/2020 at 16:05 Approved by: Devon Palma M.D. on 02/27/2020 at 16:07
[2020-02-27 15:37] LABS: Add Manual Diff / Slide Review NO; Basophils Absolute Auto 100 /uL (0-100); Basophils Percent Auto 1.4 % (0-2); Eosinophils Absolute Auto 300 /uL (0-450); Hematocrit 35.9 % (36-46); Hemoglobin 11.3 g/dL (12.0-16.0); Lymphocytes Absolute Auto 600 /uL (1100-4500); Lymphocytes Percent Auto 10.1 % (25-40); Mean Corpuscular HGB Conc 31.4 % (30-36); Mean Corpuscular Hemoglobin 29.1 PG (26-34); Mean Corpuscular Volume 92.6 fL (80-100); Monocytes Absolute Auto 600 /uL (0-900); Monocytes Percent Auto 8.9 % (3-14); Neutrophils Absolute Auto 4800 /uL (1500-7000); Neutrophils Percent Auto 74.6 % (50-75); Platelet Count 303 X10^3/uL (150-400); Red Blood Cell Count 3.87 X10^6/uL (4.0-5.2); Red Cell Distribution Width 13.9 % (11.6-14.8); White Blood Cell Count 6.4 X10^3/uL (4.5-11.0)
[2020-02-27 15:47] LABS: Alanine Aminotransferase 19 IU/L (<35); Albumin 4.1 g/dL (3.5-5.0); Albumin Globulin Ratio 1.3 (1.0-2.8); Alkaline Phosphatase 79 U/L (38-126); Aspartate Aminotransferase 22 IU/L (14-36); BUN Creatinine Ratio 22.2 (6-22); Bilirubin Total 0.5 mg/dL (0.2-1.3); Blood Urea Nitrogen 36 mg/dL (7-17); Calcium 9.3 mg/dL (8.4-10.2); Carbon Dioxide 26 mmol/L (22-32); Chloride 106 mmol/L (98-107); Estimated Glomerular Filt Rate 31.1 mL/min (>60); Globulin 3.2 g/dL (1.7-4.1); Glucose 112 mg/dL (80-110); HEMOLYSIS < 15 (0-50); Potassium 4.2 mmol/L (3.4-5.1); Sodium 140 mmol/L (137-145); Total Protein 7.3 g/dL (6.3-8.2)
[2020-02-27 15:48] LABS: Lactate (Lactic Acid) 1.2 mmol/L (0.7-2.1)
--- NOTE | 2020-02-27 16:43 | ED.SOB ---
HPI - SOB/Dyspnea General Chief Complaint: Shortness of Breath/Dyspnea Stated Complaint: short of breath/ having a procedure tomorrow Time Seen by Provider: 02/27/20 16:15 Source: patient and family Mode of arrival: Wheelchair History of Present Illness HPI Narrative: Patient here with daughter. Patient complains persistent dyspnea for the past 2-4 weeks. Patient has cancel her heart procedure yesterday that was supposed to happen tomorrow and [place] for atrial fibrillation. Patient is on warfarin. Patient had 2 weeks ago kidney biopsy in [place]. Patient has been off warfarin for 2 weeks. Patient denies any chest pain. History pneumonia in the past. No recent antibiotics. Related Data Home Medications Medication Instructions Recorded Confirmed furosemide 20 mg tablet 20 mg PO DAILY 10/12/19 02/27/20 acetaminophen [Tylenol] 650 mg PO Q4H PRN 02/27/20 02/27/20 Previous Rx's Medication Instructions Recorded Disabled Parking Placard #1 ea 07/14/18 triamcinolone acetonide 0.1 % 1 applictn TOP DAILY #453.6 gram 12/20/18 topical ointment albuterol sulfate 90 mcg/actuation 2 puff INHALATION Q4-6H PRN #18 04/16/19 aerosol inhaler gram amlodipine 5 mg tablet 5 mg PO DAILY #30 tab 10/26/19 warfarin 5 mg tablet See Rx Instructions .ROUTE 12/18/19 .COMPLEX #30 tab ipratropium 0.5 mg-albuterol 3 mg 3 ml INHALATION Q6H PRN #180 ml 02/07/20 (2.5 mg base)/3 mL nebulization soln Allergies Allergy/AdvReac Type Severity Reaction Status Date / Time atorvastatin [ATORVASTATIN] AdvReac Intermediate Nausea and Verified 02/27/20 15:10 vomiting Review of Systems Review of Systems Narrative: GENERAL: Denies chills, fatigue, malaise, fever, sweats. HEENT: Denies sinus pain, ear pain, sore throat, difficulty swallowing RESPIRATORY: Complains dyspnea, cough CARDIOVASCULAR: Denies chest pain, palpitations, edema, GASTROINTESTINAL: Denies nausea, vomiting, abdominal pain, diarrhea, constipation, melena. : Denies dysuria, frequency, hematuria MUSCULOSKELETAL: denies muscle or bony pain SKIN: Denies rash, skin lesions NEUROLOGIC: Denies weakness, headache, numbness, change in speech, confusion PSYCHIATRIC: No SI or HI or hallucinations ROS Unobtainable: All systems reviewed & are unremarkable except as noted in HPI and below Patient History Medical History AAA (abdominal aortic aneurysm) (Chronic ~2005) Arthritis of left hip (Chronic) Atrial fibrillation with RVR (Chronic 02/18/18) Chronic left hip pain (Acute) CKD (chronic kidney disease) stage 3, GFR 30-59 ml/min (Acute) Fibromyalgia (Chronic) History of ectopic (Resolved 1975) Hyperlipidemia (Chronic) Hypertension (Chronic) Osteopenia (Chronic 03/19/09) Poor circulation of extremity (Acute) Surgical History History of cone biopsy of cervix (Resolved 1991) History of gynecologic surgery (Resolved 1975) History of tubal ligation (Resolved 1977) Family History Brother Essential hypertension Hyperlipidemia Arthritis Heart disease Mother Heart disease Sister Essential hypertension Hyperlipidemia Breast cancer Diabetes mellitus Father Cancer Grandfather Cancer Grandmother Cancer Grandmother No problems noted. Social History household members: family and children Smoking Status: Former smoker Tobacco: How many years used: 30 second hand exposure: No alcohol intake: never substance use type: does not use Smoking Status: Former smoker alcohol intake frequency: holidays/special occasions only Substance Use Type: does not use Exam Narrative Exam Narrative: GENERAL: patient appears stated age. Well-nourished, well-developed patient, in no distress, not toxic not dyspneic HEAD: Normocephalic. EYES: Pupils equal round and reactive. No scleral icterus. No injection no discharge ENT: Mucous membranes moist. No drooling no tongue elevation no trismus no malocclusion NECK: Trachea midline. Non tender CARDIOVASCULAR: Regular rate and rhythm without murmurs, gallops, or rubs. RESPIRATORY: Diminished lung sounds mid right lung. Breath sounds equal bilaterally. No wheezes, rales, or rhonchi. Speaks short sentences GASTROINTESTINAL: Abdomen soft, non-tender, nondistended. EXTREMITIES: No gross deformities. BACK: Nontender without deformity or crepitance. No flank tenderness. NEURO: AOx4. SKIN: Warm and dry PSYCH: Not anxious, is cooperative Initial Vital Signs Initial Vital Signs: Vital Signs Temperature 99 F 02/27/20 14:59 Pulse Rate 91 H 02/27/20 14:59 Respiratory Rate 28 H 02/27/20 14:59 Blood Pressure 110/63 02/27/20 14:59 Pulse Oximetry 98 02/27/20 14:59 Course Course Course Narrative: Time 5:55 p.m.. Spoke with radiologist dr haq.... May resume warfarin Orders Ordered: Acetaminophen (Tylenol) 650 mg PO Q6HR PRN PRN Reason: Fever/Mild Pain (1-3) Last Admin: 02/27/20 22:50 Dose: 650 mg Documented by: SANDI Al Hydrox/Mg Hydrox/Simethicone (Maalox Plus) 30 ml PO Q6HR PRN PRN Reason: Dyspepsia Albuterol/Ipratropium (Duoneb) 3 ml INH RTBID [place] Amlodipine Besylate (Norvasc) 5 mg PO DAILY [facility] Calcium Carbonate (Tums) 1,000 mg PO Q4HR PRN PRN Reason: Dyspepsia Last Admin: 02/27/20 23:12 Dose: 1,000 mg Documented by: SANDI Furosemide (Lasix) 20 mg IV DAILY [facility] Heparin Sodium (Porcine) (Heparin) 5,000 unit SUBCUT BID [facility] Levalbuterol HCl (Xopenex) 1.25 mg INH [id number] [facility] Last Admin: 02/27/20 22:38 Dose: 1.25 mg Documented by: COLEMAN Naloxone HCl (Narcan) 0.2 mg IV Q2MIN PRN PRN Reason: Opiate Reversal Ondansetron HCl (Zofran) 4 mg IV Q8HR PRN PRN Reason: Nausea And Vomiting Oxycodone HCl (Percolone) 5 mg PO Q6HR PRN PRN Reason: Pain, Moderate (4-6) Last Admin: 02/28/20 02:57 Dose: 5 mg Documented by: ALLYSSA Warfarin Sodium (Coumadin) 5 mg PO 1700 [place] Discontinued Medications Albuterol/Ipratropium (Duoneb) 3 ml INH NOW ONE Stop: 02/27/20 16:38 Last Admin: 02/27/20 17:21 Dose: 3 ml Documented by: ALFONZO Furosemide (Lasix) 40 mg IV NOW ONE Stop: 02/27/20 22:08 Last Admin: 02/27/20 22:35 Dose: 40 mg Documented by: SANDI Furosemide (Lasix) 40 mg IV DAILY [facility] Ceftriaxone Sodium/Dextrose (Rocephin) 2 gm in 50 mls @ 100 mls/hr IV NOW ONE Stop: 02/27/20 18:21 Last Infusion: 02/27/20 20:23 Dose: 0 mls/hr Documented by: Admin: 02/27/20 19:45 Dose: 100 mls/hr Documented by: KATHERINE Azithromycin 500 mg/ Dextrose 250 mls @ 250 mls/hr IV NOW ONE Stop: 02/27/20 17:53 Last Infusion: 02/27/20 19:18 Dose: 0 mls/hr Documented by: Admin: 02/27/20 18:10 Dose: 250 mls/hr Documented by: ALEAH Warfarin Sodium (Coumadin) 5 mg PO NOW ONE Stop: 02/27/20 18:20 Last Admin: 02/27/20 19:21 Dose: 5 mg Documented by: KATHERINE Warfarin Sodium (Coumadin) 0 mg PO 1700 [place] Last Admin: 02/28/20 01:09 Dose: Not Given Documented by: ALLYSSA Reevaluation(s) Reevaluation #1: Patient is dyspneic on ambulation. Despite recorded O2 sats on room air Consultations Consultation #1: Spoke with hospitalist, Dr. Gonzalez. Recommends getting respiratory panel as well as talking to Dr. Ayala, cardiology before admitting patient here. Time: 18:30 Consultation #2: Spoke with cardiology Dr. Ayala, patient can stay here. BNP does not clinically correlate with symptoms and is more attributed to the renal function as well as troponin. Patient may be admitted here. May restart warfarin. With any concerns of atrial fibrillation RVR patient to receive Cardizem as patient is already on warfarin. Time: 18:31 Consultation #3: Spoke with hospitalist, Oleksandr will come see patient in the department Time: 19:41 Vital Signs Vital signs: Vital Signs - 8 hr 02/27/20 14:59 02/27/20 16:27 02/27/20 16:30 Temperature 99 F Pulse Rate 91 H 109 H 107 H Respiratory Rate 28 H 34 H 17 Blood Pressure 110/63 Pulse Oximetry 98 97 97 02/27/20 16:31 02/27/20 17:00 02/27/20 17:02 Temperature Pulse Rate 120 H 142 H 140 H Respiratory Rate 15 36 H 33 H Blood Pressure 122/72 118/77 Pulse Oximetry 96 85 L 99 02/27/20 17:36 Temperature Pulse Rate 108 H Respiratory Rate 20 Blood Pressure Pulse Oximetry 97 MDM - SOB/Dyspnea Differential Diagnosis Differential diagnosis: Likely acute exacerbation of chronic obstructive airways disease, congestive heart failure and community acquired pneumonia Lab Data Attestation: I reviewed the patient's lab results. Result diagrams: 02/28/20 05:47 02/28/20 05:47 Labs: Lab Results 02/27/20 02/27/20 02/27/20 Range/Units 15:27 15:27 15:27 WBC 6.4 (4.5-11.0) X10^3/uL RBC 3.87 L (4.0-5.2) X10^6/uL Hgb 11.3 L (12.0-16.0) g/dL Hct 35.9 L (36-46) % MCV 92.6 (80-100) fL MCH 29.1 (26-34) PG MCHC 31.4 (30-36) % RDW 13.9 (11.6-14.8) % Plt Count 303 (150-400) X10^3/uL Neut % (Auto) 74.6 (50-75) % Lymph % (Auto) 10.1 L (25-40) % [place] % (Auto) 8.9 (3-14) % Eos % (Auto) 5.0 H (2-4) % Baso % (Auto) 1.4 (0-2) % Neut # (Auto) 4800 (9176-5547) /uL Lymph # (Auto) 600 L (7336-8265) /uL [place] # (Auto) 600 (0-900) /uL Eos # (Auto) 300 (0-450) /uL Baso # (Auto) 100 (0-100) /uL PT (10.1-12.7) SECONDS INR (0.9-1.3) APTT (26.4-36.2) SECONDS Sodium 140 (137-145) mmol/L Potassium 4.2 (3.4-5.1) mmol/L Chloride 106 (98-107) mmol/L Carbon Dioxide 26 (22-32) mmol/L BUN 36 H (7-17) mg/dL Creatinine 1.62 H (0.52-1.04) mg/dL Estimated GFR 31.1 L (>60) mL/min BUN/Creatinine Ratio 22.2 H (6-22) Glucose 112 H (80-110) mg/dL Lactate 1.2 (0.7-2.1) mmol/L Calcium 9.3 (8.4-10.2) mg/dL Magnesium (1.6-2.3) mg/dL Total Bilirubin 0.5 (0.2-1.3) mg/dL AST 22 (14-36) IU/L ALT 19 (<35) IU/L Alkaline Phosphatase 79 (38-126) U/L Total Creatine Kinase (30-135) U/L CK-MB (CK-2) CK-MB (CK-2) Rel Index Troponin I (0.01-0.034) ng/mL NT-Pro-B Natriuret Pep (<125) pg/mL Total Protein 7.3 (6.3-8.2) g/dL Albumin 4.1 (3.5-5.0) g/dL Globulin 3.2 (1.7-4.1) g/dL Albumin/Globulin Ratio 1.3 (1.0-2.8) Procalcitonin (<0.5) ng/mL Chlamy pneumoniae PCR (Not Detect) Adenovirus (PCR) (Not Detect) B.parapertussis DNA PCR (Not Detect) Coronavirus OC43 (PCR) (Not Detect) Coronavirus HKU1 (PCR) (Not Detect) Coronavirus 229E (PCR) (Not Detect) COVID-19 PCR (Negative) Coronavirus NL63 (PCR) (Not Detect) Human Metapneumovir PCR (Not Detect) Influenza Type A (PCR) (Not Detect) Influenza Type B (PCR) (Not Detect) M. pneumoniae (PCR) (Not Detect) Parainfluenza 1 (PCR) (Not Detect) Parainfluenza 2 (PCR) (Not Detect) Parainfluenza 3 (PCR) (Not Detect) Parainfluenza 4 (PCR) (Not Detect) RSV (PCR) (Not Detect) Entero/Rhino (PCR) (Not Detect) 02/27/20 02/27/20 02/27/20 Range/Units 15:27 15:27 15:27 WBC (4.5-11.0) X10^3/uL RBC (4.0-5.2) X10^6/uL Hgb (12.0-16.0) g/dL Hct (36-46) % MCV (80-100) fL MCH (26-34) PG MCHC (30-36) % RDW (11.6-14.8) % Plt Count (150-400) X10^3/uL Neut % (Auto) (50-75) % Lymph % (Auto) (25-40) % [place] % (Auto) (3-14) % Eos % (Auto) (2-4) % Baso % (Auto) (0-2) % Neut # (Auto) (6471-8475) /uL Lymph # (Auto) (5666-7592) /uL [place] # (Auto) (0-900) /uL Eos # (Auto) (0-450) /uL Baso # (Auto) (0-100) /uL PT 13.0 H (10.1-12.7) SECONDS INR 1.1 (0.9-1.3) APTT 31 D (26.4-36.2) SECONDS Sodium (137-145) mmol/L Potassium (3.4-5.1) mmol/L Chloride (98-107) mmol/L Carbon Dioxide (22-32) mmol/L BUN (7-17) mg/dL Creatinine (0.52-1.04) mg/dL Estimated GFR (>60) mL/min BUN/Creatinine Ratio (6-22) Glucose (80-110) mg/dL Lactate (0.7-2.1) mmol/L Calcium (8.4-10.2) mg/dL Magnesium (1.6-2.3) mg/dL Total Bilirubin (0.2-1.3) mg/dL AST (14-36) IU/L ALT (<35) IU/L Alkaline Phosphatase (38-126) U/L Total Creatine Kinase 75 (30-135) U/L CK-MB (CK-2) TNP CK-MB (CK-2) Rel Index TNP Troponin I 0.047 H (0.01-0.034) ng/mL NT-Pro-B Natriuret Pep (<125) pg/mL Total Protein (6.3-8.2) g/dL Albumin (3.5-5.0) g/dL Globulin (1.7-4.1) g/dL Albumin/Globulin Ratio (1.0-2.8) Procalcitonin 0.05 (<0.5) ng/mL Chlamy pneumoniae PCR (Not Detect) Adenovirus (PCR) (Not Detect) B.parapertussis DNA PCR (Not Detect) Coronavirus OC43 (PCR) (Not Detect) Coronavirus HKU1 (PCR) (Not Detect) Coronavirus 229E (PCR) (Not Detect) COVID-19 PCR (Negative) Coronavirus NL63 (PCR) (Not Detect) Human Metapneumovir PCR (Not Detect) Influenza Type A (PCR) (Not Detect) Influenza Type B (PCR) (Not Detect) M. pneumoniae (PCR) (Not Detect) Parainfluenza 1 (PCR) (Not Detect) Parainfluenza 2 (PCR) (Not Detect) Parainfluenza 3 (PCR) (Not Detect) Parainfluenza 4 (PCR) (Not Detect) RSV (PCR) (Not Detect) Entero/Rhino (PCR) (Not Detect) 02/27/20 02/27/20 02/27/20 Range/Units 15:27 15:27 16:39 WBC (4.5-11.0) X10^3/uL RBC (4.0-5.2) X10^6/uL Hgb (12.0-16.0) g/dL Hct (36-46) % MCV (80-100) fL MCH (26-34) PG MCHC (30-36) % RDW (11.6-14.8) % Plt Count (150-400) X10^3/uL Neut % (Auto) (50-75) % Lymph % (Auto) (25-40) % [place] % (Auto) (3-14) % Eos % (Auto) (2-4) % Baso % (Auto) (0-2) % Neut # (Auto) (7464-2300) /uL Lymph # (Auto) (0392-1158) /uL [place] # (Auto) (0-900) /uL Eos # (Auto) (0-450) /uL Baso # (Auto) (0-100) /uL PT (10.1-12.7) SECONDS INR (0.9-1.3) APTT (26.4-36.2) SECONDS Sodium (137-145) mmol/L Potassium (3.4-5.1) mmol/L Chloride (98-107) mmol/L Carbon Dioxide (22-32) mmol/L BUN (7-17) mg/dL Creatinine (0.52-1.04) mg/dL Estimated GFR (>60) mL/min BUN/Creatinine Ratio (6-22) Glucose (80-110) mg/dL Lactate (0.7-2.1) mmol/L Calcium (8.4-10.2) mg/dL Magnesium 2.3 (1.6-2.3) mg/dL Total Bilirubin (0.2-1.3) mg/dL AST (14-36) IU/L ALT (<35) IU/L Alkaline Phosphatase (38-126) U/L Total Creatine Kinase (30-135) U/L CK-MB (CK-2) CK-MB (CK-2) Rel Index Troponin I (0.01-0.034) ng/mL NT-Pro-B Natriuret Pep 4880 H (<125) pg/mL Total Protein (6.3-8.2) g/dL Albumin (3.5-5.0) g/dL Globulin (1.7-4.1) g/dL Albumin/Globulin Ratio (1.0-2.8) Procalcitonin (<0.5) ng/mL Chlamy pneumoniae PCR (Not Detect) Adenovirus (PCR) (Not Detect) B.parapertussis DNA PCR (Not Detect) Coronavirus OC43 (PCR) (Not Detect) Coronavirus HKU1 (PCR) (Not Detect) Coronavirus 229E (PCR) (Not Detect) COVID-19 PCR Negative (Negative) Coronavirus NL63 (PCR) (Not Detect) Human Metapneumovir PCR (Not Detect) Influenza Type A (PCR) (Not Detect) Influenza Type B (PCR) (Not Detect) M. pneumoniae (PCR) (Not Detect) Parainfluenza 1 (PCR) (Not Detect) Parainfluenza 2 (PCR) (Not Detect) Parainfluenza 3 (PCR) (Not Detect) Parainfluenza 4 (PCR) (Not Detect) RSV (PCR) (Not Detect) Entero/Rhino (PCR) (Not Detect) 02/27/20 Range/Units 19:01 WBC (4.5-11.0) X10^3/uL RBC (4.0-5.2) X10^6/uL Hgb (12.0-16.0) g/dL Hct (36-46) % MCV (80-100) fL MCH (26-34) PG MCHC (30-36) % RDW (11.6-14.8) % Plt Count (150-400) X10^3/uL Neut % (Auto) (50-75) % Lymph % (Auto) (25-40) % [place] % (Auto) (3-14) % Eos % (Auto) (2-4) % Baso % (Auto) (0-2) % Neut # (Auto) (0146-5045) /uL Lymph # (Auto) (2102-0410) /uL [place] # (Auto) (0-900) /uL Eos # (Auto) (0-450) /uL Baso # (Auto) (0-100) /uL PT (10.1-12.7) SECONDS INR (0.9-1.3) APTT (26.4-36.2) SECONDS Sodium (137-145) mmol/L Potassium (3.4-5.1) mmol/L Chloride (98-107) mmol/L Carbon Dioxide (22-32) mmol/L BUN (7-17) mg/dL Creatinine (0.52-1.04) mg/dL Estimated GFR (>60) mL/min BUN/Creatinine Ratio (6-22) Glucose (80-110) mg/dL Lactate (0.7-2.1) mmol/L Calcium (8.4-10.2) mg/dL Magnesium (1.6-2.3) mg/dL Total Bilirubin (0.2-1.3) mg/dL AST (14-36) IU/L ALT (<35) IU/L Alkaline Phosphatase (38-126) U/L Total Creatine Kinase (30-135) U/L CK-MB (CK-2) CK-MB (CK-2) Rel Index Troponin I (0.01-0.034) ng/mL NT-Pro-B Natriuret Pep (<125) pg/mL Total Protein (6.3-8.2) g/dL Albumin (3.5-5.0) g/dL Globulin (1.7-4.1) g/dL Albumin/Globulin Ratio (1.0-2.8) Procalcitonin (<0.5) ng/mL Chlamy pneumoniae PCR Not detected (Not Detect) Adenovirus (PCR) Not detected (Not Detect) B.parapertussis DNA PCR Not detected (Not Detect) Coronavirus OC43 (PCR) Not detected (Not Detect) Coronavirus HKU1 (PCR) Not detected (Not Detect) Coronavirus 229E (PCR) Not detected (Not Detect) COVID-19 PCR (Negative) Coronavirus NL63 (PCR) Not detected (Not Detect) Human Metapneumovir PCR Not detected (Not Detect) Influenza Type A (PCR) Not detected (Not Detect) Influenza Type B (PCR) Not detected (Not Detect) M. pneumoniae (PCR) Not detected (Not Detect) Parainfluenza 1 (PCR) Not detected (Not Detect) Parainfluenza 2 (PCR) Not detected (Not Detect) Parainfluenza 3 (PCR) Not detected (Not Detect) Parainfluenza 4 (PCR) Not detected (Not Detect) RSV (PCR) Not detected (Not Detect) Entero/Rhino (PCR) Not detected (Not Detect) Imaging Data Chest x-ray: Radiologist's Impression: [address] [address] XRay Report Signed Patient: Lisa Gurrola LMR#: [id number] : 7Acct:[id number] Age/Sex: 74 / FDate of Service: 02/27/20 Loc: ED Accession Number: [id number] Procedure: XR chest 2V Ordering Provider: Bryant Veronica MD PROCEDURE: XR CHEST 2V INDICATIONS: shortness of breath TECHNIQUE: 2 views of the chest were acquired. COMPARISON: [facility], CR, XR CHEST 1V, 12/10/2019, 16:59. [facility], CR, XR CHEST 1V, 07/13/2018, 20:17. FINDINGS: Surgical changes and devices: None. Lungs and pleura: Lungs are abnormal with a chronic interstitial prominence, and there also is a rounded vaguely marginated radiodensity involving the middle 3rd of the right lung parenchyma measuring up to 4.3 cm in diameter. This cannot be clearly seen on the lateral view, and was not present on relatively recent plain film imaging in that area dated 12/10/19.. No pleural effusions or pneumothorax. Mediastinum: Mediastinal contours are normal. Heart size is mildly enlarged. Bones and chest wall: No suspicious bony abnormalities. Soft tissues appear unremarkable. IMPRESSION: Suspect round pneumonia right mid lung, and follow up assessment is recommended by plain film to confirm resolution. If this abnormality persists follow-up by contrast-enhanced CT scanning would be recommended. Note is made of relatively large lung volumes suggestive of COPD as is the interstitial prominence chronically present. Heart size is mildly enlarged. Dictated by: Devon Palma M.D. on 02/27/2020 at 16:05 Approved by: Devon Palma M.D. on 02/27/2020 at 16:07 ECG Data Attestation: I personally reviewed and interpreted this ECG as follows: Interpretation: Atrial fibrillation with RVR. Ventricular rate 117 Repeat EKG at 6:00 p.m.. Normal sinus rhythm, rate 90. No ST elevation MDM Narrative Medical decision making narrative: Patient with complicated medical history. Would benefit for admission and breathing treatments and IV antibiotics Discharge Plan Departure Patient Disposition: Admitted as Observation Clinical Impression: Community acquired pneumonia Qualifiers: Laterality: unspecified laterality Qualified Code(s): J18.9 - Pneumonia, unspecified organism Discharge Date/Time: 02/27/20 20:55 Referrals: Arturo Champagne DO [Primary Care Provider] - Admit Date/Time: 02/27/20 20:53 Admit Provider: Fadi Osorio
[2020-02-27 16:54] LABS: INR 1.1 (0.9-1.3)
[2020-02-27 16:57] LABS: PTT Partial Thromboplastin Tim 31 SECONDS (26.4-36.2)
[2020-02-27 16:59] LABS: Creatine Kinase 75 U/L (30-135)
[2020-02-27 17:04] LABS: COVID19 -Nasal RAPID Negative (Negative)
[2020-02-27 17:09] LABS: NT-proBNP (BNP-Adult 18+) 4880 pg/mL (<125)
[2020-02-27 17:12] LABS: Troponin I 0.047 ng/mL (0.01-0.034)
[2020-02-27 17:14] LABS: Procalcitonin 0.05 ng/mL (<0.5)
[2020-02-27] MEDS: ALBUTEROL/IPRATROPIUM 3 ML AMPUL INH (17:21)
[2020-02-27] MEDS: AZITHROMYCIN 500 MG in DEXTROSE 5% IN WATER 250 ML IV (18:10)
[2020-02-27] MEDS: WARFARIN 5 MG TABLET PO (19:21)
[2020-02-27] MEDS: CEFTRIAXONE 2 GM/50 ML FROZ.PIGGY IV (19:45)
--- NOTE | 2020-02-27 19:50 | PC.NURSE ---
patient up at bedside in room, increase work of breathing moving up and down in bed. it just takes it out of me
[2020-02-27 20:17] LABS: Adenovirus Not Detected (Not Detect); Coronavirus 229E Not Detected (Not Detect); Coronavirus HKU1 Not Detected (Not Detect); Coronavirus NL 63 Not Detected (Not Detect)
[2020-02-27 20:18] LABS: Bordetella pertussis Not Detected (Not Detect); Chlamydophila pneumoniae Not Detected (Not Detect); Coronavirus OC43 Not Detected (Not Detect); Human Metapneumovirus Not Detected (Not Detect); Human Rhinovirus/Enterovirus Not Detected (Not Detect); Influenza A Not Detected (Not Detect); Influenza B Not Detected (Not Detect); Mycoplasma pneumoniae Not Detected (Not Detect); Parainfluenza Virus 1 Not Detected (Not Detect); Parainfluenza Virus 2 Not Detected (Not Detect); Parainfluenza Virus 3 Not Detected (Not Detect); Parainfluenza Virus 4 Not Detected (Not Detect); Respiratory Syncytial Virus Not Detected (Not Detect)
--- NOTE | 2020-02-27 22:08 | PM.HP.1 ---
History of Present Illness History of Present Illness Date Patient Seen: 02/27/20 Time Patient Seen: 20:23 Chief complaint: short of breath/ having a procedure tomorrow Narrative: Ms. Lisa Gurrola 72 year old female with a history of atrial fibrillation temporally off anticoagulation, history of COPD ( quit 10 years ago), hypertension, hyperlipidemia, fibromyalgia, and arthritis who presents with a history of progressive shortness of breath for several weeks becoming acutely worse with exertional dyspnea over the last week. The patient has a questionable historian providing somewhat differing history to different providers. The patient states she has required increasing use of nebulizers in presents today at the urging of her daughter whom she is a primary caregiver for because of her degree of shortness of breath and weakness. The patient has albuterol as well as DuoNeb nebulizers with decreasing effectiveness. The patient states she becomes short of breath walk across the room. Patient does have a history of congestive heart failure with preserved ejection fraction and also describes having increasing ankle swelling over the last several days. The patient has been on warfarin which was discontinued for recent liver biopsy was to have a cardiology procedure done and remained off warfarin. She reports no complaints of fevers or chills is had no chest pain or palpitations. She has shortness of breath as above with progressive dyspnea and nonproductive cough. The patient denies abdominal pain, nausea vomiting, diarrhea or constipation. She reports no complaints of urinary symptoms of urgency frequency or hematuria. The patient uses a cane to ambulate. Patient History Medical History AAA (abdominal aortic aneurysm) (Chronic ~2005) Arthritis of left hip (Chronic) Atrial fibrillation with RVR (Chronic 02/18/18) Chronic left hip pain (Acute) CKD (chronic kidney disease) stage 3, GFR 30-59 ml/min (Acute) Fibromyalgia (Chronic) History of ectopic (Resolved 1975) Hyperlipidemia (Chronic) Hypertension (Chronic) Osteopenia (Chronic 03/19/09) Poor circulation of extremity (Acute) Surgical History History of cone biopsy of cervix (Resolved 1991) History of gynecologic surgery (Resolved 1975) History of tubal ligation (Resolved 1977) Family & Social History Family History Brother Essential hypertension Hyperlipidemia Arthritis Heart disease Mother Heart disease Sister Essential hypertension Hyperlipidemia Breast cancer Diabetes mellitus Father Cancer Grandfather Cancer Grandmother Cancer Grandmother No problems noted. Social History: household members family,children Prior Living Arrangements House Safety & Behavioral: Feels Safe in Current Yes Environment Been Physically Hurt or No Threatened By a Person Suicidal Ideation Description None Suicide Plan Description No Plan Tobacco & Substance use: Tobacco type cigarettes Smoking Status Former smoker alcohol intake never alcohol intake frequency holiday/special occasion Substance Use Type does not use Meds Home Medications and Allergies Home Medications Medication Instructions Recorded Confirmed Type Disabled Parking Placard #1 ea 07/14/18 10/26/19 Rx triamcinolone acetonide 0.1 % 1 applictn TOP DAILY #453.6 gram 12/20/18 02/27/20 Rx topical ointment albuterol sulfate 90 mcg/actuation 2 puff INHALATION Q4-6H PRN #18 04/16/19 02/27/20 Rx aerosol inhaler gram furosemide 20 mg tablet 20 mg PO DAILY 10/12/19 02/27/20 History amlodipine 5 mg tablet 5 mg PO DAILY #30 tab 10/26/19 02/27/20 Rx warfarin 5 mg tablet See Rx Instructions .ROUTE 12/18/19 02/27/20 Rx .COMPLEX #30 tab ipratropium 0.5 mg-albuterol 3 mg 3 ml INHALATION Q6H PRN #180 ml 02/07/20 02/27/20 Rx (2.5 mg base)/3 mL nebulization soln acetaminophen [Tylenol] 650 mg PO Q4H PRN 02/27/20 02/27/20 History Allergies Allergy/AdvReac Type Severity Reaction Status Date / Time atorvastatin [ATORVASTATIN] AdvReac Intermediate Nausea and Verified 02/27/20 15:10 vomiting Review of Systems Review of Systems ROS: Yes All systems reviewed with the patient and are negative except as otherwise documented Exam Vital Signs (past 8 hours): - 02/27/20 14:59 02/27/20 16:27 02/27/20 16:30 Temperature 99 F Pulse Rate 91 H 109 H 107 H Respiratory Rate 28 H 34 H 17 Blood Pressure 110/63 Pulse Oximetry 98 97 97 02/27/20 16:31 02/27/20 17:00 02/27/20 17:02 Temperature Pulse Rate 120 H 142 H 140 H Respiratory Rate 15 36 H 33 H Blood Pressure 122/72 118/77 Pulse Oximetry 96 85 L 99 02/27/20 17:30 02/27/20 17:36 02/27/20 18:00 Temperature Pulse Rate 114 H 108 H 87 Respiratory Rate 17 20 19 Blood Pressure 119/57 L Pulse Oximetry 97 97 97 02/27/20 18:30 02/27/20 19:00 02/27/20 19:30 Temperature Pulse Rate 91 H 90 96 H Respiratory Rate 17 19 31 H Blood Pressure Pulse Oximetry 97 97 100 02/27/20 20:00 02/27/20 21:34 Temperature 97.7 F Pulse Rate 87 94 H Respiratory Rate 22 20 Blood Pressure 123/91 H Pulse Oximetry 98 99 Oxygen Delivery Method Room Air Objective Labs Result Diagrams: 02/27/20 15:27 02/27/20 15:27 Labs: Laboratory Results - last 24 hr 02/27/20 02/27/20 02/27/20 15:27 15:27 15:27 WBC 6.4 RBC 3.87 L Hgb 11.3 L Hct 35.9 L MCV 92.6 MCH 29.1 MCHC 31.4 RDW 13.9 Plt Count 303 Neut % (Auto) 74.6 Lymph % (Auto) 10.1 L Reynolds % (Auto) 8.9 Eos % (Auto) 5.0 H Baso % (Auto) 1.4 Neut # (Auto) 4800 Lymph # (Auto) 600 L Reynolds # (Auto) 600 Eos # (Auto) 300 Baso # (Auto) 100 PT INR APTT Sodium 140 Potassium 4.2 Chloride 106 Carbon Dioxide 26 BUN 36 H Creatinine 1.62 H Estimated GFR 31.1 L BUN/Creatinine Ratio 22.2 H Glucose 112 H Lactate 1.2 Calcium 9.3 Total Bilirubin 0.5 AST 22 ALT 19 Alkaline Phosphatase 79 Total Creatine Kinase CK-MB (CK-2) CK-MB (CK-2) Rel Index Troponin I NT-Pro-B Natriuret Pep Total Protein 7.3 Albumin 4.1 Globulin 3.2 Albumin/Globulin Ratio 1.3 Procalcitonin Chlamy pneumoniae PCR Adenovirus (PCR) B.parapertussis DNA PCR Coronavirus OC43 (PCR) Coronavirus HKU1 (PCR) Coronavirus 229E (PCR) COVID-19 PCR Coronavirus NL63 (PCR) Human Metapneumovir PCR Influenza Type A (PCR) Influenza Type B (PCR) M. pneumoniae (PCR) Parainfluenza 1 (PCR) Parainfluenza 2 (PCR) Parainfluenza 3 (PCR) Parainfluenza 4 (PCR) RSV (PCR) Entero/Rhino (PCR) 02/27/20 02/27/20 02/27/20 15:27 15:27 15:27 WBC RBC Hgb Hct MCV MCH MCHC RDW Plt Count Neut % (Auto) Lymph % (Auto) Reynolds % (Auto) Eos % (Auto) Baso % (Auto) Neut # (Auto) Lymph # (Auto) Reynolds # (Auto) Eos # (Auto) Baso # (Auto) PT 13.0 H INR 1.1 APTT 31 D Sodium Potassium Chloride Carbon Dioxide BUN Creatinine Estimated GFR BUN/Creatinine Ratio Glucose Lactate Calcium Total Bilirubin AST ALT Alkaline Phosphatase Total Creatine Kinase 75 CK-MB (CK-2) TNP CK-MB (CK-2) Rel Index TNP Troponin I 0.047 H NT-Pro-B Natriuret Pep Total Protein Albumin Globulin Albumin/Globulin Ratio Procalcitonin 0.05 Chlamy pneumoniae PCR Adenovirus (PCR) B.parapertussis DNA PCR Coronavirus OC43 (PCR) Coronavirus HKU1 (PCR) Coronavirus 229E (PCR) COVID-19 PCR Coronavirus NL63 (PCR) Human Metapneumovir PCR Influenza Type A (PCR) Influenza Type B (PCR) M. pneumoniae (PCR) Parainfluenza 1 (PCR) Parainfluenza 2 (PCR) Parainfluenza 3 (PCR) Parainfluenza 4 (PCR) RSV (PCR) Entero/Rhino (PCR) 02/27/20 02/27/20 02/27/20 15:27 16:39 19:01 WBC RBC Hgb Hct MCV MCH MCHC RDW Plt Count Neut % (Auto) Lymph % (Auto) Reynolds % (Auto) Eos % (Auto) Baso % (Auto) Neut # (Auto) Lymph # (Auto) Reynolds # (Auto) Eos # (Auto) Baso # (Auto) PT INR APTT Sodium Potassium Chloride Carbon Dioxide BUN Creatinine Estimated GFR BUN/Creatinine Ratio Glucose Lactate Calcium Total Bilirubin AST ALT Alkaline Phosphatase Total Creatine Kinase CK-MB (CK-2) CK-MB (CK-2) Rel Index Troponin I NT-Pro-B Natriuret Pep 4880 H Total Protein Albumin Globulin Albumin/Globulin Ratio Procalcitonin Chlamy pneumoniae PCR Not detected Adenovirus (PCR) Not detected B.parapertussis DNA PCR Not detected Coronavirus OC43 (PCR) Not detected Coronavirus HKU1 (PCR) Not detected Coronavirus 229E (PCR) Not detected COVID-19 PCR Negative Coronavirus NL63 (PCR) Not detected Human Metapneumovir PCR Not detected Influenza Type A (PCR) Not detected Influenza Type B (PCR) Not detected M. pneumoniae (PCR) Not detected Parainfluenza 1 (PCR) Not detected Parainfluenza 2 (PCR) Not detected Parainfluenza 3 (PCR) Not detected Parainfluenza 4 (PCR) Not detected RSV (PCR) Not detected Entero/Rhino (PCR) Not detected Assessment & Plan Assessment & Plan narrative: This is a 74-year-old female who presents to the ER with several weeks of progressive shortness of breath becoming acute over the last week not improving with frequent neb treatments. 1. Dyspnea, acute on chronic, present on admission, active -patient with progressive dyspnea with nonproductive cough worsening in the last week, clinically breath sounds are diminished without wheezing, coarseness or crackles. -chest x-ray is read as a round pneumonia right middle lobe of the lung which appears to be evident on prior chest x-ray. Imaging is consistent with COPD and patient has an elevated proBNP of 4880. . -patient has a normal white count at 6.4 with no shift, procalcitonin is normal with at 0.05, respiratory PCR is negative and COVID-19 negative. Patient remains afebrile -ordered Lasix 40 mg IV -requested respiratory therapy consult evaluate and treat. -ordered albuterol nebulizer every 4 hours as needed, -ordered DuoNeb twice daily. -in the ER the patient was started on azithromycin and Rocephin however due to lack of infection markers this time will not initiate antibiotics focal treated the elevated proBNP and provide bronchodilators. 2. Congestive heart failure, chronic, stable -prior echocardiogram in June 2018 finds an EF of 60-65% with RV normal size and function and LV with borderline increased wall thickness. -BMP is elevated 4880. -ordered 40 mg of Lasix now and 40 mg IV daily -will monitor electrolytes and renal function. 3. Paroxysmal atrial fibrillation, present on admission, active -patient in atrial fibrillation upon arrival to the ER with an elevated heart rate up to 140. -the patient spontaneously converted back to sinus rhythm in the 90s. She does report mild chest tightness associated with tachyarrhythmias. -patient has been off anticoagulation and is administered warfarin 5 mg p.o. in the ER. Will continue warfarin 5 mg daily. 4. Elevated troponin, acute, present on admission, active -patient has an elevated troponin at 0.47 consistent with a troponin leak with tachyarrhythmia in the setting of CKD and impaired renal clearance. -will recheck troponin in the morning 5. Chronic kidney disease stage III, chronic, stable -patient has an elevated creatinine 1.62 on admission labs. On prior labs 6 week ago the patient had a creatinine of 1.50. Patient is followed by Nephrology. -will monitor renal function and avoid renal toxic agents and renal dose medications as indicated. 6. Essential Hypertension, chronic, stable -patient has an elevated blood pressure upon arrival to the ER 140/90 improved to the 130s over 80s on admission to the acute care floor. -will continue patient's home regimen of amlodipine 5 mg daily. -patient takes Lasix 20 mg daily which is increased to 40 mg 7. Normocytic normochromic anemia, chronic, stable -hemoglobin is 11.3 and previously was 12.2. -anemia related to chronic disease with a history of CKD stage III The drop may be somewhat delusional and will re-evaluate following Lasix therapy. VTE prophylaxis: Bilateral SCDs, patient anticoagulated on warfarin IV fluid: Saline lock Diet: Heart healthy Code status: Full code, patient designates her daughter Maile Altamirano to be her surrogate decision maker. The patient is admitted to the hospital due to the severity of her symptoms in the risk for potential complications and adverse events. The patient with significant dyspnea and is unable to return to her home setting. Patient is admitted as observation with expected length of stay to be less than 2 mid nights Scores GCS [place] coma scale eye opening: Spontaneous [place] coma scale verbal response: Orientated [place] coma scale motor response: Obey commands Idalmis coma scale total score: 15 Quality VTE Deep Vein Thrombosis/Pulmonary Embolism Present on Admission: No
[2020-02-27 22:22] LABS: Magnesium 2.3 mg/dL (1.6-2.3)
[2020-02-27] MEDS: FUROSEMIDE 40 MG/4 ML VIAL IV (22:35)
[2020-02-27] MEDS: LEVALBUTEROL 1.25 MG/0.5 ML NEB INH (22:38)
[2020-02-27] MEDS: ACETAMINOPHEN 325 MG TABLET 650 MG PO (22:50)
[2020-02-27] MEDS: CALCIUM CARBONATE 500 MG TAB 1000 MG PO (23:12)
[2020-02-28] VITALS (7 sets, daily range): BP systolic 101–138; BP diastolic 49–91; PULSE 82–108; RESP 12–20; TEMP 36.5–36.9; O2SAT 94–99
[2020-02-28] MEDS: OXYCODONE IR 5 MG TABLET PO ×2 (02:57→21:58)
[2020-02-28 05:58] LABS: Add Manual Diff / Slide Review NO; Basophils Absolute Auto 100 /uL (0-100); Eosinophils Absolute Auto 400 /uL (0-450); Hematocrit 33.8 % (36-46); Lymphocytes Absolute Auto 600 /uL (1100-4500); Lymphocytes Percent Auto 9.8 % (25-40); Mean Corpuscular HGB Conc 32.5 % (30-36); Mean Corpuscular Hemoglobin 29.7 PG (26-34); Mean Corpuscular Volume 91.5 fL (80-100); Monocytes Absolute Auto 600 /uL (0-900); Monocytes Percent Auto 9.9 % (3-14); Neutrophils Absolute Auto 4300 /uL (1500-7000); Neutrophils Percent Auto 72.3 % (50-75); Platelet Count 286 X10^3/uL (150-400); Red Blood Cell Count 3.69 X10^6/uL (4.0-5.2); White Blood Cell Count 5.9 X10^3/uL (4.5-11.0)
[2020-02-28 06:15] LABS: Blood Urea Nitrogen 35 mg/dL (7-17); Calcium 9.8 mg/dL (8.4-10.2); Carbon Dioxide 29 mmol/L (22-32); Chloride 105 mmol/L (98-107); Estimated Glomerular Filt Rate 26.9 mL/min (>60); Glucose 106 mg/dL (80-110); HEMOLYSIS < 15 (0-50); Potassium 4.5 mmol/L (3.4-5.1); Sodium 139 mmol/L (137-145)
[2020-02-28 06:24] LABS: NT-proBNP (BNP-Adult 18+) 3950 pg/mL (<125)
[2020-02-28 06:29] LABS: Procalcitonin < 0.05 ng/mL (<0.5)
[2020-02-28 07:21] LABS: Troponin I 0.247 ng/mL (0.01-0.034)
--- NOTE | 2020-02-28 07:31 | PC.NURSE ---
Day shift: Trop of 0.[address] Farr at approx 0731. Tele order for EKG. RT notified to perform stat.
--- NOTE | 2020-02-28 07:34 | DI.CT.S_ITS ---
PROCEDURE: CT CHEST WO CON INDICATIONS: Dyspnea TECHNIQUE: Noncontrast 5 mm thick sections acquired from the pulmonary apices to the posterior costophrenic angles. 1 mm lung window, 5 mm thick coronal and sagittal and 7 mm axial MIP reformats were then acquired. For radiation dose reduction, the following was used: automated exposure control, adjustment of mA and/or kV according to patient size. COMPARISON: [facility], CR, XR CHEST 1V, 02/18/2018, 14:44. [facility], CR, XR CHEST 1V, 12/10/2019, 16:59. [facility], CR, XR CHEST 2V, 02/27/2020, 15:22. FINDINGS: Image quality: Excellent. Lungs and pleura: There is a ground-glass mass in the right middle lobe measuring 1.9 x 2.8 cm. A cavitary mass is seen in the right lower lobe measuring 1.5 x 1.9 cm. A 4 mm nodule is seen in the left lower lobe posterior medially involving the superior segment. There is moderate centrilobular emphysema. No pleural effusions or pneumothorax. Central and peripheral airways are patent and normal in caliber. Mediastinum: Heart size is normal. No pericardial effusion. There is severe coronary artery calcification. No mediastinal adenopathy by size criteria. Thoracic aorta and central pulmonary arteries are normal in size. Esophagus is normal in caliber. There is a small hiatal hernia. Bones and chest wall: No suspicious bony lesions. No vertebral body compression fractures. No axillary or supraclavicular adenopathy by size criteria. Thyroid gland is normal. Abdomen: Visualized upper abdominal solid organs and bowel loops appear normal in the absence of contrast. IMPRESSION: 1. There is a 1.9 x 2.8 cm ground-glass mass in the right middle lobe and a 1.5 x 1.9 cm cavitary mass in the right lower lobe. Neoplasm (primary lung cancer) needs to be excluded. Differential diagnosis include infectious and inflammatory etiologies. A PET-CT is suggested for follow-up evaluation. 2. No mediastinal lymphadenopathy. 3. Moderate emphysema. 4. Severe atherosclerotic calcification of coronary artery. Dictated by: Mg Maria M.D. on 02/28/2020 at 9:43 Approved by: Mg Maria M.D. on 02/28/2020 at 10:01
--- NOTE | 2020-02-28 07:37 | DI.ECHO.S_ITS ---
[facility]---------+ [facility] +---------+ : : [address] [place] : : : : [id number] : : : : Phone: [phone] Echocardiogram Report + + :Name: DAVID MOSES Study Date: 02/28/2020 Height: 65 in : :[facility] Weight: 185 lb : : Gender: Female BSA: 1.9 m2 : :: 1945 Age: 74 yrs BP: 101/53 mmHg: :Reason For Study: Dyspnea, PE vs CHF : :Ordering Physician: : :HOSPITALISTCANDI Performed By: Ellyn Mares : :Referring: BARBARA SCOTT : + + Interpretation Summary The ejection fraction is estimated to be 40-45%. Inferior, inferolateral akinesis There is moderate mitral regurgitation. The mitral regurgitant jet is eccentrically directed. The aortic valve is mildly calcified. The calculated aortic valve area is 1.6 cm2. The right ventricular systolic pressure is estimated to be at least 31 mmHg based on an estimated right atrial pressure of 3 mm Hg. Procedure: A two-dimensional transthoracic echocardiogram with color flow and Doppler was performed. The study quality was technically adequate. The patient was in sinus rhythm with heart rates between 71-90 bpm during the exam. Left Ventricle: The left ventricle is normal in size and wall thickness. The ejection fraction is estimated to be 40-45%. Inferior, inferolateral akinesis. Diastolic parameters suggest a pseudonormalization pattern, consistent with probable elevated filling pressures. Right Ventricle: The right ventricle is normal in size and function. Atria: The left atrium is moderately dilated. Right atrial size is normal. There is no Doppler evidence for an interatrial shunt. Mitral Valve: Calcified mitral apparatus. There is mild mitral annular calcification. The mitral valve mean gradient is 4.2 mmHg. There is moderate mitral regurgitation. The mitral regurgitant jet is eccentrically directed. Aortic Valve: There is mild aortic valve sclerosis. The aortic valve is mildly calcified. The peak aortic velocity is 2.10 m/sec. The aortic valve mean gradient is 8 mmHg. The calculated aortic valve area is 1.6 cm2. There is trace aortic regurgitation. Tricuspid Valve: The tricuspid valve is not well visualized, but is grossly normal. There is trace tricuspid regurgitation. The right ventricular systolic pressure is estimated to be at least 31 mmHg based on an estimated right atrial pressure of 3 mm Hg. Pulmonic Valve: The pulmonic valve is not well visualized. There is no pulmonic valvular regurgitation. Great Vessels: The aortic root is normal size. The ascending aorta is normal in size. The IVC is of normal diameter and collapses greater than 50% with a sniff. This suggests a low right atrial pressure of 3 mm Hg. Pericardium/ Pleura There is no pericardial effusion. There is no pleural effusion. MMode/2D Measurements & Calculations LVIDd: 5.2 cm LVOT diam: 1.9 cm LVIDs: 4.2 cm Ao root diam: 2.8 cm FS: 19.6 % asc Aorta Diam: 2.6 cm EPSS: 1.6 cm Ao Arch Diam (Prox Trans): 3.7 cm IVSd: 0.84 cm LVPWd: 0.83 cm LV gomez. diameter/BSA (cm/m^2): 2.7 LV sys. diameter/BSA (cm/m^2): 2.2 LA A2 area: 24.5 cm2 RA long axis: 5.6 cm LA A4 area: 23.9 cm2 RA area: 14.7 cm2 LA length (vol): 5.7 cm RA vol: 32.9 ml LA vol: 87.0 ml RA : 17.2 ml/m2 LA vol index: 45.5 ml/m2 IVC diam: 1.9 cm RVD1 (basal): 3.0 cm TAPSE: 3.0 cm Doppler Measurements & Calculations Ao V2 max: 210.2 cm/sec LVOT Max Jaquan: 100.1 cm/sec Ao V2 mean: 134.6 cm/sec LV V1 max P.0 mmHg Ao max P.7 mmHg LV V1 VTI: 22.9 cm Ao mean P.3 mmHg PENG(I,D): 1.6 cm2 Ao V2 VTI: 39.4 cm PENG(V,D): 1.3 cm2 sev ratio: 0.58 PENG indexed to BSA (cm^2/m^2): 0.85 MV E max jaquan: 107.4 cm/sec TR max jaquan: 263.8 cm/sec MV A max jaquan: 131.8 cm/sec TR max P.8 mmHg MV E/A: 0.81 PA V2 max: 127.6 cm/sec Med Peak E' Jaquan: 2.3 cm/sec PA V2 mean: 86.1 cm/sec E/E' med: 46.7 PA mean P.4 mmHg Lat Peak E' Jaquan: 4.5 cm/sec PA pr(Accel): 46.9 mmHg E/E' lat: 24.0 E/e' average: 35.3 MV dec time: 0.22 sec MVA(VTI): 1.7 cm2 MV V2 mean: 92.5 cm/sec SV(LVOT): 64.0 ml MV mean P.2 mmHg MV V2 VTI: 38.6 cm Reading Physician:03:30 PM
[2020-02-28] MEDS: LEVALBUTEROL 1.25 MG/0.5 ML NEB INH ×3 (09:47→19:42)
[2020-02-28] MEDS: HEPARIN 5,000 UNIT/ML VIAL 5000 UNIT SUBCUT (09:55)
[2020-02-28] MEDS: FUROSEMIDE 20 MG/2 ML VIAL IV (09:55)
[2020-02-28] MEDS: AMLODIPINE 5 MG TABLET PO (09:55)
--- NOTE | 2020-02-28 11:43 | PT.IIE ---
Surgical History (Last Reviewed 02/28/20 @ 04:56 by ALONSO Felix) History of cone biopsy of cervix (Resolved 1991) History of gynecologic surgery (Resolved 1975) History of tubal ligation (Resolved 1977) Medical History (Last Reviewed 02/28/20 @ 04:56 by ALONSO Felix) AAA (abdominal aortic aneurysm) (Chronic ~2005) Arthritis of left hip (Chronic) Atrial fibrillation with RVR (Chronic 02/18/18) Chronic left hip pain (Acute) CKD (chronic kidney disease) stage 3, GFR 30-59 ml/min (Acute) Fibromyalgia (Chronic) History of ectopic (Resolved 1975) Hyperlipidemia (Chronic) Hypertension (Chronic) Osteopenia (Chronic 03/19/09) Poor circulation of extremity (Acute) Physical Therapy Inpatient Evaluation/Re-Eval M1 PT/OT-IP Prior Functional Status Start: 02/28/20 12:42 Freq: NEEDED Status: Active Protocol: Document 02/28/20 11:43 AB (Rec: 02/28/20 13:04 AB [id number]) Medical Review Prior Functional Status Medical History Reviewed Yes Communication able to make needs known Mobility and Gait pt stated that she is modified independent with all mobilities and ambulation using SPC Social History Household Members family Living Arrangements House Number of Floors (Floors) One Floor Number of Stairs To Enter/Railing? 1 step to enter Home Environment Standard Height Toilet,Tub/ Shower Home Equipment Front Wheel Walker,Straight Cane,Grab Bars In Shower Additional Social History Comment stated that she lives with her daughter and grandson. daughter will not be able to assist pt but her grandson will be able to help some M2 PT-IP Current Condition Start: 02/28/20 12:42 Freq: NEEDED Status: Active Protocol: Document 02/28/20 11:43 AB (Rec: 02/28/20 13:04 AB [email or web address]) Physical Therapy Current Condition Current Condition Evaluation Date 02/28/20 Treatment Diagnosis PNA; difficulty in walking Onset Date 02/27/20 M3 PT-IP Subjective Start: 02/28/20 12:42 Freq: NEEDED Status: Active Protocol: Document 02/28/20 11:43 AB (Rec: 02/28/20 13:04 AB [email or web address]) Subjective Physical Therapy Visit Type Type Initial Evaluation Visit Start Time 11:43 Visit Stop Time 12:15 Total Visit Minutes 32 Number of DOPE HEATER Visits 0 Physical Therapy Visit Comments Patient Comments pt is agreeable to do PT Therapy Pain Assessment Pain When Pain Assessed At Rest Pain Present Pain Present Pain Reported Location Left Hip Scale Used pain scale not stated; Description Chronic Pain Management Techniques Modification of Treatment,Re- positioning,Timing of Activity with Medications M4 PT-IP Mobility and Gait Start: 02/28/20 12:42 Freq: NEEDED Status: Active Protocol: Document 02/28/20 11:43 AB (Rec: 02/28/20 13:04 AB [id number]) PT-Bed Mobility Assessment Supine to Sit Supine to Sit Standby Assistance PT-Transfer Assessment Sit to and From Stand Sit to and from Stand Standby Assistance,1 Person Assistance,Use of Upper Extremities Equipment Transfer Assistive Device Gait Belt,Straight Cane Orthotic/Prosthetic Devices or Brace: No Transfers Transfer Destination Chair Transfer Technique ambulated using SPC Transfer Ability Level of Assist Standby Assistance,Use of Upper Extremities Comments Mobility Comments completed supine to sit SBA and ambulated in room using SPC SBA. pt tends to swith SPC between 2 hands. educated pt on how to use SPC. pt also has increase L hip flexion during standing and unable to stand with L foot flat. pt stated that she needs a hip replacement on L. educated pt on posture and stretching as pt has tight hip flexors. completed sit to stand from chair SBA and completed static standing activity with emphasis on upright posture. completed up/down step stool using SPC. educated on proper technique. pt completed with SBA to CGA. pt agreed to sit up on chair. positioned on chair. set up lunch. call light and table placed within reach. Gait Assessment Gait Gait Assistance Required: Standby Assistance Distance (Feet) 50 Able to Maintain Weight Bearing Status Yes During Gait Assistive Devices Assistive Device Gait Belt,Straight Cane Orthotic/Prosthetic Devices or Brace: No Gait Deviations General Gait Pattern Antalgic,Decreased Stride Length,Decreased Feet Clearance,Step-to Gait Factors Limiting Gait Function Factors Limiting Gait Function Decreased Activity Tolerance, Decreased Strength,Limited Range of Motion,Pain,Poor Balance Comments Gait Comments pls refer to mobility section for details Stair Climbing Assessment Evaluation Level of Assist On Stairs Standby Assistance,Contact Guard Assistance,1 Person Assistance Devices Stair Climbing Assistive Devices Straight Cane Technique/Endurance Stair Climbing Technique Step to Step Number of Steps Climbed 1 Query Text: Stair Climbing Set # Repetitions (reps) 2 PT-Balance Assessment Sitting Balance and Reactions Static Sitting Balance Ability Normal Dynamic Sitting Balance Ability Normal Standing Balance and Reactions Static Standing Balance Ability Good Dynamic Standing Balance Ability Fair Device Used SPC M5 PT-IP Objective Assessments Start: 02/28/20 12:42 Freq: NEEDED Status: Active Protocol: Document 02/28/20 11:43 AB (Rec: 02/28/20 13:04 AB [email or web address]) Orientation Orientation/Cognition Level of Alertness Alert Orientation Name,Age,Place,Situation Language Function Ability No Deficits Noted Safety Awareness Understands Safety Issues Memory Description No Deficits Noted Gross Range of Motion Lower Extremity ROM Assessment Left Impaired Impairments L hip flexor tightness Strength Lower Extremity Strength Assessment Left Impaired Hip 3+/5 Knee 4-/5 Coordination Assessment Gross Coordination Gross Coordination WNL Sensation Assessment Sensation Gross Sensation WNL Muscle Tone Muscle Tone WNL Yes M6 PT-IP Treatment Start: 02/28/20 12:42 Freq: NEEDED Status: Active Protocol: Document 02/28/20 11:43 AB (Rec: 02/28/20 13:04 AB [email or web address]) Physical Therapy Treatment Education Education Provided Safety M7 PT-IP Assessment and Plan Start: 02/28/20 12:42 Freq: NEEDED Status: Active Protocol: Document 02/28/20 11:43 AB (Rec: 02/28/20 13:04 AB [email or web address]) PT Summary Assessment and Plan Potential Rehabilitation Potential Good Status of Condition at Evaluation Stable Summary Impairments Pain,ROM,Strength,Balance,Bed Mobility,Transfers,Gait, Activity Tolerance Assessment Summary pt requiring SBA with transfers and ambulation using FWW, SBA to CGA with stair climbing. pt plans to go home with family to assist her when needed. pt will benefit from outpt PT for improving strength, activity tolerance, balance and mobility. Goals Bed Mobility Goal Independent Transfer Goal Independent,Cane Gait Goal Independent,Cane Gait Distance 150 Days to Meet Goals 3 Frequency of Treatment Frequency Of Treatment Once a Day Treatment Plan Physical Therapy Treatment Plan Bed Mobility Training,Transfer Training,Gait Training, Therapeutic Exercise,Balance Retraining,Discharge Planning, Neuromuscular Re-ed, Coordination Retraining Recommendations To Nursing Amount of Assist Needed Standby Assistance Discharge Recommendations PT Discharge Recommendations Home with Assistance, Outpatient PT Transportation Needs at Discharge Private Vehicle
--- NOTE | 2020-02-28 13:10 | P.PN_ITS ---
Subjective Subjective Date Patient Seen: 02/28/20 Time Patient Seen: 13:10 Interval history: Ms. Lisa Gurrola 72 year old female with a history of atrial fibrillation temporally off anticoagulation for kidney biopsy, CKD, COPD, hypertension, hyperlipidemia, fibromyalgia, and arthritis who was admitted for shortness of breath thought likely secondary to volume overload in the setting of decompensated heart failure, potentially AFib with RVR, or PE. She states her symptoms are improved slightly today but she still gets intermittently short of breath but the she usually resolve when she starts to take deep breaths in through her nose and out her mouth. She does note some orthopnea. Her lower extremity edema has improved today. Her troponin did increase this morning, but no significant changes were noted on her EKG and she denies further chest pain. Her creatinine also trace slightly this morning to 1.84. Discussed possibly further evaluation with a CT angiogram, however patient did not want to take this risk of kidney injury and will proceed with V/Q scan and have started empiric treatment with Lovenox 1 milligram/kilogram daily based on her renal function. This may be able to be twice daily if her kidney function improves. Exam Vital Signs (past 8 hours): - 02/28/20 09:10 02/28/20 10:15 Temperature 97.7 F Pulse Rate 96 H 94 H Respiratory Rate 20 20 Blood Pressure 101/53 L Pulse Oximetry 96 96 Oxygen Delivery Method Room Air Oxygen Flow Rate 0 Narrative Exam Narrative: GENERAL APPEARANCE: Well developed, well nourished, in no acute distress. SKIN: Inspection of the skin reveals no rashes, ulcerations or petechiae. HEENT: Normocephalic atraumatic, extraocular muscles are intact, oropharynx is clear and mucous membranes are moist, neck is supple without adenopathy NECK: Supple and symmetric. There was no thyroid enlargement, and no tenderness, or masses were felt. CHEST: Normal AP diameter and normal contour without any kyphoscoliosis. LUNGS: Diminished breath sounds at bilateral lung bases, but no wheezes, rhonchi, or rales. CARDIOVASCULAR: There was a regular rate and rhythm without any murmurs, gallops, rubs. Peripheral pulses were 2+ and symmetric. ABDOMEN: Soft and nontender with normal bowel sounds. No ascites was noted. MUSCULOSKELETAL: There was no tenderness or effusions noted. Muscle strength and tone were normal. EXTREMITIES: No cyanosis, clubbing. There is trace pedal edema bilaterally slightly more prominent on the left. NEUROLOGIC: Alert and oriented x 3. Normal affect. Gait was normal. Strength is +5/5 in the Upper Extremities and Lower Extremities Bilaterally. Sensation to touch was normal. Objective Labs Result Diagrams: 02/28/20 05:47 02/28/20 05:47 Labs: Laboratory Results - last 24 hr 02/27/20 02/27/20 02/27/20 15:27 15:27 15:27 WBC 6.4 RBC 3.87 L Hgb 11.3 L Hct 35.9 L MCV 92.6 MCH 29.1 MCHC 31.4 RDW 13.9 Plt Count 303 Neut % (Auto) 74.6 Lymph % (Auto) 10.1 L [place] % (Auto) 8.9 Eos % (Auto) 5.0 H Baso % (Auto) 1.4 Neut # (Auto) 4800 Lymph # (Auto) 600 L [place] # (Auto) 600 Eos # (Auto) 300 Baso # (Auto) 100 PT INR APTT Sodium 140 Potassium 4.2 Chloride 106 Carbon Dioxide 26 BUN 36 H Creatinine 1.62 H Estimated GFR 31.1 L BUN/Creatinine Ratio 22.2 H Glucose 112 H Lactate 1.2 Calcium 9.3 Magnesium Total Bilirubin 0.5 AST 22 ALT 19 Alkaline Phosphatase 79 Total Creatine Kinase CK-MB (CK-2) CK-MB (CK-2) Rel Index Troponin I NT-Pro-B Natriuret Pep Total Protein 7.3 Albumin 4.1 Globulin 3.2 Albumin/Globulin Ratio 1.3 Procalcitonin Chlamy pneumoniae PCR Adenovirus (PCR) B.parapertussis DNA PCR Coronavirus OC43 (PCR) Coronavirus HKU1 (PCR) Coronavirus 229E (PCR) COVID-19 PCR Coronavirus NL63 (PCR) Human Metapneumovir PCR Influenza Type A (PCR) Influenza Type B (PCR) M. pneumoniae (PCR) Parainfluenza 1 (PCR) Parainfluenza 2 (PCR) Parainfluenza 3 (PCR) Parainfluenza 4 (PCR) RSV (PCR) Entero/Rhino (PCR) 02/27/20 02/27/20 02/27/20 15:27 15:27 15:27 WBC RBC Hgb Hct MCV MCH MCHC RDW Plt Count Neut % (Auto) Lymph % (Auto) [place] % (Auto) Eos % (Auto) Baso % (Auto) Neut # (Auto) Lymph # (Auto) [place] # (Auto) Eos # (Auto) Baso # (Auto) PT 13.0 H INR 1.1 APTT 31 D Sodium Potassium Chloride Carbon Dioxide BUN Creatinine Estimated GFR BUN/Creatinine Ratio Glucose Lactate Calcium Magnesium Total Bilirubin AST ALT Alkaline Phosphatase Total Creatine Kinase 75 CK-MB (CK-2) TNP CK-MB (CK-2) Rel Index TNP Troponin I 0.047 H NT-Pro-B Natriuret Pep Total Protein Albumin Globulin Albumin/Globulin Ratio Procalcitonin 0.05 Chlamy pneumoniae PCR Adenovirus (PCR) B.parapertussis DNA PCR Coronavirus OC43 (PCR) Coronavirus HKU1 (PCR) Coronavirus 229E (PCR) COVID-19 PCR Coronavirus NL63 (PCR) Human Metapneumovir PCR Influenza Type A (PCR) Influenza Type B (PCR) M. pneumoniae (PCR) Parainfluenza 1 (PCR) Parainfluenza 2 (PCR) Parainfluenza 3 (PCR) Parainfluenza 4 (PCR) RSV (PCR) Entero/Rhino (PCR) 02/27/20 02/27/20 02/27/20 15:27 15:27 16:39 WBC RBC Hgb Hct MCV MCH MCHC RDW Plt Count Neut % (Auto) Lymph % (Auto) [place] % (Auto) Eos % (Auto) Baso % (Auto) Neut # (Auto) Lymph # (Auto) [place] # (Auto) Eos # (Auto) Baso # (Auto) PT INR APTT Sodium Potassium Chloride Carbon Dioxide BUN Creatinine Estimated GFR BUN/Creatinine Ratio Glucose Lactate Calcium Magnesium 2.3 Total Bilirubin AST ALT Alkaline Phosphatase Total Creatine Kinase CK-MB (CK-2) CK-MB (CK-2) Rel Index Troponin I NT-Pro-B Natriuret Pep 4880 H Total Protein Albumin Globulin Albumin/Globulin Ratio Procalcitonin Chlamy pneumoniae PCR Adenovirus (PCR) B.parapertussis DNA PCR Coronavirus OC43 (PCR) Coronavirus HKU1 (PCR) Coronavirus 229E (PCR) COVID-19 PCR Negative Coronavirus NL63 (PCR) Human Metapneumovir PCR Influenza Type A (PCR) Influenza Type B (PCR) M. pneumoniae (PCR) Parainfluenza 1 (PCR) Parainfluenza 2 (PCR) Parainfluenza 3 (PCR) Parainfluenza 4 (PCR) RSV (PCR) Entero/Rhino (PCR) 02/27/20 02/28/20 02/28/20 19:01 05:47 05:47 WBC 5.9 RBC 3.69 L Hgb 11.0 L Hct 33.8 L MCV 91.5 MCH 29.7 MCHC 32.5 RDW 14.0 Plt Count 286 Neut % (Auto) 72.3 Lymph % (Auto) 9.8 L [place] % (Auto) 9.9 Eos % (Auto) 7.0 H Baso % (Auto) 1.0 Neut # (Auto) 4300 Lymph # (Auto) 600 L [place] # (Auto) 600 Eos # (Auto) 400 Baso # (Auto) 100 PT INR APTT Sodium Potassium Chloride Carbon Dioxide BUN Creatinine Estimated GFR BUN/Creatinine Ratio Glucose Lactate Calcium Magnesium Total Bilirubin AST ALT Alkaline Phosphatase Total Creatine Kinase CK-MB (CK-2) CK-MB (CK-2) Rel Index Troponin I NT-Pro-B Natriuret Pep 3950 H Total Protein Albumin Globulin Albumin/Globulin Ratio Procalcitonin Chlamy pneumoniae PCR Not detected Adenovirus (PCR) Not detected B.parapertussis DNA PCR Not detected Coronavirus OC43 (PCR) Not detected Coronavirus HKU1 (PCR) Not detected Coronavirus 229E (PCR) Not detected COVID-19 PCR Coronavirus NL63 (PCR) Not detected Human Metapneumovir PCR Not detected Influenza Type A (PCR) Not detected Influenza Type B (PCR) Not detected M. pneumoniae (PCR) Not detected Parainfluenza 1 (PCR) Not detected Parainfluenza 2 (PCR) Not detected Parainfluenza 3 (PCR) Not detected Parainfluenza 4 (PCR) Not detected RSV (PCR) Not detected Entero/Rhino (PCR) Not detected 02/28/20 02/28/20 02/28/20 05:47 05:47 05:47 WBC RBC Hgb Hct MCV MCH MCHC RDW Plt Count Neut % (Auto) Lymph % (Auto) [place] % (Auto) Eos % (Auto) Baso % (Auto) Neut # (Auto) Lymph # (Auto) [place] # (Auto) Eos # (Auto) Baso # (Auto) PT INR APTT Sodium 139 Potassium 4.5 Chloride 105 Carbon Dioxide 29 BUN 35 H Creatinine 1.84 H Estimated GFR 26.9 L BUN/Creatinine Ratio 19.0 Glucose 106 Lactate Calcium 9.8 Magnesium Total Bilirubin AST ALT Alkaline Phosphatase Total Creatine Kinase CK-MB (CK-2) CK-MB (CK-2) Rel Index Troponin I 0.247 H* NT-Pro-B Natriuret Pep Total Protein Albumin Globulin Albumin/Globulin Ratio Procalcitonin < 0.05 Chlamy pneumoniae PCR Adenovirus (PCR) B.parapertussis DNA PCR Coronavirus OC43 (PCR) Coronavirus HKU1 (PCR) Coronavirus 229E (PCR) COVID-19 PCR Coronavirus NL63 (PCR) Human Metapneumovir PCR Influenza Type A (PCR) Influenza Type B (PCR) M. pneumoniae (PCR) Parainfluenza 1 (PCR) Parainfluenza 2 (PCR) Parainfluenza 3 (PCR) Parainfluenza 4 (PCR) RSV (PCR) Entero/Rhino (PCR) Assessment & Plan Assessment & Plan narrative: This is a 74-year-old female who presents to the ER with several weeks of progressive shortness of breath becoming acute over the last week not improving with frequent neb treatments. 1. Dyspnea, acute on chronic, present on admission, active -patient with progressive dyspnea with nonproductive cough worsening in the last week. Differential includes secondary to her lung masses found on CT imaging, possible pulmonary embolism, or seemingly most likely diastolic heart failure possibly as a result of her AFib with RVR. -chest x-ray is read as a round pneumonia right middle lobe of the lung which appears to be evident on prior chest x-ray. CT of her chest showed a cavitary mass in the right lower lobe as well as a mass in her right leg middle lobe. Respiratory panel and COVID 19 negative for infectious etiology. -have started the patient on Lovenox daily given the possibility of PE given her kidney function. She is not interested in a CT angiogram of her chest. She will need further outpatient evaluation of her lung masses. Have ordered a V/Q scan to further assess the risk of a PE. However, she has already restarted her Coumadin and will continue Lovenox for now as bridging therapy based on renal function. -patient has a normal white count at 6.4 with no shift, procalcitonin is normal with at 0.05, respiratory PCR is negative and COVID-19 negative. Patient remains afebrile -continue on lasix 20 mg IV daily, and echocardiogram is currently pending read. -continue respiratory therapy -ordered albuterol nebulizer every 4 hours as needed, -ordered DuoNeb twice daily. -in the ER the patient was started on azithromycin and Rocephin however this was not continued given lack of support for evidence infection. 2. Congestive heart failure, acute on chronic. -prior echocardiogram in June 2018 finds an EF of 60-65% with RV normal size and function and LV with borderline increased wall thickness. -BMP is elevated 4880 on admission. -patient was initially given 40 mg of IV Lasix, will continue 20 mg IV daily. -will monitor electrolytes and renal function, intake and output. 3. Paroxysmal atrial fibrillation with rapid ventricular response, present on admission, RVR resolved -patient in atrial fibrillation upon arrival to the ER with an elevated heart rate up to 140. -the patient spontaneously converted back to sinus rhythm in the 90s. She does report mild chest tightness associated with tachyarrhythmias. -patient has been off anticoagulation and is administered warfarin 5 mg p.o. in the ER. Will continue warfarin 5 mg daily. -was previously on sotalol but per medication search recently on metoprolol 25 mg daily. Will continue. 4. Elevated troponin, acute, present on admission, active -patient has an elevated troponin at 0.047 consistent with a troponin leak with tachyarrhythmia in the setting of CKD and impaired renal clearance, increased to 0.247 today. Will continue to follow until downtrending. 5. acute on Chronic kidney disease stage III, chronic, stable -patient has an elevated creatinine 1.62 on admission labs, increased slightly to 1.84. On prior labs 6 week ago the patient had a creatinine of 1.50. Patient is followed by Nephrology. -will monitor renal function and avoid renal toxic agents and renal dose medications as indicated. 6. Essential Hypertension, chronic, stable -patient has an elevated blood pressure upon arrival to the ER 140/90 improved to the 130s over 80s on admission to the acute care floor. -will continue patient's home regimen of amlodipine 5 mg daily. -patient takes Lasix 20 mg daily which is increased to 20 mg IV daily. 7. Normocytic normochromic anemia, chronic, stable VTE prophylaxis: Bilateral SCDs, patient anticoagulated on warfarin and starting lovenox therapy as noted above. IV fluid: Saline lock Diet: Heart healthy Code status: Full code, patient designates her daughter Maile Altamirano to be her surrogate decision maker. Dispo: remains obs, anticipate possible discharge tomorrow pending further evaluation with TTE and possible V/Q scan above. Quality VTE Deep Vein Thrombosis/Pulmonary Embolism Present on Admission: No
--- NOTE | 2020-02-28 13:14 | DI.NM.S_ITS ---
PROCEDURE: NM PUL VENT AND PERFUSION RADIOPHARMACEUTICAL: <2 mCi Tc-99m DTPA aerosol by inhalation and 7.9mCi Tc-99m MAA intravenously. INDICATIONS: PE likelihood, does not want CTA TECHNIQUE: Ventilation images were obtained first with Tc-99m DTPA aerosol. Subsequently, perfusion images were acquired after intravenous injection of Tc-99m MAA. Anterior, posterior, PARK, [place], RPO, LPO, left and right lateral views were obtained. COMPARISON: [facility], CR, XR CHEST 2V, 02/27/2020, 15:22. [facility], CT, CT CHEST WO CON, 02/28/2020, 9:16. FINDINGS: A comparison chest x-ray dated 01/27/2020 demonstrate bilateral interstitial infiltrates. A comparison chest CT dated 02/28/2020 demonstrate 2 masses or masslike densities, 1 in the right middle lobe and 1 in the right lower lobe. There is moderate emphysema. There is moderate emphysema. Technetium 99 M DTPA ventilation images demonstrate central airway deposition of aerosol consistent with reactive airway disease. There is heterogeneous ventilation bilaterally. Perfusion images demonstrate multiple small subsegmental perfusion defects, probably measuring the ventilation abnormalities. IMPRESSION: 1. Intermediate left differential for pulmonary embolism 2. Central airway deposition of aerosol consistent with reactive airway disease. Dictated by: Mg Maria M.D. on 02/29/2020 at 11:16 Approved by: Mg Maria M.D. on 02/29/2020 at 11:23
--- NOTE | 2020-02-28 13:58 | DIET.PN ---
Dietary Progress Note Assessment: 74y F c pMhx of Afib, CKD3, COPD, HTN, HLD, fibromyalgia, and arthritis who was admitted for shortness of breath thought likely secondary to volume overload in the setting of decompensated heart failure, potentially AFib with RVR, or PE. RD consult for HTN, AFib, obesity. Pt says yesterday is the first time she has experienced ankles swelling like this. Pt says after her heart attack 1.5yrs ago, her dr educated her on choosing low sodium foods and she has tried to make better choices since then. Pt says she does not cook with salt at home a uses a lot of herbs to flavor her foods. Pt is aware there is a lot of sodium in packaged foods and tries to use little pre-packaged foods. Prefers to go to [employer] to get meat cut instead of buying packaged deli slices. Pt shops once a week at [facility] with her daughter and once a month they make a big trip to [employer] [employer]. Pt says she was getting senior vouchers for the [employer] and is disappointed that the season is over. Reports the [employer] is not disabled friendly so she does not frequent it. Pt reports using olive oil and coconut oil in her meals. Suggested avocado oil over coconut oil however pt indicates the cost is prohibitive. Pt will see if it is available at lower cost when the new grocery outlet opens but will otherwise continue with coconut oil. HT: 165.1cm WT:84kg BMI:30.8 Labs: BUN: 35H Troponin I: 0.247H NTproBNP: 3950H eGFR:26.9L MNA:12 Jonathan:21 Nutrition Diagnosis: Excessive mineral intake (sodium) r/t nutrition related knowledge deficit aeb NTproBNP 3950, BUN 35, Troponin I, and pt indicating that she could be be more considerate of sodium sometimes. Interventions: 1. Educated pt on limiting sodium in prepared foods and recognizing that the sodium from each food adds up. Pt is aware of importance of limiting sodium and tries to be mindful but admits there are some foods she needs to check further and doesn't always think about it in the context of the full meal. Provided a handout reinforcing sodium content of foods and how to choose reduced sodium per pt request. 2. Choose heart healthy fats over saturated fats. Pt will try avocado oil if she can find it at a [employer]. Diet Order: HH/Cardiac diet EER: Limit 2g Na+ 1425 (25kcal/kg IBW, 57kg) 59g Pro(.7g/kg, CKD3)
[2020-02-28] MEDS: ENOXAPARIN 100 MG/ML SYRINGE 85 MG SUBCUT (14:22)
[2020-02-28] MEDS: METOPROLOL ER 25 MG TABLET PO (14:22)
--- NOTE | 2020-02-28 14:57 | CM.IDA ---
Addendum entered by RADHA Figueroa 02/29/20 14:47: Transfer scheduled today to [facility]. No further BACTERIOLOGY RESEARCH ASSISTANT needs Original Note: Initial DCP Assessment Note Patient is a 74 yo female, resident of [place]. Patient presents w/several weeks of progressive SOB. Medical w/u today PCP: Arturo Champagne Payer: JEAN-PIERRE CARRILLO Reviewed chart, patient w/multiple co-morbidities. Lives at home w/her dtr and grandson according to therapy notes. Attempted to meet w/patient x2- patient being seen by PT Betsy and then by Geometrician; this BACTERIOLOGY RESEARCH ASSISTANT will attempt further assessment tomorrow 11.. if patient remains admitted. According to chart review, patient will likely return home w/grandson -available to assist as needed. Patient cleared by therapy team for this plan and patient eager to return home. P: DC home expected, further assessment of DC needs pending JW
--- NOTE | 2020-02-28 16:47 | OT.IP.TRT ---
Occupational Therapy Treatment Note M3 OT- IP Subjective and Pain Start: 02/28/20 16:46 Freq: Status: Active Protocol: Document 02/28/20 16:46 CGR (Rec: 02/28/20 16:47 CGR [email or web address]) OT- Subjective Occupational Therapy Visit Type Type Administrative Note Notes Attempted to see pt for OT eval. PT with increasing troponins at 2.790 upon last labs. Per nursing, hold at this time d/t cardiac concerns . Will hold and continue to follow.
[2020-02-28] MEDS: ASPIRIN 81 MG CHEW TAB 324 MG PO (16:55)
--- NOTE | 2020-02-28 17:14 | PM.EVENT ---
Event Note Date Patient Seen: 02/28/20 Time Patient Seen: 17:14 Event Note: Notified of a critical troponin result at around 4:00 p.m. where this pace and troponin was 2.79, up from 0.247. Patient denies chest pain or current symptoms. Did do a bit of research into her heart history and the patient was actually due to have a left and right heart catheterization tomorrow at [facility]. I called and spoke with the on-call residence hall director for her group, Dr. Mckeon, and reviewed the case who recommended transfer for left heart catheterization but not for emergent LHC and to treat medically. Her echocardiogram revealed an acute decrease in her EF from 55% a few months ago to now 40-45% and some inferior hypokinesis, consistent with an NSTEMI. She was given full dose asa. She was given a dose of lovenox this afternoon prior to troponin rise over concern for possible PE. Will start heparin gtt 12 hours after Lovenox. There are currently no cardiac beds available, and [facility] will call back once there are beds available. Will continue to medically manage at this time.
[2020-02-28] MEDS: IPRATROPIUM 0.5 MG/2.5 ML NEB INH (19:42)
[2020-02-28 23:26] LABS: PTT Partial Thromboplastin Tim 37 SECONDS (26.4-36.2)
[2020-02-29] VITALS (8 sets, daily range): BP systolic 91–122; BP diastolic 51–74; PULSE 78–128; RESP 14–28; TEMP 36.3–36.7; O2SAT 92–98
[2020-02-29] MEDS: HEPARIN 5,000 UNIT/ML VIAL 5000 UNIT IV (01:33)
[2020-02-29] MEDS: HEPARIN DRIP 25,000 UNIT/500 ML IV.SOLN 20.16 UNIT IV (01:34)
[2020-02-29] MEDS: ACETAMINOPHEN 325 MG TABLET 650 MG PO ×2 (01:58→10:44)
[2020-02-29 05:50] LABS: Add Manual Diff / Slide Review NO; Basophils Absolute Auto 100 /uL (0-100); Basophils Percent Auto 1.9 % (0-2); Eosinophils Absolute Auto 400 /uL (0-450); Hematocrit 34.5 % (36-46); Hemoglobin 11.2 g/dL (12.0-16.0); Lymphocytes Absolute Auto 1100 /uL (1100-4500); Lymphocytes Percent Auto 19.2 % (25-40); Mean Corpuscular HGB Conc 32.6 % (30-36); Mean Corpuscular Hemoglobin 29.7 PG (26-34); Mean Corpuscular Volume 91.1 fL (80-100); Monocytes Absolute Auto 600 /uL (0-900); Monocytes Percent Auto 11.1 % (3-14); Neutrophils Absolute Auto 3300 /uL (1500-7000); Neutrophils Percent Auto 59.8 % (50-75); Platelet Count 294 X10^3/uL (150-400); Red Blood Cell Count 3.78 X10^6/uL (4.0-5.2); Red Cell Distribution Width 13.8 % (11.6-14.8); White Blood Cell Count 5.5 X10^3/uL (4.5-11.0)
[2020-02-29 05:51] LABS: Alanine Aminotransferase 20 IU/L (<35); Albumin 3.7 g/dL (3.5-5.0); Albumin Globulin Ratio 1.2 (1.0-2.8); Alkaline Phosphatase 73 U/L (38-126); Aspartate Aminotransferase 37 IU/L (14-36); BUN Creatinine Ratio 16.7 (6-22); Bilirubin Total 0.6 mg/dL (0.2-1.3); Bilirubin Unconjugated 0.5 mg/dL (0.0-1.1); Blood Urea Nitrogen 31 mg/dL (7-17); Calcium 9.2 mg/dL (8.4-10.2); Carbon Dioxide 30 mmol/L (22-32); Chloride 104 mmol/L (98-107); Estimated Glomerular Filt Rate 26.6 mL/min (>60); Globulin 3.1 g/dL (1.7-4.1); Glucose 103 mg/dL (80-110); HEMOLYSIS < 15 (0-50); Potassium 4.2 mmol/L (3.4-5.1); Sodium 137 mmol/L (137-145); Total Protein 6.8 g/dL (6.3-8.2)
[2020-02-29 06:09] LABS: INR 1.2 (0.9-1.3); Prothrombin Time 14.1 SECONDS (10.1-12.7)
[2020-02-29 06:39] LABS: PTT Partial Thromboplastin Tim 92 SECONDS (26.4-36.2)
[2020-02-29] MEDS: IPRATROPIUM 0.5 MG/2.5 ML NEB INH (08:03)
[2020-02-29] MEDS: LEVALBUTEROL 1.25 MG/0.5 ML NEB INH ×2 (08:03→15:17)
[2020-02-29] MEDS: METOPROLOL ER 25 MG TABLET PO (09:39)
[2020-02-29] MEDS: FUROSEMIDE 20 MG/2 ML VIAL IV (09:39)
[2020-02-29] MEDS: AMLODIPINE 5 MG TABLET PO (09:39)
[2020-02-29] MEDS: ASPIRIN EC 81 MG TABLET PO (09:39)
--- NOTE | 2020-02-29 09:50 | PC.NURSE ---
Day shift: Pt off AC unit at approx 0945 for procedure. HR tachy 130's and 140's after using [facility] and moving to for transport. Dr Kristin pedersen.
[2020-02-29] MEDS: METOPROLOL IR 50 MG TABLET PO (11:16)
--- NOTE | 2020-02-29 11:36 | PT-IP ANOTE ---
PT on hold at this time. pt is planning to be transferred to [facility] but awaiting bed availability. Per OT, stated to hold therapy today due to pt getting tachycardic when up and mobility and currently awaiting to transfer to another hospital. will f/u
[2020-02-29 12:35] LABS: PTT Partial Thromboplastin Tim 46 SECONDS (26.4-36.2)
--- NOTE | 2020-02-29 12:42 | OT.IP.TRT ---
Occupational Therapy Treatment Note M3 OT- IP Subjective and Pain Start: 02/28/20 16:46 Freq: Status: Active Protocol: Document 02/29/20 12:39 CGR (Rec: 02/29/20 12:41 CGR [email or web address]) OT- Subjective Occupational Therapy Visit Type Type Administrative Note Notes Pt continues with high troponins now 2.090 and plans for a possible transfer to [facility] today. Per nursing, pt tachy with all movement at this time and requests to hold. Will continue to follow.
--- NOTE | 2020-02-29 12:45 | P.DS_ITS ---
History of Present Illness History of Present Illness Chief complaint: short of breath/ having a procedure tomorrow Narrative: Ms. Lisa Gurrola 72 year old female with a history of atrial fibrillation temporally off anticoagulation, history of COPD ( quit 10 years ago), hypertension, hyperlipidemia, fibromyalgia, and arthritis who presents with a history of progressive shortness of breath for several weeks becoming acutely worse with exertional dyspnea over the last week. The patient has a questionable historian providing somewhat differing history to different providers. The patient states she has required increasing use of nebulizers in presents today at the urging of her daughter whom she is a primary caregiver for because of her degree of shortness of breath and weakness. The patient has albuterol as well as DuoNeb nebulizers with decreasing effectiveness. The patient states she becomes short of breath walk across the room. Patient does have a history of congestive heart failure with preserved ejection fraction and also describes having increasing ankle swelling over the last several days. The patient has been on warfarin which was discontinued for recent liver biopsy was to have a cardiology procedure done and remained off warfarin. She reports no complaints of fevers or chills is had no chest pain or palpitations. She has shortness of breath as above with progressive dyspnea and nonproductive cough. The patient denies abdominal pain, nausea vomiting, diarrhea or constipation. She reports no complaints of urinary symptoms of urgency frequency or hematuria. The patient uses a cane to ambulate. Discharge Providers Provider Date of admission: 02/27/20 20:53 Discharge Date: 02/29/20 Primary care physician: Arturo Champagne DO Consults: 02/27/20 22:05 Consult to Dietitian, Adult Routine Comment: Reason For Exam: Atrial fibrillation recent AR, hypertension, obese 02/27/20 22:06 Consult to Occupational Therapy Evaluate & Treat Comment: Physician Instructions: Evaluate and treat Consult to Physical Therapy Evaluate & Treat Comment: Physician Instructions: Evaluate and Treat Discharge provider: Angelo Fosetr MD Summary Hospital Course Discharge Diagnosis: 1. NSTEMI 2. Acute systolic heart failure 3. Chronic atrial fibrillation 4. Chronic kidney disease stage III 5. Negative COVID PCR 02/27/2020 Transthoracic echo:The ejection fraction is estimated to be 40-45%. Inferior, inferolateral akinesis There is moderate mitral regurgitation. The mitral regurgitant jet is eccentrically directed. The aortic valve is mildly calcified. The calculated aortic valve area is 1.6 cm2. The right ventricular systolic pressure is estimated to be at least 31 mmHg based on an estimated right atrial pressure of [address]:1. There is a 1.9 x 2.8 cm ground-glass mass in the right middle lobe and a 1.5 x 1.9 cm cavitary mass in the right lower lobe. Neoplasm (primary lung cancer) needs to be excluded. Differential diagnosis include infectious and inflammatory etiologies. A PET-CT is suggested for follow-up evaluation. 2. No mediastinal lymphadenopathy. 3. Moderate emphysema. 4. Severe atherosclerotic calcification of coronary artery. V/Q scan:1. Intermediate left differential for pulmonary embolism 2. Central airway deposition of aerosol consistent with reactive airway disease. Hospital Course: Patient was admitted with symptoms of shortness of breath and found to be in acute heart failure and AFib with RVR. She has history of atrial fibrillation. She was diuresed with IV Lasix with improvement of dyspnea. She did not have any chest pain. She had significant increase in troponin from 0.047 initially and peaked at 2.790 and subsequently decline in troponin. She was started on heparin drip, aspirin, and oral metoprolol. She received rosuvastatin 20 mg 1st dose on 02/28. Her echo showed significant decline in her LV function with LVEF 40-45% whereas previous normal LVEF and new inferior and inferior lateral akinesis. As it turns out, patient had been schedule for a cardiac catheterization this week at [facility] in [place]. She will be transferred to [facility] in order to have definitive evaluation with cardiac catheterization with possible stent placement. I have discussed her case with hospitalist Dr. Joiner and lab associate Dr. Sanchez who will be taking care of her at [facility]. She does have severe coronary artery calcifications on her chest CT which was done through the ER. Her chest CT showed findings of possible lung mass in the right middle and right lower lobes. I think this is most likely atypical pulmonary edema. However patient is a former smoker. She had a normal chest x-ray at [facility] on 12/10/2019 so it would be quite unusual to have developed new large lung masses in such short period of time. She should have repeat chest x-ray or CT follow- up in a month to ensure resolution of right lung abnormalities. She does not have any fever, elevated WBC or procalcitonin to indicate pneumonia and her COVID PCR test was negative on admission. Status at Discharge Cognitive/behavioral status at discharge: oriented Time Spent with Patient Time spent: Greater than 30 minutes Exam Vital Signs (past 8 hours): - 02/29/20 05:15 02/29/20 07:30 02/29/20 08:08 Temperature 98.1 F 97.3 F L Pulse Rate 81 88 78 Respiratory Rate 14 20 20 Blood Pressure 120/72 122/72 Pulse Oximetry 93 93 93 02/29/20 10:52 Temperature Pulse Rate 128 H Respiratory Rate Blood Pressure Pulse Oximetry Oxygen Delivery Method Room Air Oxygen Flow Rate 0 Objective Labs Result Diagrams: 02/29/20 05:20 02/29/20 05:20 Labs: Laboratory Results - last 24 hr 02/28/20 02/28/20 02/28/20 15:05 23:01 23:01 WBC RBC Hgb Hct MCV MCH MCHC RDW Plt Count Neut % (Auto) Lymph % (Auto) [place] % (Auto) Eos % (Auto) Baso % (Auto) Neut # (Auto) Lymph # (Auto) [place] # (Auto) Eos # (Auto) Baso # (Auto) PT INR APTT 37 H D Sodium Potassium Chloride Carbon Dioxide BUN Creatinine Estimated GFR BUN/Creatinine Ratio Glucose Calcium Magnesium Total Bilirubin Conjugated Bilirubin Unconjugated Bilirubin AST ALT Alkaline Phosphatase Troponin I 2.790 H* 2.090 H* Total Protein Albumin Globulin Albumin/Globulin Ratio 02/29/20 02/29/20 02/29/20 05:20 05:20 05:20 WBC 5.5 RBC 3.78 L Hgb 11.2 L Hct 34.5 L MCV 91.1 MCH 29.7 MCHC 32.6 RDW 13.8 Plt Count 294 Neut % (Auto) 59.8 Lymph % (Auto) 19.2 L [place] % (Auto) 11.1 Eos % (Auto) 8.0 H Baso % (Auto) 1.9 Neut # (Auto) 3300 Lymph # (Auto) 1100 [place] # (Auto) 600 Eos # (Auto) 400 Baso # (Auto) 100 PT 14.1 H INR 1.2 APTT 92 H* D Sodium Potassium Chloride Carbon Dioxide BUN Creatinine Estimated GFR BUN/Creatinine Ratio Glucose Calcium Magnesium Total Bilirubin Conjugated Bilirubin Unconjugated Bilirubin AST ALT Alkaline Phosphatase Troponin I Total Protein Albumin Globulin Albumin/Globulin Ratio 02/29/20 02/29/20 05:20 12:18 WBC RBC Hgb Hct MCV MCH MCHC RDW Plt Count Neut % (Auto) Lymph % (Auto) [place] % (Auto) Eos % (Auto) Baso % (Auto) Neut # (Auto) Lymph # (Auto) [place] # (Auto) Eos # (Auto) Baso # (Auto) PT INR APTT 46 H D Sodium 137 Potassium 4.2 Chloride 104 Carbon Dioxide 30 BUN 31 H Creatinine 1.86 H Estimated GFR 26.6 L BUN/Creatinine Ratio 16.7 Glucose 103 Calcium 9.2 Magnesium 2.0 Total Bilirubin 0.6 Conjugated Bilirubin 0.0 Unconjugated Bilirubin 0.5 AST 37 H ALT 20 Alkaline Phosphatase 73 Troponin I Total Protein 6.8 Albumin 3.7 Globulin 3.1 Albumin/Globulin Ratio 1.2 Discharge Plan Discharge Plan Disposition: [facility] Discharge orders & Medications Follow up/Referrals: Arturo Champagne DO [Primary Care Provider] - Discharge Data Primary Care Provider: Arturo Champagne Attending Provider: Fadi Osorio Admit Date/Time: 02/27/20 20:53 Quality VTE Deep Vein Thrombosis/Pulmonary Embolism Present on Admission: No
--- NOTE | 2020-02-29 13:02 | PT-IP ANOTE ---
Pt on hold for PT and is scheduled for facility transfer to [facility] with ambulance pick-up at 1600
--- NOTE | 2020-02-29 14:02 | PC.NURSE ---
Day shift: Report given to Chica THOMASON at approx 1340.
--- NOTE | 2020-02-29 18:01 | PC.NURSE ---
Transfer Note Patient A&O, VSS, no complaint of pain or discomfort. Report given to EMS staff along with transfer packet, no questions or concerns. All patient belongings packed and given to patient. Heparin gtt handoff at 19ml/hr (950units/hr). Tele dc'd. Patient transferred to [facility] by EMS staff, and taken off floor.
== END 2020-02-29 16:45 | disposition short-term general hospital (02) ==
LOC: ED 18:31 → AC 20:54
PROVIDERS: Internal Medicine; Admitting Provider Nurse Practitioner Adult Health; Emergency Provider Emergency Medicine; PCP Family Medicine; Referring Provider Emergency Medicine; Visit Provider Nurse Practitioner Adult Health
DX: I21.4 Non-ST elevation (NSTEMI) myocardial infarction (principal); R06.02 Shortness of breath; I50.21 Acute systolic (congestive) heart failure; I48.0 Paroxysmal atrial fibrillation; R91.8 Other nonspecific abnormal finding of lung field; N18.30 Chronic kidney disease, stage 3 unspecified; I12.9 Hypertensive chronic kidney disease with stage 1 through stage 4 chronic kidney disease, or unspecified chronic kidney disease; Z79.01 Long term (current) use of anticoagulants; E78.5 Hyperlipidemia, unspecified; Z87.891 Personal history of nicotine dependence; Z11.59 Encounter for screening for other viral diseases
CPT/HCPCS: 36415; 71046; 71250; 78582; 80048; 80053; 80076; 82550; 83605; 83735; 83880; 84145; 84484; 85025; 85610; 85730; 87040; 87633; 87635; 93005; 93306; 94640; 94760; 94762; 96365; 96366; 96367; 96372; 96375; 96376; 97161; 99285; A9539; A9540; G0378; J0696; J1644; J1650; J1940; J7614

== ENCOUNTER 2020-03-21 12:04 | Emergency (ER) | payer MEDICARE, SELFPAY ==
[2020-02-27 21:12] VITALS: BMI 30.9
[2020-03-21] VITALS (14 sets, daily range): BP systolic 98–153; BP diastolic 60–79; PULSE 53–132; RESP 18–33; TEMP 36.5; O2SAT 80–100; BMI 28.3
--- NOTE | 2020-03-21 12:24 | DI.RAD.S_ITS ---
PROCEDURE: XR CHEST 1V INDICATIONS: chest pain TECHNIQUE: One view of the chest was acquired. COMPARISON: [facility], CR, XR CHEST 2V, 02/27/2020, 15:22. FINDINGS: Surgical changes and devices: None. Linear metallic density is seen projecting over lateral aspect of right mid to lower lung zone likely represent object external to the patient is suggest clinical correlation. Lungs and pleura: Previously described possible round pneumonia in right mid lung zone is less well defined on the current study. No pleural effusions or pneumothorax. Mediastinum: Mediastinal contours appear normal. Heart size is enlarged. Bones and chest wall: No suspicious bony lesions. Overlying soft tissues appear unremarkable. IMPRESSION: Previously described round opacity in right midlung zone is less well seen on the current study. No new area of opacities. No pleural effusion or pneumothorax. Dictated by: Nolan Thomson M.D. on 03/21/2020 at 12:53 Approved by: Nolan Thomson M.D. on 03/21/2020 at 12:55
[2020-03-21 12:38] LABS: Add Manual Diff / Slide Review NO; Basophils Absolute Auto 100 /uL (0-100); Basophils Percent Auto 1.4 % (0-2); Eosinophils Absolute Auto 400 /uL (0-450); Eosinophils Percent Auto 6.2 % (2-4); Hematocrit 33.7 % (36-46); Hemoglobin 10.6 g/dL (12.0-16.0); Lymphocytes Absolute Auto 700 /uL (1100-4500); Lymphocytes Percent Auto 10.2 % (25-40); Mean Corpuscular HGB Conc 31.4 % (30-36); Mean Corpuscular Hemoglobin 27.9 PG (26-34); Monocytes Absolute Auto 700 /uL (0-900); Monocytes Percent Auto 10.4 % (3-14); Neutrophils Absolute Auto 5100 /uL (1500-7000); Neutrophils Percent Auto 71.8 % (50-75); Platelet Count 330 X10^3/uL (150-400); Red Blood Cell Count 3.79 X10^6/uL (4.0-5.2); Red Cell Distribution Width 14.5 % (11.6-14.8); White Blood Cell Count 7.1 X10^3/uL (4.5-11.0)
[2020-03-21 12:44] LABS: INR 1.7 (0.9-1.3); Prothrombin Time 19.5 SECONDS (10.1-12.7)
[2020-03-21 12:47] LABS: PTT Partial Thromboplastin Tim 36 SECONDS (26.4-36.2)
[2020-03-21 12:52] LABS: Alanine Aminotransferase 16 IU/L (<35); Albumin 4.1 g/dL (3.5-5.0); Albumin Globulin Ratio 1.3 (1.0-2.8); Alkaline Phosphatase 79 U/L (38-126); Aspartate Aminotransferase 21 IU/L (14-36); BUN Creatinine Ratio 18.8 (6-22); Bilirubin Total 0.4 mg/dL (0.2-1.3); Blood Urea Nitrogen 33 mg/dL (7-17); Calcium 9.5 mg/dL (8.4-10.2); Carbon Dioxide 28 mmol/L (22-32); Chloride 107 mmol/L (98-107); Creatine Kinase 40 U/L (30-135); Estimated Glomerular Filt Rate 28.3 mL/min (>60); Globulin 3.2 g/dL (1.7-4.1); Glucose 119 mg/dL (80-110); HEMOLYSIS < 15 (0-50); Lipase 67 U/L (23-300); Potassium 4.7 mmol/L (3.4-5.1); Sodium 140 mmol/L (137-145); Total Protein 7.3 g/dL (6.3-8.2)
[2020-03-21 13:04] LABS: Troponin I 0.017 ng/mL (0.01-0.034)
--- NOTE | 2020-03-21 13:56 | ED.LOWEXIN ---
HPI - Extremity Injury (Lower) General Chief Complaint: Extremity Injury, Lower Stated Complaint: swollen feet/can hardly walk Time Seen by Provider: 03/21/20 13:03 Source: patient and family Limitations: no limitations History of Present Illness HPI Narrative: This is a 74-year-old female who comes to the emergency department with complaint swollen feet and difficulty with walking. Patient states that she noted that her feet have been swollen and that the tip has been bluish and discolored. She states she noticed this after she had very tight socks and she has noted that all of her shoes are very tight at this time. She has had similar symptoms before and been on Lasix in the past but the discoloration is new. She did have 1 prior episode in the past which was very slow on onset wears this 1 has been faster and she had a pedicure which seemed to resolve the issue. She does note that about 15-20 years ago she had a case of frostbite or she had discoloration for several days that slowly resolved on all 10 of her toes. She denies any fevers, no chills, no chest pain or shortness of breath, no lightheadedness or passing out. No abdominal pain, no nausea, no vomiting no other GI or urinary symptoms. She does have feeling in her feet she states they are painful but not significantly worse with palpation. She has never had arterial Dopplers were ABIs on her lower extremities. She does have a history of atrial fibrillation and is on Eliquis and is been in the process to be scheduled for a CABG but has also been found to have lung cancer and is currently seeing Oncology initially before she can have her bypass. She also has known chronic kidney disease and used to be on Lasix but this was stopped because of her renal function. Related Data Home Medications Medication Instructions Recorded Confirmed furosemide 20 mg tablet 20 mg PO DAILY 10/12/19 03/11/20 acetaminophen [Tylenol] 650 mg PO Q4H PRN 02/27/20 03/11/20 Previous Rx's Medication Instructions Recorded Disabled Parking Placard #1 ea 07/14/18 triamcinolone acetonide 0.1 % 1 applictn TOP DAILY #453.6 gram 12/20/18 topical ointment amlodipine 5 mg tablet 5 mg PO DAILY #30 tab 10/26/19 warfarin 5 mg tablet See Rx Instructions .ROUTE 12/18/19 .COMPLEX #30 tab ipratropium 0.5 mg-albuterol 3 mg 3 ml INHALATION Q6H PRN #180 ml 02/07/20 (2.5 mg base)/3 mL nebulization soln oxycodone 10 mg tablet 10 mg PO BID PRN #60 tab 03/14/20 albuterol sulfate 90 mcg/actuation 2 puff INHALATION Q4-6H PRN #18 03/19/20 aerosol inhaler gram furosemide [Lasix] 40 mg PO DAILY #3 tab 03/21/20 Allergies Allergy/AdvReac Type Severity Reaction Status Date / Time atorvastatin [ATORVASTATIN] AdvReac Intermediate Nausea and Verified 03/11/20 13:36 vomiting Review of Systems Review of Systems ROS Unobtainable: All systems reviewed & are unremarkable except as noted in HPI and below Patient History Medical History AAA (abdominal aortic aneurysm) (~2005) Arthritis of left hip Atrial fibrillation with RVR (02/18/18) Chronic left hip pain CKD (chronic kidney disease) stage 3, GFR 30-59 ml/min Fibromyalgia History of ectopic (1975) Hyperlipidemia Hypertension Lung mass Osteopenia (03/19/09) Poor circulation of extremity Surgical History History of cone biopsy of cervix (1991) History of gynecologic surgery (1975) History of tubal ligation (1977) Family History Brother Essential hypertension Hyperlipidemia Arthritis Heart disease Mother Heart disease Sister Essential hypertension Hyperlipidemia Breast cancer Diabetes mellitus Father Cancer Grandfather Cancer Grandmother Cancer Grandmother No problems noted. Social History household members: family Smoking Status: Former smoker Tobacco: How many years used: 30 second hand exposure: No alcohol intake: never substance use type: does not use Smoking Status: Former smoker alcohol intake frequency: holidays/special occasions only Substance Use Type: does not use Exam Narrative Exam Narrative: GENERAL: Alert and oriented x three, well-nourished, well-appearing female HEENT: Head normocephalic, atraumatic, EOMI, pupils reactive, face symmetric, moist mucous membranes NECK: Supple, full range of motion CARDIOVASCULAR: Regular rate and rhythm without murmurs, rubs or gallops. RESPIRATORY: Breath sounds equal bilaterally, no wheezes rales or rhonchi. ABDOMEN: Soft, nontender. Normoactive bowel sounds all 4 quadrants. No guarding or rebound, rigidity, no mass : No CVA tenderness EXTREMITIES: Normal range of motion, no clubbing. Patient has 2+ pitting edema bilateral lower extremities. Sensation is intact in all 10 toes. Patient does have discoloration of all 10 of the distal toes. With cap refill and able to be tested secondary to discoloration. NEUROLOGICAL: Cranial nerves II through XII grossly intact. Moving all extremities SKIN: Warm, dry, no petechiae, no rashes or lesions otherwise noted. Initial Vital Signs Initial Vital Signs: Vital Signs Temperature 97.7 F 03/21/20 12:08 Pulse Rate 95 H 03/21/20 12:08 Respiratory Rate 18 03/21/20 12:08 Blood Pressure 98/60 03/21/20 12:08 Pulse Oximetry 99 03/21/20 12:08 Course Orders Ordered: ED Orders 03/21/20 12:24 XR chest 1V Stat EKG-12 Lead Stat 03/21/20 12:25 Complete Blood Count AUTO DIFF Stat Comprehensive Metabolic Panel Stat Lipase Stat NT-proBNP (BNP-Adult 18+) Stat Partial Thromboplastin Time Stat Prothrombin Time INR Stat Troponin & CK Cardiac Panel Stat 03/21/20 14:12 US arterial duplex LE BI Stat Discontinued Medications Furosemide (Furosemide 40 Mg/4 Ml Vial) 40 mg IV NOW ONE Stop: 03/21/20 14:14 Last Admin: 03/21/20 14:28 Dose: 40 mg Documented by: KBROTEM Consultations Consultation #1: SPoke with Dr. Diehl, Vital Signs Vital signs: Vital Signs - 8 hr 03/21/20 12:08 03/21/20 12:22 03/21/20 12:30 Temperature 97.7 F Pulse Rate 95 H 117 H 113 H Respiratory Rate 18 22 18 Blood Pressure 98/60 100/74 Pulse Oximetry 99 99 99 03/21/20 13:00 03/21/20 13:01 03/21/20 13:30 Temperature Pulse Rate 103 H 107 H 116 H Respiratory Rate 23 25 H 30 H Blood Pressure 101/73 Pulse Oximetry 98 98 99 03/21/20 14:00 03/21/20 14:30 03/21/20 15:00 Temperature Pulse Rate 111 H 93 H 97 H Respiratory Rate 24 24 20 Blood Pressure 102/73 153/79 H Pulse Oximetry 99 97 100 03/21/20 15:30 03/21/20 15:49 03/21/20 16:00 Temperature Pulse Rate 108 H 108 H 132 H Respiratory Rate 19 33 H 26 H Blood Pressure 112/60 Pulse Oximetry 96 03/21/20 16:34 03/21/20 16:53 Temperature Pulse Rate 53 L 106 H Respiratory Rate 25 H Blood Pressure 98/65 Pulse Oximetry 87 L 80 L MDM - Extremity Injury (Lower) Lab Data Attestation: I reviewed the patient's lab results. Result diagrams: 03/21/20 12:25 03/21/20 12:25 Labs: Lab Results 03/21/20 03/21/20 03/21/20 Range/Units 12:25 12:25 12:25 WBC 7.1 (4.5-11.0) X10^3/uL RBC 3.79 L (4.0-5.2) X10^6/uL Hgb 10.6 L (12.0-16.0) g/dL Hct 33.7 L (36-46) % MCV 89.0 (80-100) fL MCH 27.9 (26-34) PG MCHC 31.4 (30-36) % RDW 14.5 (11.6-14.8) % Plt Count 330 (150-400) X10^3/uL Neut % (Auto) 71.8 (50-75) % Lymph % (Auto) 10.2 L (25-40) % [place] % (Auto) 10.4 (3-14) % Eos % (Auto) 6.2 H (2-4) % Baso % (Auto) 1.4 (0-2) % Neut # (Auto) 5100 (1019-4488) /uL Lymph # (Auto) 700 L (4328-3062) /uL [place] # (Auto) 700 (0-900) /uL Eos # (Auto) 400 (0-450) /uL Baso # (Auto) 100 (0-100) /uL PT 19.5 H (10.1-12.7) SECONDS INR 1.7 H (0.9-1.3) APTT 36 D (26.4-36.2) SECONDS Sodium 140 (137-145) mmol/L Potassium 4.7 (3.4-5.1) mmol/L Chloride 107 (98-107) mmol/L Carbon Dioxide 28 (22-32) mmol/L BUN 33 H (7-17) mg/dL Creatinine 1.76 H (0.52-1.04) mg/dL Estimated GFR 28.3 L (>60) mL/min BUN/Creatinine Ratio 18.8 (6-22) Glucose 119 H (80-110) mg/dL Calcium 9.5 (8.4-10.2) mg/dL Total Bilirubin 0.4 (0.2-1.3) mg/dL AST 21 (14-36) IU/L ALT 16 (<35) IU/L Alkaline Phosphatase 79 (38-126) U/L Total Creatine Kinase 40 (30-135) U/L CK-MB (CK-2) TNP CK-MB (CK-2) Rel Index TNP Troponin I 0.017 (0.01-0.034) ng/mL NT-Pro-B Natriuret Pep (<125) pg/mL Total Protein 7.3 (6.3-8.2) g/dL Albumin 4.1 (3.5-5.0) g/dL Globulin 3.2 (1.7-4.1) g/dL Albumin/Globulin Ratio 1.3 (1.0-2.8) Lipase 67 (23-300) U/L //20 Range/Units 12:25 WBC (4.5-11.0) X10^3/uL RBC (4.0-5.2) X10^6/uL Hgb (12.0-16.0) g/dL Hct (36-46) % MCV (80-100) fL MCH (26-34) PG MCHC (30-36) % RDW (11.6-14.8) % Plt Count (150-400) X10^3/uL Neut % (Auto) (50-75) % Lymph % (Auto) (25-40) % [place] % (Auto) (3-14) % Eos % (Auto) (2-4) % Baso % (Auto) (0-2) % Neut # (Auto) (1534-1284) /uL Lymph # (Auto) (4125-3720) /uL [place] # (Auto) (0-900) /uL Eos # (Auto) (0-450) /uL Baso # (Auto) (0-100) /uL PT (10.1-12.7) SECONDS INR (0.9-1.3) APTT (26.4-36.2) SECONDS Sodium (137-145) mmol/L Potassium (3.4-5.1) mmol/L Chloride (98-107) mmol/L Carbon Dioxide (22-32) mmol/L BUN (7-17) mg/dL Creatinine (0.52-1.04) mg/dL Estimated GFR (>60) mL/min BUN/Creatinine Ratio (6-22) Glucose (80-110) mg/dL Calcium (8.4-10.2) mg/dL Total Bilirubin (0.2-1.3) mg/dL AST (14-36) IU/L ALT (<35) IU/L Alkaline Phosphatase (38-126) U/L Total Creatine Kinase (30-135) U/L CK-MB (CK-2) CK-MB (CK-2) Rel Index Troponin I (0.01-0.034) ng/mL NT-Pro-B Natriuret Pep 6160 H (<125) pg/mL Total Protein (6.3-8.2) g/dL Albumin (3.5-5.0) g/dL Globulin (1.7-4.1) g/dL Albumin/Globulin Ratio (1.0-2.8) Lipase (23-300) U/L Imaging Data Chest x-ray: Radiologist's Impression: [address] [id number] ReportSigned Patient: Lisa Gurrola LMR#: [id number]: [id number]:[id number]/Sex: 74 / FDate of Service: 03/21/20Loc: EDAccession Number: [id number] Procedure: XR chest 1V Ordering Provider: Mank,Natalie C D.O. PROCEDURE: XR CHEST 1V INDICATIONS: chest pain TECHNIQUE: One view of the chest was acquired. COMPARISON: [facility], CR, XR CHEST 2V, 02/27/2020, 15:22. FINDINGS: Surgical changes and devices: None. Linear metallic density is seen projecting over lateral aspect of right mid to lower lung zone likely represent object external to the patient is suggest clinical correlation. Lungs and pleura: Previously described possible round pneumonia in right mid lung zone is less well defined on the current study. No pleural effusions or pneumothorax. Mediastinum: Mediastinal contours appear normal. Heart size is enlarged. Bones and chest wall: No suspicious bony lesions. Overlying soft tissues appear unremarkable. IMPRESSION: Previously described round opacity in right midlung zone is less well seen on the current study. No new area of opacities. No pleural effusion or pneumothorax. Dictated by: Nolan Thomson M.D. on 03/21/2020 at 12:53 Approved by: Nolan Thomson M.D. on 03/21/2020 at 12:55 arterial doppler: Radiologist's Impression: [address] [id number] ReportSigned Patient: Lisa Gurrola LMR#: [id number]: [id number]/Sex: 74 / FDate of Service: 03/21/20Loc: EDAccession Number: [id number] Procedure: US arterial duplex LE BI Ordering Provider: Natalie Chaney D.O. PROCEDURE: US ARTERIAL DUPLEX LE BI INDICATIONS: SWELLING LEGS. TOES DISCOLORED. TECHNIQUE: Color and pulse Doppler interrogation was performed of both lower extremity arterial systems, with image documentation. COMPARISON: None. FINDINGS: Right lower extremity: Common femoral artery: 115 cm/sec, Deep femoral artery: 135 cm/sec Proximal superficial femoral artery: 87 cm/sec Mid superficial femoral artery: 92 cm/sec Distal superficial femoral artery: 166 cm/sec Popliteal artery: 215 cm/sec Posterior tibial artery: 88 cm/sec Anterior tibial artery/dorsalis pedis: 36/39 cm/sec Rojo-scale imaging description: Calcific and soft plaque present bilaterally. Left lower extremity: Common femoral artery: 164 cm/sec Deep femoral artery: 121 cm/sec. Proximal superficial femoral artery: 145 cm/sec Mid superficial femoral artery: 141 cm/sec. Distal superficial femoral artery: 146 cm/sec Popliteal artery: 73 cm/sec Posterior tibial artery: 33 cm/sec. Anterior tibial artery/dorsalis pedis: 25/54 cm/sec Rojo-scale imaging description: Moderate calcific IMPRESSION: Moderate grade stenosis at the popliteal artery on the right, no evidence of arterial insufficiency to the lower extremity arterial vasculature. Small vessel atherosclerotic change rather than central stenosis is the likely cause. MR angiography may be warranted for further assessment more superiorly and through the pelvic arterial vasculature. Dictated by: Devon Palma M.D. on 03/21/2020 at 16:16 Approved by: Devon Palma M.D. on 03/21/2020 at 16:23 ECG Data Attestation: I personally reviewed and interpreted this ECG as follows: Interpretation: AFib with rapid response of rate 105, QRS of 86 and QTC of 454. No ST elevation appreciated nonspecific T-wave changes. MDM Narrative Medical decision making narrative: 74-year-old female comes emergency department with bilateral lower extremity swelling and discoloration of her toes. Patient likely has arterial flow issues secondary to known multi-vessel disease and plan for CABG. She also had history of frostbite about 15-20 years ago with severe discoloration for several days and these in combination are likely causing her symptoms today. She is swollen, she was given a dose of Lasix in the department she does not appear to have any pulmonary edema on her chest x-ray or alterations in her troponin today. Patient's arterial dopplers shows some moderate stenosis on the right but flow bilaterally. Patient has changes only on the distal toes but all 10, she did have a significant frostbite injury 15-20 years ago and this may also be affecting her distal circulation in addition to her vascular issues. Patient has improvement of pain with ambulation which is suspicious for claudication. I did speak with Dr. Diehl who is covering patient office and they will help facilitate follow up. Patient is anticoagulated on eliquis. Discharge Plan Departure Patient Disposition: Home Clinical Impression: Bilateral leg edema, Discoloration of skin of toe Instructions: DI for Peripheral Vascular (Arterial) Disease Activity Restrictions/Additional Instructions: Follow-up with your primary care in the next several days, call Tuesday morning for an appointment. Take lasix once daily Return to the ER for fevers, worsening swelling, worsening discoloration of your toes or extremities, new chest pain, shortness of breath, lightheadedness, persistent vomiting or other new or concerning symptoms Prescriptions: New furosemide [Lasix] 40 mg tablet 40 mg PO DAILY Qty: 3 RF: 0 No Action (DME) Disabled Parking Placard Qty: 1 RF: 0 warfarin 5 mg tablet See Rx Instructions .ROUTE .COMPLEX Qty: 30 RF: 3 ipratropium-albuterol 0.5 mg-3 mg(2.5 mg base)/3 mL solution for nebulization 3 ml INHALATION Q6H PRN (Reason: shortness of breath) Qty: 180 RF: 1 oxycodone 10 mg tablet 10 mg PO BID PRN (Reason: pain) Qty: 60 RF: 0 albuterol sulfate 90 mcg/actuation HFA aerosol inhaler 2 puff INHALATION Q4-6H PRN (Reason: shortness of breath or wheezing) Qty: 18 RF: 3 triamcinolone acetonide 0.1 % ointment 1 applictn TOP DAILY Qty: 453.6 RF: 0 amlodipine 5 mg tablet 5 mg PO DAILY Qty: 30 RF: 5 furosemide 20 mg tablet 20 mg PO DAILY RF: 0 acetaminophen [Tylenol] 325 mg Capsule 650 mg PO Q4H PRN (Reason: Pain, Moderate) RF: 0 Referrals: Arturo Champagne DO [Primary Care Provider] -
--- NOTE | 2020-03-21 14:00 | PC.NURSE ---
pt has bilateral blue/red toes since yesterday with swelling extending up to bilateral knees. Bilateral pedal pulses heard with Doppler with location marked on each foot
--- NOTE | 2020-03-21 14:12 | DI.US.S_ITS ---
PROCEDURE: US ARTERIAL DUPLEX LE BI INDICATIONS: SWELLING LEGS. TOES DISCOLORED. TECHNIQUE: Color and pulse Doppler interrogation was performed of both lower extremity arterial systems, with image documentation. COMPARISON: None. FINDINGS: Right lower extremity: Common femoral artery: 115 cm/sec, Deep femoral artery: 135 cm/sec Proximal superficial femoral artery: 87 cm/sec Mid superficial femoral artery: 92 cm/sec Distal superficial femoral artery: 166 cm/sec Popliteal artery: 215 cm/sec Posterior tibial artery: 88 cm/sec Anterior tibial artery/dorsalis pedis: 36/39 cm/sec Rojo-scale imaging description: Calcific and soft plaque present bilaterally. Left lower extremity: Common femoral artery: 164 cm/sec Deep femoral artery: 121 cm/sec. Proximal superficial femoral artery: 145 cm/sec Mid superficial femoral artery: 141 cm/sec. Distal superficial femoral artery: 146 cm/sec Popliteal artery: 73 cm/sec Posterior tibial artery: 33 cm/sec. Anterior tibial artery/dorsalis pedis: 25/54 cm/sec Rojo-scale imaging description: Moderate calcific IMPRESSION: Moderate grade stenosis at the popliteal artery on the right, no evidence of arterial insufficiency to the lower extremity arterial vasculature. Small vessel atherosclerotic change rather than central stenosis is the likely cause. MR angiography may be warranted for further assessment more superiorly and through the pelvic arterial vasculature. Dictated by: Devon Palma M.D. on 03/21/2020 at 16:16 Approved by: Devon Palma M.D. on 03/21/2020 at 16:23
[2020-03-21] MEDS: FUROSEMIDE 40 MG/4 ML VIAL IV (14:28)
[2020-03-21 14:50] LABS: NT-proBNP (BNP-Adult 18+) 6160 pg/mL (<125)
== END 2020-03-21 17:09 | disposition home or self-care (01) ==
PROVIDERS: Emergency Provider Emergency Medicine; PCP Family Medicine
DX: L81.9 Disorder of pigmentation, unspecified (principal); R60.0 Localized edema
CPT/HCPCS: 36415; 71045; 80053; 82550; 83690; 83880; 84484; 85025; 85610; 85730; 93005; 93010; 93925; 96374; 99283; 99284; J1940

== ENCOUNTER 2020-04-01 14:23 | Emergency (ER) | payer MEDICARE, SELFPAY ==
[2020-02-27 21:12] VITALS: BMI 30.9
[2020-04-01] VITALS (17 sets, daily range): BP systolic 83–116; BP diastolic 51–81; PULSE 79–148; RESP 14–33; TEMP 36.6; O2SAT 96–100
--- NOTE | 2020-04-01 14:38 | DI.RAD.S_ITS ---
PROCEDURE: XR CHEST 1V INDICATIONS: Shortness of breath TECHNIQUE: One view of the chest was acquired. COMPARISON: [facility], CR, XR CHEST 1V, 03/21/2020, 12:31. FINDINGS: Surgical changes and devices: Linear metallic density is again seen projecting over right mid to lower lung field unchanged from prior study , suggest clinical correlation. Lungs and pleura: Increased bronchovascular markings in bilateral hilar region are seen with mild bronchial wall thickening. No definite focal infiltrate. No pleural effusions or pneumothorax. Mediastinum: Mediastinal contours appear normal. Heart size is normal. Bones and chest wall: No suspicious bony lesions. Overlying soft tissues appear unremarkable. IMPRESSION: Finding may represent reactive airway disease such as bronchitis or viral pneumonia. No definite focal infiltrate. No pleural effusion or pneumothorax. Dictated by: Nolan Thomson M.D. on 04/01/2020 at 14:13 Approved by: Nolan Thomson M.D. on 04/01/2020 at 14:14
--- NOTE | 2020-04-01 14:59 | ED_ITS ---
HPI - General Adult General Chief complaint: Shortness of Breath/Dyspnea Stated complaint: Having Trouble Breathing, Feet Swelling Time Seen by Provider: 04/01/20 14:34 Source: patient and family Mode of arrival: Wheelchair Limitations: no limitations History of Present Illness HPI narrative: Patient is a 74-year-old female with multiple known chronic medical issues to include lung cancer. Currently being followed by Oncology and scheduled to start radiation but has had no treatment up to this point. Cardiovascular disease. Is being followed by cardiology group in [place]. Has had workup for this. Was initially informed that she needed a coronary artery bypass graft however this was put on hold secondary to her new diagnosis of lung cancer. Also known peripheral vascular disease. Has been on Eliquis for the past month. Patient states she is taking this medicine every day as directed. She is also taking Lasix. Has a history of heart failure. Recent admission to the hospital for issues concerning perfusion to her lower extremities. She has toes that will turn blue. She arrives emergency department today with shortness of breath and lower extremity swelling. She denies chest pain. She states that the color of her toes are normal for her and that does seem to come and go. She states that the swelling in her lower extremity seems to be somewhat worse than normal which is causing her quite a bit of discomfort with walking. She states she has been taking all of her medications as directed although she does get short of breath with any slight exertion. She does have inhalers. Has been using these at home without any improvement. Related Data Home Medications Medication Instructions Recorded Confirmed furosemide 20 mg tablet 20 mg PO DAILY 10/12/19 03/11/20 acetaminophen [Tylenol] 650 mg PO Q4H PRN 02/27/20 03/11/20 apixaban [Eliquis] 5 mg PO BID 03/24/20 03/24/20 metoprolol tartrate 25 mg PO DAILY 03/24/20 03/24/20 rosuvastatin mg 03/24/20 Previous Rx's Medication Instructions Recorded Disabled Parking Placard #1 ea 07/14/18 triamcinolone acetonide 0.1 % 1 applictn TOP DAILY #453.6 gram 12/20/18 topical ointment ipratropium 0.5 mg-albuterol 3 mg 3 ml INHALATION Q6H PRN #180 ml 02/07/20 (2.5 mg base)/3 mL nebulization soln albuterol sulfate 90 mcg/actuation 2 puff INHALATION Q4-6H PRN #18 03/19/20 aerosol inhaler gram furosemide [Lasix] 40 mg PO DAILY #3 tab 03/21/20 oxycodone 10 mg tablet 10 mg PO BID PRN #60 tab 03/25/20 furosemide [Lasix] 60 mg PO QAM #30 tab 04/01/20 metoprolol tartrate 25 mg PO DAILY #30 tab 04/01/20 tramadol [Ultram] 50 mg PO Q6H PRN #14 tab 04/01/20 Allergies Allergy/AdvReac Type Severity Reaction Status Date / Time atorvastatin [ATORVASTATIN] AdvReac Intermediate Nausea and Verified 03/11/20 13:36 vomiting Review of Systems Constitutional Constitutional: Denies fever(s) and Denies headache(s) ENT Ears, Nose, Mouth, and Throat: Denies vertigo, Denies dizziness and Denies headache(s) Cardiovascular Cardiovascular: Denies chest pain, Reports irregular heart rhythm, Reports dy spnea, Reports dyspnea on exertion and Reports orthopnea Respiratory Respiratory: Denies cough, Reports dyspnea and Reports dyspnea on exertion Gastrointestinal Gastrointestinal: Denies abdominal pain, Denies nausea and Denies vomiting Genitourinary Genitourinary: Denies dysuria Genitourinary: Denies dysuria Musculoskeletal Musculoskeletal: Denies arthralgias and Denies myalgias Integumentary/Breasts Comments: Skin color changes to her toes and lower extremities. Neurologic Neurologic: Denies vertigo, Denies dizziness and Denies headache(s) Psychiatric Psychiatric: Denies depression Hematologic/Lymphatic Comments: On anticoagulation Allergic/Immunologic Allergic/Immunologic: Denies urticaria Patient History Medical History AAA (abdominal aortic aneurysm) (~2005) Arthritis of left hip Atrial fibrillation with RVR (02/18/18) Chronic left hip pain CKD (chronic kidney disease) stage 3, GFR 30-59 ml/min Fibromyalgia History of ectopic (1975) Hyperlipidemia Hypertension Lung mass Osteopenia (03/19/09) Poor circulation of extremity Surgical History History of cone biopsy of cervix (1991) History of gynecologic surgery (1975) History of tubal ligation (1977) Family History (Updated 03/24/20 @ 12:38 by Mamadou Hernandez MD) Brother Essential hypertension Arthritis Heart disease Hyperlipidemia Mother Heart disease Sister Diabetes mellitus Essential hypertension Hyperlipidemia Breast cancer Father Multiple myeloma Grandfather Cancer Grandmother Cancer Grandmother No problems noted. Social History household members: family Smoking Status: Former smoker Tobacco: How many years used: 30 second hand exposure: No alcohol intake: never substance use type: does not use Smoking Status: Former smoker alcohol intake frequency: other Substance Use Type: does not use Exam Initial Vital Signs Initial Vital Signs: Vital Signs Pulse Rate 117 H 04/01/20 14:34 Respiratory Rate 33 H 04/01/20 14:34 Pulse Oximetry 97 04/01/20 14:34 Const General: cooperative and comfortable Limitations: mental status not altered HENMT Head: normal to inspection and normocephalic Ears: hearing grossly normal bilaterally Resp Effort & Inspection: not labored and tachypneic Auscultation: clear to auscultation bilaterally Cardio Rate: tachycardic Rhythm: regular rhythm Heart Sounds: murmur Pulses: radial pulses present and dorsalis pedis present bilaterally GI Inspection: non-distended Skin Other: Patient does have a blue color to all 10 of her toes. I does not extend up into her feet. Patient states that this is actually better than what it has been in the past. She also has erythema bilateral feet and ankles up to the top portion of her tibia is circumferentially. No blisters. Not warm to the touch. Neuro General: patient alert, patient awake, patient oriented x3 and moves all e xtremities Extrem General: edema Psych Appearance: grossly normal and well kempt Procedures Cardioversion Consent Signed: Yes Indication: Atrial fibrillation Stability: Stable Number of attempts (shocks): 3 Joules used: 120 and 200 (2 times) Cardiac rhythm post-cardioversion: Sinus rhythm Procedural Sedation Consent signed: Yes Time out performed: Yes Indication: cardioversion Presedation Evaluation: See HPI Mallampati Airway Classification: Class II Preparation: teletypesetter monitor applied, pulse oximeter, capnometry used and supplemental O2 applied Fentanyl: IV Fentanyl dose (mcg): 25 IV Propofol dose (mg): 80 Course Orders Ordered: ED Orders 04/01/20 14:38 XR chest 1V Stat EKG-12 Lead Stat 04/01/20 14:52 Complete Blood Count AUTO DIFF Stat Comprehensive Metabolic Panel Stat Lipase Stat NT-proBNP (BNP-Adult 18+) Stat Troponin & CK Cardiac Panel Stat 04/01/20 15:11 COVID19 Stat 04/01/20 16:13 RT Consult Eval and Treat Now 04/01/20 17:00 EKG-12 Lead Stat Discontinued Medications Diltiazem HCl (Diltiazem 5 Mg/Ml Sdv) 10 mg IV NOW ONE Stop: 04/01/20 14:48 Last Admin: 04/01/20 15:16 Dose: 10 mg Documented by: RYLAN Fentanyl (Fentanyl 100 Mcg/2 Ml Inj) 25 mcg IV NOW ONE Stop: 04/01/20 16:13 Last Admin: 04/01/20 16:48 Dose: 25 mcg Documented by: RYLAN Furosemide (Furosemide 100 Mg/10 Ml Vial) 60 mg IV NOW ONE Stop: 04/01/20 16:04 Last Admin: 04/01/20 16:12 Dose: 60 mg Documented by: RYLAN DILTIAZEM (Diltiazem 125 Mg/125 Ml-D5w) 125 mg in 125 mls @ 5 mls/hr IV TITRATE [place]; Protocol Last Admin: 04/01/20 16:59 Dose: Not Given Documented by: RYLAN Propofol (Propofol 200 Mg/20 Ml Vial) 100 mg IV NOW ONE Stop: 04/01/20 16:13 Last Admin: 04/01/20 16:50 Dose: 80 mg Documented by: RYLAN Vital Signs Vital signs: Vital Signs - 8 hr 04/01/20 14:34 04/01/20 14:38 04/01/20 14:40 Temperature 98 F Pulse Rate 117 H 127 H 140 H Respiratory Rate 33 H 17 26 H Blood Pressure 102/57 L 102/57 L Blood Pressure [Left Arm] Pulse Oximetry 97 96 97 04/01/20 15:00 04/01/20 15:30 04/01/20 16:00 Temperature Pulse Rate 148 H 123 H 127 H Respiratory Rate 33 H 24 23 Blood Pressure Blood Pressure [Left Arm] Pulse Oximetry 96 97 97 04/01/20 16:26 04/01/20 16:30 12/08/20 16:45 Temperature Pulse Rate 128 H 123 H 123 H Respiratory Rate 29 H 28 H 20 Blood Pressure 85/51 L 83/58 L 96/64 Blood Pressure [Left Arm] 107/68 Pulse Oximetry 98 98 99 04/01/20 16:50 04/01/20 16:55 04/01/20 17:00 Temperature Pulse Rate 120 H 91 H 91 H Respiratory Rate 14 22 19 Blood Pressure 110/81 107/67 100/76 Blood Pressure [Left Arm] Pulse Oximetry 99 100 100 04/01/20 17:05 04/01/20 17:10 04/01/20 17:15 Temperature Pulse Rate 91 H 90 91 H Respiratory Rate 22 17 22 Blood Pressure 107/68 114/69 106/67 Blood Pressure [Left Arm] Pulse Oximetry 98 97 98 04/01/20 17:30 04/01/20 17:46 Temperature Pulse Rate 94 H 99 H Respiratory Rate 22 33 H Blood Pressure 104/65 116/64 Blood Pressure [Left Arm] Pulse Oximetry 98 98 Medical Decision Making Lab Data Lab results reviewed: Yes I reviewed the patient's lab results. Result diagrams: 04/01/20 14:52 04/01/20 14:52 Labs: Lab Results 04/01/20 04/01/20 04/01/20 Range/Units 14:52 14:52 15:11 WBC 7.1 (4.5-11.0) X10^3/uL RBC 3.67 L (4.0-5.2) X10^6/uL Hgb 9.8 L (12.0-16.0) g/dL Hct 31.5 L (36-46) % MCV 85.8 (80-100) fL MCH 26.8 (26-34) PG MCHC 31.3 (30-36) % RDW 15.2 H (11.6-14.8) % Plt Count 260 (150-400) X10^3/uL Neut % (Auto) 76.3 H (50-75) % Lymph % (Auto) 9.3 L (25-40) % Marin % (Auto) 10.6 (3-14) % Eos % (Auto) 2.6 (2-4) % Baso % (Auto) 1.2 (0-2) % Neut # (Auto) 5400 (4402-3224) /uL Lymph # (Auto) 700 L (9992-6814) /uL Marin # (Auto) 800 (0-900) /uL Eos # (Auto) 200 (0-450) /uL Baso # (Auto) 100 (0-100) /uL Sodium 138 (137-145) mmol/L Potassium 3.7 (3.4-5.1) mmol/L Chloride 102 (98-107) mmol/L Carbon Dioxide 28 (22-32) mmol/L BUN 38 H (7-17) mg/dL Creatinine 2.01 H (0.52-1.04) mg/dL Estimated GFR 24.3 L (>60) mL/min BUN/Creatinine Ratio 18.9 (6-22) Glucose 131 H (80-110) mg/dL Calcium 9.4 (8.4-10.2) mg/dL Total Bilirubin 0.7 (0.2-1.3) mg/dL AST 23 (14-36) IU/L ALT 16 (<35) IU/L Alkaline Phosphatase 78 (38-126) U/L Total Creatine Kinase 80 (30-135) U/L CK-MB (CK-2) TNP CK-MB (CK-2) Rel Index TNP Troponin I 0.318 H* (0.01-0.034) ng/mL NT-Pro-B Natriuret Pep 07490 H (<125) pg/mL Total Protein 7.2 (6.3-8.2) g/dL Albumin 4.1 (3.5-5.0) g/dL Globulin 3.1 (1.7-4.1) g/dL Albumin/Globulin Ratio 1.3 (1.0-2.8) Lipase 78 (23-300) U/L COVID-19 PCR Negative (Negative) Point of Care Testing Test Results Not applicable Point of care testing: Point of Care Testing Test Results Not applicable Imaging Data Chest x-ray: Radiologist's Impression: [address] [id number] ReportSigned Patient: Lisa Gurrola LMR#: [id number]: 7Acct:[id number]/Sex: 74 / FDate of Service: 04/01/20Loc: EDAccession Number: [id number] Procedure: XR chest 1V Ordering Provider: Antoine Iraheta D.O. PROCEDURE: XR CHEST 1V INDICATIONS: Shortness of breath TECHNIQUE: One view of the chest was acquired. COMPARISON: [facility], , XR CHEST 1V, 03/21/2020, 12:31. FINDINGS: Surgical changes and devices: Linear metallic density is again seen projecting over right mid to lower lung field unchanged from prior study , suggest clinical correlation. Lungs and pleura: Increased bronchovascular markings in bilateral hilar region are seen with mild bronchial wall thickening. No definite focal infiltrate. No pleural effusions or pneumothorax. Mediastinum: Mediastinal contours appear normal. Heart size is normal. Bones and chest wall: No suspicious bony lesions. Overlying soft tissues appear unremarkable. IMPRESSION: Finding may represent reactive airway disease such as bronchitis or viral pneumonia. No definite focal infiltrate. No pleural effusion or pneumothorax. Dictated by: Nolan Thomson M.D. on 04/01/2020 at 14:13 Approved by: Nolan Thomson M.D. on 04/01/2020 at 14:14 ECG Data Attestation: I personally reviewed and interpreted this ECG as follows: Prior ECG tracings: not available for review Interpretation: Arrival EKG Atrial fibrillation Ventricular rate 132 Normal axis Normal QRS One PVC Post cardioversion Sinus rhythm Ventricular rate of [address] T wave changes MDM Narrative Medical decision making narrative: I did review the patient's medical record. She does have multiple medical problems. The color of her toes in bilateral lower extremities is actually better per her report than what it has been in the past. She does have dorsalis pedis pulses palpable bilaterally. She does have redness that extends bilaterally up till just distal to the knees. I feel that this is not cellulitis. Feel this is more vascular insufficiency/chronic venous stasis changes/edema causing these issues. She actually states she feels somewhat better with the swelling after the Lasix she was given here in the ER. Patient has known coronary artery disease. She has known history of atrial fibrillation. She was in AFib with RVR upon arrival. She has been on Eliquis every day for at least the past month. She states she has not missed any doses of this medicine. I did talk with Dr. Sanchez who is her conference and event organiser on the phone. He reinforced information which we knew was that she does need a coronary artery bypass graft another issues however this has been put on hold be cause of the new diagnosis of the cancer. He stated that she does need diuresed. Was his understanding that she has been on metoprolol however talk with the patient she is not on any rate/rhythm modifying medications. Since she has been on Eliquis for the past month patient was sedated and cardioverted. After the cardioversion recover from the sedation patient states she felt much better. She felt much less short of breath. She felt like her legs feel better and were less swollen. She does have elevation in her troponin however most likely chronic and also her kidney issues and also the atrial fibrillation. She also has a increase in her BNP. I feel that these are most likely related to her atrial fibrillation. Had a discussion with the patient and family at bedside regarding options. We did discuss admitting her to the hospital for IV diuresis. Dr. Sanchez felt that she would not need another catheterization or other provocative testing because of her known coronary artery disease but she could potentially benefit from diuresis. We also discussed increasing her Lasix and sending her home the risks involved with this. Patient expressed understanding of this and stated that she would like to go home. The plan abuse to increase her Lasix from 40 mg a day to 60 mg a day. She is going to talk with her primary doctor/conference and event organiser/packing attendant about when to change this back to 40 mg. She is going to continue with the Eliquis. Given the fact that she is not on metoprolol will start her on 25 mg a day of metoprolol. She was instructed to contact her conference and event organiser regarding this. She was given strict return precautions with regard to chest pain and shortness of breath. She expressed understanding and agreement. Discharge Plan Departure Patient Disposition: Home Clinical Impression: Atrial fibrillation, Coronary artery disease Instructions: Atrial Fibrillation Activity Restrictions/Additional Instructions: Recommend that you continue all of your medications as directed. I recommend that you increase your Lasix/furosemide from 40 mg a day to 60 mg a day. I also recommend you start taking the metoprolol as directed. Contact both your kidney doctor and your conference and event organiser tomorrow for follow-up. Return to the emergency department for any new or worsening symptoms Prescriptions: New furosemide [Lasix] 20 mg tablet 60 mg PO QAM Qty: 30 RF: 0 metoprolol tartrate 25 mg tablet 25 mg PO DAILY Qty: 30 RF: 0 tramadol [Ultram] 50 mg tablet 50 mg PO Q6H PRN (Reason: pain) Qty: 14 RF: 0 No Action (DME) Disabled Parking Placard Qty: 1 RF: 0 ipratropium-albuterol 0.5 mg-3 mg(2.5 mg base)/3 mL solution for nebulization 3 ml INHALATION Q6H PRN (Reason: shortness of breath) Qty: 180 RF: 1 albuterol sulfate 90 mcg/actuation HFA aerosol inhaler 2 puff INHALATION Q4-6H PRN (Reason: shortness of breath or wheezing) Qty: 18 RF: 3 oxycodone 10 mg tablet 10 mg PO BID PRN (Reason: pain) Qty: 60 RF: 0 triamcinolone acetonide 0.1 % ointment 1 applictn TOP DAILY Qty: 453.6 RF: 0 furosemide 20 mg tablet 20 mg PO DAILY RF: 0 acetaminophen [Tylenol] 325 mg Capsule 650 mg PO Q4H PRN (Reason: Pain, Moderate) RF: 0 rosuvastatin 10 mg Tablet RF: 0 metoprolol tartrate 25 mg Tablet 25 mg PO DAILY RF: 0 Eliquis 5 mg Tablet 5 mg PO BID RF: 0 furosemide [Lasix] 40 mg tablet 40 mg PO DAILY Qty: 3 RF: 0 Referrals: Arturo Champagne DO [Primary Care Provider] -
[2020-04-01 15:01] LABS: Add Manual Diff / Slide Review NO; Basophils Absolute Auto 100 /uL (0-100); Basophils Percent Auto 1.2 % (0-2); Eosinophils Absolute Auto 200 /uL (0-450); Eosinophils Percent Auto 2.6 % (2-4); Hematocrit 31.5 % (36-46); Hemoglobin 9.8 g/dL (12.0-16.0); Lymphocytes Absolute Auto 700 /uL (1100-4500); Lymphocytes Percent Auto 9.3 % (25-40); Mean Corpuscular HGB Conc 31.3 % (30-36); Mean Corpuscular Hemoglobin 26.8 PG (26-34); Mean Corpuscular Volume 85.8 fL (80-100); Monocytes Absolute Auto 800 /uL (0-900); Monocytes Percent Auto 10.6 % (3-14); Neutrophils Absolute Auto 5400 /uL (1500-7000); Neutrophils Percent Auto 76.3 % (50-75); Platelet Count 260 X10^3/uL (150-400); Red Blood Cell Count 3.67 X10^6/uL (4.0-5.2); Red Cell Distribution Width 15.2 % (11.6-14.8); White Blood Cell Count 7.1 X10^3/uL (4.5-11.0)
[2020-04-01 15:15] LABS: Alanine Aminotransferase 16 IU/L (<35); Albumin 4.1 g/dL (3.5-5.0); Albumin Globulin Ratio 1.3 (1.0-2.8); Alkaline Phosphatase 78 U/L (38-126); Aspartate Aminotransferase 23 IU/L (14-36); BUN Creatinine Ratio 18.9 (6-22); Bilirubin Total 0.7 mg/dL (0.2-1.3); Blood Urea Nitrogen 38 mg/dL (7-17); Calcium 9.4 mg/dL (8.4-10.2); Carbon Dioxide 28 mmol/L (22-32); Chloride 102 mmol/L (98-107); Creatine Kinase 80 U/L (30-135); Estimated Glomerular Filt Rate 24.3 mL/min (>60); Globulin 3.1 g/dL (1.7-4.1); Glucose 131 mg/dL (80-110); HEMOLYSIS < 15 (0-50); Lipase 78 U/L (23-300); Potassium 3.7 mmol/L (3.4-5.1); Sodium 138 mmol/L (137-145); Total Protein 7.2 g/dL (6.3-8.2)
[2020-04-01] MEDS: dilTIAZem 5 MG/ML SDV 10 MG IV (15:16)
[2020-04-01 15:27] LABS: NT-proBNP (BNP-Adult 18+) 10100 pg/mL (<125)
[2020-04-01 15:29] LABS: Troponin I 0.318 ng/mL (0.01-0.034)
[2020-04-01 15:54] LABS: COVID19 -Nasal RAPID Negative (Negative)
[2020-04-01] MEDS: FUROSEMIDE 100 MG/10 ML VIAL 60 MG IV (16:12)
[2020-04-01] MEDS: fentaNYL 100 MCG/2 ML INJ 25 MCG IV (16:48)
[2020-04-01] MEDS: propofoL 200 MG/20 ML VIAL 100 MG IV (16:50)
--- NOTE | 2020-04-15 14:40 | PC.NURSE ---
Late entry: Procedural sedation complete 1705 hours.
== END 2020-04-01 18:11 | disposition home or self-care (01) ==
PROVIDERS: Emergency Provider Emergency Medicine; PCP Family Medicine
DX: I48.91 Unspecified atrial fibrillation (principal); I25.10 Atherosclerotic heart disease of native coronary artery without angina pectoris; C34.91 Malignant neoplasm of unspecified part of right bronchus or lung; Z79.01 Long term (current) use of anticoagulants; I50.9 Heart failure, unspecified; I10 Essential (primary) hypertension
CPT/HCPCS: 36415; 71045; 80053; 82550; 83690; 83880; 84484; 85025; 87635; 92960; 93005; 93010; 94770; 96374; 96375; 99152; 99284; 99285; J1940; J2704; J3010

== ENCOUNTER 2020-05-23 17:16 | Emergency (ER) | payer MEDICARE, SELFPAY ==
[2020-02-27 21:12] VITALS: BMI 30.9
[2020-05-23] VITALS (18 sets, daily range): BP systolic 96–139; BP diastolic 57–72; PULSE 76–117; RESP 21–47; TEMP 36.4; O2SAT 94–97; BMI 30.9
--- NOTE | 2020-05-23 17:39 | DI.RAD.S_ITS ---
PROCEDURE: XR CHEST 1V INDICATIONS: chest pain TECHNIQUE: One view of the chest was acquired. COMPARISON: [facility], CR, XR CHEST 1V, 04/01/2020, 14:49. FINDINGS: Surgical changes and devices: None. Lungs and pleura: Mild patchy opacity within the right lower lung. No pleural effusions or pneumothorax. Mediastinum: Mediastinal contours appear normal. Heart size is enlarged. Bones and chest wall: No suspicious bony lesions. Overlying soft tissues appear unremarkable. IMPRESSION: 1. Mild right lower lung pneumonia. Continued plain film surveillance is recommended to ensure resolution, and to exclude underlying or central malignancy. 2. Cardiomegaly. Dictated by: Judith Smith M.D. on 05/23/2020 at 18:45 Approved by: Judith Smith M.D. on 05/23/2020 at 18:45
[2020-05-23 17:56] LABS: INR 1.6 (0.9-1.3); Prothrombin Time 18.5 SECONDS (10.1-12.7)
[2020-05-23 17:59] LABS: PTT Partial Thromboplastin Tim 34 SECONDS (26.4-36.2)
[2020-05-23 18:01] LABS: Add Manual Diff / Slide Review NO; Alanine Aminotransferase 11 IU/L (<35); Albumin 4.1 g/dL (3.5-5.0); Albumin Globulin Ratio 1.2 (1.0-2.8); Alkaline Phosphatase 86 U/L (38-126); Aspartate Aminotransferase 19 IU/L (14-36); BUN Creatinine Ratio 20.1 (6-22); Basophils Absolute Auto 100 /uL (0-100); Basophils Percent Auto 1.9 % (0-2); Bilirubin Total 0.4 mg/dL (0.2-1.3); Blood Urea Nitrogen 42 mg/dL (7-17); Calcium 9.4 mg/dL (8.4-10.2); Carbon Dioxide 37 mmol/L (22-32); Chloride 104 mmol/L (98-107); Creatine Kinase 35 U/L (30-135); Eosinophils Absolute Auto 500 /uL (0-450); Eosinophils Percent Auto 7.4 % (2-4); Estimated Glomerular Filt Rate 23.2 mL/min (>60); Globulin 3.3 g/dL (1.7-4.1); Glucose 119 mg/dL (80-110); HEMOLYSIS < 15 (0-50); Hematocrit 33.7 % (36-46); Hemoglobin 10.4 g/dL (12.0-16.0); Lipase 209 U/L (23-300); Lymphocytes Absolute Auto 700 /uL (1100-4500); Lymphocytes Percent Auto 10.6 % (25-40); Magnesium 2.3 mg/dL (1.6-2.3); Mean Corpuscular HGB Conc 30.9 % (30-36); Mean Corpuscular Hemoglobin 24.4 PG (26-34); Monocytes Absolute Auto 700 /uL (0-900); Monocytes Percent Auto 10.4 % (3-14); Neutrophils Absolute Auto 4700 /uL (1500-7000); Neutrophils Percent Auto 69.7 % (50-75); Platelet Count 257 X10^3/uL (150-400); Potassium 4.1 mmol/L (3.4-5.1); Red Blood Cell Count 4.27 X10^6/uL (4.0-5.2); Red Cell Distribution Width 17.8 % (11.6-14.8); Sodium 144 mmol/L (137-145); Total Protein 7.4 g/dL (6.3-8.2); White Blood Cell Count 6.7 X10^3/uL (4.5-11.0)
--- NOTE | 2020-05-23 18:01 | ED.SOB ---
HPI - SOB/Dyspnea General Chief Complaint: Shortness of Breath/Dyspnea Stated Complaint: breathing issues, states has CHF Time Seen by Provider: 05/23/20 18:00 Source: patient and family Mode of arrival: Wheelchair Limitations: no limitations History of Present Illness HPI Narrative: 74-year-old female former smoker with history of heart failure, coronary artery disease, lung cancer, COPD presents with shortness of breath over the course of the day. She does not use home oxygen but apparently after recent hospitalizations there has been talk about establishing it for her at home. Her shortness of breath seems to worsen with exertion. She has had some cough but denies any productive sputum. She denies any runny nose, sore throat nor fever or chills. She is not dizzy nor lightheaded. She denies nausea, vomiting or diarrhea. She denies any significant weight gain but does states that her legs feel bit puffy. [facility] just [facility] Complaint: shortness of breath Onset (ago): hour(s) Context: occurred during exertion Severity: mild Consistency/Duration: intermittent Relieving factors: oxygen and rest Exacerbating factors: exertion Known history of: COPD and congestive heart failure Associated symptoms: cough Treatment prior to arrival: oxygen Related Data Home oxygen amount: none Home Medications Medication Instructions Recorded Confirmed acetaminophen [Tylenol] 650 mg PO Q4H PRN 02/27/20 04/09/20 rosuvastatin mg 03/24/20 04/09/20 metoprolol succinate 50 mg 50 mg PO DAILY 04/09/20 tablet,extended release 24 hr Previous Rx's Medication Instructions Recorded Disabled Parking Placard #1 ea 07/14/18 triamcinolone acetonide 0.1 % 1 applictn TOP DAILY #453.6 gram 12/20/18 topical ointment albuterol sulfate 90 mcg/actuation 2 puff INHALATION Q4-6H PRN #18 03/19/20 aerosol inhaler gram ipratropium 0.5 mg-albuterol 3 mg 3 ml INHALATION Q6H PRN #180 ml 04/03/20 (2.5 mg base)/3 mL nebulization soln furosemide 40 mg tablet 40 mg PO BID #60 tab 04/09/20 tramadol 50 mg tablet 50 mg PO Q6H PRN #60 tab 04/09/20 warfarin 5 mg tablet 5 mg PO DAILY #90 tab 04/09/20 amoxicillin-pot clavulanate 1 tab PO BID #20 tab 05/23/20 [Augmentin] Allergies Allergy/AdvReac Type Severity Reaction Status Date / Time atorvastatin [ATORVASTATIN] AdvReac Intermediate Nausea and Verified 05/23/20 17:21 vomiting Review of Systems Constitutional Constitutional: Denies chills, Reports fatigue, Denies fever(s), Denies frequent falls, Denies lethargy and Reports weakness Eyes Eyes: Denies change in vision, Denies eye discharge, Denies irritation and Denies loss of vision ENT Ears, Nose, Mouth, and Throat: Denies change in voice, Denies dizziness, Denies neck pain, Denies sore throat and Denies throat swelling Cardiovascular Cardiovascular: Denies chest pain, Denies irregular heart rhythm, Denies lightheadedness, Denies palpitations, Reports dyspnea, Reports dyspnea on exertion and Denies orthopnea Respiratory Respiratory: Denies cough, Reports dyspnea, Reports dyspnea on exertion and Denies wheezing Gastrointestinal Gastrointestinal: Denies abdominal pain, Denies change in bowel habits, Denies diarrhea, Denies nausea and Denies vomiting Musculoskeletal Musculoskeletal: Denies neck pain and Denies numbness Integumentary/Breasts Skin/Breast: Denies pruritus, Denies erythema, Denies rash and Denies wounds Neurologic Neurologic: Denies behavioral changes, Denies confusion, Denies dizziness, Denies frequent falls, Denies loss of vision, Denies numbness and Reports weakness Psychiatric Psychiatric: Denies anxiety, Denies behavioral changes, Denies confusion, Denies depression, Denies homicidal ideation and Denies suicidal ideation Endocrine Endocrine: Reports fatigue, Denies flushing and Denies palpitations Hematologic/Lymphatic Hematologic/Lymphatic: Denies easy bruising Allergic/Immunologic Allergic/Immunologic: Denies urticaria, Denies throat swelling and Denies wheezing Patient History Medical History AAA (abdominal aortic aneurysm) (~2005) Arthritis of left hip Atrial fibrillation with RVR (02/18/18) Bilateral lower extremity edema Chronic left hip pain CKD (chronic kidney disease) stage 3, GFR 30-59 ml/min Congestive heart failure Fibromyalgia History of ectopic (1975) Hyperlipidemia Hypertension Lung mass Osteopenia (03/19/09) Poor circulation of extremity Surgical History History of cone biopsy of cervix (1991) History of gynecologic surgery (1975) History of tubal ligation (1977) Family History Brother Essential hypertension Arthritis Heart disease Hyperlipidemia Mother Heart disease Sister Diabetes mellitus Essential hypertension Hyperlipidemia Breast cancer Father Multiple myeloma Grandfather Cancer Grandmother Cancer Grandmother No problems noted. Social History household members: family Smoking Status: Former smoker Tobacco: How many years used: 30 second hand exposure: No alcohol intake: never substance use type: does not use Smoking Status: Former smoker alcohol intake frequency: other Substance Use Type: does not use Exam Narrative Exam Narrative: GENERAL: [74] year old patient appears older than stated age. Chronically ill, however no significant obvious distress HEAD: Atraumatic. Normocephalic. EYES: Pupils equal round and reactive. Extraocular motions intact. No scleral icterus. No injection or drainage. ENT: Nose without bleeding, purulent drainage. Throat without erythema, tonsillar hypertrophy or exudate. Airway patent. NECK: Trachea midline. Non tender CARDIOVASCULAR: Regular rate and rhythm without murmurs, gallops, or rubs. RESPIRATORY: Decreased breath sounds bilaterally with prolonged expiratory phase, no crackles or rhonchi noted GASTROINTESTINAL: Abdomen soft, non-tender, nondistended. EXTREMITIES: No edema or joint tenderness. BACK: Nontender without deformity or crepitance. No flank tenderness. NEURO: AOx3. SKIN: No rash or erythema of visible areas Initial Vital Signs Initial Vital Signs: Vital Signs Temperature 97.5 F L 05/23/20 17:22 Pulse Rate 95 H 05/23/20 17:22 Respiratory Rate 24 05/23/20 17:22 Blood Pressure 96/61 05/23/20 17:22 Pulse Oximetry 94 05/23/20 17:22 Course Orders Ordered: Discontinued Medications Amoxicillin/Clavulanate Potassium (Amoxicillin/Clav 875/125 Mg) 1 tab PO NOW ONE Stop: 05/23/20 19:49 Last Admin: 05/23/20 20:47 Dose: 1 tab Documented by: MIKE Furosemide (Furosemide 40 Mg/4 Ml Vial) 40 mg IV NOW ONE Stop: 05/23/20 19:49 Last Admin: 05/23/20 20:51 Dose: Not Given Documented by: MIKE Vital Signs Vital signs: Vital Signs - 8 hr 05/23/20 17:22 05/23/20 17:45 Temperature 97.5 F L Pulse Rate 95 H 82 Respiratory Rate 24 32 H Blood Pressure 96/61 139/57 L Pulse Oximetry 94 96 MDM - SOB/Dyspnea Lab Data Result diagrams: 05/23/20 17:33 05/23/20 17:33 Labs: Lab Results 05/23/20 05/23/20 05/23/20 Range/Units 17:33 17:33 17:33 WBC 6.7 (4.5-11.0) X10^3/uL RBC 4.27 (4.0-5.2) X10^6/uL Hgb 10.4 L (12.0-16.0) g/dL Hct 33.7 L (36-46) % MCV 79.0 L (80-100) fL MCH 24.4 L (26-34) PG MCHC 30.9 (30-36) % RDW 17.8 H (11.6-14.8) % Plt Count 257 (150-400) X10^3/uL Neut % (Auto) 69.7 (50-75) % Lymph % (Auto) 10.6 L (25-40) % [place] % (Auto) 10.4 (3-14) % Eos % (Auto) 7.4 H (2-4) % Baso % (Auto) 1.9 (0-2) % Neut # (Auto) 4700 (4052-8911) /uL Lymph # (Auto) 700 L (9734-9859) /uL [place] # (Auto) 700 (0-900) /uL Eos # (Auto) 500 H (0-450) /uL Baso # (Auto) 100 (0-100) /uL PT 18.5 H (10.1-12.7) SECONDS INR 1.6 H (0.9-1.3) APTT 34 (26.4-36.2) SECONDS Sodium 144 (137-145) mmol/L Potassium 4.1 (3.4-5.1) mmol/L Chloride 104 (98-107) mmol/L Carbon Dioxide 37 H (22-32) mmol/L BUN 42 H (7-17) mg/dL Creatinine 2.09 H (0.52-1.04) mg/dL Estimated GFR 23.2 L (>60) mL/min BUN/Creatinine Ratio 20.1 (6-22) Glucose 119 H (80-110) mg/dL Lactate (0.7-2.1) mmol/L Calcium 9.4 (8.4-10.2) mg/dL Magnesium 2.3 (1.6-2.3) mg/dL Total Bilirubin 0.4 (0.2-1.3) mg/dL AST 19 (14-36) IU/L ALT 11 (<35) IU/L Alkaline Phosphatase 86 (38-126) U/L Total Creatine Kinase 35 (30-135) U/L CK-MB (CK-2) TNP CK-MB (CK-2) Rel Index TNP Troponin I 0.013 (0.01-0.034) ng/mL NT-Pro-B Natriuret Pep 9500 H (<125) pg/mL Total Protein 7.4 (6.3-8.2) g/dL Albumin 4.1 (3.5-5.0) g/dL Globulin 3.3 (1.7-4.1) g/dL Albumin/Globulin Ratio 1.2 (1.0-2.8) Lipase 209 (23-300) U/L Procalcitonin (<0.5) ng/mL SARS-CoV-2 (PCR) (Negative) 05/23/20 05/23/20 05/23/20 Range/Units 17:33 17:33 17:55 WBC (4.5-11.0) X10^3/uL RBC (4.0-5.2) X10^6/uL Hgb (12.0-16.0) g/dL Hct (36-46) % MCV (80-100) fL MCH (26-34) PG MCHC (30-36) % RDW (11.6-14.8) % Plt Count (150-400) X10^3/uL Neut % (Auto) (50-75) % Lymph % (Auto) (25-40) % [place] % (Auto) (3-14) % Eos % (Auto) (2-4) % Baso % (Auto) (0-2) % Neut # (Auto) (3821-6315) /uL Lymph # (Auto) (5370-4591) /uL [place] # (Auto) (0-900) /uL Eos # (Auto) (0-450) /uL Baso # (Auto) (0-100) /uL PT (10.1-12.7) SECONDS INR (0.9-1.3) APTT (26.4-36.2) SECONDS Sodium (137-145) mmol/L Potassium (3.4-5.1) mmol/L Chloride (98-107) mmol/L Carbon Dioxide (22-32) mmol/L BUN (7-17) mg/dL Creatinine (0.52-1.04) mg/dL Estimated GFR (>60) mL/min BUN/Creatinine Ratio (6-22) Glucose (80-110) mg/dL Lactate 1.0 (0.7-2.1) mmol/L Calcium (8.4-10.2) mg/dL Magnesium (1.6-2.3) mg/dL Total Bilirubin (0.2-1.3) mg/dL AST (14-36) IU/L ALT (<35) IU/L Alkaline Phosphatase (38-126) U/L Total Creatine Kinase (30-135) U/L CK-MB (CK-2) CK-MB (CK-2) Rel Index Troponin I (0.01-0.034) ng/mL NT-Pro-B Natriuret Pep (<125) pg/mL Total Protein (6.3-8.2) g/dL Albumin (3.5-5.0) g/dL Globulin (1.7-4.1) g/dL Albumin/Globulin Ratio (1.0-2.8) Lipase (23-300) U/L Procalcitonin < 0.05 (<0.5) ng/mL SARS-CoV-2 (PCR) Negative (Negative) 05/23/20 Range/Units 19:51 WBC (4.5-11.0) X10^3/uL RBC (4.0-5.2) X10^6/uL Hgb (12.0-16.0) g/dL Hct (36-46) % MCV (80-100) fL MCH (26-34) PG MCHC (30-36) % RDW (11.6-14.8) % Plt Count (150-400) X10^3/uL Neut % (Auto) (50-75) % Lymph % (Auto) (25-40) % [place] % (Auto) (3-14) % Eos % (Auto) (2-4) % Baso % (Auto) (0-2) % Neut # (Auto) (0151-9277) /uL Lymph # (Auto) (6199-8736) /uL [place] # (Auto) (0-900) /uL Eos # (Auto) (0-450) /uL Baso # (Auto) (0-100) /uL PT (10.1-12.7) SECONDS INR (0.9-1.3) APTT (26.4-36.2) SECONDS Sodium (137-145) mmol/L Potassium (3.4-5.1) mmol/L Chloride (98-107) mmol/L Carbon Dioxide (22-32) mmol/L BUN (7-17) mg/dL Creatinine (0.52-1.04) mg/dL Estimated GFR (>60) mL/min BUN/Creatinine Ratio (6-22) Glucose (80-110) mg/dL Lactate (0.7-2.1) mmol/L Calcium (8.4-10.2) mg/dL Magnesium (1.6-2.3) mg/dL Total Bilirubin (0.2-1.3) mg/dL AST (14-36) IU/L ALT (<35) IU/L Alkaline Phosphatase (38-126) U/L Total Creatine Kinase (30-135) U/L CK-MB (CK-2) CK-MB (CK-2) Rel Index Troponin I 0.012 (0.01-0.034) ng/mL NT-Pro-B Natriuret Pep (<125) pg/mL Total Protein (6.3-8.2) g/dL Albumin (3.5-5.0) g/dL Globulin (1.7-4.1) g/dL Albumin/Globulin Ratio (1.0-2.8) Lipase (23-300) U/L Procalcitonin (<0.5) ng/mL SARS-CoV-2 (PCR) (Negative) Imaging Data Chest x-ray: Radiologist's Impression: Lisa Gurrola 74 F [address] [id number] ReportSigned Patient: Lisa Gurrola LMR#: [id number]: 7Acct:[id number]/Sex: 74 / FDate of Service: 05/23/20Loc: EDAccession Number: [id number] Procedure: XR chest 1V Ordering Provider: Kenna Ray D.O. PROCEDURE: XR CHEST 1V INDICATIONS: chest pain TECHNIQUE: One view of the chest was acquired. COMPARISON: [facility], , XR CHEST 1V, 04/01/2020, 14:49. FINDINGS: Surgical changes and devices: None. Lungs and pleura: Mild patchy opacity within the right lower lung. No pleural effusions or pneumothorax. Mediastinum: Mediastinal contours appear normal. Heart size is enlarged. Bones and chest wall: No suspicious bony lesions. Overlying soft tissues appear unremarkable. IMPRESSION: 1. Mild right lower lung pneumonia. Continued plain film surveillance is recommended to ensure resolution, and to exclude underlying or central malignancy. 2. Cardiomegaly. Dictated by: Judith Smith M.D. on 05/23/2020 at 18:45 Approved by: Judith Smith M.D. on 05/23/2020 at 18:45 MDM Narrative Medical decision making narrative: Patient likely has multifactorial contributions to her shortness of breath including exacerbation of COPD, mild exacerbation of CHF and possible right lower lobe pneumonia. She does not require supplemental oxygen, demonstrates no signs of sepsis and is largely at her baseline. She is a good candidate for trial of outpatient therapy. She has been given extensive return precautions and encouraged to follow-up closely with her primary care provider. Discharge Plan Departure Patient Disposition: Home Clinical Impression: Acute dyspnea Acute CHF Qualifiers: Heart failure type: unspecified Qualified Code(s): I50.9 - Heart failure, unspecified Pneumonia Qualifiers: Pneumonia type: due to unspecified organism Laterality: right Lung location: lower lobe of lung Qualified Code(s): J18.9 - Pneumonia, unspecified organism Instructions: DI for Shortness of Breath Activity Restrictions/Additional Instructions: *You have been diagnosed with [shortness of breath, likely due to a combination of factors. Chest x-ray was suggest possibly a small pneumonia in your right lower lobe. Your story, exam and labs suggest a bit of fluid overload, otherwise your exam, story and workup is very reassuring.] *What to do: *Take medications as directed: Please take an extra Lasix 40 mg tablet (for total of 3 daily) over the weekend. Antibiotic was sent to [facility] in [place] *Follow up with your primary care provider in 2-3 days, call for an appointment. Let them know you were seen in the Emergency Department and that we ask that you be seen in follow up. You have been prescribed an antibiotic for your pneumonia. Antibiotics have the potential to affect your Coumadin levels and make you at risk for bleeding. *Return to ER if you should have any new, worsening or concerning symptoms Prescriptions: New amoxicillin-pot clavulanate [Augmentin] 875-125 mg tablet 1 tab PO BID Qty: 20 RF: 0 No Action (DME) Disabled Parking Placard Qty: 1 RF: 0 albuterol sulfate 90 mcg/actuation HFA aerosol inhaler 2 puff INHALATION Q4-6H PRN (Reason: shortness of breath or wheezing) Qty: 18 RF: 3 ipratropium-albuterol 0.5 mg-3 mg(2.5 mg base)/3 mL solution for nebulization 3 ml INHALATION Q6H PRN (Reason: shortness of breath) Qty: 180 RF: 1 metoprolol succinate 50 mg tablet extended release 24 hr 50 mg PO DAILY RF: 0 triamcinolone acetonide 0.1 % ointment 1 applictn TOP DAILY Qty: 453.6 RF: 0 furosemide [Lasix] 40 mg tablet 40 mg PO BID Qty: 60 RF: 5 warfarin 5 mg tablet 5 mg PO DAILY Qty: 90 RF: 1 tramadol [Ultram] 50 mg tablet 50 mg PO Q6H PRN (Reason: pain) Qty: 60 RF: 0 acetaminophen [Tylenol] 325 mg Capsule 650 mg PO Q4H PRN (Reason: Pain, Moderate) RF: 0 rosuvastatin 10 mg Tablet RF: 0 Referrals: Arturo Champagne, [Primary Care Provider] -
[2020-05-23 18:16] LABS: NT-proBNP (BNP-Adult 18+) 9500 pg/mL (<125); Troponin I 0.013 ng/mL (0.01-0.034)
[2020-05-23 18:20] LABS: COVID19 -Nasal RAPID Negative (Negative)
[2020-05-23 18:23] LABS: Procalcitonin < 0.05 ng/mL (<0.5)
--- NOTE | 2020-05-23 18:43 | PC.NURSE ---
bilateral toes are blue/purple. pulses via dopper w/o difficulty. + CSM
[2020-05-23 20:17] LABS: Troponin I 0.012 ng/mL (0.01-0.034)
[2020-05-23] MEDS: AMOXICILLIN/CLAV 875/125 MG 1 TAB PO (20:47)
== END 2020-05-23 21:02 | disposition home or self-care (01) ==
PROVIDERS: Emergency Medicine; Emergency Provider Emergency Medicine; PCP Family Medicine
DX: J18.9 Pneumonia, unspecified organism (principal); I50.9 Heart failure, unspecified; R06.00 Dyspnea, unspecified; I25.10 Atherosclerotic heart disease of native coronary artery without angina pectoris; J44.9 Chronic obstructive pulmonary disease, unspecified; R53.1 Weakness; I48.91 Unspecified atrial fibrillation; Z20.822 Contact with and (suspected) exposure to COVID-19
CPT/HCPCS: 36415; 71045; 80053; 82550; 83605; 83690; 83735; 83880; 84145; 84484; 85025; 85610; 85730; 87635; 93005; 99283; 99284; C9803

== ENCOUNTER → 2020-07-14 15:26 | Outpatient (CLI) | payer MEDICARE, SELFPAY ==
[2020-02-27 21:12] VITALS: BMI 30.9
[2020-07-14 16:03] LABS: Hematocrit 35.9 % (36-46); Hemoglobin 11.1 g/dL (12.0-16.0); Mean Corpuscular HGB Conc 30.8 % (30-36); Mean Corpuscular Hemoglobin 24.3 PG (26-34); Platelet Count 255 X10^3/uL (150-400); Red Blood Cell Count 4.54 X10^6/uL (4.0-5.2); Red Cell Distribution Width 20.8 % (11.6-14.8); White Blood Cell Count 5.7 X10^3/uL (4.5-11.0)
[2020-07-14 16:18] LABS: BUN Creatinine Ratio 20.5 (6-22); Blood Urea Nitrogen 38 mg/dL (7-17); Calcium 9.5 mg/dL (8.4-10.2); Carbon Dioxide 35 mmol/L (22-32); Chloride 102 mmol/L (98-107); Estimated Glomerular Filt Rate 26.7 mL/min (>60); Glucose 101 mg/dL (80-110); HEMOLYSIS < 15 (0-50); Potassium 3.9 mmol/L (3.4-5.1); Sodium 144 mmol/L (137-145)
== END ==
PROVIDERS: PCP Family Medicine; Referring Provider Internal Medicine Nephrology; Visit Provider Internal Medicine Nephrology
DX: N05.9 Unspecified nephritic syndrome with unspecified morphologic changes (principal); D70.9 Neutropenia, unspecified; D63.1 Anemia in chronic kidney disease
CPT/HCPCS: 36415; 80048; 85027

== ENCOUNTER 2020-07-31 13:56 | Emergency (ER) | payer MEDICARE, SELFPAY ==
[2020-02-27 21:12] VITALS: BMI 30.9
[2020-07-31] VITALS (13 sets, daily range): BP systolic 95–133; BP diastolic 55–84; PULSE 87–145; RESP 15–31; TEMP 36.2; O2SAT 86–100; BMI 28.3
--- NOTE | 2020-07-31 14:54 | DI.RAD.S_ITS ---
PROCEDURE: XR CHEST 1V INDICATIONS: Dyspnea TECHNIQUE: One view of the chest was acquired. COMPARISON: [facility], CR, XR CHEST 1V, 05/23/2020, 18:12. FINDINGS: Surgical changes and devices: Linear density is again seen projecting in the region of right mid to lower lung field/right breast unchanged from prior study.. Lungs and pleura: Lungs are clear. No pleural effusions or pneumothorax. Mediastinum: Mediastinal contours appear normal. Heart size is enlarged. Bones and chest wall: No suspicious bony lesions. Overlying soft tissues appear unremarkable. IMPRESSION: No acute cardiopulmonary pathology. Dictated by: Nolan Thomson M.D. on 07/31/2020 at 15:14 Approved by: Nolan Thomson M.D. on 07/31/2020 at 15:17
--- NOTE | 2020-07-31 14:54 | ED.EXTPRO ---
HPI - Extremity Problem General Chief complaint: Extremity Problem,Nontraumatic Stated complaint: fluid in her legs/feet. Dr sent her here Time Seen by Provider: 07/31/20 14:39 Source: patient Mode of arrival: Wheelchair Limitations: no limitations History of Present Illness HPI Narrative: The patient has a history of AFib with RVR, CHF and renal failure. Also, she is currently under treatment for lung cancer. Over the last week she developed orthopnea, and bilateral lower extremity edema. She denies chest pain. She denies palpitations. She has no productive cough. She has no mopped assist. She has a sore on her left leg that is oozing clear fluid. There is no purulent discharge. She is anticoagulated with Coumadin. She takes metoprolol for rate control, Lasix for the CHF/edema. She is referred here by her building services coordinator. Records were obtained from Cardiology reviewed. She underwent a right heart catheterization 04/13/2020, with a PA pressure of 53/35. A limited echo 03/2020 showed an ejection fraction of 35% with moderate mitral regurg. Related Data Home Medications Medication Instructions Recorded Confirmed acetaminophen [Tylenol] 650 mg PO Q4H PRN 02/27/20 07/14/20 Previous Rx's Medication Instructions Recorded Disabled Parking Placard #1 ea 07/14/18 triamcinolone acetonide 0.1 % 1 applictn TOP DAILY #453.6 gram 12/20/18 topical ointment albuterol sulfate 90 mcg/actuation 2 puff INHALATION Q4-6H PRN #18 03/19/20 aerosol inhaler gram ipratropium 0.5 mg-albuterol 3 mg 3 ml INHALATION Q6H PRN #180 ml 04/03/20 (2.5 mg base)/3 mL nebulization soln tramadol 50 mg tablet 50 mg PO Q6H PRN #60 tab 04/09/20 furosemide 40 mg tablet 40 mg PO BID #60 tab 05/27/20 warfarin 3 mg tablet 3 mg PO DAILY #90 tab 05/27/20 diclofenac sodium 3 % topical gel 1 applic TOPICAL BID #100 g 07/16/20 oxycodone 5 mg tablet 5 mg PO BID PRN #30 tab 07/16/20 Allergies Allergy/AdvReac Type Severity Reaction Status Date / Time atorvastatin [ATORVASTATIN] AdvReac Intermediate Nausea and Verified 07/31/20 14:03 vomiting Review of Systems Constitutional Constitutional: Denies chills and Denies fever(s) ENT Ears, Nose, Mouth, and Throat: Denies dizziness, Denies neck pain and Denies sore throat Cardiovascular Cardiovascular: Denies chest pain, Reports irregular heart rhythm, Denies lightheadedness and Reports dyspnea Respiratory Respiratory: Reports cough, Reports dyspnea and Denies wheezing Comments: No hemoptysis. Gastrointestinal Gastrointestinal: Denies abdominal pain, Denies change in bowel habits, Denies diarrhea, Denies nausea and Denies vomiting Musculoskeletal Musculoskeletal: Denies back pain, Denies neck pain and Denies numbness Comments: Lower extremity edema and pain. Integumentary/Breasts Comments: Small open lesion left anterior fibula. Watery discharge. No pus. Neurologic Neurologic: Denies behavioral changes, Denies confusion, Denies dizziness and Denies numbness Psychiatric Psychiatric: Denies behavioral changes and Denies confusion Allergic/Immunologic Allergic/Immunologic: Denies wheezing Patient History Medical History AAA (abdominal aortic aneurysm) (~2005) Arthritis of left hip Atrial fibrillation with RVR (02/18/18) Bilateral lower extremity edema Chronic left hip pain CKD (chronic kidney disease) stage 3, GFR 30-59 ml/min Congestive heart failure Fibromyalgia History of ectopic (1975) Hyperlipidemia Hypertension Lung mass Olecranon bursitis Osteopenia (03/19/09) Poor circulation of extremity Surgical History History of cone biopsy of cervix (1991) History of gynecologic surgery (1975) History of tubal ligation (1977) Family History Brother Essential hypertension Arthritis Heart disease Hyperlipidemia Mother Heart disease Sister Diabetes mellitus Essential hypertension Hyperlipidemia Breast cancer Father Multiple myeloma Grandfather Cancer Grandmother Cancer Grandmother No problems noted. Social History household members: family Smoking Status: Former smoker Tobacco: How many years used: 30 second hand exposure: No alcohol intake: never substance use type: does not use Smoking Status: Former smoker alcohol intake frequency: holidays/special occasions only Substance Use Type: does not use Exam Initial Vital Signs Initial Vital Signs: Vital Signs Temperature 97.2 F L 07/31/20 14:03 Pulse Rate 145 H 07/31/20 14:03 Respiratory Rate 15 07/31/20 14:03 Blood Pressure 128/82 07/31/20 14:03 Pulse Oximetry 99 07/31/20 14:03 Const General: cooperative and well developed Nutritional Appearance: well nourished [facility] Head: normocephalic and atraumatic Mouth: oral mucosae normal Eyes Pupils: PERRL EOM: EOM intact bilaterally Neck Neck: No JVD Chest Chest: normal palpation of entire chest wall Resp Other: Slight wheezes in the right upper lung, diminished breath sounds throughout, otherwise clear. Cardio Other: Irregular, irregular rhythm. Normal S1-S2. No murmur. GI Palpation: soft, no hepatosplenomegaly, No guarding and No tender Auscultation: normal bowel sounds Back/Spine/Pelvis Back: No back tenderness and No CVA tenderness Skin General: no rashes or lesions noted, No jaundice and No petechiae Neuro General: patient alert, patient oriented x3, gait normal and no focal motor deficits Speech: speech normal Extrem Other: 4+ bilateral lower extremity edema. Small ulcer on the left mid tibia. Ecchymosis to the distal toes on both feet, apparently chronic in nature. Dorsalis pedis pulses are discovered bilaterally with Doppler only. Psych Mental Status: mental status grossly normal Course Course Course Narrative: The patient has improved significantly with the management here in the ER. She has significant urine output. The edema in her legs is already improved. She was in AFib with RVR. Heart rate is in the 80-90 following IV Cardizem and oral Lopressor. Chest x-ray reveals severe cardiomegaly with CHF she has had an echo in recent months. She may benefit from a repeat echo. She currently takes Metoprolol ER 25 mg daily, I intend to increase her Metoprolol ER dose to 50 mg daily. Her heart rate improved from 140-150s to 80s-90s with the medications. Orders Ordered: ED Orders 07/31/20 14:45 Wound Culture and Gram Stain Stat 07/31/20 14:54 XR chest 1V Stat 07/31/20 15:20 Complete Blood Count AUTO DIFF Stat Comprehensive Metabolic Panel Stat NT-proBNP (BNP-Adult 18+) Stat Partial Thromboplastin Time Stat Prothrombin Time INR Stat Troponin & CK Cardiac Panel Stat Discontinued Medications Diltiazem HCl (Diltiazem 5 Mg/Ml Sdv) 5 mg IV NOW ONE Stop: 07/31/20 14:57 Last Admin: 07/31/20 15:11 Dose: 5 mg Documented by: KBROTEM Furosemide (Furosemide 40 Mg/4 Ml Vial) 40 mg IV NOW ONE Stop: 07/31/20 14:57 Last Admin: 07/31/20 15:11 Dose: 40 mg Documented by: KBROTEM Metoprolol Tartrate (Metoprolol Ir 25 Mg Tablet) 50 mg PO NOW ONE Stop: 07/31/20 15:52 Last Admin: 07/31/20 17:47 Dose: 50 mg Documented by: BTONER Vital Signs Vital signs: Vital Signs - 8 hr 07/31/20 14:03 07/31/20 14:24 07/31/20 14:25 Temperature 97.2 F L Pulse Rate 145 H 123 H Respiratory Rate 15 20 Blood Pressure 128/82 104/72 Pulse Oximetry 99 100 07/31/20 14:30 07/31/20 15:00 07/31/20 15:11 Temperature Pulse Rate 131 H 108 H 141 H Respiratory Rate 22 20 Blood Pressure 95/65 Pulse Oximetry 99 100 07/31/20 15:16 07/31/20 15:20 07/31/20 15:30 Temperature Pulse Rate 124 H 101 H 111 H Respiratory Rate 24 26 H 23 Blood Pressure 118/73 110/68 Pulse Oximetry 96 100 99 07/31/20 16:00 07/31/20 16:30 07/31/20 17:00 Temperature Pulse Rate 107 H 94 H 87 Respiratory Rate 23 22 25 H Blood Pressure 105/55 L 118/71 124/82 Pulse Oximetry 86 L 100 98 07/31/20 17:30 Temperature Pulse Rate 121 H Respiratory Rate 31 H Blood Pressure 133/84 Pulse Oximetry 98 MDM - Extremity (Nontraumatic) Lab Data Result diagrams: 07/31/20 15:20 07/31/20 15:20 Labs: Lab Results 07/31/20 07/31/20 07/31/20 Range/Units 15:20 15:20 15:20 WBC 6.1 (4.5-11.0) X10^3/uL RBC 4.38 (4.0-5.2) X10^6/uL Hgb 10.7 L (12.0-16.0) g/dL Hct 35.2 L (36-46) % MCV 80.3 (80-100) fL MCH 24.5 L (26-34) PG MCHC 30.5 (30-36) % RDW 21.2 H (11.6-14.8) % Plt Count 297 (150-400) X10^3/uL Neut % (Auto) 75.1 H (50-75) % Lymph % (Auto) 7.3 L (25-40) % Geary % (Auto) 9.9 (3-14) % Eos % (Auto) 6.5 H (2-4) % Baso % (Auto) 1.2 (0-2) % Neut # (Auto) 4600 (1464-2363) /uL Lymph # (Auto) 400 L (4099-3218) /uL Geary # (Auto) 600 (0-900) /uL Eos # (Auto) 400 (0-450) /uL Baso # (Auto) 100 (0-100) /uL RBC Morphology See below Anisocytosis 1+ H PT 16.8 H (10.1-12.7) SECONDS INR 1.5 H (0.9-1.3) APTT 33 (26.4-36.2) SECONDS Sodium 142 (137-145) mmol/L Potassium 3.9 (3.4-5.1) mmol/L Chloride 102 (98-107) mmol/L Carbon Dioxide 32 (22-32) mmol/L BUN 34 H (7-17) mg/dL Creatinine 1.57 H (0.52-1.04) mg/dL Estimated GFR 32.3 L (>60) mL/min BUN/Creatinine Ratio 21.7 (6-22) Glucose 115 H (80-110) mg/dL Calcium 9.5 (8.4-10.2) mg/dL Total Bilirubin 0.3 (0.2-1.3) mg/dL AST 21 (14-36) IU/L ALT 10 (<35) IU/L Alkaline Phosphatase 89 (38-126) U/L Total Creatine Kinase 21 L (30-135) U/L CK-MB (CK-2) TNP CK-MB (CK-2) Rel Index TNP Troponin I < 0.012 (0.01-0.034) ng/mL NT-Pro-B Natriuret Pep 4610 H (<125) pg/mL Total Protein 7.3 (6.3-8.2) g/dL Albumin 3.9 (3.5-5.0) g/dL Globulin 3.4 (1.7-4.1) g/dL Albumin/Globulin Ratio 1.1 (1.0-2.8) Imaging Data Chest x-ray: Radiologist's Impression: No acute cardiopulmonary process. ECG Data Attestation EKG: I personally reviewed and interpreted this ECG as follows: (AFib with RVR, rate 118 beats per minute. Nonspecific ST T wave changes. No ectopy.) Discharge Plan Departure Patient Disposition: Home Clinical Impression: Peripheral vascular disease Congestive heart failure Qualifiers: Heart failure type: unspecified Heart failure chronicity: chronic Qualified Code(s): I50.9 - Heart failure, unspecified Atrial fibrillation Qualifiers: Atrial fibrillation type: permanent Qualified Code(s): I48.21 - Permanent atrial fibrillation Instructions: Congestive Heart Failure (Alternative Therapy) Activity Restrictions/Additional Instructions: Continue your regular medications, except increase Metoprolol ER 250 mg daily. Contact your building services coordinator for follow-up. Regarding legs, your arterial flow is greatly diminished. Continue taking baby aspirin. I recommend you follow-up with your building services coordinator or your primary care doctor for further evaluation of the arteries in your lower extremities. If you develop severe pain, numbness, or severe weakness to lower extremities, you should return to the ER. Prescriptions: No Action (DME) Disabled Parking Placard Qty: 1 RF: 0 albuterol sulfate 90 mcg/actuation HFA aerosol inhaler 2 puff INHALATION Q4-6H PRN (Reason: shortness of breath or wheezing) Qty: 18 RF: 3 ipratropium-albuterol 0.5 mg-3 mg(2.5 mg base)/3 mL solution for nebulization 3 ml INHALATION Q6H PRN (Reason: shortness of breath) Qty: 180 RF: 1 triamcinolone acetonide 0.1 % ointment 1 applictn TOP DAILY Qty: 453.6 RF: 0 diclofenac sodium 3 % gel 1 applic topical BID Qty: 100 RF: 1 oxycodone 5 mg tablet 5 mg PO BID PRN (Reason: pain) Qty: 30 RF: 0 tramadol [Ultram] 50 mg tablet 50 mg PO Q6H PRN (Reason: pain) Qty: 60 RF: 0 furosemide [Lasix] 40 mg tablet 40 mg PO BID Qty: 60 RF: 5 warfarin 3 mg tablet 3 mg PO DAILY Qty: 90 RF: 0 acetaminophen [Tylenol] 325 mg Capsule 650 mg PO Q4H PRN (Reason: Pain, Moderate) RF: 0 Referrals: Bin Vicente, [Primary Care Provider] -
[2020-07-31] MEDS: dilTIAZem 5 MG/ML SDV IV (15:11)
[2020-07-31] MEDS: FUROSEMIDE 40 MG/4 ML VIAL IV (15:11)
[2020-07-31 15:46] LABS: Add Manual Diff / Slide Review NO; Basophils Absolute Auto 100 /uL (0-100); Basophils Percent Auto 1.2 % (0-2); Eosinophils Absolute Auto 400 /uL (0-450); Eosinophils Percent Auto 6.5 % (2-4); Hematocrit 35.2 % (36-46); Hemoglobin 10.7 g/dL (12.0-16.0); Lymphocytes Absolute Auto 400 /uL (1100-4500); Lymphocytes Percent Auto 7.3 % (25-40); Mean Corpuscular HGB Conc 30.5 % (30-36); Mean Corpuscular Hemoglobin 24.5 PG (26-34); Mean Corpuscular Volume 80.3 fL (80-100); Monocytes Absolute Auto 600 /uL (0-900); Monocytes Percent Auto 9.9 % (3-14); Neutrophils Absolute Auto 4600 /uL (1500-7000); Neutrophils Percent Auto 75.1 % (50-75); Platelet Count 297 X10^3/uL (150-400); Red Blood Cell Count 4.38 X10^6/uL (4.0-5.2); Red Cell Distribution Width 21.2 % (11.6-14.8); White Blood Cell Count 6.1 X10^3/uL (4.5-11.0)
[2020-07-31 15:53] LABS: INR 1.5 (0.9-1.3); Prothrombin Time 16.8 SECONDS (10.1-12.7)
[2020-07-31 15:56] LABS: PTT Partial Thromboplastin Tim 33 SECONDS (26.4-36.2)
--- NOTE | 2020-07-31 15:58 | PC.NURSE ---
used Doppler to find pulses. rt extremity more difficult to locate but found with Doppler.
[2020-07-31 16:00] LABS: Alanine Aminotransferase 10 IU/L (<35); Albumin 3.9 g/dL (3.5-5.0); Albumin Globulin Ratio 1.1 (1.0-2.8); Alkaline Phosphatase 89 U/L (38-126); Aspartate Aminotransferase 21 IU/L (14-36); BUN Creatinine Ratio 21.7 (6-22); Bilirubin Total 0.3 mg/dL (0.2-1.3); Blood Urea Nitrogen 34 mg/dL (7-17); Calcium 9.5 mg/dL (8.4-10.2); Carbon Dioxide 32 mmol/L (22-32); Chloride 102 mmol/L (98-107); Creatine Kinase 21 U/L (30-135); Estimated Glomerular Filt Rate 32.3 mL/min (>60); Globulin 3.4 g/dL (1.7-4.1); Glucose 115 mg/dL (80-110); HEMOLYSIS < 15 (0-50); Potassium 3.9 mmol/L (3.4-5.1); Sodium 142 mmol/L (137-145); Total Protein 7.3 g/dL (6.3-8.2)
[2020-07-31 16:12] LABS: NT-proBNP (BNP-Adult 18+) 4610 pg/mL (<125); Troponin I < 0.012 ng/mL (0.01-0.034)
[2020-07-31 16:18] LABS: Anisocytosis 1+
[2020-07-31] MEDS: METOPROLOL IR 25 MG TABLET 50 MG PO (17:47)
== END 2020-07-31 17:50 | disposition home or self-care (01) ==
PROVIDERS: Emergency Provider Emergency Medicine; PCP Family Medicine
DX: I73.9 Peripheral vascular disease, unspecified (principal); I50.9 Heart failure, unspecified; I48.21 Permanent atrial fibrillation
CPT/HCPCS: 36415; 71045; 80053; 82550; 83880; 84484; 85025; 85610; 85730; 87070; 87075; 87077; 87147; 87186; 87205; 93005; 99284; J1940

== ENCOUNTER → 2020-08-07 11:34 | Outpatient (CLI) | payer MEDICARE, SELFPAY ==
[2020-02-27 21:12] VITALS: BMI 30.9
[2020-08-07 12:23] LABS: Add Manual Diff / Slide Review NO; Basophils Absolute Auto 100 /uL (0-100); Basophils Percent Auto 2.1 % (0-2); Eosinophils Absolute Auto 400 /uL (0-450); Eosinophils Percent Auto 5.8 % (2-4); Hematocrit 35.7 % (36-46); Hemoglobin 10.9 g/dL (12.0-16.0); Lymphocytes Absolute Auto 500 /uL (1100-4500); Lymphocytes Percent Auto 7.3 % (25-40); Mean Corpuscular HGB Conc 30.4 % (30-36); Mean Corpuscular Hemoglobin 24.5 PG (26-34); Mean Corpuscular Volume 80.7 fL (80-100); Monocytes Absolute Auto 500 /uL (0-900); Monocytes Percent Auto 8.3 % (3-14); Neutrophils Absolute Auto 4800 /uL (1500-7000); Neutrophils Percent Auto 76.5 % (50-75); Platelet Count 318 X10^3/uL (150-400); Red Blood Cell Count 4.43 X10^6/uL (4.0-5.2); Red Cell Distribution Width 21.1 % (11.6-14.8); White Blood Cell Count 6.2 X10^3/uL (4.5-11.0)
[2020-08-07 12:24] LABS: Alanine Aminotransferase 11 IU/L (<35); Albumin 4.2 g/dL (3.5-5.0); Albumin Globulin Ratio 1.2 (1.0-2.8); Alkaline Phosphatase 85 U/L (38-126); Aspartate Aminotransferase 21 IU/L (14-36); BUN Creatinine Ratio 20.6 (6-22); Bilirubin Total 0.3 mg/dL (0.2-1.3); Blood Urea Nitrogen 34 mg/dL (7-17); Calcium 9.9 mg/dL (8.4-10.2); Carbon Dioxide 31 mmol/L (22-32); Chloride 103 mmol/L (98-107); Estimated Glomerular Filt Rate 30.5 mL/min (>60); Globulin 3.4 g/dL (1.7-4.1); Glucose 95 mg/dL (80-110); HEMOLYSIS < 15 (0-50); Lactate Dehydrogenase 470 U/L (313-618); Potassium 4.2 mmol/L (3.4-5.1); Sodium 141 mmol/L (137-145); Total Protein 7.6 g/dL (6.3-8.2)
[2020-08-07 13:00] LABS: NT-proBNP (BNP-Adult 18+) 5110 pg/mL (<125)
[2020-08-07 13:06] LABS: Anisocytosis 1+; Hypochromasia 1+
[2020-08-07 13:07] LABS: Stomatocytes 1+
[2020-08-07 13:39] LABS: INR 1.3 (0.9-1.3); Prothrombin Time 14.6 SECONDS (10.1-12.7)
== END ==
PROVIDERS: Internal Medicine Hematology & Oncology; Internal Medicine Nephrology; PCP Family Medicine; Referring Provider Internal Medicine Cardiovascular Disease; Visit Provider Internal Medicine Cardiovascular Disease
DX: I73.9 Peripheral vascular disease, unspecified (principal); N05.9 Unspecified nephritic syndrome with unspecified morphologic changes; I50.32 Chronic diastolic (congestive) heart failure; D70.9 Neutropenia, unspecified; D63.1 Anemia in chronic kidney disease; I48.0 Paroxysmal atrial fibrillation; Z86.711 Personal history of pulmonary embolism; C34.91 Malignant neoplasm of unspecified part of right bronchus or lung
CPT/HCPCS: 36415; 80053; 83615; 83880; 85025; 85610

== ENCOUNTER → 2020-08-15 10:11 | Outpatient (CLI) | payer MEDICARE, MEDICAID, SELFPAY ==
[2020-02-27 21:12] VITALS: BMI 30.9
== END ==
PROVIDERS: PCP Family Medicine; Referring Provider Family Medicine; Visit Provider Nurse Practitioner Family
DX: I75.023 Atheroembolism of bilateral lower extremities (principal); I87.2 Venous insufficiency (chronic) (peripheral); L97.821 Non-pressure chronic ulcer of other part of left lower leg limited to breakdown of skin; L97.511 Non-pressure chronic ulcer of other part of right foot limited to breakdown of skin; L97.521 Non-pressure chronic ulcer of other part of left foot limited to breakdown of skin; I73.9 Peripheral vascular disease, unspecified; L08.9 Local infection of the skin and subcutaneous tissue, unspecified; R60.0 Localized edema; I25.10 Atherosclerotic heart disease of native coronary artery without angina pectoris; N18.30 Chronic kidney disease, stage 3 unspecified
CPT/HCPCS: 36415; 80048; 84134; 85025; 85610; 85651; 86140; 87070; 87077; 87147; 87186; 87205; 97597; 99204; 99214

== ENCOUNTER → 2020-08-15 13:09 | Outpatient (CLI) | payer MEDICARE, SELFPAY ==
[2020-02-27 21:12] VITALS: BMI 30.9
[2020-08-15 13:35] LABS: Basophils Absolute Auto 100 /uL (0-100); Basophils Percent Auto 2.1 % (0-2); Eosinophils Absolute Auto 400 /uL (0-450); Eosinophils Percent Auto 7.5 % (2-4); Hematocrit 37.9 % (36-46); Hemoglobin 11.7 g/dL (12.0-16.0); Lymphocytes Absolute Auto 600 /uL (1100-4500); Lymphocytes Percent Auto 11.4 % (25-40); Mean Corpuscular HGB Conc 30.9 % (30-36); Mean Corpuscular Volume 80.9 fL (80-100); Monocytes Absolute Auto 600 /uL (0-900); Monocytes Percent Auto 11.7 % (3-14); Neutrophils Absolute Auto 3500 /uL (1500-7000); Neutrophils Percent Auto 67.3 % (50-75); Platelet Count 283 X10^3/uL (150-400); Red Blood Cell Count 4.68 X10^6/uL (4.0-5.2); Red Cell Distribution Width 20.1 % (11.6-14.8); White Blood Cell Count 5.2 X10^3/uL (4.5-11.0)
[2020-08-15 13:48] LABS: INR 1.2 (0.9-1.3); Prothrombin Time 14.2 SECONDS (10.1-12.7)
[2020-08-15 13:50] LABS: BUN Creatinine Ratio 25.3 (6-22); Blood Urea Nitrogen 41 mg/dL (7-17); C-Reactive Protein Quant 0.6 mg/dL (<1.0); Calcium 9.8 mg/dL (8.4-10.2); Carbon Dioxide 32 mmol/L (22-32); Chloride 100 mmol/L (98-107); Estimated Glomerular Filt Rate 31.1 mL/min (>60); Glucose 89 mg/dL (80-110); HEMOLYSIS < 15 (0-50); Potassium 3.8 mmol/L (3.4-5.1); Sodium 142 mmol/L (137-145)
[2020-08-15 13:55] LABS: Prealbumin 28.6 mg/dL (17.6-36.0)
[2020-08-15 14:07] LABS: Erythrocyte Sedimentation Rate 43 MM/HR (0-20)
[2020-08-15 14:37] LABS: Anisocytosis 1+
[2020-08-15 14:38] LABS: Add Manual Diff / Slide Review SLIDE REVIEW
== END ==
PROVIDERS: PCP Family Medicine; Referring Provider Surgery Vascular Surgery; Visit Provider Nurse Practitioner Family
DX: L08.9 Local infection of the skin and subcutaneous tissue, unspecified (principal); N18.30 Chronic kidney disease, stage 3 unspecified; I75.023 Atheroembolism of bilateral lower extremities
CPT/HCPCS: 36415; 80048; 84134; 85025; 85610; 85651; 86140

== ENCOUNTER → 2020-08-15 14:57 | Outpatient (ROUT) | payer MEDICARE, SELFPAY ==
[2020-02-27 21:12] VITALS: BMI 30.9
== END ==
PROVIDERS: PCP Family Medicine; Visit Provider Nurse Practitioner Family
DX: L08.9 Local infection of the skin and subcutaneous tissue, unspecified (principal)
CPT/HCPCS: 87070; 87075; 87077; 87147; 87186; 87205

== ENCOUNTER → 2020-08-22 13:26 | Outpatient (CLI) | payer MEDICARE, SELFPAY ==
[2020-02-27 21:12] VITALS: BMI 30.9
== END ==
PROVIDERS: PCP Family Medicine; Referring Provider Family Medicine; Visit Provider Family Medicine
DX: I87.2 Venous insufficiency (chronic) (peripheral) (principal); L97.821 Non-pressure chronic ulcer of other part of left lower leg limited to breakdown of skin; L97.521 Non-pressure chronic ulcer of other part of left foot limited to breakdown of skin; L97.511 Non-pressure chronic ulcer of other part of right foot limited to breakdown of skin; M79.662 Pain in left lower leg; M79.675 Pain in left toe(s)
CPT/HCPCS: 99214

== ENCOUNTER → 2020-08-29 11:47 | Outpatient (CLI) | payer MEDICARE, MEDICAID, SELFPAY ==
[2020-02-27 21:12] VITALS: BMI 30.9
== END ==
PROVIDERS: PCP Family Medicine; Referring Provider Family Medicine; Visit Provider Nurse Practitioner Family
DX: I75.023 Atheroembolism of bilateral lower extremities (principal); L97.511 Non-pressure chronic ulcer of other part of right foot limited to breakdown of skin; L97.521 Non-pressure chronic ulcer of other part of left foot limited to breakdown of skin; L08.9 Local infection of the skin and subcutaneous tissue, unspecified; I25.10 Atherosclerotic heart disease of native coronary artery without angina pectoris; N18.30 Chronic kidney disease, stage 3 unspecified; I73.9 Peripheral vascular disease, unspecified
CPT/HCPCS: 36415; 80048; 85025; 85610; 85651; 97597; 99214

== ENCOUNTER → 2020-08-29 12:27 | Outpatient (CLI) | payer MEDICARE, SELFPAY ==
[2020-02-27 21:12] VITALS: BMI 30.9
[2020-08-29 12:55] LABS: Add Manual Diff / Slide Review NO; Basophils Absolute Auto 100 /uL (0-100); Basophils Percent Auto 1.4 % (0-2); Eosinophils Absolute Auto 300 /uL (0-450); Eosinophils Percent Auto 4.5 % (2-4); Hematocrit 40.7 % (36-46); Hemoglobin 12.8 g/dL (12.0-16.0); Lymphocytes Absolute Auto 600 /uL (1100-4500); Lymphocytes Percent Auto 7.9 % (25-40); Mean Corpuscular HGB Conc 31.3 % (30-36); Mean Corpuscular Hemoglobin 25.6 PG (26-34); Mean Corpuscular Volume 81.7 fL (80-100); Monocytes Absolute Auto 600 /uL (0-900); Neutrophils Absolute Auto 5800 /uL (1500-7000); Neutrophils Percent Auto 78.2 % (50-75); Platelet Count 300 X10^3/uL (150-400); Red Blood Cell Count 4.98 X10^6/uL (4.0-5.2); Red Cell Distribution Width 19.8 % (11.6-14.8); White Blood Cell Count 7.4 X10^3/uL (4.5-11.0)
[2020-08-29 13:09] LABS: INR 1.8 (0.9-1.3); Prothrombin Time 20.5 SECONDS (10.1-12.7)
[2020-08-29 13:14] LABS: BUN Creatinine Ratio 24.1 (6-22); Blood Urea Nitrogen 45 mg/dL (7-17); Calcium 9.8 mg/dL (8.4-10.2); Carbon Dioxide 34 mmol/L (22-32); Chloride 98 mmol/L (98-107); Erythrocyte Sedimentation Rate 26 MM/HR (0-20); Estimated Glomerular Filt Rate 26.4 mL/min (>60); Glucose 105 mg/dL (80-110); HEMOLYSIS < 15 (0-50); Potassium 3.4 mmol/L (3.4-5.1); Sodium 142 mmol/L (137-145)
== END ==
PROVIDERS: PCP Family Medicine; Referring Provider Nurse Practitioner Family; Visit Provider Nurse Practitioner Family
DX: N18.30 Chronic kidney disease, stage 3 unspecified (principal); Z79.01 Long term (current) use of anticoagulants; L08.9 Local infection of the skin and subcutaneous tissue, unspecified; L97.529 Non-pressure chronic ulcer of other part of left foot with unspecified severity
CPT/HCPCS: 36415; 80048; 85025; 85610; 85651

== ENCOUNTER → 2020-09-05 12:48 | Outpatient (CLI) | payer MEDICARE, SELFPAY ==
[2020-02-27 21:12] VITALS: BMI 30.9
[2020-09-05 13:25] LABS: INR 1.7 (0.9-1.3); Prothrombin Time 18.9 SECONDS (10.1-12.7)
[2020-09-05 14:59] LABS: BUN Creatinine Ratio 29.1 (6-22); Blood Urea Nitrogen 55 mg/dL (7-17); Calcium 10.2 mg/dL (8.4-10.2); Carbon Dioxide 30 mmol/L (22-32); Chloride 98 mmol/L (98-107); Estimated Glomerular Filt Rate 26.1 mL/min (>60); Glucose 99 mg/dL (80-110); HEMOLYSIS < 15 (0-50); Potassium 3.9 mmol/L (3.4-5.1); Sodium 140 mmol/L (137-145)
== END ==
PROVIDERS: PCP Family Medicine; Referring Provider Nurse Practitioner Family; Visit Provider Nurse Practitioner Family
DX: I48.0 Paroxysmal atrial fibrillation (principal); N18.30 Chronic kidney disease, stage 3 unspecified; Z79.01 Long term (current) use of anticoagulants
CPT/HCPCS: 36415; 80048; 85610

== ENCOUNTER → 2020-09-05 15:03 | Outpatient (CLI) | payer MEDICARE, MEDICAID, SELFPAY ==
[2020-02-27 21:12] VITALS: BMI 30.9
== END ==
PROVIDERS: PCP Family Medicine; Referring Provider Family Medicine; Visit Provider Nurse Practitioner Family
DX: I75.023 Atheroembolism of bilateral lower extremities (principal); L97.521 Non-pressure chronic ulcer of other part of left foot limited to breakdown of skin; L97.511 Non-pressure chronic ulcer of other part of right foot limited to breakdown of skin; N18.30 Chronic kidney disease, stage 3 unspecified; L08.9 Local infection of the skin and subcutaneous tissue, unspecified; I73.9 Peripheral vascular disease, unspecified; I48.0 Paroxysmal atrial fibrillation; Z79.01 Long term (current) use of anticoagulants
CPT/HCPCS: 36415; 80048; 85610; 97597

== ENCOUNTER → 2020-09-12 11:31 | Outpatient (CLI) | payer MEDICARE, MEDICAID, SELFPAY ==
[2020-02-27 21:12] VITALS: BMI 30.9
== END ==
PROVIDERS: PCP Family Medicine; Referring Provider Family Medicine; Visit Provider Nurse Practitioner Family
DX: L08.9 Local infection of the skin and subcutaneous tissue, unspecified (principal); L97.529 Non-pressure chronic ulcer of other part of left foot with unspecified severity; L97.519 Non-pressure chronic ulcer of other part of right foot with unspecified severity; I73.9 Peripheral vascular disease, unspecified; I75.023 Atheroembolism of bilateral lower extremities
CPT/HCPCS: 87070; 87075; 87077; 87147; 87186; 87205; 97597; 99213

== ENCOUNTER → 2020-09-15 15:58 | Outpatient (CLI) | payer MEDICARE, MEDICAID, SELFPAY ==
[2020-02-27 21:12] VITALS: BMI 30.9
--- NOTE | 2020-09-15 15:59 | DI.NM.S_ITS ---
PROCEDURE: NM BONE 3 PHASE RADIOPHARMACEUTICAL: 19.6 mCi Tc-99m MDP IV. INDICATIONS: bilateral to discoloration and wounds with pvd TECHNIQUE: Multiple bone scintigrams were obtained after intravenous injection of Tc-99m MDP, including flow, blood pool, and delayed images centered to the region of interest. COMPARISON: None. FINDINGS: Immediate flow images demonstrate no areas of hyperemia in the feet. There is slightly diminished flow in the left foot relative to the right foot which is of uncertain etiology and clinical significance. Intermediate blood pool images demonstrate no areas of increased radiotracer uptake. Delayed bone images demonstrate no areas of abnormal radiotracer uptake. IMPRESSION: Normal examination without evidence of osteomyelitis. Dictated by: Yanelis Ahmadi MD, PhD on 09/16/2020 at 14:27 Approved by: Yanelis Ahmadi MD, PhD on 09/16/2020 at 14:34
== END ==
PROVIDERS: PCP Family Medicine; Referring Provider Family Medicine; Visit Provider Family Medicine
DX: L97.509 Non-pressure chronic ulcer of other part of unspecified foot with unspecified severity (principal); I73.9 Peripheral vascular disease, unspecified; R09.89 Other specified symptoms and signs involving the circulatory and respiratory systems
CPT/HCPCS: 78315; A9503

== ENCOUNTER → 2020-09-19 11:15 | Outpatient (CLI) | payer MEDICARE, MEDICAID, SELFPAY ==
[2020-02-27 21:12] VITALS: BMI 30.9
== END ==
PROVIDERS: PCP Family Medicine; Referring Provider Family Medicine; Visit Provider Nurse Practitioner Family
DX: I70.235 Atherosclerosis of native arteries of right leg with ulceration of other part of foot (principal); L08.9 Local infection of the skin and subcutaneous tissue, unspecified; L97.518 Non-pressure chronic ulcer of other part of right foot with other specified severity; A49.02 Methicillin resistant Staphylococcus aureus infection, unspecified site; E11.622 Type 2 diabetes mellitus with other skin ulcer; L97.528 Non-pressure chronic ulcer of other part of left foot with other specified severity; E11.51 Type 2 diabetes mellitus with diabetic peripheral angiopathy without gangrene; I75.023 Atheroembolism of bilateral lower extremities
CPT/HCPCS: 97597; 99213; 99214

== ENCOUNTER → 2020-09-20 11:22 | Outpatient (CLI) | payer MEDICARE, SELFPAY ==
[2020-02-27 21:12] VITALS: BMI 30.9
[2020-09-20 13:04] LABS: Hematocrit 43.6 % (36-46); Hemoglobin 13.9 g/dL (12.0-16.0); Mean Corpuscular HGB Conc 31.9 % (30-36); Mean Corpuscular Hemoglobin 26.7 PG (26-34); Mean Corpuscular Volume 83.6 fL (80-100); Platelet Count 255 X10^3/uL (150-400); Red Blood Cell Count 5.22 X10^6/uL (4.0-5.2); Red Cell Distribution Width 19.2 % (11.6-14.8)
[2020-09-20 13:07] LABS: Prothrombin Time 22.9 SECONDS (10.1-12.7)
[2020-09-20 13:22] LABS: Blood Urea Nitrogen 42 mg/dL (7-17); Calcium 10.1 mg/dL (8.4-10.2); Carbon Dioxide 30 mmol/L (22-32); Chloride 100 mmol/L (98-107); Estimated Glomerular Filt Rate 27.1 mL/min (>60); Glucose 102 mg/dL (80-110); HEMOLYSIS < 15 (0-50); Sodium 142 mmol/L (137-145)
== END ==
PROVIDERS: PCP Family Medicine; Referring Provider Internal Medicine Nephrology; Visit Provider Internal Medicine Nephrology
DX: D70.9 Neutropenia, unspecified (principal); Z79.01 Long term (current) use of anticoagulants; D63.1 Anemia in chronic kidney disease; N05.9 Unspecified nephritic syndrome with unspecified morphologic changes; Z86.711 Personal history of pulmonary embolism
CPT/HCPCS: 36415; 80048; 85027; 85610

== ENCOUNTER → 2020-09-23 15:34 | Outpatient (CLI) | payer MEDICARE, MEDICAID, SELFPAY ==
[2020-02-27 21:12] VITALS: BMI 30.9
== END ==
PROVIDERS: PCP Family Medicine; Referring Provider Family Medicine; Visit Provider Family Medicine
DX: I70.245 Atherosclerosis of native arteries of left leg with ulceration of other part of foot (principal); L97.521 Non-pressure chronic ulcer of other part of left foot limited to breakdown of skin
CPT/HCPCS: 99214

== ENCOUNTER → 2020-09-26 11:06 | Outpatient (CLI) | payer MEDICARE, MEDICAID, SELFPAY ==
[2020-09-24 11:51] VITALS: BMI 30.9
== END ==
PROVIDERS: PCP Family Medicine; Referring Provider Family Medicine; Visit Provider Nurse Practitioner Family
DX: L08.9 Local infection of the skin and subcutaneous tissue, unspecified (principal); I75.023 Atheroembolism of bilateral lower extremities; L97.512 Non-pressure chronic ulcer of other part of right foot with fat layer exposed; L97.521 Non-pressure chronic ulcer of other part of left foot limited to breakdown of skin; R60.0 Localized edema
CPT/HCPCS: 97597

== ENCOUNTER → 2020-10-03 11:47 | Outpatient (CLI) | payer MEDICARE, MEDICAID, SELFPAY ==
[2020-09-24 11:51] VITALS: BMI 30.9
== END ==
PROVIDERS: PCP Family Medicine; Referring Provider Family Medicine; Visit Provider Nurse Practitioner Family
DX: I75.023 Atheroembolism of bilateral lower extremities (principal); L97.512 Non-pressure chronic ulcer of other part of right foot with fat layer exposed; L97.811 Non-pressure chronic ulcer of other part of right lower leg limited to breakdown of skin
CPT/HCPCS: 97597; 99213

== ENCOUNTER → 2020-10-10 13:38 | Outpatient (CLI) | payer MEDICARE, MEDICAID, SELFPAY ==
[2020-09-24 11:51] VITALS: BMI 30.9
== END ==
PROVIDERS: PCP Family Medicine; Referring Provider Family Medicine; Visit Provider Nurse Practitioner Family
DX: I75.023 Atheroembolism of bilateral lower extremities (principal); L97.512 Non-pressure chronic ulcer of other part of right foot with fat layer exposed; L97.811 Non-pressure chronic ulcer of other part of right lower leg limited to breakdown of skin; I73.9 Peripheral vascular disease, unspecified
CPT/HCPCS: 97597

== ENCOUNTER → 2020-10-11 11:27 | Outpatient (CLI) | payer MEDICARE, MEDICAID, SELFPAY ==
[2020-09-24 11:51] VITALS: BMI 30.9
[2020-10-11 12:17] LABS: INR 2.1 (0.9-1.3); Prothrombin Time 24.2 SECONDS (10.1-12.7)
== END ==
PROVIDERS: PCP Family Medicine; Referring Provider Family Medicine; Visit Provider Family Medicine
DX: I48.0 Paroxysmal atrial fibrillation (principal); Z79.01 Long term (current) use of anticoagulants
CPT/HCPCS: 36415; 85610

== ENCOUNTER → 2020-10-16 10:55 | Outpatient (CLI) | payer MEDICARE, MEDICAID, SELFPAY ==
[2020-09-24 11:51] VITALS: BMI 30.9
[2020-10-16 11:54] LABS: COVID19 -Nasal RAPID Negative (Negative)
== END ==
PROVIDERS: PCP Family Medicine; Referring Provider Internal Medicine; Visit Provider Internal Medicine
DX: Z20.822 Contact with and (suspected) exposure to COVID-19 (principal); C34.90 Malignant neoplasm of unspecified part of unspecified bronchus or lung; I10 Essential (primary) hypertension; N18.30 Chronic kidney disease, stage 3 unspecified; R06.03 Acute respiratory distress; J98.8 Other specified respiratory disorders; Z87.891 Personal history of nicotine dependence
CPT/HCPCS: 87635; 94060; 94726; 94729; C9803

== ENCOUNTER → 2020-10-16 10:58 | Outpatient (CLI) | payer MEDICARE, MEDICAID, SELFPAY ==
[2020-02-27 21:12] VITALS: BMI 30.9
[2020-09-24 11:51] VITALS: BMI 30.9
--- NOTE | 2020-10-22 10:18 | PM.PFT.1 ---
Pulmonary Function Test Referral & Results Date Patient Seen: 10/16/20 Requesting provider: Bin Vicente Results: The spirometry demonstrates an FVC of 2.04 L which is 60% of predicted. The FEV1 was measured at 0.87 L which is 38% of predicted. The FEV1/FVC ratio was 43 which is 56% of predicted. Following the administration of bronchodilator there was a 40% improvement in FEV1 and a 111% improvement in FEF 25-75%. Lung volumes show an SVC of 2.12 L which is 73% of predicted. The diffusing capacity was measured at 13.60 which is 53% of predicted. No hemoglobin value was provided, so no correction for potential anemia could be made, if appropriate. The maximum voluntary ventilation was reduced severely Interpretation: This study demonstrates severe obstructive lung disease with an FEV1 of less than 1 L. There is evidence of significant benefit following bronchodilator as noted above There is a minimal reduction in lung volumes based on reduction SVC There is a moderately severe reduction diffusing capacity suggesting significant disease at the capillary alveolar level Clinical correlation suggested
== END ==
PROVIDERS: PCP Family Medicine; Referring Provider Family Medicine; Visit Provider Family Medicine
DX: C34.90 Malignant neoplasm of unspecified part of unspecified bronchus or lung (principal); I10 Essential (primary) hypertension; N18.30 Chronic kidney disease, stage 3 unspecified; R06.03 Acute respiratory distress; Z87.891 Personal history of nicotine dependence; J98.8 Other specified respiratory disorders
CPT/HCPCS: 94060; 94726; 94729; C9803

== ENCOUNTER → 2020-10-17 15:48 | Outpatient (CLI) | payer MEDICARE, MEDICAID, SELFPAY ==
[2020-09-24 11:51] VITALS: BMI 30.9
== END ==
PROVIDERS: PCP Family Medicine; Referring Provider Family Medicine; Visit Provider Nurse Practitioner Family
DX: I75.023 Atheroembolism of bilateral lower extremities (principal); L97.512 Non-pressure chronic ulcer of other part of right foot with fat layer exposed
CPT/HCPCS: 97597

== ENCOUNTER → 2020-10-24 12:31 | Outpatient (CLI) | payer MEDICARE, MEDICAID, SELFPAY ==
[2020-09-24 11:51] VITALS: BMI 30.9
== END ==
PROVIDERS: PCP Family Medicine; Referring Provider Family Medicine; Visit Provider Nurse Practitioner Family
DX: I75.023 Atheroembolism of bilateral lower extremities (principal); L97.512 Non-pressure chronic ulcer of other part of right foot with fat layer exposed; L03.116 Cellulitis of left lower limb; S80.812A Abrasion, left lower leg, initial encounter; R60.0 Localized edema; W55.03XA Scratched by cat, initial encounter
CPT/HCPCS: 11042; 87070; 87075; 87077; 87147; 87186; 87205; 97597; 99213; 99214

== ENCOUNTER → 2020-11-07 09:45 | Outpatient (CLI) | payer MEDICARE, MEDICAID, SELFPAY ==
[2020-09-24 11:51] VITALS: BMI 30.9
== END ==
PROVIDERS: PCP Family Medicine; Referring Provider Family Medicine; Visit Provider Family Medicine
DX: I70.235 Atherosclerosis of native arteries of right leg with ulceration of other part of foot (principal); L97.511 Non-pressure chronic ulcer of other part of right foot limited to breakdown of skin
CPT/HCPCS: 99213

== ENCOUNTER → 2020-11-14 15:24 | Outpatient (CLI) | payer MEDICARE, MEDICAID, SELFPAY ==
[2020-09-24 11:51] VITALS: BMI 30.9
== END ==
PROVIDERS: PCP Family Medicine; Referring Provider Family Medicine; Visit Provider Nurse Practitioner Family
DX: I75.023 Atheroembolism of bilateral lower extremities (principal); L97.512 Non-pressure chronic ulcer of other part of right foot with fat layer exposed
CPT/HCPCS: 97602; 99213

== ENCOUNTER → 2020-11-28 11:06 | Outpatient (CLI) | payer MEDICARE, MEDICAID, SELFPAY ==
[2020-09-24 11:51] VITALS: BMI 30.9
== END ==
PROVIDERS: PCP Family Medicine; Referring Provider Family Medicine; Visit Provider Nurse Practitioner Family
DX: I75.023 Atheroembolism of bilateral lower extremities (principal); I73.9 Peripheral vascular disease, unspecified; J44.9 Chronic obstructive pulmonary disease, unspecified; N18.30 Chronic kidney disease, stage 3 unspecified
CPT/HCPCS: 99212; 99213

== ENCOUNTER → 2021-01-29 11:15 | Outpatient (CLI) | payer MEDICARE, MEDICAID, SELFPAY ==
[2021-01-13 10:31] VITALS: BMI 30.9
[2021-01-29 12:29] LABS: COVID19 -Nasal RAPID Negative (Negative)
== END ==
PROVIDERS: PCP Family Medicine; Referring Provider Internal Medicine; Visit Provider Internal Medicine
DX: Z20.822 Contact with and (suspected) exposure to COVID-19 (principal)
CPT/HCPCS: 87635; C9803

== ENCOUNTER → 2021-01-30 08:51 | Outpatient (CLI) | payer MEDICARE, MEDICAID, SELFPAY ==
[2021-01-13 10:31] VITALS: BMI 30.9
--- NOTE | 2021-02-03 08:10 | PM.PFT.1 ---
Pulmonary Function Test Referral & Results Date Patient Seen: 01/30/21 Requesting provider: Meli Patino Indication: Emphysema Results: The spirometry demonstrates an FVC of 2.43 L which is 81% of predicted. The FEV1 was measured at 1.24 L which is 55% of predicted. The FEV1/FVC ratio was 51 which is 68% of predicted. Following the administration of bronchodilator there was a 20% improvement in FEV1 and a 76% improvement in FEF 25-75% Lung volumes show an SVC of 2.49 L which is 86% of predicted. The diffusing capacity was measured at 12.83 which is 50% of predicted. The maximum voluntary ventilation was reduced Interpretation: This study demonstrates moderate obstructive lung disease based on reduction FEV1 and FEV1/FVC ratio. There is evidence of significant benefit following bronchodilator based on improvement in both FEV1 and FEF 25-75% Lung volumes are probably normal. There is a moderate reduction diffusing capacity suggesting disease at the capillary alveolar level as well Compared to PFTs performed in September 2020, current study shows significant improvement in FEV1 which was previously less than 1 L at 870 mL. Other lung volumes are also somewhat improved similarly. Clinical correlation suggested
== END ==
PROVIDERS: PCP Family Medicine; Referring Provider Internal Medicine Pulmonary Disease; Visit Provider Internal Medicine Pulmonary Disease
DX: J43.2 Centrilobular emphysema (principal); Z87.891 Personal history of nicotine dependence
CPT/HCPCS: 94060; 94726; 94729

== ENCOUNTER → 2021-03-02 09:55 | Outpatient (CLI) | payer MEDICARE, MEDICAID, SELFPAY ==
[2021-01-13 10:31] VITALS: BMI 30.9
[2021-03-02 11:35] LABS: Add Manual Diff / Slide Review NO; Basophils Absolute Auto 100 /uL (0-100); Basophils Percent Auto 1.3 % (0-2); Eosinophils Absolute Auto 500 /uL (0-450); Eosinophils Percent Auto 6.6 % (2-4); Hematocrit 38.9 % (36-46); Hemoglobin 12.6 g/dL (12.0-16.0); Lymphocytes Absolute Auto 600 /uL (1100-4500); Lymphocytes Percent Auto 8.5 % (25-40); Mean Corpuscular HGB Conc 32.4 % (30-36); Mean Corpuscular Hemoglobin 29.4 PG (26-34); Mean Corpuscular Volume 90.7 fL (80-100); Monocytes Absolute Auto 600 /uL (0-900); Monocytes Percent Auto 8.3 % (3-14); Neutrophils Absolute Auto 5700 /uL (1500-7000); Neutrophils Percent Auto 75.3 % (50-75); Platelet Count 318 X10^3/uL (150-400); Red Blood Cell Count 4.29 X10^6/uL (4.0-5.2); White Blood Cell Count 7.5 X10^3/uL (4.5-11.0)
[2021-03-02 12:50] LABS: Blood Urea Nitrogen 36 mg/dL (7-17); Calcium 9.5 mg/dL (8.4-10.2); Carbon Dioxide 29 mmol/L (22-32); Chloride 100 mmol/L (98-107); Glucose 112 mg/dL (80-110); HEMOLYSIS < 15 (0-50); Potassium 4.3 mmol/L (3.4-5.1); Sodium 139 mmol/L (137-145)
[2021-03-02 12:55] LABS: NT-proBNP (BNP-Adult 18+) 2220 pg/mL (<125)
[2021-03-02 15:18] LABS: Protein (Total) Urine Random 14 mg/dL (0-12); Protein Creatinine Ratio Urine 0.18 GRAM/24H
== END ==
PROVIDERS: PCP Family Medicine; Referring Provider Internal Medicine Nephrology; Visit Provider Internal Medicine Nephrology
DX: N05.9 Unspecified nephritic syndrome with unspecified morphologic changes (principal); I50.32 Chronic diastolic (congestive) heart failure; D70.9 Neutropenia, unspecified; D63.1 Anemia in chronic kidney disease; R80.9 Proteinuria, unspecified
CPT/HCPCS: 36415; 80048; 82570; 83880; 84156; 85025

== ENCOUNTER → 2021-04-13 12:16 | Outpatient (CLI) | payer MEDICARE, MEDICAID, SELFPAY ==
[2021-01-13 10:31] VITALS: BMI 30.9
--- NOTE | 2021-04-13 13:35 | DI.ECHO.S_ITS ---
:Reason For Study: Herat failure : :Ordering Physician: : :CLINT Performed By: Guille Montero : :Referring: SAMI LOPEZ : + + Interpretation Summary The study quality was technically difficult. Images from the parasternal window were difficult to obtain and are suboptimal in quality. The left ventricle is normal in size and wall thickness. The ejection fraction is estimated to be 50-55%. Improved from prior study. There is mild mitral regurgitation. The mitral regurgitant jet is eccentrically directed, which could underestimate the severity of the regurgitation. The right ventricle is normal in size and function. Wall motion is improved compared to the prior study. Procedure: A two-dimensional transthoracic echocardiogram with color flow and Doppler was performed. The study quality was technically difficult. Images from the parasternal window were difficult to obtain and are suboptimal in quality. Comparison is made with the echocardiogram of 02/28/2020. The patient was in atrial fibrillation with heart rates between 78 - 100 bpm during the exam. Left Ventricle: The left ventricle is normal in size and wall thickness. The ejection fraction is estimated to be 50-55%. Left ventricular wall motion is normal. Diastolic function could not be accurately assessed due to atrial fibrillation. Right Ventricle: The right ventricle is normal in size and function. Atria: Borderline left atrial enlargement. The right atrium is mildly dilated. There is no Doppler evidence for an interatrial shunt. Mitral Valve: The mitral valve leaflets appear mildly thickened, but open well. The mitral regurgitant jet is eccentrically directed. There is mild mitral regurgitation. The mitral regurgitant jet is posteriorly directed, which is consistent with anterior leaflet pathology. Aortic Valve: The aortic valve is trileaflet. There is trace aortic regurgitation. Tricuspid Valve: The tricuspid valve is normal. There is trace tricuspid regurgitation. Pulmonic Valve: The pulmonic valve is not well seen, but is grossly normal. Great Vessels: The aortic root is normal size. The ascending aorta is normal in size. The aortic arch is normal in size. The IVC is of normal diameter and collapses greater than 50% with a sniff. This suggests a low right atrial pressure of 3 mm Hg. Pericardium/ Pleura There is no pericardial effusion. There is an anterior echo-free space consistent with a fat pad. There is no pleural effusion. MMode/2D Measurements & Calculations LVIDd: 3.9 cm LVOT diam: 1.6 cm LVIDs: 2.7 cm Ao root diam: 2.6 cm FS: 30.8 % asc Aorta Diam: 2.7 cm IVSd: 0.40 cm Ao Arch Diam (Prox Trans): 2.4 cm LVPWd: 0.90 cm LV gomez. diameter/BSA (cm/m^2): 2.1 LV sys. diameter/BSA (cm/m^2): 1.5 LA A2 area: 21.1 cm2 RA long axis: 5.9 cm LA A4 area: 19.9 cm2 LA length (vol): 6.0 cm LA vol: 59.5 ml LA vol index: 32.7 ml/m2 TAPSE_phl: 2.2 cm Doppler Measurements & Calculations Ao V2 max: 185.1 cm/sec LVOT Max Jaquan: 95.5 cm/sec Ao V2 mean: 128.2 cm/sec LV V1 max P.8 mmHg Ao max P.7 mmHg LV V1 VTI: 15.6 cm Ao mean P.1 mmHg PENG(I,D): 1.0 cm2 Ao V2 VTI: 30.0 cm PENG(V,D): 1.0 cm2 sev ratio: 0.52 PENG indexed to BSA (cm^2/m^2): 0.57 MV E max jaquan: 144.0 cm/sec TR max jaquan: 233.0 cm/sec Med Peak E' Jaquan: 5.8 cm/sec TR max P.7 mmHg E/E' med: 24.8 PA V2 max: 102.0 cm/sec Lat Peak E' Jaquan: 6.8 cm/sec PA V2 mean: 70.9 cm/sec E/E' lat: 21.3 PA mean P.0 mmHg E/e' average: 23.0 PA pr(Accel): 43.5 mmHg MV dec time: 0.19 sec SV(LVOT): 31.4 ml MV P1/2t-pr_phl: 57.0 msec Reading Physician:PM
== END ==
PROVIDERS: PCP Family Medicine; Referring Provider Family Medicine; Visit Provider Family Medicine
DX: I34.0 Nonrheumatic mitral (valve) insufficiency (principal); I25.10 Atherosclerotic heart disease of native coronary artery without angina pectoris; I50.9 Heart failure, unspecified
CPT/HCPCS: 93306

== ENCOUNTER → 2021-05-11 10:54 | Outpatient (CLI) | payer MEDICARE, MEDICAID, SELFPAY ==
[2021-01-13 10:31] VITALS: BMI 30.9
--- NOTE | 2021-05-11 11:06 | DI.CT.S_ITS ---
PROCEDURE: CT CHEST WO CON INDICATIONS: lung cancer TECHNIQUE: Noncontrast 5 mm thick sections acquired from the pulmonary apices to the posterior costophrenic angles. 1 mm lung window, 5 mm thick coronal and sagittal and 7 mm axial MIP reformats were then acquired. For radiation dose reduction, the following was used: automated exposure control, adjustment of mA and/or kV according to patient size. COMPARISON: [facility], CT, CT CHEST WITHOUT CONTRAST, 01/05/2021, 11:21. [facility], CT, CT CHEST WO CON, 02/28/2020, 9:16. FINDINGS: Image quality: Excellent. Lungs and pleura: An irregular and spiculated right perihilar mass involves right middle and right lower lobe, mainly horizontal in configuration as seen on sagittal images. There is volume loss in the superior segment right lower lobe indicated by curvilinear consolidation and focal posterior pleural thickening at this level. No effusion. There are perihilar air bronchograms. In the right upper lobe laterally, there is a new small spiculated nodular density, 3/116 through 120. Stable 4 mm round nodule anteriorly in the left upper lobe, 3/63. 5 mm nodule superior segment left lower lobe medially, 3/108, and 8 mm nodule, 3/211 also in the medial left lower lobe. No new left lung nodules, consolidations, or effusions. Moderate emphysematous changes. Mediastinum: Heart size is at the upper limits of normal. Heavy coronary artery calcification. Trace pericardial fluid adjacent to the right atrium, stable. No mediastinal adenopathy by size criteria. Moderate calcific atherosclerosis. Thoracic aorta and central pulmonary arteries are normal in size. Esophagus is normal in caliber. No hiatal hernia. Bones and chest wall: Chronic T12 compression fracture without significant progression. No suspicious bony lesions. No axillary or supraclavicular adenopathy by size criteria. Thyroid gland is normal . Abdomen: Visualized upper abdominal solid organs and bowel loops appear normal in the absence of contrast. IMPRESSION: 1. Probable progressive radiation change in the right perihilar region, now more involving the right lower lobe. 2. Stable solid left lung nodules. 3. No evidence of new disease in the chest. Dictated by: Ghada Ch M.D. on 05/11/2021 at 12:54 Approved by: Ghada hC M.D. on 05/11/2021 at 13:10
[2021-05-11 12:18] LABS: Add Manual Diff / Slide Review NO; Basophils Absolute Auto 100 /uL (0-100); Basophils Percent Auto 1.1 % (0-2); Eosinophils Absolute Auto 300 /uL (0-450); Eosinophils Percent Auto 4.8 % (2-4); Hemoglobin 11.4 g/dL (12.0-16.0); Lymphocytes Absolute Auto 400 /uL (1100-4500); Lymphocytes Percent Auto 5.8 % (25-40); Mean Corpuscular HGB Conc 32.6 % (30-36); Mean Corpuscular Hemoglobin 27.7 PG (26-34); Monocytes Absolute Auto 600 /uL (0-900); Monocytes Percent Auto 8.8 % (3-14); Neutrophils Absolute Auto 5600 /uL (1500-7000); Neutrophils Percent Auto 79.5 % (50-75); Platelet Count 298 X10^3/uL (150-400); Red Blood Cell Count 4.12 X10^6/uL (4.0-5.2); Red Cell Distribution Width 16.5 % (11.6-14.8)
[2021-05-11 12:33] LABS: Alanine Aminotransferase 14 IU/L (<35); Albumin 4.2 g/dL (3.5-5.0); Albumin Globulin Ratio 1.3 (1.0-2.8); Alkaline Phosphatase 110 U/L (38-126); Aspartate Aminotransferase 22 IU/L (14-36); BUN Creatinine Ratio 17.4 (6-22); Bilirubin Total 0.4 mg/dL (0.2-1.3); Blood Urea Nitrogen 31 mg/dL (7-17); Calcium 9.5 mg/dL (8.4-10.2); Carbon Dioxide 31 mmol/L (22-32); Chloride 104 mmol/L (98-107); Estimated Glomerular Filt Rate 27.9 mL/min (>60); Globulin 3.3 g/dL (1.7-4.1); Glucose 124 mg/dL (80-110); HEMOLYSIS < 15 (0-50); Potassium 3.9 mmol/L (3.4-5.1); Sodium 142 mmol/L (137-145); Total Protein 7.5 g/dL (6.3-8.2)
[2021-05-11 12:54] LABS: INR 1.8 (0.9-1.3); Prothrombin Time 20.5 SECONDS (10.1-12.7)
== END ==
PROVIDERS: Family Medicine; PCP Family Medicine; Referring Provider Internal Medicine Hematology & Oncology; Visit Provider Internal Medicine Hematology & Oncology
DX: C34.91 Malignant neoplasm of unspecified part of right bronchus or lung (principal); Z79.01 Long term (current) use of anticoagulants
CPT/HCPCS: 36415; 71250; 80053; 85025; 85610

== ENCOUNTER 2021-05-25 09:09 | Emergency (ER) | payer MEDICARE, MEDICAID, SELFPAY ==
[2021-01-13 10:31] VITALS: BMI 30.9
[2021-05-25] VITALS (19 sets, daily range): BP systolic 67–119; BP diastolic 42–75; PULSE 78–126; RESP 16–42; TEMP 36.1; O2SAT 86–100
--- NOTE | 2021-05-25 09:48 | DI.RAD.S_ITS ---
PROCEDURE: XR CHEST 1V INDICATIONS: chest pain TECHNIQUE: One view of the chest was acquired. COMPARISON: [facility], CT, CT CHEST WO CON, 05/11/2021, 11:07. [facility], CR, XR CHEST 1V, 07/31/2020, 14:58. FINDINGS: Surgical changes and devices: None. Lungs and pleura: Redemonstrated spiculated density in the right mid lung zone, which may reflect scarring/post radiation change. The remaining lung zones are well aerated. No pleural effusions or pneumothorax. Mediastinum: Enlargement of cardiac silhouette. Bones and chest wall: No suspicious bony lesions. Overlying soft tissues appear unremarkable. IMPRESSION: No significant interval change. Dictated by: Casper Thompson M.D. on 05/25/2021 at 10:10 Approved by: Casper Thompson M.D. on 05/25/2021 at 10:15
[2021-05-25 09:56] LABS: Add Manual Diff / Slide Review NO; Basophils Absolute Auto 100 /uL (0-100); Basophils Percent Auto 1.3 % (0-2); Eosinophils Absolute Auto 400 /uL (0-450); Hematocrit 31.9 % (36-46); Hemoglobin 10.2 g/dL (12.0-16.0); Lymphocytes Absolute Auto 500 /uL (1100-4500); Lymphocytes Percent Auto 5.8 % (25-40); Mean Corpuscular Hemoglobin 26.7 PG (26-34); Mean Corpuscular Volume 83.4 fL (80-100); Monocytes Absolute Auto 800 /uL (0-900); Monocytes Percent Auto 8.9 % (3-14); Neutrophils Absolute Auto 6800 /uL (1500-7000); Platelet Count 353 X10^3/uL (150-400); Red Blood Cell Count 3.83 X10^6/uL (4.0-5.2); Red Cell Distribution Width 16.8 % (11.6-14.8); White Blood Cell Count 8.6 X10^3/uL (4.5-11.0)
[2021-05-25 10:03] LABS: Alanine Aminotransferase 13 IU/L (<35); Albumin 4.2 g/dL (3.5-5.0); Albumin Globulin Ratio 1.2 (1.0-2.8); Alkaline Phosphatase 104 U/L (38-126); Aspartate Aminotransferase 23 IU/L (14-36); BUN Creatinine Ratio 14.5 (6-22); Bilirubin Total 0.4 mg/dL (0.2-1.3); Blood Urea Nitrogen 30 mg/dL (7-17); Calcium 9.5 mg/dL (8.4-10.2); Carbon Dioxide 27 mmol/L (22-32); Chloride 106 mmol/L (98-107); Creatine Kinase 37 U/L (30-135); Estimated Glomerular Filt Rate 23.4 mL/min (>60); Globulin 3.4 g/dL (1.7-4.1); Glucose 118 mg/dL (80-110); HEMOLYSIS < 15 (0-50); Lipase 219 U/L (23-300); Magnesium 2.2 mg/dL (1.6-2.3); Potassium 3.4 mmol/L (3.4-5.1); Sodium 142 mmol/L (137-145); Total Protein 7.6 g/dL (6.3-8.2)
[2021-05-25] MEDS: SODIUM CHLORIDE 0.9% 1,000 ML 1000 ML IV (10:07)
[2021-05-25 10:17] LABS: NT-proBNP (BNP-Adult 18+) 2730 pg/mL (<125); Troponin I < 0.012 ng/mL (0.01-0.034)
--- NOTE | 2021-05-25 10:19 | ED.GENADULT ---
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 She notes that walking into his office using her walker that became increasingly short of breath and tachycardic. She recently was hospitalized for her atrial fibrillation. Medications been changed she at 1 point had been on 40 b.i.d. of Lasix then changed to torsemide, most recently was on Lasix 20 mg daily 3 days ago this was discontinued. Warfarin was discontinued and Xarelto was recently started. In the clinic blood pressures were as low as 60/40 to, oxygen saturations were as low as 85% on room air. She was asymptomatic with all of these changes. Her primary care physician recommended that she come to the emergency department and on arrival in the emergency department vital signs are confirmed and she is extraordinarily chatty and clearly in no respiratory distress or seemingly bothered by the hypotension. She notes that recently she has not had fevers, her chronic cough has not changed, she has not had any lower extremity edema, does not feel like her symptoms have gotten worse in the 3 days since discontinuing her diuretics. She reports no abdominal pain, chest pain, palpitations, lower extremity edema, headaches. She notes that she is a bit ?slower? and has to catch her breath but other than that feels that she is at her baseline Related Data Home Medications Medication Instructions Recorded Confirmed acetaminophen 325 mg capsule 650 mg PO Q4H PRN 02/27/20 02/09/21 (Tylenol) rosuvastatin 10 mg tablet (Crestor) 10 mg PO DAILY 08/08/20 02/09/21 isosorbide dinitrate 5 mg tablet 5 mg PO tab 11/05/20 02/09/21 nitroglycerin 0.1 mg/hr TRANSDERMAL 11/05/20 02/09/21 transdermal 24 hour patch torsemide 20 mg tablet 20 mg PO tab 11/05/20 02/09/21 aspirin 81 mg tablet 81 mg PO DAILY 05/14/21 05/14/21 calcium 600 mg capsule mg PO 05/14/21 cholecalciferol (vitamin D3) 10 10 mcg PO DAILY 05/14/21 05/14/21 mcg (400 unit) tablet loratadine 10 mg tablet 10 mg PO DAILY 05/14/21 05/14/21 Previous Rx's Medication Instructions Recorded Disabled Parking Placard #1 ea 07/14/18 triamcinolone acetonide 0.1 % 1 applictn TOP DAILY #453.6 gram 12/20/18 topical ointment ipratropium 0.5 mg-albuterol 3 mg 3 ml INHALATION Q6H PRN #180 ml 04/03/20 (2.5 mg base)/3 mL nebulization soln diclofenac sodium 3 % topical gel 1 applic TOPICAL BID #100 g 07/16/20 fluticasone propionate 50 1 spray INTRANASAL BID #16 g 12/16/20 mcg/actuation nasal spray,suspension (Flonase Allergy Relief) albuterol sulfate 90 mcg/actuation 2 puff INHALATION Q4-6H PRN #18 03/03/21 aerosol inhaler gram metoprolol succinate 25 mg 25 mg PO DAILY #90 tab 03/17/21 tablet,extended release 24 hr warfarin 3 mg tablet See Rx Instructions .ROUTE 04/01/21 .COMPLEX #120 tab oxycodone 5 mg tablet 5 mg PO BID PRN #30 tab 05/12/21 Allergies Allergy/AdvReac Type Severity Reaction Status Date / Time atorvastatin [ATORVASTATIN] AdvReac Intermediate Nausea and Verified 02/09/21 10:47 vomiting Review of Systems Review of Systems Narrative: Remainder of complete review of systems is otherwise unremarkable except for that included in the HPI. Patient History Medical History AAA (abdominal aortic aneurysm) (~2005) Arthritis of left hip Atrial fibrillation with RVR (02/18/18) Bilateral lower extremity edema Chronic left hip pain Chronic low back pain Chronic toe ulcer CKD (chronic kidney disease) stage 3, GFR 30-59 ml/min Congestive heart failure Coronary artery disease Fibromyalgia History of ectopic (1975) Hyperlipidemia Hypertension Localized osteoarthrosis of left hip Lung mass Olecranon bursitis Osteopenia (11/25/09) Poor circulation of extremity UTI (urinary tract infection) Warfarin anticoagulation Surgical History History of cone biopsy of cervix (1991) History of gynecologic surgery (1975) History of tubal ligation (1977) Family History Brother Essential hypertension Arthritis Heart disease Hyperlipidemia Mother Heart disease Sister Diabetes mellitus Essential hypertension Hyperlipidemia Breast cancer Father Multiple myeloma Grandfather Cancer Grandmother Cancer Grandmother No problems noted. Social History household members: family Smoking Status: Former smoker Tobacco: How many years used: 30 second hand exposure: No alcohol intake: never substance use type: does not use Smoking Status: Former smoker alcohol intake frequency: holidays/special occasions only Substance Use Type: does not use Exam Initial Vital Signs Initial Vital Signs: Vital Signs Temperature 97.0 F L 05/25/21 09:20 Pulse Rate 100 H 05/25/21 09:20 Respiratory Rate 20 05/25/21 09:20 General: Chronically ill-appearing in no acute distress. Despite significant hypotension and moderate tachycardia with hypoxia she is able to keep up of constant stream of conversation and is cognitively appropriate HEENT: Moist mucous membranes, normal sclera with reactive pupils, Neck: No JVD, supple Respiratory: Lungs mild scattered wheeze but no rales no rhonchi. Full and symmetrical air movement Cardiac: Tachycardic and irregular with no murmurs no bruits Abdomen: Soft, nontender, good bowel tones, no flank pain Skin: Thin, frail, multiple small bruises in various stages of healing but well perfused. Psoriatic plaques over her forearms Neurologic: Grossly neurologically intact with no obvious asymmetries or abnormalities Extremities: No specific trauma trauma, difficult to palpate dorsalis pedis and posterior tibialis pulses but good capillary refill. She has minimal to no lower extremity edema Psych: Cooperative, appropriate insight and affect Course Orders Ordered: ED Orders 05/25/21 09:40 Complete Blood Count AUTO DIFF Stat Comprehensive Metabolic Panel Stat Lipase Stat Magnesium Stat NT-proBNP (BNP-Adult 18+) Stat Troponin & CK Cardiac Panel Stat 05/25/21 09:48 XR chest 1V Stat EKG-12 Lead Stat 05/25/21 09:55 COVID19 -Nasal swab/Pre-Proc Stat Discontinued Medications Sodium Chloride (Normal Saline 0.9%) 1,000 mls @ 1,000 mls/hr IV BOLUS ONE Stop: 05/25/21 11:05 Last Infusion: 05/25/21 13:02 Dose: 0 mls/hr Documented by: Infusion: 05/25/21 12:16 Dose: 999 mls/hr Documented by: Infusion: 05/25/21 10:40 Dose: 0 mls/hr Documented by: Admin: 05/25/21 10:07 Dose: 1,000 mls/hr Documented by: SANDRA Vital Signs Vital signs: Vital Signs - 8 hr 05/25/21 10:30 05/25/21 10:45 05/25/21 10:46 Pulse Rate 80 79 80 Respiratory Rate 24 19 27 H Blood Pressure 105/57 L 98/49 L Pulse Oximetry 98 05/25/21 11:00 05/25/21 11:15 05/25/21 11:30 Pulse Rate 79 86 79 Respiratory Rate 24 29 H 22 Blood Pressure 100/61 95/53 L 105/57 L Pulse Oximetry 05/25/21 11:45 05/25/21 11:54 05/25/21 11:55 Pulse Rate 80 83 87 Respiratory Rate 24 22 24 Blood Pressure 119/73 90/51 L 88/67 L Pulse Oximetry 05/25/21 12:00 05/25/21 12:30 05/25/21 12:52 Pulse Rate 126 H 78 78 Respiratory Rate 42 H 16 22 Blood Pressure 100/55 L Pulse Oximetry Medical Decision Making Lab Data Result diagrams: 05/25/21 09:40 05/25/21 09:40 Labs: Lab Results 05/25/21 05/25/21 05/25/21 Range/Units 09:40 09:40 09:55 WBC 8.6 (4.5-11.0) X10^3/uL RBC 3.83 L (4.0-5.2) X10^6/uL Hgb 10.2 L (12.0-16.0) g/dL Hct 31.9 L (36-46) % MCV 83.4 (80-100) fL MCH 26.7 (26-34) PG MCHC 32.0 (30-36) % RDW 16.8 H (11.6-14.8) % Plt Count 353 (150-400) X10^3/uL Neut % (Auto) 79.0 H (50-75) % Lymph % (Auto) 5.8 L (25-40) % [place] % (Auto) 8.9 (3-14) % Eos % (Auto) 5.0 H (2-4) % Baso % (Auto) 1.3 (0-2) % Neut # (Auto) 6800 (4216-0525) /uL Lymph # (Auto) 500 L (6235-5767) /uL [place] # (Auto) 800 (0-900) /uL Eos # (Auto) 400 (0-450) /uL Baso # (Auto) 100 (0-100) /uL Sodium 142 (137-145) mmol/L Potassium 3.4 (3.4-5.1) mmol/L Chloride 106 (98-107) mmol/L Carbon Dioxide 27 (22-32) mmol/L BUN 30 H (7-17) mg/dL Creatinine 2.07 H (0.52-1.04) mg/dL Estimated GFR 23.4 L (>60) mL/min BUN/Creatinine Ratio 14.5 (6-22) Glucose 118 H (80-110) mg/dL Calcium 9.5 (8.4-10.2) mg/dL Magnesium 2.2 (1.6-2.3) mg/dL Total Bilirubin 0.4 (0.2-1.3) mg/dL AST 23 (14-36) IU/L ALT 13 (<35) IU/L Alkaline Phosphatase 104 (38-126) U/L Total Creatine Kinase 37 (30-135) U/L CK-MB (CK-2) TNP CK-MB (CK-2) Rel Index TNP Troponin I < 0.012 (0.01-0.034) ng/mL NT-Pro-B Natriuret Pep 2730 H (<125) pg/mL Total Protein 7.6 (6.3-8.2) g/dL Albumin 4.2 (3.5-5.0) g/dL Globulin 3.4 (1.7-4.1) g/dL Albumin/Globulin Ratio 1.2 (1.0-2.8) Lipase 219 (23-300) U/L SARS-CoV-2 (PCR) Negative (Negative) Imaging Data Chest x-ray: Radiologist's Impression: FINDINGS:? ? Surgical changes and devices:? None.? ? Lungs and pleura:? Redemonstrated spiculated density in the right mid lung zone, which may reflect scarring/post radiation change.? The remaining lung zones are well aerated.? No pleural effusions or pneumothorax.? ? Mediastinum:? Enlargement of cardiac silhouette. ? Bones and chest wall:? No suspicious bony lesions.? Overlying soft tissues appear unremarkable.? ? IMPRESSION:? No significant interval change. ? ? Dictated by: Casper Thompson M.D. on 05/25/2021 at 10:10? ?? ECG Data Interpretation: Atrial fibrillation rate controlled at 79 No significant ischemic changes MDM Narrative Medical decision making narrative: 75-year-old woman with multiple chronic all medical issues recently had all of her diuretics discontinued. In for a routine visit with her primary care doctor today and found to be dramatically hypotensive and impressively asymptomatic. Blood work is reassuring. She has minor acute kidney injury. No evidence of infection, pneumonia, congestive heart failure, acute coronary syndrome. She is given 500 cc of fluid with a nice response for blood pressure. She continues to be asymptomatic but show orthostatic hypotension. She is given the remainder 500 cc of fluid feels well and is discharged home. Will have her remain off of her Lasix as recommended by her coding compliance auditor. She will need follow-up in will ask her to continue to follow her daily weights. Will have her continue with all other follow-up care. Discharge Plan Departure Patient Disposition: Home Clinical Impression: Dehydration, Lung cancer, Atrial fibrillation, chronic Congestive heart failure Qualifiers: Heart failure type: systolic Heart failure chronicity: chronic Qualified Code(s): I50.22 - Chronic systolic (congestive) heart failure Instructions: DI for Orthostatic Hypotension Activity Restrictions/Additional Instructions: Thank you for coming in today Your blood pressure was particularly low at Dr. Vicente office. It came up nicely with a L of fluid. I believe the recommendation to stop your Lasix is absolutely appropriate. There is no further evidence today of heart attack, heart failure, overwhelming infection or need for hospitalization. I would encourage you to continue to check blood pressures regularly, keep track of your weight daily to see if it is increasing significantly and keep all of your usual follow-up appointments. I wish you the best Prescriptions: No Action (DME) Disabled Parking Placard Qty: 1 0RF Dose Instruction: As directed Rx Instructions: Patient qualifies for Disabled Parking Placard ipratropium-albuterol 0.5 mg-3 mg(2.5 mg base)/3 mL solution for nebulization 3 ml INHALATION Q6H PRN (Reason: shortness of breath) Qty: 180 1RF Rx Instructions: Use one vial with nebulizer up to once every six hours as needed for SOB. fluticasone propionate [Flonase Allergy Relief] 50 mcg/actuation spray,suspension 1 spray intranasal BID Qty: 16 1RF Rx Instructions: administer into each nostril albuterol sulfate 90 mcg/actuation HFA aerosol inhaler 2 puff INHALATION Q4-6H PRN (Reason: shortness of breath or wheezing) Qty: 18 3RF warfarin 3 mg tablet See Rx Instructions .ROUTE .COMPLEX Qty: 120 3RF Dose Instruction: TAKE ONE TABLET BY MOUTH ONE TIME DAILY or as directed Rx Instructions: Take 3mg Tuesday, Tuesday and 4.5mg all other days, or as directed. oxycodone 5 mg tablet 5 mg PO BID PRN (Reason: pain) Qty: 30 0RF triamcinolone acetonide 0.1 % ointment 1 applictn TOP DAILY Qty: 453.6 0RF diclofenac sodium 3 % gel 1 applic topical BID Qty: 100 1RF Rx Instructions: Apply to affected area b.i.d. rosuvastatin [Crestor] 10 mg tablet 10 mg PO DAILY 0RF torsemide 20 mg tablet 20 mg PO 0RF isosorbide dinitrate 5 mg tablet 5 mg PO 0RF nitroglycerin 0.1 mg/hr patch 24 hour transdermal 0RF metoprolol succinate 25 mg tablet extended release 24 hr 25 mg PO DAILY Qty: 90 1RF acetaminophen [Tylenol] 325 mg Capsule 650 mg PO Q4H PRN (Reason: Pain, Moderate) 0RF calcium 600 mg Capsule PO 0RF aspirin 81 mg Tablet 81 mg PO DAILY 0RF cholecalciferol (vitamin D3) 10 mcg (400 unit) Tablet 10 mcg PO DAILY 0RF loratadine 10 mg Tablet 10 mg PO DAILY 0RF Referrals: Bin Vicente, [Primary Care Provider] -
[2021-05-25 10:21] LABS: COVID19 -Nasal RAPID Negative (Negative)
== END 2021-05-25 13:05 | disposition home or self-care (01) ==
PROVIDERS: Emergency Provider Emergency Medicine; PCP Family Medicine
DX: I50.22 Chronic systolic (congestive) heart failure (principal); E86.0 Dehydration; I48.20 Chronic atrial fibrillation, unspecified; C34.92 Malignant neoplasm of unspecified part of left bronchus or lung; Z79.01 Long term (current) use of anticoagulants; Z20.822 Contact with and (suspected) exposure to COVID-19; Z87.891 Personal history of nicotine dependence
CPT/HCPCS: 36415; 71045; 80053; 82550; 83690; 83735; 83880; 84484; 85025; 87635; 93005; 96360; 99284; 99285; C9803

== ENCOUNTER 2021-06-08 12:32 | Emergency (ER) | payer MEDICARE, MEDICAID, SELFPAY ==
[2021-01-13 10:31] VITALS: BMI 30.9
[2021-06-08] VITALS (55 sets, daily range): BP systolic 76–128; BP diastolic 46–83; PULSE 85–135; RESP 11–39; TEMP 36.2; O2SAT 85–100; BMI 26.6
--- NOTE | 2021-06-08 12:53 | DI.RAD.S_ITS ---
PROCEDURE: XR CHEST 1V INDICATIONS: chest pain TECHNIQUE: One view of the chest was acquired. COMPARISON: [facility], CR, XR CHEST 1V, 05/25/2021, 9:53. FINDINGS: Surgical changes and devices: Linear metallic density is again seen projecting over right hilar region. Lungs and pleura: 3.4 x 3.3 cm soft tissue mass in right midlung field/right hilar region is again seen with mild scabetic elated margin. No pleural effusions or pneumothorax. No pleural effusion or pneumothorax. Left lung is clear. Mediastinum: Mediastinal contours appear normal. Heart size is enlarged. Bones and chest wall: No suspicious bony lesions. Overlying soft tissues appear unremarkable. IMPRESSION: Persistent right midlung field/hilar mass. No new area of airspace opacity. No pleural effusion or pneumothorax. Dictated by: Nolan Thomson M.D. on 06/08/2021 at 13:24 Approved by: Nolan Thomson M.D. on 06/08/2021 at 13:26
--- NOTE | 2021-06-08 16:36 | ED_ITS ---
HPI - Syncope <Kenna Ray, DO - Last Filed: 06/13/21 01:45> General Chief Complaint: Dizziness Stated Complaint: Dizziness When Standing Up Time Seen by Provider: 06/08/21 16:35 Source: patient Mode of arrival: Wheelchair Limitations: no limitations History of Present Illness HPI narrative: Patient is a 75-year-old female with history of atrial fibrillation on Xarelto, coronary artery disease, congestive heart failure (EF 30% improved to 50-55% on 04/13/21), aortic stenosis chronic kidney disease, COPD not oxygen, chronic hypertension presenting today with increasing shortness of breath with exertion and near-syncope. She is followed by cardiology in [place] Dr. Dixon, who co mes though she is scheduled for a cardiac catheterization the beginning of June. She says that she is having increasing shortness of breath with exertion which has been ongoing for couple of weeks. She was seen evaluated here May 25 for something similar. Today she was supposed to go to her doctor however she stood up she got extremely dizzy lightheaded almost passed out but did not. At which point she decided to come to the emergency department. She is noted to be in atrial fibrillation she has blood pressures with a systolic in the 90s. She denies any fever chills cough chest pain nausea or vomiting. Cardiology records report that she has severe multivessel disease she was sent to cardiothoracic surgery her case was presented to enter disciplinary cardiac catheterization conference after discussion recommendation was to pursue PCI of the LAD. She also has severe peripheral arterial disease and was seen by vascular surgery on 05/05/2019 to for possible toe ischemia. It was at that time she was transitioned from warfarin to Xarelto. She was seen in the cardiology clinic on 04/14/2021 she had been complaining of some shortness of breath with exertion and intermittent problems with low blood pressures. She has had ongoing episodes of hypotension with asymptomatic and shortness of breath with exertion without complaints of chest pain. Related Data Home Medications Medication Instructions Recorded Confirmed acetaminophen 325 mg capsule 650 mg PO Q4H PRN 02/27/20 02/09/21 (Tylenol) rosuvastatin 10 mg tablet (Crestor) 10 mg PO DAILY 08/08/20 02/09/21 isosorbide dinitrate 5 mg tablet 5 mg PO tab 11/05/20 02/09/21 nitroglycerin 0.1 mg/hr TRANSDERMAL 11/05/20 02/09/21 transdermal 24 hour patch torsemide 20 mg tablet 20 mg PO tab 11/05/20 02/09/21 aspirin 81 mg tablet 81 mg PO DAILY 05/14/21 05/14/21 calcium 600 mg capsule mg PO 05/14/21 cholecalciferol (vitamin D3) 10 10 mcg PO DAILY 05/14/21 05/14/21 mcg (400 unit) tablet loratadine 10 mg tablet 10 mg PO DAILY 05/14/21 05/14/21 Previous Rx's Medication Instructions Recorded Disabled Parking Placard #1 ea 07/14/18 ipratropium 0.5 mg-albuterol 3 mg 3 ml INHALATION Q6H PRN #180 ml 04/03/20 (2.5 mg base)/3 mL nebulization soln diclofenac sodium 3 % topical gel 1 applic TOPICAL BID #100 g 07/16/20 fluticasone propionate 50 1 spray INTRANASAL BID #16 g 12/16/20 mcg/actuation nasal spray,suspension (Flonase Allergy Relief) albuterol sulfate 90 mcg/actuation 2 puff INHALATION Q4-6H PRN #18 03/03/21 aerosol inhaler gram metoprolol succinate 25 mg 25 mg PO DAILY #90 tab 03/17/21 tablet,extended release 24 hr warfarin 3 mg tablet See Rx Instructions .ROUTE 04/01/21 .COMPLEX #120 tab oxycodone 5 mg tablet 5 mg PO BID PRN #30 tab 05/12/21 triamcinolone acetonide 0.5 % See Rx Instructions .ROUTE 06/09/21 topical cream .COMPLEX #15 g Allergies Allergy/AdvReac Type Severity Reaction Status Date / Time atorvastatin [ATORVASTATIN] AdvReac Intermediate Nausea and Verified 06/08/21 12:50 vomiting Review of Systems <Kenna Ray, DO - Last Filed: 06/13/21 01:45> Review of Systems Narrative: GENERAL: Denies chills, fatigue, malaise, fever, sweats, travel HEENT: Denies sinus pain, ear pain, sore throat, difficulty swallowing, neck pain RESPIRATORY: See HPI CARDIOVASCULAR: Denies chest pain, palpitations, orthopnea, edema GASTROINTESTINAL: Denies nausea, vomiting, abdominal pain, diarrhea, constipation, melena. : Denies dysuria, frequency, incontinence, hematuria, urinary retention, flank pain. MUSCULOSKELETAL: Denies weakness, joint pain, or bony pain SKIN: No rash, no erythema, no pruritus NEUROLOGIC: Denies weakness, dizziness, headache, numbness, change in speech, confusion PSYCHIATRIC: No concerning psychosocial issues. 12 point review of systems is negative except for those stated above and HPI Patient History <Kenna Ray DO - Last Filed: 06/13/21 01:45> Medical History AAA (abdominal aortic aneurysm) (~2005) Arthritis of left hip Atrial fibrillation with RVR (02/18/18) Bilateral lower extremity edema Chronic left hip pain Chronic low back pain Chronic toe ulcer CKD (chronic kidney disease) stage 3, GFR 30-59 ml/min Congestive heart failure Coronary artery disease Fibromyalgia History of ectopic (1975) Hyperlipidemia Hypertension Localized osteoarthrosis of left hip Lung mass Olecranon bursitis Osteopenia (03/19/09) Poor circulation of extremity UTI (urinary tract infection) Warfarin anticoagulation Surgical History History of cone biopsy of cervix (1991) History of gynecologic surgery (1975) History of tubal ligation (1977) Family History Brother Essential hypertension Arthritis Heart disease Hyperlipidemia Mother Heart disease Sister Diabetes mellitus Essential hypertension Hyperlipidemia Breast cancer Father Multiple myeloma Grandfather Cancer Grandmother Cancer Grandmother No problems noted. Social History household members: family Smoking Status: Former smoker Tobacco: How many years used: 30 second hand exposure: No alcohol intake: never substance use type: does not use Smoking Status: Former smoker alcohol intake frequency: holidays/special occasions only Substance Use Type: does not use Exam <Kenna Ray DO - Last Filed: 06/13/21 01:45> Initial Vital Signs Initial Vital Signs: Vital Signs Temperature 97.1 F L 06/08/21 12:43 Pulse Rate 114 H 06/08/21 12:43 Respiratory Rate 20 06/08/21 12:43 Blood Pressure 123/72 06/08/21 12:43 Pulse Oximetry 100 06/08/21 12:43 GENERAL: Alert well-appearing 8-year-old female HEENT: Head atraumatic,EOMI, pupils reactive, face symmetric, [moist] mucous mem branes CARDIOVASCULAR: Irregularly irregular RESPIRATORY: Breath sounds equal bilaterally, no wheezes rales or rhonchi. ABDOMEN: Soft, nontender. Normoactive bowel sounds all 4 quadrants. No guardi ng or rebound. EXTREMITIES: Normal range of motion, no clubbing. Neurovascularly intact NEUROLOGICAL: Alert and oriented x4.Normal gait and speech. SKIN: Warm, dry, no laceration, no petechiae, no rashes or lesions. <Natalie Chaney, DO - Last Filed: 06/10/21 04:22> Initial Vital Signs Initial Vital Signs: Vital Signs Temperature 97.1 F L 06/08/21 12:43 Pulse Rate 114 H 06/08/21 12:43 Respiratory Rate 20 06/08/21 12:43 Blood Pressure 123/72 06/08/21 12:43 Pulse Oximetry 100 06/08/21 12:43 Course <Kenna Ray DO - Last Filed: 06/13/21 01:45> Orders Ordered: Discontinued Medications Albuterol/Ipratropium (Albuterol/Ipratropium 3 Ml Ampul) 3 ml INH NOW ONE Stop: 06/08/21 20:47 Last Admin: 06/08/21 20:55 Dose: 3 ml Documented by: SHERI Sodium Chloride (Normal Saline 0.9%) 1,000 mls @ 1,000 mls/hr IV BOLUS ONE Stop: 06/08/21 17:50 Last Infusion: 06/08/21 18:58 Dose: 0 mls/hr Documented by: Admin: 06/08/21 17:40 Dose: 1,000 mls/hr Documented by: ATAYLOR Sodium Chloride (Normal Saline 0.9%) 500 mls @ 1,000 mls/hr IV BOLUS ONE Stop: 06/08/21 19:27 Last Infusion: 06/08/21 20:10 Dose: 0 mls/hr Documented by: Admin: 06/08/21 19:01 Dose: 1,000 mls/hr Documented by: ATAYLOR Oxycodone HCl (Oxycodone 5 Mg/5 Ml Oral Solution) 5 mg PO Q4HR ONE Stop: 06/08/21 22:58 Last Admin: 06/08/21 23:04 Dose: Not Given Documented by: AGUSTÍN Oxycodone HCl (Oxycodone Ir 5 Mg Tablet) 5 mg PO NOW ONE Stop: 06/08/21 23:03 Last Admin: 06/08/21 23:07 Dose: 5 mg Documented by: AGUSTÍN Vital Signs Vital signs: Vital Signs - 8 hr 06/08/21 15:59 06/08/21 16:00 06/08/21 16:15 Pulse Rate 110 H 98 H 98 H Pulse Rate [Orthostatic Lying] Pulse Rate [Orthostatic Sitting] Pulse Rate [Orthostatic Standing] Respiratory Rate 19 16 24 Blood Pressure 128/54 L Blood Pressure [Orthostatic Lying] Blood Pressure [Orthostatic Sitting] Blood Pressure [Orthostatic Standing] Pulse Oximetry 100 99 100 06/08/21 16:27 06/08/21 16:30 06/08/21 16:33 Pulse Rate 87 124 H 100 H Pulse Rate [Orthostatic Lying] Pulse Rate [Orthostatic Sitting] Pulse Rate [Orthostatic Standing] Respiratory Rate 17 21 19 Blood Pressure 118/83 101/63 Blood Pressure [Orthostatic Lying] Blood Pressure [Orthostatic Sitting] Blood Pressure [Orthostatic Standing] Pulse Oximetry 100 85 L 100 06/08/21 16:35 06/08/21 16:43 06/08/21 16:45 Pulse Rate 119 H 104 H Pulse Rate [Orthostatic Lying] 88 Pulse Rate [Orthostatic Sitting] 94 H Pulse Rate [Orthostatic Standing] 108 H Respiratory Rate 23 32 H Blood Pressure 94/61 Blood Pressure [Orthostatic Lying] 118/83 Blood Pressure [Orthostatic Sitting] 101/63 Blood Pressure [Orthostatic Standing] 94/61 Pulse Oximetry 87 L 95 06/08/21 17:00 06/08/21 17:15 06/08/21 17:30 Pulse Rate 120 H 113 H 119 H Pulse Rate [Orthostatic Lying] Pulse Rate [Orthostatic Sitting] Pulse Rate [Orthostatic Standing] Respiratory Rate 23 29 H 27 H Blood Pressure 99/57 L Blood Pressure [Orthostatic Lying] Blood Pressure [Orthostatic Sitting] Blood Pressure [Orthostatic Standing] Pulse Oximetry 100 99 06/08/21 17:34 06/08/21 17:45 06/08/21 18:00 Pulse Rate 101 H 89 97 H Pulse Rate [Orthostatic Lying] Pulse Rate [Orthostatic Sitting] Pulse Rate [Orthostatic Standing] Respiratory Rate 19 18 12 Blood Pressure 79/54 L 89/63 L 97/70 Blood Pressure [Orthostatic Lying] Blood Pressure [Orthostatic Sitting] Blood Pressure [Orthostatic Standing] Pulse Oximetry 100 96 100 06/08/21 18:15 06/08/21 18:16 06/08/21 18:30 Pulse Rate 97 H 93 H 94 H Pulse Rate [Orthostatic Lying] Pulse Rate [Orthostatic Sitting] Pulse Rate [Orthostatic Standing] Respiratory Rate 22 14 16 Blood Pressure 98/46 L Blood Pressure [Orthostatic Lying] Blood Pressure [Orthostatic Sitting] Blood Pressure [Orthostatic Standing] Pulse Oximetry 98 100 100 06/08/21 18:31 06/08/21 18:32 06/08/21 18:45 Pulse Rate 101 H 101 H 93 H Pulse Rate [Orthostatic Lying] Pulse Rate [Orthostatic Sitting] Pulse Rate [Orthostatic Standing] Respiratory Rate 25 H 20 26 H Blood Pressure 81/53 L 84/47 L Blood Pressure [Orthostatic Lying] Blood Pressure [Orthostatic Sitting] Blood Pressure [Orthostatic Standing] Pulse Oximetry 98 100 06/08/21 18:54 06/08/21 19:00 06/08/21 19:04 Pulse Rate 100 H 93 H 104 H Pulse Rate [Orthostatic Lying] Pulse Rate [Orthostatic Sitting] Pulse Rate [Orthostatic Standing] Respiratory Rate 23 24 27 H Blood Pressure 80/63 L 76/61 L 84/60 L Blood Pressure [Orthostatic Lying] Blood Pressure [Orthostatic Sitting] Blood Pressure [Orthostatic Standing] Pulse Oximetry 100 95 100 06/08/21 19:06 06/08/21 19:15 06/08/21 19:30 Pulse Rate 101 H 88 85 Pulse Rate [Orthostatic Lying] Pulse Rate [Orthostatic Sitting] Pulse Rate [Orthostatic Standing] Respiratory Rate 28 H 22 11 L Blood Pressure 96/65 104/59 L 103/65 Blood Pressure [Orthostatic Lying] Blood Pressure [Orthostatic Sitting] Blood Pressure [Orthostatic Standing] Pulse Oximetry 100 93 100 06/08/21 19:45 06/08/21 20:00 06/08/21 20:01 Pulse Rate 85 115 H 102 H Pulse Rate [Orthostatic Lying] Pulse Rate [Orthostatic Sitting] Pulse Rate [Orthostatic Standing] Respiratory Rate 15 25 H 22 Blood Pressure 115/76 95/51 L Blood Pressure [Orthostatic Lying] Blood Pressure [Orthostatic Sitting] Blood Pressure [Orthostatic Standing] Pulse Oximetry 98 98 100 06/08/21 20:05 06/08/21 20:15 06/08/21 20:30 Pulse Rate 124 H 118 H 113 H Pulse Rate [Orthostatic Lying] Pulse Rate [Orthostatic Sitting] Pulse Rate [Orthostatic Standing] Respiratory Rate 39 H 37 H 32 H Blood Pressure 111/53 L Blood Pressure [Orthostatic Lying] Blood Pressure [Orthostatic Sitting] Blood Pressure [Orthostatic Standing] Pulse Oximetry 91 93 06/08/21 20:35 06/08/21 20:45 06/08/21 20:46 Pulse Rate 98 H 95 H 89 Pulse Rate [Orthostatic Lying] Pulse Rate [Orthostatic Sitting] Pulse Rate [Orthostatic Standing] Respiratory Rate 29 H 15 21 Blood Pressure 111/58 L 84/47 L Blood Pressure [Orthostatic Lying] Blood Pressure [Orthostatic Sitting] Blood Pressure [Orthostatic Standing] Pulse Oximetry 99 100 100 06/08/21 20:49 06/08/21 20:51 06/08/21 20:56 Pulse Rate 94 H 104 H 96 H Pulse Rate [Orthostatic Lying] Pulse Rate [Orthostatic Sitting] Pulse Rate [Orthostatic Standing] Respiratory Rate 25 H 19 20 Blood Pressure Blood Pressure [Orthostatic Lying] Blood Pressure [Orthostatic Sitting] Blood Pressure [Orthostatic Standing] Pulse Oximetry 100 100 100 06/08/21 21:00 06/08/21 21:01 06/08/21 21:15 Pulse Rate 106 H 115 H 91 H Pulse Rate [Orthostatic Lying] Pulse Rate [Orthostatic Sitting] Pulse Rate [Orthostatic Standing] Respiratory Rate 37 H 26 H 28 H Blood Pressure 100/66 Blood Pressure [Orthostatic Lying] Blood Pressure [Orthostatic Sitting] Blood Pressure [Orthostatic Standing] Pulse Oximetry 92 97 97 06/08/21 21:30 06/08/21 21:31 06/08/21 21:45 Pulse Rate 96 H 97 H 96 H Pulse Rate [Orthostatic Lying] Pulse Rate [Orthostatic Sitting] Pulse Rate [Orthostatic Standing] Respiratory Rate 29 H 22 25 H Blood Pressure 97/59 L 97/54 L Blood Pressure [Orthostatic Lying] Blood Pressure [Orthostatic Sitting] Blood Pressure [Orthostatic Standing] Pulse Oximetry 98 98 99 06/08/21 22:00 06/08/21 22:10 06/08/21 22:15 Pulse Rate 110 H 109 H 103 H Pulse Rate [Orthostatic Lying] Pulse Rate [Orthostatic Sitting] Pulse Rate [Orthostatic Standing] Respiratory Rate 32 H 36 H 27 H Blood Pressure 96/60 112/53 L Blood Pressure [Orthostatic Lying] Blood Pressure [Orthostatic Sitting] Blood Pressure [Orthostatic Standing] Pulse Oximetry 98 95 99 06/08/21 22:30 06/08/21 22:45 06/08/21 23:00 Pulse Rate 113 H 95 H 135 H Pulse Rate [Orthostatic Lying] Pulse Rate [Orthostatic Sitting] Pulse Rate [Orthostatic Standing] Respiratory Rate 25 H 17 25 H Blood Pressure Blood Pressure [Orthostatic Lying] Blood Pressure [Orthostatic Sitting] Blood Pressure [Orthostatic Standing] Pulse Oximetry 100 99 95 <Natalie Chaney DO - Last Filed: 06/10/21 04:22> Orders Ordered: Discontinued Medications Albuterol/Ipratropium (Albuterol/Ipratropium 3 Ml Ampul) 3 ml INH NOW ONE Stop: 06/08/21 20:47 Last Admin: 06/08/21 20:55 Dose: 3 ml Documented by: VENULENALLAN Sodium Chloride (Normal Saline 0.9%) 1,000 mls @ 1,000 mls/hr IV BOLUS ONE Stop: 06/08/21 17:50 Last Infusion: 06/08/21 18:58 Dose: 0 mls/hr Documented by: Admin: 06/08/21 17:40 Dose: 1,000 mls/hr Documented by: ATAYLOR Sodium Chloride (Normal Saline 0.9%) 500 mls @ 1,000 mls/hr IV BOLUS ONE Stop: 06/08/21 19:27 Last Infusion: 06/08/21 20:10 Dose: 0 mls/hr Documented by: Admin: 06/08/21 19:01 Dose: 1,000 mls/hr Documented by: ATAYLOR Oxycodone HCl (Oxycodone 5 Mg/5 Ml Oral Solution) 5 mg PO Q4HR ONE Stop: 06/08/21 22:58 Last Admin: 06/08/21 23:04 Dose: Not Given Documented by: AGUSTÍN Oxycodone HCl (Oxycodone Ir 5 Mg Tablet) 5 mg PO NOW ONE Stop: 06/08/21 23:03 Last Admin: 06/08/21 23:07 Dose: 5 mg Documented by: AGUSTÍN Reevaluation(s) Reevaluation #1: Patient seen independently evaluated by myself. Patient's HPI was reviewed as well as her ROS. She has had a near syncopal episode recently as well as dizziness increasing shortness of breath. She denies any chest pain or pressure. She has no cardiac disease she is supposed to be catheterized on June 28 with plan for PCI of her LAD. She was evaluated for potential CABG but was felt she would be a PCI candidate by her cardiology team in [place]. Patient has had slowly worsening symptoms and states she was just tired of it came in today. She has been hypotensive which she states is typical for with a normal systolic of 100 but she states 80-90 systolic is not atypical. She is anticoagulated for AFib, has a known history of CHF with most recent EF being 50% motor remote EF on echo of 30%. Prior cancer of the right lung with radiation changes present on prior CT last month and seen today on chest x-ray. History of COPD and uses albuterol as needed. Patient was signed out to myself by Dr. Ray. She has a trending upwards troponin that is technically not p ositive as our cutoff is 0.12 but was 0.07 to in trended to 0.92972 hours with T-wave inversion in 2 3 AVF and lateral leads. Patient has prior troponins were negative. She has chronic kidney disease which appears stable hemoglobin of 8 which has decreased from 10 on her last visit. Patient's BNP is elevated at 4100 she typically runs around 2200 but has been as high as 5110. Patient states that she does not feel significantly worse in terms of dizziness with her low pressures but has had intermittent shortness of breath. She received 1.5 L of fluid after direction by Cardiology to Dr. Ray to do so. She has had some tachypnea but has not had any worsening O2 sat. [facility] regional hotline was contacted and there were no beds regionally except at [place]. I spoke with our hospitalist who then had me speak with there ED provider Dr. Hughes who kindly accepts for transfer with plan to evaluate in ER and then decide on bed placement. Time: 21:30 Vital Signs Vital signs: Vital Signs - 8 hr 06/08/21 15:59 06/08/21 16:00 06/08/21 16:15 Pulse Rate 110 H 98 H 98 H Pulse Rate [Orthostatic Lying] Pulse Rate [Orthostatic Sitting] Pulse Rate [Orthostatic Standing] Respiratory Rate 19 16 24 Blood Pressure 128/54 L Blood Pressure [Orthostatic Lying] Blood Pressure [Orthostatic Sitting] Blood Pressure [Orthostatic Standing] Pulse Oximetry 100 99 100 06/08/21 16:27 06/08/21 16:30 06/08/21 16:33 Pulse Rate 87 124 H 100 H Pulse Rate [Orthostatic Lying] Pulse Rate [Orthostatic Sitting] Pulse Rate [Orthostatic Standing] Respiratory Rate 17 21 19 Blood Pressure 118/83 101/63 Blood Pressure [Orthostatic Lying] Blood Pressure [Orthostatic Sitting] Blood Pressure [Orthostatic Standing] Pulse Oximetry 100 85 L 100 06/08/21 16:35 06/08/21 16:43 06/08/21 16:45 Pulse Rate 119 H 104 H Pulse Rate [Orthostatic Lying] 88 Pulse Rate [Orthostatic Sitting] 94 H Pulse Rate [Orthostatic Standing] 108 H Respiratory Rate 23 32 H Blood Pressure 94/61 Blood Pressure [Orthostatic Lying] 118/83 Blood Pressure [Orthostatic Sitting] 101/63 Blood Pressure [Orthostatic Standing] 94/61 Pulse Oximetry 87 L 95 06/08/21 17:00 06/08/21 17:15 06/08/21 17:30 Pulse Rate 120 H 113 H 119 H Pulse Rate [Orthostatic Lying] Pulse Rate [Orthostatic Sitting] Pulse Rate [Orthostatic Standing] Respiratory Rate 23 29 H 27 H Blood Pressure 99/57 L Blood Pressure [Orthostatic Lying] Blood Pressure [Orthostatic Sitting] Blood Pressure [Orthostatic Standing] Pulse Oximetry 100 99 06/08/21 17:34 06/08/21 17:45 06/08/21 18:00 Pulse Rate 101 H 89 97 H Pulse Rate [Orthostatic Lying] Pulse Rate [Orthostatic Sitting] Pulse Rate [Orthostatic Standing] Respiratory Rate 19 18 12 Blood Pressure 79/54 L 89/63 L 97/70 Blood Pressure [Orthostatic Lying] Blood Pressure [Orthostatic Sitting] Blood Pressure [Orthostatic Standing] Pulse Oximetry 100 96 100 06/08/21 18:15 06/08/21 18:16 06/08/21 18:30 Pulse Rate 97 H 93 H 94 H Pulse Rate [Orthostatic Lying] Pulse Rate [Orthostatic Sitting] Pulse Rate [Orthostatic Standing] Respiratory Rate 22 14 16 Blood Pressure 98/46 L Blood Pressure [Orthostatic Lying] Blood Pressure [Orthostatic Sitting] Blood Pressure [Orthostatic Standing] Pulse Oximetry 98 100 100 06/08/21 18:31 06/08/21 18:32 06/08/21 18:45 Pulse Rate 101 H 101 H 93 H Pulse Rate [Orthostatic Lying] Pulse Rate [Orthostatic Sitting] Pulse Rate [Orthostatic Standing] Respiratory Rate 25 H 20 26 H Blood Pressure 81/53 L 84/47 L Blood Pressure [Orthostatic Lying] Blood Pressure [Orthostatic Sitting] Blood Pressure [Orthostatic Standing] Pulse Oximetry 98 100 06/08/21 18:54 06/08/21 19:00 06/08/21 19:04 Pulse Rate 100 H 93 H 104 H Pulse Rate [Orthostatic Lying] Pulse Rate [Orthostatic Sitting] Pulse Rate [Orthostatic Standing] Respiratory Rate 23 24 27 H Blood Pressure 80/63 L 76/61 L 84/60 L Blood Pressure [Orthostatic Lying] Blood Pressure [Orthostatic Sitting] Blood Pressure [Orthostatic Standing] Pulse Oximetry 100 95 100 06/08/21 19:06 06/08/21 19:15 06/08/21 19:30 Pulse Rate 101 H 88 85 Pulse Rate [Orthostatic Lying] Pulse Rate [Orthostatic Sitting] Pulse Rate [Orthostatic Standing] Respiratory Rate 28 H 22 11 L Blood Pressure 96/65 104/59 L 103/65 Blood Pressure [Orthostatic Lying] Blood Pressure [Orthostatic Sitting] Blood Pressure [Orthostatic Standing] Pulse Oximetry 100 93 100 06/08/21 19:45 06/08/21 20:00 06/08/21 20:01 Pulse Rate 85 115 H 102 H Pulse Rate [Orthostatic Lying] Pulse Rate [Orthostatic Sitting] Pulse Rate [Orthostatic Standing] Respiratory Rate 15 25 H 22 Blood Pressure 115/76 95/51 L Blood Pressure [Orthostatic Lying] Blood Pressure [Orthostatic Sitting] Blood Pressure [Orthostatic Standing] Pulse Oximetry 98 98 100 06/08/21 20:05 06/08/21 20:15 06/08/21 20:30 Pulse Rate 124 H 118 H 113 H Pulse Rate [Orthostatic Lying] Pulse Rate [Orthostatic Sitting] Pulse Rate [Orthostatic Standing] Respiratory Rate 39 H 37 H 32 H Blood Pressure 111/53 L Blood Pressure [Orthostatic Lying] Blood Pressure [Orthostatic Sitting] Blood Pressure [Orthostatic Standing] Pulse Oximetry 91 93 06/08/21 20:35 06/08/21 20:45 06/08/21 20:46 Pulse Rate 98 H 95 H 89 Pulse Rate [Orthostatic Lying] Pulse Rate [Orthostatic Sitting] Pulse Rate [Orthostatic Standing] Respiratory Rate 29 H 15 21 Blood Pressure 111/58 L 84/47 L Blood Pressure [Orthostatic Lying] Blood Pressure [Orthostatic Sitting] Blood Pressure [Orthostatic Standing] Pulse Oximetry 99 100 100 06/08/21 20:49 06/08/21 20:51 06/08/21 20:56 Pulse Rate 94 H 104 H 96 H Pulse Rate [Orthostatic Lying] Pulse Rate [Orthostatic Sitting] Pulse Rate [Orthostatic Standing] Respiratory Rate 25 H 19 20 Blood Pressure Blood Pressure [Orthostatic Lying] Blood Pressure [Orthostatic Sitting] Blood Pressure [Orthostatic Standing] Pulse Oximetry 100 100 100 06/08/21 21:00 06/08/21 21:01 06/08/21 21:15 Pulse Rate 106 H 115 H 91 H Pulse Rate [Orthostatic Lying] Pulse Rate [Orthostatic Sitting] Pulse Rate [Orthostatic Standing] Respiratory Rate 37 H 26 H 28 H Blood Pressure 100/66 Blood Pressure [Orthostatic Lying] Blood Pressure [Orthostatic Sitting] Blood Pressure [Orthostatic Standing] Pulse Oximetry 92 97 97 06/08/21 21:30 06/08/21 21:31 06/08/21 21:45 Pulse Rate 96 H 97 H 96 H Pulse Rate [Orthostatic Lying] Pulse Rate [Orthostatic Sitting] Pulse Rate [Orthostatic Standing] Respiratory Rate 29 H 22 25 H Blood Pressure 97/59 L 97/54 L Blood Pressure [Orthostatic Lying] Blood Pressure [Orthostatic Sitting] Blood Pressure [Orthostatic Standing] Pulse Oximetry 98 98 99 06/08/21 22:00 06/08/21 22:10 06/08/21 22:15 Pulse Rate 110 H 109 H 103 H Pulse Rate [Orthostatic Lying] Pulse Rate [Orthostatic Sitting] Pulse Rate [Orthostatic Standing] Respiratory Rate 32 H 36 H 27 H Blood Pressure 96/60 112/53 L Blood Pressure [Orthostatic Lying] Blood Pressure [Orthostatic Sitting] Blood Pressure [Orthostatic Standing] Pulse Oximetry 98 95 99 06/08/21 22:30 06/08/21 22:45 06/08/21 23:00 Pulse Rate 113 H 95 H 135 H Pulse Rate [Orthostatic Lying] Pulse Rate [Orthostatic Sitting] Pulse Rate [Orthostatic Standing] Respiratory Rate 25 H 17 25 H Blood Pressure Blood Pressure [Orthostatic Lying] Blood Pressure [Orthostatic Sitting] Blood Pressure [Orthostatic Standing] Pulse Oximetry 100 99 95 MDM - Syncope <Kenna Ray, DO - Last Filed: 06/13/21 01:45> Lab Data Result diagrams: 06/08/21 16:26 06/08/21 16:26 Labs: Lab Results 06/08/21 06/08/21 06/08/21 Range/Units 16:26 16:26 16:26 WBC 7.3 (4.5-11.0) X10^3/uL RBC 3.17 L (4.0-5.2) X10^6/uL Hgb 8.0 L (12.0-16.0) g/dL Hct 25.7 L (36-46) % MCV 81.1 (80-100) fL MCH 25.3 L (26-34) PG MCHC 31.2 (30-36) % RDW 17.4 H (11.6-14.8) % Plt Count 303 (150-400) X10^3/uL Neut % (Auto) 73.4 (50-75) % Lymph % (Auto) 9.4 L (25-40) % [place] % (Auto) 9.7 (3-14) % Eos % (Auto) 6.0 H (2-4) % Baso % (Auto) 1.5 (0-2) % Neut # (Auto) 5400 ([id number]) /uL Lymph # (Auto) 700 L (1205-2597) /uL Livingston # (Auto) 700 (0-900) /uL Eos # (Auto) 400 (0-450) /uL Baso # (Auto) 100 (0-100) /uL Sodium 140 (137-145) mmol/L Potassium 3.2 L (3.4-5.1) mmol/L Chloride 107 (98-107) mmol/L Carbon Dioxide 25 (22-32) mmol/L BUN 39 H (7-17) mg/dL Creatinine 1.77 H (0.52-1.04) mg/dL Estimated GFR 28.0 L (>60) mL/min BUN/Creatinine Ratio 22.0 (6-22) Glucose 131 H (80-110) mg/dL Calcium 9.3 (8.4-10.2) mg/dL Magnesium 2.2 (1.6-2.3) mg/dL Total Bilirubin 0.3 (0.2-1.3) mg/dL AST 18 (14-36) IU/L ALT 12 (<35) IU/L Alkaline Phosphatase 90 (38-126) U/L Total Creatine Kinase 36 (30-135) U/L CK-MB (CK-2) TNP CK-MB (CK-2) Rel Index TNP Troponin I 0.072 H (0.01-0.034) ng/mL NT-Pro-B Natriuret Pep 4170 H (<125) pg/mL Total Protein 7.2 (6.3-8.2) g/dL Albumin 3.9 (3.5-5.0) g/dL Globulin 3.3 (1.7-4.1) g/dL Albumin/Globulin Ratio 1.2 (1.0-2.8) Lipase 214 (23-300) U/L SARS-CoV-2 (PCR) (Negative) 06/08/21 06/08/21 Range/Units 17:34 18:54 WBC (4.5-11.0) X10^3/uL RBC (4.0-5.2) X10^6/uL Hgb (12.0-16.0) g/dL Hct (36-46) % MCV (80-100) fL MCH (26-34) PG MCHC (30-36) % RDW (11.6-14.8) % Plt Count (150-400) X10^3/uL Neut % (Auto) (50-75) % Lymph % (Auto) (25-40) % Livingston % (Auto) (3-14) % Eos % (Auto) (2-4) % Baso % (Auto) (0-2) % Neut # (Auto) (5764-2064) /uL Lymph # (Auto) (2444-4564) /uL Livingston # (Auto) (0-900) /uL Eos # (Auto) (0-450) /uL Baso # (Auto) (0-100) /uL Sodium (137-145) mmol/L Potassium (3.4-5.1) mmol/L Chloride (98-107) mmol/L Carbon Dioxide (22-32) mmol/L BUN (7-17) mg/dL Creatinine (0.52-1.04) mg/dL Estimated GFR (>60) mL/min BUN/Creatinine Ratio (6-22) Glucose (80-110) mg/dL Calcium (8.4-10.2) mg/dL Magnesium (1.6-2.3) mg/dL Total Bilirubin (0.2-1.3) mg/dL AST (14-36) IU/L ALT (<35) IU/L Alkaline Phosphatase (38-126) U/L Total Creatine Kinase (30-135) U/L CK-MB (CK-2) CK-MB (CK-2) Rel Index Troponin I 0.091 H (0.01-0.034) ng/mL NT-Pro-B Natriuret Pep (<125) pg/mL Total Protein (6.3-8.2) g/dL Albumin (3.5-5.0) g/dL Globulin (1.7-4.1) g/dL Albumin/Globulin Ratio (1.0-2.8) Lipase (23-300) U/L SARS-CoV-2 (PCR) Negative (Negative) ECG Data Interpretation: Atrial fibrillation rate [address] depression in the 3, V4 V5, new from prior EKG MDM Narrative Medical decision making narrative: Patient has had chronic ongoing intermittent hypotension or she remains asymptomatic. This is documented in her prior visit on May 25. Her blood pressure does improve somewhat with fluids. She currently is not in decompensated CHF. She does have some new ST depression with a rising troponin. She says her shortness of breath with exertion is worse over the past 2 days. She does not have chest pain. She has known multivessel disease now with near syncopal episode and rising troponin. 1845 Dr. Navarrete, cardiology at [facility] recommends giving her fluids to help her blood pressure. At this time does not seem need for emergent heart cat heterization. Patient does need to be admitted for further monitoring and evaluation. Although she is asymptomatic with her hypotension she has a rising troponin with EKG changes and known multivessel disease. At this time recommend transfer for higher level of care. [facility] has no beds no wait list, [facility] no beds, [place] [facility] no beds, [facility] has been contacted Patient is signed out to Dr. Chaney for further management. <Natalie Chaney, DO - Last Filed: 06/10/21 04:22> Lab Data Labs: Lab Results 06/08/21 06/08/21 06/08/21 Range/Units 16:26 16:26 16:26 WBC 7.3 (4.5-11.0) X10^3/uL RBC 3.17 L (4.0-5.2) X10^6/uL Hgb 8.0 L (12.0-16.0) g/dL Hct 25.7 L (36-46) % MCV 81.1 (80-100) fL MCH 25.3 L (26-34) PG MCHC 31.2 (30-36) % RDW 17.4 H (11.6-14.8) % Plt Count 303 (150-400) X10^3/uL Neut % (Auto) 73.4 (50-75) % Lymph % (Auto) 9.4 L (25-40) % Livingston % (Auto) 9.7 (3-14) % Eos % (Auto) 6.0 H (2-4) % Baso % (Auto) 1.5 (0-2) % Neut # (Auto) 5400 (4811-9900) /uL Lymph # (Auto) 700 L (2077-2347) /uL Livingston # (Auto) 700 (0-900) /uL Eos # (Auto) 400 (0-450) /uL Baso # (Auto) 100 (0-100) /uL Sodium 140 (137-145) mmol/L Potassium 3.2 L (3.4-5.1) mmol/L Chloride 107 (98-107) mmol/L Carbon Dioxide 25 (22-32) mmol/L BUN 39 H (7-17) mg/dL Creatinine 1.77 H (0.52-1.04) mg/dL Estimated GFR 28.0 L (>60) mL/min BUN/Creatinine Ratio 22.0 (6-22) Glucose 131 H (80-110) mg/dL Calcium 9.3 (8.4-10.2) mg/dL Magnesium 2.2 (1.6-2.3) mg/dL Total Bilirubin 0.3 (0.2-1.3) mg/dL AST 18 (14-36) IU/L ALT 12 (<35) IU/L Alkaline Phosphatase 90 (38-126) U/L Total Creatine Kinase 36 (30-135) U/L CK-MB (CK-2) TNP CK-MB (CK-2) Rel Index TNP Troponin I 0.072 H (0.01-0.034) ng/mL NT-Pro-B Natriuret Pep 4170 H (<125) pg/mL Total Protein 7.2 (6.3-8.2) g/dL Albumin 3.9 (3.5-5.0) g/dL Globulin 3.3 (1.7-4.1) g/dL Albumin/Globulin Ratio 1.2 (1.0-2.8) Lipase 214 (23-300) U/L SARS-CoV-2 (PCR) (Negative) 06/08/21 06/08/21 Range/Units 17:34 18:54 WBC (4.5-11.0) X10^3/uL RBC (4.0-5.2) X10^6/uL Hgb (12.0-16.0) g/dL Hct (36-46) % MCV (80-100) fL MCH (26-34) PG MCHC (30-36) % RDW (11.6-14.8) % Plt Count (150-400) X10^3/uL Neut % (Auto) (50-75) % Lymph % (Auto) (25-40) % Livingston % (Auto) (3-14) % Eos % (Auto) (2-4) % Baso % (Auto) (0-2) % Neut # (Auto) (7403-8803) /uL Lymph # (Auto) (9660-0672) /uL Livingston # (Auto) (0-900) /uL Eos # (Auto) (0-450) /uL Baso # (Auto) (0-100) /uL Sodium (137-145) mmol/L Potassium (3.4-5.1) mmol/L Chloride (98-107) mmol/L Carbon Dioxide (22-32) mmol/L BUN (7-17) mg/dL Creatinine (0.52-1.04) mg/dL Estimated GFR (>60) mL/min BUN/Creatinine Ratio (6-22) Glucose (80-110) mg/dL Calcium (8.4-10.2) mg/dL Magnesium (1.6-2.3) mg/dL Total Bilirubin (0.2-1.3) mg/dL AST (14-36) IU/L ALT (<35) IU/L Alkaline Phosphatase (38-126) U/L Total Creatine Kinase (30-135) U/L CK-MB (CK-2) CK-MB (CK-2) Rel Index Troponin I 0.091 H (0.01-0.034) ng/mL NT-Pro-B Natriuret Pep (<125) pg/mL Total Protein (6.3-8.2) g/dL Albumin (3.5-5.0) g/dL Globulin (1.7-4.1) g/dL Albumin/Globulin Ratio (1.0-2.8) Lipase (23-300) U/L SARS-CoV-2 (PCR) Negative (Negative) MDM Narrative Medical decision making narrative: Patient has had chronic ongoing intermittent hypotension or she remains asymptomatic. This is documented in her prior visit on May 25. Her blood pressure does improve somewhat with fluids. She currently is not in decompensated CHF. She does have some new ST depression with a rising troponin. She says her shortness of breath with exertion is worse over the past 2 days. She does not have chest pain. She has known multivessel disease now with near syncopal episode and rising troponin. 1845 Dr. Navarrete, cardiology at [facility] recommends giving her fluids to help her blood pressure. At this time does not seem need for emergent heart catheterization. Patient does need to be admitted for further monitoring and evaluation. Although she is asymptomatic with her hypotension she has a rising troponin with EKG changes and known multivessel disease. At this time recommend transfer for higher level of care. [facility] has no beds no wait list, [facility] no beds, [place] no beds, [facility] has been contacted Patient is signed out to Dr. Chaney for further management. Patient signed out to myself by Dr. Ray. Patient seen independently evaluated by myself. Patient's HPI was reviewed as well as her ROS. She has had a near syncopal episode recently as well as dizziness increasing shortness of breath. She denies any chest pain or pressure. She has no cardiac disease she is supposed to be catheterized on June 28 with plan for PCI of her LAD. She was evaluated for potential CABG but was felt she would be a PCI candidate by her cardiology team in [place]. Patient has had slowly worsening symptoms and states she was just tired of it came in today. She has been hypotensive which she states is typical for with a normal systolic of 100 but she states 80- 90 systolic is not atypical. She is anticoagulated for AFib, has a known history of CHF with most recent EF being 50% motor remote EF on echo of 30%. Prior cancer of the right lung with radiation changes present on prior CT last month and seen today on chest x-ray. History of COPD and uses albuterol as need ed. Patient was signed out to myself by Dr. Ray. She has a trending upwards troponin that is technically not positive as our cutoff is 0.12 but was 0.07 to in trended to 0.10019 hours with T-wave inversion in 2 3 AVF and lateral leads. Patient has prior troponins were negative. She has chronic kidney disease which appears stable hemoglobin of 8 which has decreased from 10 on her last visit. Patient's BNP is elevated at 4100 she typically runs around 2200 but has been as high as 5110. Patient states that she does not feel significantly worse in terms of dizziness with her low pressures but has had intermittent shortness of breath. She received 1.5 L of fluid after direction by Cardiology to Dr. Ray to do so. She has had some tachypnea but has not had any worsening O2 sat. Patient and Dr. Ray discussed placing central line but patient politely refused. [facility] regional hotline was contacted and there were no beds regionally except at [facility]. I spoke with our hospitalist who then had me speak with there ED provider Dr. Hughes who kindly accepts for transfer with plan to evaluate in ER and then decide on bed placement. Discharge Plan Departure Patient Disposition: General Acute Hospital Clinical Impression: CHF (congestive heart failure), Elevated troponin, Hypotension, Dyspnea Prescriptions: No Action (DME) Disabled Parking Placard Qty: 1 0RF Dose Instruction: As directed Rx Instructions: Patient qualifies for Disabled Parking Placard ipratropium-albuterol 0.5 mg-3 mg(2.5 mg base)/3 mL solution for nebulization 3 ml INHALATION Q6H PRN (Reason: shortness of breath) Qty: 180 1RF Rx Instructions: Use one vial with nebulizer up to once every six hours as needed for SOB. fluticasone propionate [Flonase Allergy Relief] 50 mcg/actuation spray,suspension 1 spray intranasal BID Qty: 16 1RF Rx Instructions: administer into each nostril albuterol sulfate 90 mcg/actuation HFA aerosol inhaler 2 puff INHALATION Q4-6H PRN (Reason: shortness of breath or wheezing) Qty: 18 3RF warfarin 3 mg tablet See Rx Instructions .ROUTE .COMPLEX Qty: 120 3RF Dose Instruction: TAKE ONE TABLET BY MOUTH ONE TIME DAILY or as directed Rx Instructions: Take 3mg Tuesday, Tuesday and 4.5mg all other days, or as directed. oxycodone 5 mg tablet 5 mg PO BID PRN (Reason: pain) Qty: 30 0RF triamcinolone acetonide 0.5 % cream See Rx Instructions .ROUTE .COMPLEX Qty: 15 0RF Dose Instruction: Apply to affected area twice daily Rx Instructions: Apply to affected area twice daily diclofenac sodium 3 % gel 1 applic topical BID Qty: 100 1RF Rx Instructions: Apply to affected area b.i.d. rosuvastatin [Crestor] 10 mg tablet 10 mg PO DAILY 0RF torsemide 20 mg tablet 20 mg PO 0RF isosorbide dinitrate 5 mg tablet 5 mg PO 0RF nitroglycerin 0.1 mg/hr patch 24 hour transdermal 0RF metoprolol succinate 25 mg tablet extended release 24 hr 25 mg PO DAILY Qty: 90 1RF acetaminophen [Tylenol] 325 mg Capsule 650 mg PO Q4H PRN (Reason: Pain, Moderate) 0RF calcium 600 mg Capsule PO 0RF aspirin 81 mg Tablet 81 mg PO DAILY 0RF cholecalciferol (vitamin D3) 10 mcg (400 unit) Tablet 10 mcg PO DAILY 0RF loratadine 10 mg Tablet 10 mg PO DAILY 0RF Referrals: Bin Vicente, [Primary Care Provider] -
[2021-06-08 16:41] LABS: Add Manual Diff / Slide Review NO; Basophils Absolute Auto 100 /uL (0-100); Basophils Percent Auto 1.5 % (0-2); Eosinophils Absolute Auto 400 /uL (0-450); Hematocrit 25.7 % (36-46); Lymphocytes Absolute Auto 700 /uL (1100-4500); Lymphocytes Percent Auto 9.4 % (25-40); Mean Corpuscular HGB Conc 31.2 % (30-36); Mean Corpuscular Hemoglobin 25.3 PG (26-34); Mean Corpuscular Volume 81.1 fL (80-100); Monocytes Absolute Auto 700 /uL (0-900); Monocytes Percent Auto 9.7 % (3-14); Neutrophils Absolute Auto 5400 /uL (1500-7000); Neutrophils Percent Auto 73.4 % (50-75); Platelet Count 303 X10^3/uL (150-400); Red Blood Cell Count 3.17 X10^6/uL (4.0-5.2); Red Cell Distribution Width 17.4 % (11.6-14.8); White Blood Cell Count 7.3 X10^3/uL (4.5-11.0)
[2021-06-08 16:55] LABS: Alanine Aminotransferase 12 IU/L (<35); Albumin 3.9 g/dL (3.5-5.0); Albumin Globulin Ratio 1.2 (1.0-2.8); Alkaline Phosphatase 90 U/L (38-126); Aspartate Aminotransferase 18 IU/L (14-36); Bilirubin Total 0.3 mg/dL (0.2-1.3); Blood Urea Nitrogen 39 mg/dL (7-17); Calcium 9.3 mg/dL (8.4-10.2); Carbon Dioxide 25 mmol/L (22-32); Chloride 107 mmol/L (98-107); Creatine Kinase 36 U/L (30-135); Globulin 3.3 g/dL (1.7-4.1); Glucose 131 mg/dL (80-110); HEMOLYSIS < 15 (0-50); Lipase 214 U/L (23-300); Magnesium 2.2 mg/dL (1.6-2.3); Potassium 3.2 mmol/L (3.4-5.1); Sodium 140 mmol/L (137-145); Total Protein 7.2 g/dL (6.3-8.2)
[2021-06-08 17:07] LABS: Troponin I 0.072 ng/mL (0.01-0.034)
[2021-06-08] MEDS: SODIUM CHLORIDE 0.9% 1,000 ML 1000 ML IV (17:40)
[2021-06-08 18:11] LABS: NT-proBNP (BNP-Adult 18+) 4170 pg/mL (<125)
[2021-06-08] MEDS: SODIUM CHLORIDE 0.9% 500 ML 1000 ML IV (19:01)
[2021-06-08 19:22] LABS: COVID19 -Nasal RAPID Negative (Negative)
[2021-06-08 19:30] LABS: Troponin I 0.091 ng/mL (0.01-0.034)
--- NOTE | 2021-06-08 20:22 | PC.NURSE ---
Pt given snack and water with ok from Dr Ray
[2021-06-08] MEDS: ALBUTEROL/IPRATROPIUM 3 ML AMPUL INH (20:55)
--- NOTE | 2021-06-08 21:37 | PC.NURSE ---
Pt reports feeling of SOB still after albuterol, lung sounds diminished throughout, noted labored breathing. Pt breathing more comfortable sitting up. Dr. Shiv richard.
[2021-06-08] MEDS: OXYCODONE IR 5 MG TABLET PO (23:07)
--- NOTE | 2021-06-08 23:12 | PC.NURSE ---
Report called to [facility] Nurse at [phone]
[2021-06-09] VITALS: PULSE 114; RESP 24; O2SAT 99
[2021-06-09 00:01] VITALS: BP 86/52; PULSE 110; RESP 23; O2SAT 97
== END 2021-06-09 00:30 | disposition short-term general hospital (02) ==
PROVIDERS: Emergency Medicine; Emergency Provider Emergency Medicine; PCP Family Medicine
DX: I11.0 Hypertensive heart disease with heart failure (principal); I50.9 Heart failure, unspecified; R79.89 Other specified abnormal findings of blood chemistry; I95.9 Hypotension, unspecified; R06.00 Dyspnea, unspecified; Z79.01 Long term (current) use of anticoagulants; Z87.891 Personal history of nicotine dependence; Z20.822 Contact with and (suspected) exposure to COVID-19
CPT/HCPCS: 36415; 71045; 80053; 82550; 83690; 83735; 83880; 84484; 85025; 87635; 93005; 93010; 94640; 96360; 96361; 99285; C9803